=== PATIENT | female | born 1950 | race Caucasian/White ===

== ENCOUNTER 2023-02-07 07:30 | Outpatient (RCR) | payer MEDICARE, OTHER, SELFPAY | END 2023-02-07 14:14 | disposition home or self-care (01) | LOC: INF 07:30 | PROVIDERS: PCP Family Medicine; Visit Provider Internal Medicine Hematology & Oncology | DX: D51.9 Vitamin B12 deficiency anemia, unspecified (principal); D50.9 Iron deficiency anemia, unspecified; D69.6 Thrombocytopenia, unspecified; K90.9 Intestinal malabsorption, unspecified; Z90.49 Acquired absence of other specified parts of digestive tract; Z98.84 Bariatric surgery status; Z87.891 Personal history of nicotine dependence | CPT/HCPCS: G0463 ==

== ENCOUNTER 2023-03-08 10:24 | Outpatient (OUT) | payer MEDICARE, OTHER, SELFPAY ==
--- OUTSIDE RECORDS SUMMARY | 2023-03-08 10:36 | XMS_ITS | CCD ---
Author Name Unknown Address [address] [place] [address] Organization [facility] Care Team Providers Care Jewelry Engraver Name Role Phone DR TEMITOPE GUTIERREZ Attending Unavailable BRENDA, DR LINN Consulting Unavailable DR TEMITOPE GUTIERREZ Admitting Unavailable Temitope Gutierrez Unavailable Bhavesh Wright Unavailable Allergies Allergy Classification Reported Allergen(s) Allergy Type Date of Onset Reaction(s) Facility (17 sources) Penicillin V Drug Allergy Unknown [facility] Other (17 sources) zoledronic acid Drug Allergy hypocalcemia [facility] [employer] Other Medications Current Medications Medication Drug Class(es) Dates Sig (Normalized) Sig (Original) [id number] 200 actuat albuterol 0.09 mg/actuat metered dose inhaler (17 sources) beta2-Adrenergic Agonist Start: 05-16-2016 Ventolin HFA 108 (90 Base) MCG/ACT 2 inhalations Inhalation q6 hrs prn Apr, Active Start: 05-16-2016 Ventolin HFA 1 08 (90 Base) MCG/ACT 2 inhalations Inhalation q4 hrs prn Apr, Active albuterol 0.833 mg/ml / ipratropium bromide 0.167 mg/ml inhalation solution (6 sources) Anticholinergic, beta2-Adrenergic Agonist Start: 05-16-2016 take 3 mL by inhalation four times daily as needed Ipratropium-Albuterol 0.5-2.5 (3) MG/3ML 3 ml Inhalation four times a day Dx: J44.9 COPD prn Apr, Active Aspir-81 81 MG (17 sources) take 1 tablet by mouth once daily Aspir-81 81 MG 1 tablet Orally Once a day Active azithromycin 250 mg oral tablet (3 sources) Macrolide Antimicrobial Start: 02-23-2021 Zithromax Z-Scar 250 MG 2 tablet on the first day, then 1 tablet daily for 4 days Orally Once a day for 5 day(s) Feb, Active Breo Ellipta 100-25 MCG/INH (5 sources) Start: 09-28-2015 take 1 puff(s) by inhalation once daily Breo Ellipta 100-25 MCG/INH 1 puff Inhalation Once a day for 30 days Sep, Active calcium acetate 668 mg oral tablet (17 sources) take 3 capsules by mouth at mealtime Calcium Acetate 668 (169 Ca) MG 3 capsules with meals Orally Active take 3 capsules by mouth at meal time Calcium Acetate 668 (169 Ca) MG 3 capsules with meals Orally Active Centrum (17 sources) take 1 tablet by mouth once daily Centrum 1 tablet Orally daily Active cetirizine hydrochloride 10 mg oral tablet (17 sources) Histamine-1 Receptor Antagonist take 1 tablet by mouth every twenty-four hours ZyrTEC Allergy 10 MG 1 tablet Orally Once a day Active clotrimazole 10 mg oral lozenge (5 sources) Azole Antifungal Start: 023 Clotrimazole 10 MG dissolve 1 chase on tongue Mouth/Throat five times a day for 7 days Feb, Active ferrous sulfate 325 mg oral tablet (17 sources) take 2 tablets by mouth every twenty-four hours Ferrous Sulfate 325MG 2 tablets Orally qd Active 30 actuat fluticasone furoate 0.1 mg/actuat / vilanterol 0.025 mg/actuat dry powder inhaler (12 sources) Corticosteroid, beta2-Adrenergic Agonist Start: 016 take 1 puff(s) by inhalation once daily Breo Ellipta 100-25 MCG/ACT 1 puff Inhalation Once a day Sep, Active 12 hr guaiFENesin 600 mg extended release oral tablet (6 sources) take 1 tablet by mouth every twelve hours Mucinex 600 MG 1 tablet as needed Orally every 12 hrs Active loratadine 10 mg oral tablet (9 sources) take 1 tablet by mouth every twenty-four hours Loratadine 10 MG 1 tablet Orally Once a day for 30 day(s) Active metroNIDAZOLE 500 mg oral tablet (3 sources) Nitroimidazole Antimicrobial Start: 022 take 1 tablet by mouth every twelve hours metroNIDAZOLE 500 MG 1 tablet Orally Twice a day for 3 days Aug, Active potassium chloride 10 meq extended release oral capsule (17 sources) take 2 capsules by mouth twice daily Potassium Chloride ER 10 MEQ TAKE TWO CAPSULES BY MOUTH TWICE DAILY 90 DAYS Active take 2 capsules by mouth twice d aily Potassium Chloride ER 10MEQ ER TAKE TWO CAPSULES BY MOUTH TWICE DAILY for 90 days Active vitamin b12 1 mg extended release oral tablet (3 sources) Vitamin B12 take 1 tablet by mouth every other week Vitamin B12 1000 MCG 1 tablet Orally every 2 weeks Active Vitamin B12 1000 MCG (9 sources) Start: 01-26-2021 Vitamin B12 1000 MCG 1 tablet Orally 3 days a week Jan, Active Vitamin D 24575 UNIT (17 sources) take 1 tablet by mouth once daily Vitamin D 52286 UNIT 1 tablet Orally Once a day (10,000iu qd) Active Vitamin D3 88275 UNIT (17 sources) take 1 tablet by mouth every week Vitamin D3 28322 UNIT 1 tablet Orally 3x week Active zinc gluconate 50 mg oral tablet (8 sources) take 1 tablet by mouth every week Zinc 50 MG 1 tablet Orally once a week Active take 1 tablet by marvin th every twenty-four hours Zinc 50 MG 1 tablet Orally Once a day Active Problems Active Problems Problem Classification Problem Date Documented Date Episodic/Chronic Calculus of urinary tract (6 sources) Kidney stone; Translations: [Calculus of kidney] Episodic Chronic obstructive pulmonary disease and bronchiectasis (20 sources) Asthma-chronic obstructive pulmonary disease overlap syndrome; Translations: [Chronic obstructive pulmonary disease, unspecified] Onset: 03-23-2021 Resolved: 09-21-2021 Chronic Coagulation and hemorrhagic disorders (7 sources) Thrombocytopenic disorder; Translations: [Thrombocytopenia, unspecified] Chronic Deficiency and other anemia (1 source) Iron deficiency anemia, unspecified Episodic Diseases of white blood cells (6 sources) Decreased blood leukocyte number; Translations: [Decreased white blood cell count, unspecified] Chronic Disorders of lipid metabolism (7 sources) Dyslipidemia; Translations: [Hyperlipidemia, unspecified] Chronic Fever of unknown origin (3 sources) Fever, unspecified; Translations: [FEVER UNSPECIFIED] Onset: 02-23-2021 Resolved: 02-23-2021 Episodic Fluid and electrolyte disorders (2 sources) Hypokalemia Onset: 04-12-2021 Resolved: 04-12-2021 Episodic Lymphadenitis (1 source) Localized enlarged lymph nodes Episodic Nutritional deficiencies (7 sources) Vitamin D deficiency; Translations: [Vitamin D deficiency, unspecified] Chronic Nutritional deficiencies (1 source) Deficiency of other specified B group vitamins Episodic Other aftercare (1 source) Other alf (current) drug therapy Episodic Other endocrine disorders (6 sources) Secondary hyperparathyroidism; Translations: [Secondary hyperparathyroidism, not elsewhere classified] Chronic Other endocrine disorders (1 source) Secondary hyperparathyroidism, not elsewhere classified Chronic Other injuries and conditions due to external causes (1 source) Other specified injuries of thorax, subsequent encounter Episodic Other nutritional; endocrine; and metabolic disorders (6 sources) Hypocalcemia; Translations: [Hypocalcemia] Chronic Other nutritional; endocrine; and metabolic disorders (1 source) Hypocalcemia Chronic Other nutritional; endocrine; and metabolic disorders (1 source) Abnormal weight loss Episodic Other screening for suspected conditions (not mental disorders or infectious disease) (1 source) Encounter for screening mammogram for malignant neoplasm of breast Episodic Other upper respiratory disease (6 sources) Allergic rhinitis; Translations: [Allergic rhinitis, unspecified] Chronic Other upper respiratory disease (2 sources) Other specified disorders of nose and nasal sinuses; Translations: [OTH SPEC D/O NOSE NASAL SINUSES] Onset: 02-23-2021 Resolved: 02-23-2021 Episodic Other upper respiratory infections (2 sources) Acute pharyngitis, unspecified; Translations: [ACUTE PHARYNGITIS UNSPECIFIED] Onset: 02-23-2021 Resolved: 02-23-2021 Episodic Residual codes; unclassified (6 sources) H/O: GIT by-pass; Translations: [Other specified postprocedural states] Episodic Residual codes; unclassified (1 source) Other specified postprocedural states Episodic Unclassified (2 sources) CONTACT W/AND (SUSP) EXPOS COVID-19; Translations: [CONTACT W/AND (SUSP) EXPOS COVID-19] Onset: 03-01-2021 Viral infection (1 source) COVID-19; Translations: [COVID-19] Onset: 03-01-2021 Past or Other Problems Problem Classification Problem Date Documented Da te Episodic/Chronic Unclassified (1 source) CONTACT W/AND (SUSP) EXPOS COVID-19; Translations: [CONTACT W/AND (SUSP) EXPOS COVID-19] Onset: 02-24-2021 Results Test Name Value Interpretation Reference Range Facil ity Covid-19 PCR (CVDTB)on SARS-CoV-2 (COVID-19) RNA JANKI+probe Ql (Unsp spec) Detected Critically abnormal NOT DETECTED [facility] Comment on above: Result Comment: This test is not yet noah roved or cleared by the [place] FDA. When there are no FDA-approved or cleared tests available, and other criteria are met, FDA can make tests available under an emergency access mechanism called an Emergency Use Authorization (EUA). The EUA for this test is supported by the Order Checker Packer Processer of Health and Human Service's (HHS's) declaration that circumstances exist to justify the emergency use of in vitro diagnostics for the detection and/or diagnosis of the virus that causes COVID-19. This EUA will remain in effect (meaning this test can be used) for the duration of the COVID-19 declaration justifying emergency of IVDs, unless it is terminated or revoked by FDA (after which the test may no longer be used). Performed By: #### [facility] #### [facility] [address] [place] [address] Dr. Malu June Vital Signs Date Time Vital Sign Value Performing Clinician Facility 01-31-2023 09:10-0500 Body height 157.48 cm Temitope Gutierrez Other [facility] Other 01-31-2023 09:10-0500 Body mass index (BMI) [Ratio] 25.69 kg/m2 Temitope Gutierrez Other [facility] Other 01-31-2023 09:10-0500 Body temperature 98.4 [degF] Temitope Gutierrez Other [facility] Other 01-31-2023 09:10-0500 Body weight 63.73 kg Temitope Gutierrez Other [facility] Other 01-31-2023 09:10-0500 Diastolic blood pressure 62 mm[Hg] Temitope Gutierrez Other [facility] Other 01-31-2023 09:10-0500 Respiratory rate 18 /min Temitope Gutierrez Other [facility] Other 01-31-2023 09:10-0500 SaO2% (BldA) [Mass fraction] 99 % Temitope Gutierrez Other [facility] Other 01-31-2023 09:10-0500 Systolic blood pressure 118 mm[Hg] Temitope Gutierrez Other [facility] Other 10-05-2022 11:15-0400 Body height 157.48 cm Bhavesh Gascaoz Other [facility] Other 10-05-2022 11:15-0400 Body mass index (BMI) [Ratio] 26.52 kg/m2 Bhavesh Gascaoz Other [facility] Other 10-05-2022 11:15-0400 Body temperature 97 [degF] Bhavesh Gascaoz Other [facility] Other 10-05-2022 11:15-0400 Body weight 65.77 kg Bhavesh Gascaoz Other [facility] Other 10-05-2022 11:15-0400 Diastolic blood pressure 72 mm[Hg] Bhavesh Kyle Other [facility] Other 10-05-2022 11:15-0400 Respiratory rate 20 /min Bhavesh Gascaoz Other [facility] Other 10-05-2022 11:15-0400 SaO2% (BldA) [Mass fraction] 100 % Desmondnicole Wright Other [facility] Other 10-05-2022 11:15-0400 Systolic blood pressure 134 mm[Hg] Bhavesh Gascaban Other [facility] Other 04-06-2022 12:15-0500 Body height 157.48 cm Bhavesh Gascaban Other [facility] Other 04-06-2022 12:15-0500 Body mass index (BMI) [Ratio] 2.74 kg/m2 Bhavesh Gascaban Other [facility] Other 04-06-2022 12:15-0500 Body temperature 97.1 [degF] Bhavesh Gascaban Other [facility] Other 04-06-2022 12:15-0500 Body weight 6.8 kg Bhavesh Gascaban Other [facility] Other 04-06-2022 12:15-0500 Diastolic blood pressure 70 mm[Hg] Bhavesh Gascaban Other [facility] Other 04-06-2022 12:15-0500 Respiratory rate 20 /min Bhavesh Gascaban Other [facility] Other 04-06-2022 12:15-0500 SaO2% (BldA) [Mass fraction] 99 % Bhavesh Gascaban Other [facility] Other 04-06-2022 12:15-0500 Systolic blood pressure 140 mm[Hg] Bhavesh Chaban Other [facility] Other 09-21-2021 12:45-0400 Body height 157.48 cm Bhavesh Gascaban Other [facility] Other 09-21-2021 12:45-0400 Body mass index (BMI) [Ratio] 28.71 kg/m2 Bhavesh Gascaban Other [facility] Other 09-21-2021 12:45-0400 Body temperature 97.6 [degF] Bhavesh Gascaban Other [facility] Other 09-21-2021 12:45-0400 Body weight 71.22 kg Bhavesh Gascaban Other [facility] Other 09-21-2021 12:45-0400 Diastolic blood pressure 66 mm[Hg] Bhavesh Gascaban Other [facility] Other 09-21-2021 12:45-0400 Respiratory rate 20 /min Bhavesh Gascaban Other [facility] Other 09-21-2021 12:45-0400 SaO2% (BldA) [Mass fraction] 99 % Bhavesh Gascaban Other [facility] Other 09-21-2021 12:45-0400 Systolic blood pressure 120 mm[Hg] Bhavesh Gascaban Other [facility] Other 03-23-2021 12:45-0500 Body height 157.48 cm Bhavesh Gascaban Other [facility] Other 03-23-2021 12:45-0500 Body mass index (BMI) [Ratio] 29.88 kg/m2 Bhavesh Gascaban Other [facility] Other 03-23-2021 12:45-0500 Body temperature 98 [degF] Bhavesh Gascaban Other [facility] Other 03-23-2021 12:45-0500 Body weight 74.12 kg Bhavesh Wright Other [facility] Other 03-23-2021 12:45-0500 Diastolic blood pressure 68 mm[Hg] Bhavesh Gascaban Other [facility] Other 03-23-2021 12:45-0500 Respiratory rate 20 /min Bhavesh Wright Other [facility] Other 03-23-2021 12:45-0500 SaO2% (BldA) [Mass fraction] 100 % Bhavesh Wright Other [facility] Other 03-23-2021 12:45-0500 Systolic blood pressure 140 mm[Hg] Bhavesh Wright Other [facility] Other 02-23-2021 11:10-0500 Body height 157.48 cm Temitope Gutierrez Other [facility] Other Encounters Encounter Date Encounter Type Care Provider Facility Start: 02-23-2023 End: 02-23-2023 ambulatory Temitope Gutierrez Other [facility] Other Start: 02-23-2023 Telephone encounter Temitope Gutierrez [facility] Start: 02-01-2023 End: 02-01-2023 ambulatory Temitope Gutierrez Other [facility] Other Start: 02-01-2023 Telephone encounter Temitope Gutierrez [facility] Start: 01-31-2023 End: 01-31-2023 ambulatory Temitope Gutierrez Other [facility] Other Start: 01-31-2023 Office outpatient vi sit 25 minutes Temitope Gutierrez [facility] Start: 10-05-2022 End: 10-05-2022 ambulatory Kamal Chaban Other [facility] Other Start: 10-05-2022 Office outpatient vi sit 15 minutes Kamal Chaban [facility] Start: 08-08-2022 End: 08-08-2022 ambulatory Kamal Chaban Other [facility] Other Start: 08-08-2022 Telephone encounter Kamal Chaban [facility] Start: 06-20-2022 End: 06-20-2022 ambulatory Temitope Gutierrez Other [facility] Other Start: 06-20-2022 Telephone encounter Temitope Gutierrez [facility] Start: 04-06-2022 End: 04-06-2022 ambulatory Kamal Chaban Other [facility] Other Start: 04-06-2022 Office outpatient vi sit 15 minutes Kamal Chaban [facility] Start: 03-10-2022 End: 03-10-2022 ambulatory Temitope Gutierrez Other [facility] Other Start: 03-10-2022 Telephone encounter Temitope Gutierrez [facility] Start: 01-12-2022 End: 01-12-2022 ambulatory Temitope Gutierrez Other [facility] Start: 01-12-2022 Telephone encounter Temitope Gutierrez [facility] Start: 12-02-2021 End: 12-02-2021 ambulatory Kamal Chaban Other [facility] Start: 12-02-2021 Telephone encounter Kamal Chaban [facility] Start: 09-21-2021 End: 09-21-2021 ambulatory Kamal Chaban Other [facility] Start: 09-21-2021 Office outpatient vi sit 15 minutes Kamal Chaban [facility] Start: 09-14-2021 End: 09-14-2021 ambulatory Temitope Gutierrez Other [facility] Start: 09-14-2021 Telephone encounter Temitope Gutierrez [facility] Start: 04-12-2021 End: 04-12-2021 ambulatory Temitope Gutierrez Other [facility] Start: 04-12-2021 Telephone encounter Temitope Gutierrez [facility] Start: 03-23-2021 End: 03-23-2021 ambulatory Kamnicole Gascaoz Other [facility] Start: 03-23-2021 Office outpatient vi sit 15 minutes Kamal Chaban [facility] Start: 03-23-2021 Telephone encounter Kamnicole Chaban [facility] Start: 02-25-2021 End: 02-25-2021 ambulatory Temitope Gutierrez Other [facility] Start: 02-25-2021 Telephone encounter Temitope Gutierrez [facility] Start: 02-24-2021 End: 02-24-[address] TEMITOPE GUTIERREZ Facility: Start: 02-23-2021 End: 02-23-2021 ambulatory Temitope Gutierrez Other [facility] Start: 02-23-2021 Telephone encounter Temitope Gutierrez [facility] Immunizations Immunization Date Immunization Notes Care Provider Fa nilam 12-08-2022 Flu Shot - Documentation Purposes Only Temitope Gutierrez Other [facility] Other 12-08-2022 COVID-19 Moderna (SPIKEVAX) Temitope Gutierrez Other [facility] Other 10-06-2022 Prevnar 20 Temitope Gutierrez Other [facility] Other 11-25-2021 influenza, seasonal, injectable Kamal Chaban Other [facility] 09-10-2021 tetanus toxoid, redu cleo diphtheria toxoid, and acellular pertussis vaccine, adsorbed Kamal Chaban Other [facility] Other 06-09-2021 COVID-19 Vaccine Moderna - Documentation Purposes Only Kamal Chaban Other [facility] Other 12-16-2020 COVID-19 Vaccine Moderna - Documentation Purposes Only Temitope Gutierrez Other [facility] Other 11-10-2020 influenza, seasonal, injectable Temitope Gutierrez Other [facility] Other 05-18-2020 COVID-19 Vaccine Moderna - Documentation Purposes Only Temitope Gutierrez Other [facility] Other 04-17-2020 COVID-19 Vaccine Moderna - Documentation Purposes Only Temitope Gutierrez Other [facility] Other 03-14-2020 zoster vaccine recombinant Temitope Gutierrez Other [facility] Other 01-14-2020 zoster vaccine recombinant Temitope Gutierrez Other [facility] Other 10-29-2019 influenza, seasonal, injectable Temitope Gutierrez Other [facility] Other 12-13-2018 influenza, seasonal, injectable Temitope Gutierrez Other [facility] Other 09-02-2017 pneumococcal polysaccharide vaccine, 23 valent Temitope Gutierrez Other [facility] Other 11-16-2016 influenza, seasonal, injectable Temitope Gutierrez Other [facility] Other Payers Date Payer Category Payer Medicare [id number] 1958 Unknown [id number] 1950 Unknown [id number] Social History Date Type Detail Facility Sex Assigned At [facility] Other Clinical Notes 02-23-2021 to 02-23-2023 Note Date & Type Note Facility 02-23-2023 Evaluation note Encounter Date Diagnosis Assessment Notes Feb, Breast cancer screening (ICD-10 - Z12.31) [facility] Other 12-12-2023 Evaluation note* Encounter Date Diagnosis Assessment Notes Treatment Notes Treatment Clinical Notes Jan, Iron deficiency anem ia (ICD-10 - D50.9) Her HGB is 10.9. Iron is 80. Ferritin is 112. She is to continue with above medication daily. Jan, Hypocalcemia (ICD-10 - E83.51) Her calcium level is low at 8.3. She has been taking 3 tablets per day and voices that she can increase to 4 per day. I did explain to her that before she adds anymore vitamins we should evaluate her ionized calcium first. I would like to order lab work first and she is to call for results. Based on her results we will determine if she needds to increase her vitamins. Jan, Thrombocytopenia (IC D-10 - D69.6) Her platelet count is 100. At this time based on all of her lab results I did recommend that she see Dr. Jarrett for evaluation and she agrees. It could be due to absorption issues. Jan, B12 deficiency (ICD- 10 - E53.8) She voices that she had not taken any B12 for at least two weeks prior to the Monday before she got her lab drawn. Her B12 level was 1431. Folate is 18.0. Jan, Cervical lymphadenop athy (ICD-10 - R59.0) She voices that she has swollen glands right now and feels that these are caused by her bad teeth. She does not have dental insurance right now. She had one tooth that does cause her pain from time to time. She is waiting to greene in a CD before she can get her teeth fixed. I would like her to have the poultry husbandry worker evaluate her neck when seen. On exam today I did feel that both sides are almost equal and I did advise her that I do feel this is reacting to what is going on with her teeth. She is allergic to PCN so for now she will continue to monitor. If she feels that one side is getting larger she is to let me know and we will order a CT scan. She should only check this once a week. Jan, Chronic obstructive pulmonary disease (ICD-10 - J44.9) She voices that she saw Dr. Wright in September (2022). She rarely needs the Ventolin but in the winter months she does find that she needs it more. Dr. Wright has left so she would like to switch to Dr. Honeycutt in the [place] office. A referral is provided. Jan, Vitamin D deficiency (ICD-10 - E55.9) Continue with above medications daily as directed. Jan, Hyperparathyroidism , secondary, non-renal (ICD-10 - E21.1) She saw Dr. Garcia in July (2022) and will continue to follow with him once a year. Jan, Weight loss (ICD-10 - R63.4) She has lost 4.5 pounds since last seen. Jan, penitentiary use of jenaro g (ICD-10 - Z79.899) Jan, Hypokalemia (ICD-10 - E87.6) For now continue with above medication daily as directed. Jan, Dyslipidemia (ICD-10 - E78.5) Discussed cholesterol results with patient today. Total is 93. HDL is 38. LDL is 45. Triglycerides are 52. Continue to monitor intake of carbs and sugars. Stay active as tolerated. Jan, H/O gastric bypass (ICD-10 - Z98.89) She is taking the Zinc about once a week. She also takes a combination vitamin of Vitamin A and Vitamin D3 300 MG tablet once a day. Jan, Other She saw Dr. Ham three weeks ago and he will see her again in six months, she voices that everything was good. I will wait and see what Dr. Jarrett orders for her before giving her the order to be done in 1 year [facility] Other 08-16-2023 Evaluation note* Encounter Date Diagnosis Assessment Notes Treatment Notes Treatment Clinical Notes Sep, Asthma with COPD (ICD-10 - J44.9) Patient has evidence of asthma with COPD given a reversible component of moderate to severe obstructive pattern noted on previous PFTs, she seems to be well controlled with current maintenance treatment with rare need for rescue inhaler or nebulized treatments, she was encouraged to continue same, report changes or problems to me, otherwise we will continue to follow Sep, Blunt trauma to chest, subsequent encounter (ICD-10 - S29.8XXD) [facility] Other 02-15-2023 Evaluation note* Encounter Date Diagnosis Assessment Notes Treatment Notes Treatment Clinical Notes Mar, Asthma with COPD (ICD-10 - J44.9) Patient has evidence of asthma with COPD given a reversible component of moderate to severe obstructive pattern noted on previous PFTs, she seems to be well controlled with current maintenance treatment with rare need for rescue inhaler or nebulized treatments, she was encouraged to continue same, report changes or problems to me, otherwise we will continue to follow [facility] Other 01-19-2023 Evaluation note* Encounter Date Diagnosis Assessment Notes Treatment Notes Treatment Clinical Notes Feb, Fever (ICD-10 - R50.9) [facility] Other 10-13-2022 Evaluation note* Encounter Date Diagnosis Assessment Notes Treatment Notes Treatment Clinical Notes Nov, Chronic obstructive pulmonary disease (ICD-10 - J44.9) [facility] Other 08-02-2022 Evaluation note* Encounter Date Diagnosis Assessment Notes Treatment Notes Treatment Clinical Notes Sep, Chronic obstructive pulmonary disease (ICD-10 - J44.9) Patient remains adequately controlled with current treatment, states that she has 1 more refill left on her inhalers and will call when she needs more ordered. [facility] Other 02-21-2022 Evaluation note* Encounter Date Diagnosis Assessment Notes Treatment Notes Treatment Clinical Notes Mar, Hypokalemia (ICD-10 - E87.6) [facility] Other 02-01-2022 Evaluation note* Encounter Date Diagnosis Assessment Notes Treatment Notes Treatment Clinical Notes Mar, Chronic obstructive pulmonary disease (ICD-10 - J44.9) [facility] Other 01-04-2022 Evaluation note* Encounter Date Diagnosis Assessment Notes Treatment Notes Treatment Clinical Notes Feb, Fever (ICD-10 - R50.9) She voices that she does go out more often then her for groceries etc but is careful. She had been around a neighbor who was around her grandchildren who tested positive for COVID-19 in January. I did explain to her that the new variant is highly contagious. She has a low grade temp of 99 today. I did discuss her symptoms with her today and recommended that she take a Z scar and explained that if she is fighting something viral this will decrease inflammation and calm things down in the airways. AIso recommend that she be tested for COVID-19 at the [facility] on Mon02/24/21. She should have the results prior to the weekend. Feb, Rhinorrhea (ICD-10 - J34.89) Feb, Pharyngitis (ICD-10 - J02.9) Feb, Other 10:26 AM - 10:38 AM [facility] Other Evaluation noteNo InformationNort Weft Other History general Narrative - Reported* Type Description Date Medical History hypokalemia Medical History hypocalcemia Medical History vit d dif Medical History hyperparathyroidism, secondary Medical History osteoporosis Medical History Fractured [facility] Medical History Colonoscopy 12-31-08- Normal Medical History Pap 05-31-12 Medical History Mammogram 06-06-12 Medical History Hx of bariatric surg shay (10 year ago/2003) weighed 323 when surgery occured Medical History COPD Surgical History wt loss surgery 2002 Surgical History tubal ligation 1976 Surgical History ganglion cyst 1989 Surgical History cholecystectomy 2002 Surgical History hernia repair 2004 Surgical History FX RIbs [address] 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 Surgical History cortisone inj rt shoulder - [facility] [place] 01/19/16 Surgical History left knee xr [facility] 01/17/17 Surgical History rt cheek ct [facility] 01/17/[address] kidney stones [address] Ham Hospitalization History hyperkalemia 2009 Hospitalization History UC for URI 12/12/19 15 Hospitalization History [facility] COPD - ED 04/29/15 [facility] Other History general Narrative - Reported* Type Description Date Medical History hypokalemia Medical History hypocalcemia Medical History vit d dif Medical History hyperparathyroidism, secondary Medical History osteoporosis Medical History Fractured [facility] [employer] Medical History Colonoscopy 12-31-08- Normal Medical History Pap 05-31-12 Medical History Mammogram 06-06-12 Medical History Hx of bariatric surg shay (10 year ago/2003) weighed 323 when surgery occured Medical History COPD Medical History Wears b/l hearing aids 2022 Surgical History wt loss surgery 2002 Surgical History tubal ligation 1976 Surgical History ganglion cyst 1989 Surgical History cholecystectomy 2002 Surgical History hernia repair 2004 Surgical History FX RIbs [address] 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 Surgical History cortisone inj rt shoulder - Hud [place] 01/19/16 Surgical History left knee xr [facility] 01/17/17 Surgical History rt cheek ct [facility] 01/17/[address] kidney stones Dr Ham Hospitalization History hyperkalemia 2009 Hospitalization History UC for URI 12/12/19 15 Hospitalization History [facility] COPD - ED 04/29/15 [facility] Other Reason for visit Narrativeyearly visit/ review lab, discuss multiple issues, see treatment plan for further informationNort Weft Other Summary Purpose Family History No Family History Records Found Advance Directives No Advanced Directives Records Found Reason for Referral Reason appt pt needs cons ult for COPD Diagnosis 1 Chronic obstructive pulmonary disease (J44.9) Referral Organization [facility] Family Breann Lorenzo Referring Provider First Name Temitope Referring Provider Last Name Brenda Referring Provider Specialty Family Prac bi Referred Organization [facility] Referred Provider Sara Honeycutt Referred Address ,[place], [place],[address] Referred Provider Specialty Pulmonary Di seases Referral Priority Routine General Notes Lara Hampton 01/31/2023 10:27:34 AM > referral faxed thru [facility] with visit note, July visit note from Dr Wright, CT chest report from July and insurance cards. pt understands she will be contacted to schedule this appt. Reason appt pt needs cons ult w/ Dr. Jarrett to discuss thrombocytopenia, iron deficiency anemia, Diagnosis 1 Thrombocytopenia (D6 9.6) Referral Organization [facility] Referring Provider First Name Temitope Referring Provider Last Name [facility] Referring Provider Specialty [facility] bi Referred Organization [facility] Referred Provider GREGORY JARRETT Referred Address [address], [place],[address] Referred Provider Specialty Hematology/O ncology Referral Priority Routine General Notes Lara Hampton 01/31/2023 10:25:37 AM > referral faxed to [phone] with visit note, lab results and insurance cards. pt understands she will be contacted to schedule this appt. Additional Source Comments INFORMATION SOURCE (unrecogn ized section and content) DATE CREATED AUTHOR 03/01/2021 [facility] REASON FOR VISIT (unrecogniz ed section and content) clinicalrunny nose/sore thro at/low grade tempNo Information6 mo f/u COPDrefillClinical Acute Illness6 mo f/u COPDRefills- BreoFYIClinical Acute Medicine6 mo f/u COPDrefillCT results6 mo f/u Asthma w COPDClinicalmammo order FOR RECORDS PERTAINING TO PATIENTS WHO ARE OR HAVE BEEN ENROLLED IN A CHEMICAL DEPENDENCY/SUBSTANCEABUSE PROGRAM, SOME INFORMATION MAY BE OMITTED. This clinical summary was aggregated from multiple sources. Caution should be exercised in using it in the provision of clinical care. This summary normalizes information from multiple sources, and as a consequence, information in this document may materially change the coding, format and clinical context of patient data. In addition, data may be omitted in some cases. CLINICAL DECISIONS SHOULD BE BASED ON THE PRIMARY CLINICAL RECORDS. [employer] provides no warranty or guarantee of the accuracy or completeness of information in this document.
--- NOTE | 2023-03-08 10:53 | US_ITS ---
The [address] [address] Patient Name: MANOJ HU MRN: [id number] date: 1950 Sex: F Assigned Patient Location: US Current Patient Location: US Accession/Order Number: [id number] Exam Date: 03/08/2023 11:05 Report Date: 03/08/2023 12:03 At the request of: GREGORY TOVAR Procedure: US abdomen limited EXAMINATION: US abdomen limited HISTORY: thrombocytopenia COMPARISON: No relevant comparison available. FINDINGS: The spleen is normal in size, contour and echotexture measuring 7.8 x 3.8 x 7.6 cm a volume of 116 mL. No focal intrasplenic mass. Identified at the splenic hilum is a 1.9 x 1.2 x 1.6 cm area of similar-appearing echotexture, likely accessory spleen or splenule US/US abdomen limited IMPRESSION: Normal splenic size with no focal mass Electronically authenticated by: TEMITOPE GUO Date: 03/08/2023 12:03
--- NOTE | 2023-03-08 10:53 | US_ITS ---
The [address] [address] Patient Name: MANOJ HU MRN: [id number] date: 1950 Sex: F Assigned Patient Location: US Current Patient Location: US Accession/Order Number: [id number] Exam Date: 03/08/2023 11:05 Report Date: 03/08/2023 12:02 At the request of: GREGORY TOVAR Procedure: US right upper quadrant EXAM: US right upper quadrant HISTORY: thrombocytopenia COMPARISON: None. TECHNIQUE: Grayscale, color and Doppler FINDINGS: The liver is normal in size, contour and echotexture measuring 17.6 cm in length. No focal hepatic mass. Hepatopedal flow in the main portal vein with velocity of 35 cm/s. The visualized pancreatic body is normal. The gallbladder is not visualized consistent with prior cholecystectomy. Negative sonographic Hamlin sign. The common bile duct measures 2.5 mm. The right kidney is normal in size measuring 9.8 x 4.6 x 5.5 cm. No hydronephrosis or solid cortical mass. Echogenic foci measuring up to 8 mm, nonobstructing nephrolithiasis No ascites US/US right upper quadrant IMPRESSION: Nonobstructing right nephrolithiasis Electronically authenticated by: TEMITOPE GUO Date: 03/08/2023 12:02
[2023-03-08 11:19] LABS: Basophils Absolute Auto 0.1 10^3/uL (0.0-0.1); Basophils Percent Auto 1.7 % (0.2-2.0); Eosinophils Absolute Auto 0.3 10^3/uL (0.0-0.7); Eosinophils Percent Auto 7.5 % (0.9-7.0); Hematocrit 35.1 % (36.0-48.0); Hemoglobin 10.9 g/dL (12.0-16.0); Immature Granulocytes Abs Auto 0.01 10^3/uL (0.00-0.03); Immature Granulocytes Pct Auto 0.3 % (0.0-0.5); Lymphocytes Absolute Auto 1.2 10^3/uL (1.2-3.8); Lymphocytes Percent Auto 33.9 % (20.5-60.0); Mean Corpuscular HGB Conc 31.1 g/dL (29.9-35.2); Mean Corpuscular Hemoglobin 28.9 pg (26.7-34.0); Mean Corpuscular Volume 93.1 fL (81.0-99.0); Mean Platelet Volume 14.5 fL (9.5-13.5); Monocytes Absolute Auto 0.3 10^3/uL (0.3-0.8); Monocytes Percent Auto 8.4 % (1.7-12.0); Neutrophils Absolute Auto 1.7 10^3/uL (1.4-6.5); Neutrophils Percent Auto 48.2 % (43.0-75.0); Platelet Count 119 10^3/uL (150-450); Red Blood Count 3.77 10^6/uL (4.20-5.40); Red Cell Distribution Width 13.3 % (11.0-15.0); White Blood Count 3.5 10^3/uL (4.0-11.0)
[2023-03-08 11:58] LABS: Lactate Dehydrogenase 185 U/L (81-234)
[2023-03-09 06:10] LABS: Haptoglobin 132 mg/dL (42-346)
[2023-03-09 11:08] LABS: ANA Direct Negative (Negative)
[2023-03-09 15:11] LABS: Albumin 3.7 g/dL (2.9-4.4); Alpha-1-Globulin 0.2 g/dL (0.0-0.4); Alpha-2-Globulin 0.7 g/dL (0.4-1.0); Free Kappa Lt Chains,S 35.5 mg/L (3.3-19.4); Free Lambda Lt Chains,S 18.8 mg/L (5.7-26.3); Gamma Globulin 0.9 g/dL (0.4-1.8); Immunoglobulin A, Qn, Serum 131 mg/dL (64-422); Immunoglobulin G, Qn, Serum 897 mg/dL (586-1602); Immunoglobulin M, Qn, Serum 96 mg/dL (26-217); Kappa/Lambda Ratio,S 1.89 (0.26-1.65); Protein, Total 6.2 g/dL (6.0-8.5)
[2023-04-10 14:46] LABS: Reticulocyte Count 1.59 % (0.60-3.10)
== END 2023-03-08 10:25 | disposition home or self-care (01) ==
LOC: US 10:26
PROVIDERS: PCP Family Medicine; Visit Provider Internal Medicine Hematology & Oncology
DX: D51.9 Vitamin B12 deficiency anemia, unspecified (principal); D50.9 Iron deficiency anemia, unspecified; D69.6 Thrombocytopenia, unspecified; K90.9 Intestinal malabsorption, unspecified; N20.0 Calculus of kidney
CPT/HCPCS: 36415; 76705; 82784; 83010; 83521; 83615; 84155; 84165; 85025; 85045; 86038; 86334

== ENCOUNTER 2023-03-14 07:27 | Outpatient (RCR) | payer MEDICARE, OTHER, SELFPAY | END 2023-03-22 23:59 | disposition home or self-care (01) | LOC: INF 07:27 | PROVIDERS: PCP Family Medicine; Visit Provider Internal Medicine Hematology & Oncology | DX: D51.9 Vitamin B12 deficiency anemia, unspecified (principal); D50.9 Iron deficiency anemia, unspecified; D69.6 Thrombocytopenia, unspecified; K90.9 Intestinal malabsorption, unspecified; M81.0 Age-related osteoporosis without current pathological fracture; E21.3 Hyperparathyroidism, unspecified | CPT/HCPCS: G0463 ==

== ENCOUNTER 2023-04-25 08:38 | Outpatient (OUT) | payer MEDICARE, OTHER, SELFPAY ==
--- OUTSIDE RECORDS SUMMARY | 2023-04-25 08:48 | XMS_ITS | CCD ---
Author Name Unknown Address [address] [address] [place] [address] Organization [facility] Care Team Providers Care Medication Assistant Name Role Phone DR TEMITOPE GUTIERREZ Attending Unavailable BRENDA, DR LINN Consulting Unavailable BRENDA, DR LINN Admitting Unavailable Temitope Gutierrez Unavailable Bhavesh Wright Unavailable DO Temitope Gutierrez Primary Care Provider [phone] MD Gregory Jarrett Attending Provider [phone] TEMITOPE GUTIERREZ Referring Unavailable TEMITOPE GUTIERREZ Primary Care Unavailable Temitope Gutierrez Primary Care Unavailable Gregory Jarrett Attending Unavailable Gregory Jarertt Admitting Unavailable Allergies Allergy Classification Reported Allergen(s) Allergy Type Date of Onset Reaction(s) Facility (18 sources) Penicillin V Drug Allergy Unknown [facility] Other (18 sources) zoledronic acid Drug Allergy hypocalcemia [facility] Other (1 source) Penicillins; Translations: [PENICILLINS] Propensity to adverse reactions to drug (disorder) 7 [facility] Repository (1 source) HORSE DANDER; Translations: [HORSE DANDER] Propensity to adverse reactions to drug (disorder) 2 [facility] Repository (1 source) ZOLEDRONIC BXGG-RPCDHYCV-F ATER; Translations: [ZOLEDRONIC KURQ-IZENPXAC-U ATER] Propensity to adverse reactions to drug (disorder) 8 [facility] Repository (1 source) Mannitol Drug Allergy 3 [facility] Repository (1 source) Penicillin Drug Allergy 3 [facility] Repository (1 source) zoledronic acid Drug Allergy 3 [facility] Repository (1 source) water for injection,steri le Drug allergy (disorder) 3 [facility] Repository Medications Current Medications Medication Drug Class(es) Dates Sig (Normalized) Sig (Original) [id number] 200 actuat albuterol 0.09 mg/actuat metered dose inhaler (18 sources) beta2-Adrenergic Agonist Start: 05-16-2016 Ventolin HFA [...] COPD prn Apr, Active Aspir-81 81 MG (18 sources) take 1 tablet by mouth once daily Aspir-81 81 MG 1 tablet Orally Once a day Active azithromycin 250 mg oral tablet (4 sources) Macrolide Antimicrobial Start: 02-23-2021 Zithromax Z-Scar 250 MG 2 tablets on day 1 Orally then take 1 tablet daily on days 2-5 for 5 days Feb, Active Breo Ellipta 100-25 MCG/INH (5 sources) Start: 09-28-2015 take 1 puff(s) by inhalation once daily Breo Ellipta 100-25 MCG/INH 1 puff Inhalation Once a day for 30 days Sep, Active calcium acetate 668 mg oral tablet (18 sources) take 3 capsules by mouth at mealtime Calcium Acetate 668 (169 Ca) MG 3 capsules with meals Orally Active take 3 capsules by mouth at meal time Calcium Acetate 668 (169 Ca) MG 3 capsules with meals Orally Active Centrum (18 sources) take 1 tablet by mouth once daily Centrum 1 tablet Orally daily Active cetirizine hydrochloride 10 mg oral tablet (18 sources) Histamine-1 Receptor Antagonist take 1 tablet by mouth every twenty-four hours ZyrTEC Allergy 10 MG 1 tablet Orally Once a day Active clotrimazole 10 mg oral lozenge (5 sources) Azole Antifungal Start: 023 Clotrimazole 10 MG dissolve 1 chase on tongue Mouth/Throat five times a day for 7 days Feb, Active ferrous sulfate 325 mg oral tablet (18 sources) take 2 tablets by mouth every twenty-four hours Ferrous Sulfate 325MG 2 tablets Orally qd Active 30 actuat fluticasone furoate 0.1 mg/actuat / vilanterol 0.025 mg/actuat dry powder inhaler (13 sources) Corticosteroid, beta2-Adrenergic Agonist Start: 016 take [...] chloride 10 meq extended release oral capsule (18 sources) take 2 capsules by mouth twice daily Potassium Chloride ER 10 MEQ TAKE TWO CAPSULES BY MOUTH TWICE DAILY 90 DAYS Active take 2 capsules by mouth twice d aily Potassium Chloride ER 10MEQ ER TAKE TWO CAPSULES BY MOUTH TWICE DAILY for 90 days Active vitamin b12 1 mg extended release oral tablet (4 sources) Vitamin B12 take 1 tablet by mouth every other week Vitamin B12 1000 MCG 1 tablet Orally every 2 weeks Active Vitamin B12 1000 MCG (9 sources) Start: 01-26-2021 Vitamin B12 1000 MCG 1 tablet Orally 3 days a week Jan, Active Vitamin D 94977 UNIT (18 sources) take 1 tablet by mouth once daily Vitamin D 68466 UNIT 1 tablet Orally Once a day (10,000iu qd) Active Vitamin D3 53064 UNIT (18 sources) take 1 tablet by mouth every week Vitamin D3 80656 UNIT 1 tablet Orally 3x week Active zinc gluconate 50 mg oral tablet (9 sources) take 1 [...] [Hyperlipidemia, unspecified] Chronic Fever of unknown origin (4 sources) Fever, unspecified; Translations: [FEVER UNSPECIFIED] Onset: 02-23-2021 Resolved: 02-23-2021 Episodic Fluid and electrolyte disorders (2 sources) Hypokalemia Onset: 04-12-2021 Resolved: 04-12-2021 Episodic Lymphadenitis (1 source) Localized enlarged lymph nodes Episodic Nutritional deficiencies (7 sources) Vitamin D deficiency; Translations: [Vitamin D deficiency, unspecified] Chronic Nutritional deficiencies (1 source) Deficiency of other specified B group vitamins Episodic Other aftercare (1 source) Other chemist physical (current) drug therapy Episodic Other endocrine disorders [...] conditions (not mental disorders or infectious disease) (2 sources) Encounter for screening mammogram for malignant neoplasm of breast; Translations: [Encounter for screening mammogram for malignant neoplasm of breast] Onset: 03-27-2023 Episodic Other upper respiratory disease (6 sources) [...] Results Test Name Value Interpretation Reference Range Facility MAMM SCREENING BILATERAL W [facility] 03-27-2023 MAMM SCREENING BILATERAL W CAD MAMM SCREENING BILATERAL W CAD EXAM: MAMM SCREENING BILATERAL W CAD, 03/27/2023 9:13 AM CLINICAL INDICATIONS: Screening, Visit for screening mammogram. COMPARISON: 03/24/2022 and priors TECHNIQUE: Bilateral digital tomosynthesis MLO and CC views of the breasts were obtained, with creation of synthetic 2D views. Computer aided detection was utilized. FINDINGS: The breasts are heterogeneously dense, which may obscure small masses. There are no suspicious masses, calcifications, or areas of architectural distortions. IMPRESSION: No mammographic evidence of malignancy. BI-RADS: BI-RADS 1 - Negative Recommendation: Routine screening mammogram in 1 year. Finalized by Josh Broderick MD on 03/27/2023 10:20 AM 1 c MAMM 1 YR Normal [facility] 03-08-2023 L Specimen: [id number]- Received: 03/09/23 Status: OMAIRA Req Num: [id number] Spec Type: Impression Subm Dr: Gregory Jarrett MD Tissues: PATHPER Procedures: PATHREVIEW Age/ Patient Sex Location Account Attending Physician Taylor De Jesus 72/F [facility] [id number] Gregory Jarrett MD SPEC NUM: [id number] RECD: 03/09/23 STATUS: SOUDelvis REQ NUM: [id number] CLAIRE: 03/08/[address]: Gregory Jarrett MD ENTERED: 03/09/[address] [facility] [address]: Shmuel Lorenzo SPEC TYPE: Impression DEPT: ANGEL Jacob ENTERED BY: [id number] RECV BY: [id number] ORDERED: PATHREVIEW ORDERED: PATHREVIEW Pathologist Review Abnormal CBC for peripheral blood smear review: -Mild pancytopenia, including mild leukopenia, mild anemia of the normocytic type with at least occasional ovalocytes, and mild thrombocytopenia -No precursor granulocytes, blasts, or other significant change in the leukocyte populations, except occasional eosinophils, and occasional reactive lymphocytes -Few large platelets, and at least 1 giant platelet, otherwise with adequate platelet morphology, and mostly also preserved platelet granularity Comment: -The cause of mild pancytopenia in the elderly female patient in this case is not clear, but may be multifactorial in etiology in an elderly patient in general population that can often present with multiple underlying medical conditions or co-morbidities or chronic debilitation -The drug related leukopenia or thrombocytopenia should also be considered in older age patient taking medications, and in this patient with slightly noted percentage increase of eosinophils -Continuous clinical correlations and laboratory follow-ups are also suggested CPT: 82341 ---- Specimen: [id number]- Received: 03/09/23 Status: OMAIRA Req Num: [id number] Spec Type: Impression Subm Dr: Gregory Jarrett MD Tissues: PATHPER Procedures: PATHREVIEW ---- Patient: Taylor De Jesus [id number] (Continued) ---- Specimen: [id number] Received: 03/09/23 (Continued) Signed (signature on file) Esther June MD 03/10/23 0827 ---- Specimen: [id number]- Received: 03/09/23 Status: OMAIRA James Num: [id number] Spec Type: Impression Subm Dr: Gregory Jarrett MD Tissues: PATHPER Procedures: PATHREVIEW ---- Patient: Taylor De Jesus [id number] (Continued) ---- Specimen: [id number] Received: 03/09/23 (Continued) CBC No results available. ---- ---- Specimen: [id number]- Received: 03/09/23 Status: OMAIRA James Num: [id number] Spec Type: Impression Subm Dr: Gregory Jarrett MD Tissues: PATHPER Procedures: PATHREVIEW ---- Patient: Taylor De Jesus [id number] (Continued) ---- Signed (signature on file) Esther June MD 03/10/23 0827 [facility] Covid-19 PCR (CVDTBH)on SARS-CoV-2 (COVID-19) RNA JANKI+probe Ql (Unsp spec) Detected Critically abnormal NOT DETECTED [facility] Comment on above: Result Comment: This test is not yet noah roved or cleared by the [place] FDA. When there are no FDA-approved or cleared tests available, and other criteria are met, FDA can make tests available under an emergency access mechanism called an Emergency Use Authorization (EUA). The EUA for this test is supported by the Selling Underwriter of Health and Human Service's (HHS's) declaration [...] longer be used). Performed By: #### [facility] #### [facility] [address] [place] [address] Dr. Malu June Vital Signs Date Time Vital Sign Value Performing Clinician Facility 01-31-2023 09:10-0500 Body height 157.48 cm Temitope Gutierrez Other [facility] Other 01-31-2023 09:10-0500 Body mass index (BMI) [Ratio] 25.69 kg/m2 Temitope Gutierrez Other [facility] Other 01-31-2023 09:10-0500 Body temperature 98.4 [degF] Temitope Gutierrez Other [facility] Other 01-31-2023 09:10-0500 Body weight 63.73 kg Temitope Gutierrez Other [facility] Other 01-31-2023 09:10-0500 Diastolic blood pressure 62 mm[Hg] Temitope Gutierrez Other [facility] Other 01-31-2023 09:10-0500 Respiratory rate 18 /min Temitope Gutierrez Other [facility] Other 01-31-2023 09:10-0500 SaO2% (BldA) [Mass fraction] 99 % Temitope Gutierrez Other [facility] Other 01-31-2023 09:10-0500 Systolic blood pressure 118 mm[Hg] Temitope Gutierrez Other [facility] Other 10-05-2022 11:15-0400 Body height 157.48 cm Bhavesh Wright Other [facility] Other 10-05-2022 11:15-0400 Body mass index (BMI) [Ratio] 26.52 kg/m2 Bhavesh Wright Other [facility] Other 10-05-2022 11:15-0400 Body temperature 97 [degF] Bhavesh Wright Other [facility] Other 10-05-2022 11:15-0400 Body weight 65.77 kg Bhavesh Wright Other [facility] Other 10-05-2022 11:15-0400 Diastolic blood pressure 72 mm[Hg] Kamal Chaban Other [facility] Other 10-05-2022 11:15-0400 Respiratory rate 20 /min Bhavesh Chaban Other [facility] Other 10-05-2022 11:15-0400 SaO2% (BldA) [Mass fraction] 100 % Bhavesh Gascaban Other [facility] Other 10-05-2022 11:15-0400 Systolic blood pressure 134 mm[Hg] Bhavesh Chaban Other [facility] Other 04-06-2022 12:15-0500 Body height 157.48 cm Bhavesh Gascaban Other [facility] Other 04-06-2022 12:15-0500 Body mass index (BMI) [Ratio] 2.74 kg/m2 Bhavesh Gascaban Other [facility] Other 04-06-2022 12:15-0500 Body temperature 97.1 [degF] Bhavesh Gascaban Other [facility] Other 04-06-2022 12:15-0500 Body weight 6.8 kg Bhavesh Gascaban Other [facility] Other 04-06-2022 12:15-0500 Diastolic blood pressure 70 mm[Hg] Bhavesh Chaban Other [facility] Other 04-06-2022 12:15-0500 Respiratory rate 20 /min Bhavesh Gascaban Other [facility] Other 04-06-2022 12:15-0500 SaO2% (BldA) [Mass fraction] 99 % Bhavesh Gascaban Other [facility] Other 04-06-2022 12:15-0500 Systolic blood pressure 140 mm[Hg] Bhavesh Gascaban Other [facility] Other 09-21-2021 12:45-0400 Body height 157.48 cm Bhavesh Gascaban Other [facility] Other 09-21-2021 12:45-0400 Body mass index (BMI) [Ratio] 28.71 kg/m2 Bhavesh Gascaban Other [facility] Other 09-21-2021 12:45-0400 Body temperature 97.6 [degF] Bhavesh Gascaban Other [facility] Other 09-21-2021 12:45-0400 Body weight 71.22 kg Bhavesh Wright Other [facility] Other 09-21-2021 12:45-0400 Diastolic blood pressure 66 mm[Hg] Bhavesh Gascaban Other [facility] Other 09-21-2021 12:45-0400 Respiratory rate 20 /min Bhavesh Gascaban Other [facility] Other 09-21-2021 12:45-0400 SaO2% (BldA) [Mass fraction] 99 % Bhavesh Gascaban Other [facility] Other 09-21-2021 12:45-0400 Systolic blood pressure 120 mm[Hg] Bhavesh Gascaban Other [facility] Other 03-23-2021 12:45-0500 Body height 157.48 cm Bhavesh Wright Other [facility] Other 03-23-2021 12:45-0500 Body mass index (BMI) [Ratio] 29.88 kg/m2 Bhavesh Wright Other [facility] Other 03-23-2021 12:45-0500 Body temperature 98 [degF] Bhavesh Wright Other [facility] Other 03-23-2021 12:45-0500 Body weight 74.12 kg Bhavesh Wright Other [facility] Other 03-23-2021 12:45-0500 Diastolic blood pressure 68 mm[Hg] Bhavesh Gascaban Other [facility] Other 03-23-2021 12:45-0500 Respiratory rate 20 /min Bhavesh Wright Other [facility] Other 03-23-2021 12:45-0500 SaO2% (BldA) [Mass fraction] 100 % Bhavesh Wright Other [facility] Other 03-23-2021 12:45-0500 Systolic blood pressure 140 mm[Hg] Bhavesh Wright Other [facility] Other 02-23-2021 11:10-0500 Body height 157.48 cm Temitope Gutierrez Other [facility] Other Encounters Encounter Date Encounter Type Care Provider Facility Start: 03-29-2023 End: 03-29-2023 ambulatory Temitope Gutierrez Other [facility] Other Start: 03-29-2023 Telephone encounter Temitope Gutierrez [facility] Start: 03-27-2023 End: 03-28-2023 ambulatory TEMITOPE GUTIERREZ [facility] Start: 03-08-2023 End: 03-08-2023 ambulatory Temitope Gutierrez Facility:[facility] Start: 03-08-2023 End: 03-08-2023 ambulatory DO Temitope Daniij carlos Work Phone: [facility] Work Phone: Start: 03-08-2023 End: 03-08-2023 Departed Referred DO Temitope Brenda Work Phone: [facility] Start: 02-23-2023 End: 02-23-2023 ambulatory Temitope Gutierrez Other [facility] Other Start: 02-23-2023 Telephone encounter Temitope Gutierrez [facility] Start: 02-01-2023 End: 02-01-2023 ambulatory Temitope Gutierrez Other [facility] Other Start: 02-01-2023 Telephone encounter Temitope Gutierrez [facility] Start: 01-31-2023 End: 01-31-2023 ambulatory Temitope Brenda Other [facility] Other Start: 01-31-2023 Office outpatient vi sit 25 minutes Temitope Gutierrez [facility] Start: 10-05-2022 End: 10-05-2022 ambulatory Kamal Chaban Other [facility] Other Start: 10-05-2022 Office outpatient vi sit 15 minutes Kamal Chaban [facility] Start: 08-08-2022 End: 08-08-2022 ambulatory Kamal Chaban Other [facility] Other Start: 08-08-2022 Telephone encounter Kamal Chaban [facility] Start: 06-20-2022 End: 06-20-2022 ambulatory Temitope Gutierrez Other [facility] Other Start: 06-20-2022 Telephone encounter Temitope Gutierrez [facility] Start: 04-06-2022 End: 04-06-2022 ambulatory Kamal Chaban Other [facility] Other Start: 04-06-2022 Office outpatient vi sit 15 minutes Kamal Chaban [facility] Start: 03-10-2022 End: 03-10-2022 ambulatory Temitope Gutierrez Other [facility] Other Start: 03-10-2022 Telephone encounter Temitope Gutierrez [facility] [place] Start: 01-12-2022 End: 01-12-2022 ambulatory Temitope Gutierrez Other [facility] Other Start: 01-12-2022 Telephone encounter Temitope Gutierrez [facility] [place] Start: 12-02-2021 End: 12-02-2021 ambulatory Kamal Chaban Other [facility] Other Start: 12-02-2021 Telephone encounter Kamal Chaban [facility] Start: 09-21-2021 End: 09-21-2021 ambulatory Kamal Chaban Other [facility] Other Start: 09-21-2021 Office outpatient vi sit 15 minutes Kamal Chaban [facility] Start: 09-14-2021 End: 09-14-2021 ambulatory Temitope Gutierrez Other [facility] Other Start: 09-14-2021 Telephone encounter Temitope Gutierrez [facility] Start: 04-12-2021 End: 04-12-2021 ambulatory Temitope Gutierrez Other [facility] Other Start: 04-12-2021 Telephone encounter Temitope Gutierrez [facility] Start: 03-23-2021 End: 03-23-2021 ambulatory Bhavesh Wright Other [facility] Other Start: 03-23-2021 Office outpatient vi sit 15 minutes Bhavesh Wright [facility] Start: 03-23-2021 Telephone encounter Bhavesh Wright [facility] Start: 02-25-2021 End: 02-25-2021 ambulatory Temitope Gutierrez Other [facility] Other Start: 02-25-2021 Telephone [facility] Start: 02-24-2021 End: 02-24-[address] TEMITOPE GUTIERREZ Facility: Start: 02-23-2021 End: 02-23-2021 ambulatory Temitope Gutierrez Other [facility] Other Start: 02-23-2021 Telephone encounter Temitope Gutierrez [facility] Immunizations Immunization Date Immunization Notes Care Provider Fa nilam 12-08-2022 Flu Shot - Documentation Purposes Only Temitope Gutierrez Other [facility] Other 12-08-2022 COVID-19 Moderna (SPIKEVAX) Temitope Gutierrez Other [facility] Other 10-06-2022 Prevnar 20 Temitope Gutierrez Other [facility] Other 11-25-2021 influenza, seasonal, injectable Kamal Chaban Other [facility] Other 09-10-2021 tetanus toxoid, redu cleo diphtheria toxoid, and acellular pertussis vaccine, adsorbed Kamal Chaban Other [facility] Other 06-09-2021 COVID-19 Vaccine Moderna - Documentation Purposes Only Kamal Chaban Other [facility] Other 12-16-2020 COVID-19 Vaccine Moderna - Documentation Purposes Only Temitope Gutierrez Other [facility] Other 11-10-2020 influenza, seasonal, injectable Temitope Gutierrez Other [facility] Other 05-18-2020 COVID-19 Vaccine Moderna - Documentation Purposes Only Temitope Gutierrez Other [facility] Other 04-17-2020 COVID-19 Vaccine Moderna - Documentation Purposes Only Temitope Gutierrez Other [facility] Other 03-14-2020 zoster vaccine recombinant Temitope Gutierrez Other [facility] Other 01-14-2020 zoster vaccine recombinant Temitope Gutierrez Other [facility] Other 10-29-2019 influenza, seasonal, injectable Temitope Gutierrez Other [facility] Other 12-13-2018 influenza, seasonal, injectable Temitope Gutierrez Other [facility] Other 09-02-2017 pneumococcal polysaccharide vaccine, 23 valent Temitope Gutierrez Other [facility] Other 11-16-2016 influenza, seasonal, injectable Temitope Gutierrez Other [facility] Other Payers Date Payer Category Payer Self-pay 1958 Medicare [id number] 1958 Unknown [id number] 1950 Unknown [id number] 1950 Unknown [id number] Unknown [facility] [id number] Unknown [id number] [id number] [id number] Social History Date Type Detail Facility Sex Assigned At [facility] Other Start: 1950 Sex Assigned At Female F [facility] Clinical Notes 02-23-2021 to 03-29-2023 Note Date & Type Note Facility 03-29-2023 Evaluation note Encounter Date Diagnosis Assessment Notes Mar, Fever (ICD-10 - R50.9) [facility] Other 01-04-2024 Evaluation note* Encounter Date Diagnosis Assessment Notes Treatment Notes Treatment Clinical Notes Feb, Breast cancer screening (ICD-10 - Z12.31) [facility] Other 12-12-2023 Evaluation note* Encounter Date Diagnosis [...] I would like her to have the floral specialist evaluate her neck when seen. On exam [...] to switch to Dr. Honeycutt in the [place] office. A referral is provided. Jan, Vitamin D deficiency (ICD-10 - E55.9) Continue with above medications daily as directed. Jan, Hyperparathyroidism , secondary, non-renal (ICD-10 - E21.1) She saw Dr. Garcia in July (2022) and will continue to follow with him once a year. Jan, Weight loss (ICD-10 - R63.4) She has lost 4.5 pounds since last seen. Jan, prison use of jenaro g (ICD-10 - Z79.899) [...] order to be done in 1 year [facility] Other 08-16-2023 Evaluation note* Encounter Date Diagnosis [...] to chest, subsequent encounter (ICD-10 - S29.8XXD) [facility] Other 02-15-2023 Evaluation note* Encounter Date Diagnosis [...] me, otherwise we will continue to follow [facility] Other 01-19-2023 Evaluation note* Encounter Date Diagnosis Assessment Notes Treatment Notes Treatment Clinical Notes Feb, Fever (ICD-10 - R50.9) [facility] Other 10-13-2022 Evaluation note* Encounter Date Diagnosis Assessment Notes Treatment Notes Treatment Clinical Notes Nov, Chronic obstructive pulmonary disease (ICD-10 - J44.9) [facility] Other 08-02-2022 Evaluation note* Encounter Date Diagnosis Assessment Notes Treatment Notes Treatment Clinical Notes Sep, Chronic obstructive pulmonary disease (ICD-10 - J44.9) Patient remains adequately controlled with current treatment, states that she has 1 more refill left on her inhalers and will call when she needs more ordered. [facility] Other 02-21-2022 Evaluation note* Encounter Date Diagnosis Assessment Notes Treatment Notes Treatment Clinical Notes Mar, Hypokalemia (ICD-10 - E87.6) [facility] Other 02-01-2022 Evaluation note* Encounter Date Diagnosis Assessment Notes Treatment Notes Treatment Clinical Notes Mar, Chronic obstructive pulmonary disease (ICD-10 - J44.9) [facility] Other 01-04-2022 Evaluation note* Encounter Date Diagnosis [...] she be tested for COVID-19 at the [facility] on Mon02/24/21. She should have the results prior to the weekend. Feb, Rhinorrhea (ICD-10 - J34.89) Feb, Pharyngitis (ICD-10 - J02.9) Feb, Other 10:26 AM - 10:38 AM [facility] Other Evaluation [facility]No [facility] Other Evaluation noteNo assessment information available [facility] Work Phone: History general Narrative - Reported* Type Description [...] RIbs [address] Carrera - Liquefier for yearly 06/2015 Surgical History cortisone inj rt shoulder - [facility] 01/19/16 Surgical History left knee xr [facility] 01/17/17 Surgical History rt cheek [facility] 01/17/[address] History kidney stones Dr Ham 8 Hospitalization History hyperkalemia 2009 Hospitalization History [facility] for URI 12/12/19 15 Hospitalization History [facility] COPD - ED 04/29/15 [facility] Other History general Narrative - Reported* Type [...] RIbs [address] Carrera - Liquefier for yearly 06/2015 Surgical History cortisone inj rt shoulder - [facility] 01/19/16 Surgical History left knee xr [facility] 01/17/17 Surgical History rt cheek [facility] 01/17/17 Surgical History kidney stones Dr aHm 8 Hospitalization History hyperkalemia 2009 Hospitalization History [facility] for URI 12/12/19 15 Hospitalization History [facility] - COPD - ED 04/29/15 [facility] Other Reason for visit Narrativeyearly visit/ review lab, discuss multiple issues, see treatment plan for [facility] Other Summary Purpose Family History No Family History Records FoundNo Family History Records FoundNo Family History Records Found Advance Directives No Advanced Directives Records FoundNo Advanced Directives Records FoundNo Advanced Directives Records Found Reason for Referral Reason appt pt needs cons ult for COPD Diagnosis 1 Chronic obstructive pulmonary disease (J44.9) Referral Organization [facility] Referring Provider First Name Temitope Referring Provider Last Name Brenda Referring Provider Specialty Family Prac bi Referred Organization [facility] Referred Provider Sara [place] Referred Address ,[place], [place],[address] Referred Provider Specialty Pulmonary Di seases Referral [...] Diagnosis 1 Thrombocytopenia (D6 9.6) Referral Organization [facility] Referring Provider First Name Temitope Referring Provider Last Name Brenda Referring Provider Specialty [facility] bi Referred Organization [facility] Referred Provider GREGORY JARRETT Referred Address [address], [place],[address] Referred Provider Specialty Hematology/O ncology Referral Priority Routine General Notes Lara Hampton 01/31/2023 10:25:37 AM > referral faxed to [phone] with visit note, lab results and insurance cards. pt understands she will be contacted to schedule this appt. Additional Source Comments INFORMATION SOURCE (unrecogn ized section and content) DATE CREATED AUTHOR 03/01/2021 [facility] DATE CREATED AUTHOR AUTHOR'S ORGANIZ ATION 04/02/2023 [facility] DATE CREATED AUTHOR AUTHOR'S ORGANIZ ATION 04/11/2023 [facility] REASON FOR VISIT (unrecogniz ed section and content) clinicalrunny nose/sore thro at/low grade tempNo Information6 mo f/u COPDrefillClinical Acute Illness6 mo f/u COPDRefills- BreoFYIClinical Acute Medicine6 mo f/u COPDrefillCT results6 mo f/u Asthma w COPDClinicalmammo orderClinical Acute Illness Care Teams (unrecognized sec tion and content) Team Status: Active Member Role Status Dates Temitope Gutierrez DO Primary Care Provider Active Team Status: Inactive Member Role Status Dates Temitope Gutierrez DO Primary Care Provider Active S tart: March 08, 2023 End: March 08, 2023 Gregory Jarrett MD Attending Provider Active St art: March 08, 2023 End: March 08, 2023 Goals (unrecognized section and content) Goals may be documented in a n alternate section FOR RECORDS PERTAINING TO PATIENTS WHO ARE [...] BE BASED ON THE PRIMARY CLINICAL RECORDS. [facility] [employer] [facility]. provides no warranty or guarantee of the accuracy or completeness of information in this document.
[2023-04-25 09:11] LABS: Basophils Absolute Auto 0.1 10^3/uL (0.0-0.1); Basophils Percent Auto 1.8 % (0.2-2.0); Eosinophils Absolute Auto 0.3 10^3/uL (0.0-0.7); Eosinophils Percent Auto 6.8 % (0.9-7.0); Hematocrit 36.3 % (36.0-48.0); Hemoglobin 10.7 g/dL (12.0-16.0); Lymphocytes Absolute Auto 1.5 10^3/uL (1.2-3.8); Lymphocytes Percent Auto 38.7 % (20.5-60.0); Mean Corpuscular HGB Conc 29.5 g/dL (29.9-35.2); Mean Corpuscular Hemoglobin 28.2 pg (26.7-34.0); Mean Corpuscular Volume 95.5 fL (81.0-99.0); Mean Platelet Volume 14.3 fL (9.5-13.5); Monocytes Absolute Auto 0.3 10^3/uL (0.3-0.8); Monocytes Percent Auto 8.9 % (1.7-12.0); Neutrophils Absolute Auto 1.7 10^3/uL (1.4-6.5); Neutrophils Percent Auto 43.8 % (43.0-75.0); Platelet Count 111 10^3/uL (150-450); Red Cell Distribution Width 13.3 % (11.0-15.0); Reticulocyte Pct Auto 1.37 % (0.60-3.10); White Blood Count 3.8 10^3/uL (4.0-11.0)
[2023-04-26 05:07] LABS: HCV Ab Non Reactive (Non Reactive)
== END 2023-04-25 08:39 | disposition home or self-care (01) ==
LOC: LAB 08:39
PROVIDERS: PCP Family Medicine; Visit Provider Internal Medicine Hematology & Oncology
DX: D51.9 Vitamin B12 deficiency anemia, unspecified (principal); D50.9 Iron deficiency anemia, unspecified; D69.6 Thrombocytopenia, unspecified; K90.9 Intestinal malabsorption, unspecified
CPT/HCPCS: 36415; 82607; 85025; 86803

== ENCOUNTER 2023-06-13 08:19 | Outpatient (OUT) | payer MEDICARE, OTHER, SELFPAY ==
[2023-06-13 08:44] LABS: Basophils Absolute Auto 0.1 10^3/uL (0.0-0.1); Basophils Percent Auto 1.5 % (0.2-2.0); Eosinophils Absolute Auto 0.3 10^3/uL (0.0-0.7); Eosinophils Percent Auto 7.8 % (0.9-7.0); Hematocrit 35.5 % (36.0-48.0); Hemoglobin 10.7 g/dL (12.0-16.0); Immature Granulocytes Abs Auto 0.01 10^3/uL (0.00-0.03); Immature Granulocytes Pct Auto 0.3 % (0.0-0.5); Lymphocytes Absolute Auto 1.4 10^3/uL (1.2-3.8); Lymphocytes Percent Auto 35.7 % (20.5-60.0); Mean Corpuscular HGB Conc 30.1 g/dL (29.9-35.2); Mean Corpuscular Hemoglobin 28.4 pg (26.7-34.0); Mean Corpuscular Volume 94.2 fL (81.0-99.0); Mean Platelet Volume 14.2 fL (9.5-13.5); Monocytes Absolute Auto 0.3 10^3/uL (0.3-0.8); Monocytes Percent Auto 8.4 % (1.7-12.0); Neutrophils Absolute Auto 1.8 10^3/uL (1.4-6.5); Neutrophils Percent Auto 46.3 % (43.0-75.0); Platelet Count 111 10^3/uL (150-450); Red Blood Count 3.77 10^6/uL (4.20-5.40); Red Cell Distribution Width 12.9 % (11.0-15.0); Reticulocyte Pct Auto 1.26 % (0.60-3.10)
[2023-06-13 09:53] LABS: Percent Iron Saturation 30.7 %
== END 2023-06-13 08:20 | disposition home or self-care (01) ==
LOC: LAB 08:20
PROVIDERS: PCP Family Medicine; Visit Provider Internal Medicine Hematology & Oncology
DX: D51.9 Vitamin B12 deficiency anemia, unspecified (principal); D50.9 Iron deficiency anemia, unspecified; D69.6 Thrombocytopenia, unspecified; K90.9 Intestinal malabsorption, unspecified
CPT/HCPCS: 36415; 82728; 83540; 83550; 85025

== ENCOUNTER 2023-06-20 07:32 | Outpatient (RCR) | payer MEDICARE, OTHER, SELFPAY | END 2023-06-20 23:59 | disposition home or self-care (01) | LOC: INF 07:32 | PROVIDERS: PCP Family Medicine; Visit Provider Internal Medicine Hematology & Oncology | DX: D69.6 Thrombocytopenia, unspecified (principal); D51.9 Vitamin B12 deficiency anemia, unspecified; D50.9 Iron deficiency anemia, unspecified; K90.9 Intestinal malabsorption, unspecified | CPT/HCPCS: G0463 ==

== ENCOUNTER 2023-07-25 07:29 | Outpatient (RCR) | payer MEDICARE, OTHER, SELFPAY | END 2023-07-25 15:26 | disposition home or self-care (01) | LOC: INF 07:29 | PROVIDERS: PCP Family Medicine; Visit Provider Internal Medicine Hematology & Oncology | DX: D69.6 Thrombocytopenia, unspecified (principal); D51.9 Vitamin B12 deficiency anemia, unspecified; K90.9 Intestinal malabsorption, unspecified; D50.9 Iron deficiency anemia, unspecified | CPT/HCPCS: G0463 ==

== ENCOUNTER 2023-12-19 08:55 | Outpatient (OUT) | payer MEDICARE, OTHER, SELFPAY ==
--- OUTSIDE RECORDS SUMMARY | 2023-12-19 09:12 | XMS_ITS | CCD ---
Author Organization [facility] Care Team Providers Care Softball Coach Name Role Phone DR TEMITOPE GUTIERREZ Attending Unavailable BRENDA, DR LINN Consulting Unavailable BRENDA, DR LINN Admitting Unavailable Temitope Gutierrez Unavailable Bhavesh Wright Unavailable DO Temitope Gutierrez Primary Care Provider MD Gregory Jarrett Attending Provider DO Temitope Gutierrez Primary Care Provider MD Gregory Jarrett Attending Provider Gregory Jarrett Attending Unavailable Temitope Gutierrez Primary Care Unavailable Luiza, Gregory Admitting Unavailable Justine Jarrettva Attending Unavailable Temitope Gutierrez Primary Care Unavailable Luiza, Gregory Admitting Unavailable Luiza, Gregory Admitting Unavailable Temitope Gutierrez Primary Care Unavailable Luiza, Gregory Attending Unavailable Justine Jarrettva Attending Unavailable Temitope Gutierrez Primary Care Unavailable Luiza, Gregory Admitting Unavailable MAURO JUAREZ Referring Unavailable TEMITOPE GUTIERREZ Primary Care Unavailable TEMITOPE GUTIERREZ Referring Unavailable TEMITOPE GUTIERREZ Primary Care Unavailable TEMITOPE GUTIERREZ Referring Unavailable TEMITOPE GUTIERREZ Primary Care Unavailable TEMITOPE GUTIERREZ Referring Unavailable TEMITOPE GUTIERREZ Primary Care Unavailable TEMITOPE GUTIERREZ Referring Unavailable TEMITOPE GUTIERREZ Primary Care Unavailable Temitope Gutierrez MD Primary Care Provider [phone] SARA HONEYCUTT Attending Unavailable SARA HONEYCUTT Referring Unavailable SARA HONEYCUTT Attending Unavailable AFSHIN GALINDO Attending Unavailable Allergies Allergy Classification Reported Allergen(s) Allergy Type Date of Onset Reaction(s) Facility (20 sources) Penicillin V Drug Allergy 3 Unknown, Difficulty Breathing [facility] (20 sources) zoledronic acid Drug Allergy 8 Other [facility] (7 sources) Mannitol; Translations: [mannitol] Drug Allergy 3 hypocalcemia [facility] (4 sources) water for injection,steri le; Translations: [water for injection,steri le] Allergy to substance 3 hypocalcemia [facility] (1 source) Penicillin Drug Allergy 4 [facility] (1 source) zoledronic acid Drug Allergy 4 [facility] (4 sources) Penicillins; Translations: [PENICILLINS] Propensity to adverse reactions to drug (disorder) 7 Shortness of breath, Swelling [facility] (1 source) HORSE DANDER; Translations: [HORSE DANDER] Propensity to adverse reactions to drug (disorder) 2 [facility] (1 source) ZOLEDRONIC HYKM-EZMJLWIN-T ATER; Translations: [ZOLEDRONIC GLMA-JAIWHWVM-P ATER] Propensity to adverse reactions to drug (disorder) 8 [facility] (3 sources) Horse Epithelium Allergy Skin Test Allergy to substance 2 Unknown [facility] (3 sources) Water, Sterile Allergy to substance 3 [facility] Medications Current Medications Medication Drug Class(es) Dates Sig (Normalized) Sig (Original) [id number] 200 actuat albuterol 0.09 mg/actuat metered dose inhaler (20 sources) beta2-Adrenergic Agonist Start: 04-28-2023 take 2 puff(s) by inhalation every four hours for wheezing albuterol HFA 90 mcg/act inhaler Indications: Chronic obstructive pulmonary disease, unspecified COPD type ([facility]) Inhale 2 puffs every 4 (four) hours if needed for wheezing or shortness of breath 18 g 5 04/28/2023 Active Start: 05-16-2016 Ventolin HFA 1 08 (90 Base) MCG/ACT 2 inhalations Inhalation q6 hrs prn Apr, Active Start: 05-16-2016 Ventolin HFA 1 08 (90 Base) MCG/ACT 2 inhalations Inhalation q4 hrs prn Apr, Active albuterol 0.833 mg/ml / ipratropium bromide 0.167 mg/ml inhalation solution (9 sources) Anticholinergic, beta2-Adrenergic Agonist Start: 05-16-2016 take 3 mL by inhalation four times daily as needed Ipratropium-Albuterol 0.5-2.5 (3) MG/3ML 3 ml Inhalation four times a day Dx: J44.9 COPD prn Apr, Active ipratropium-albu terol (Duo-Neb) 0.5-2.5 mg/3 mL nebulizer solution Active Aspir-81 81 MG (18 sources) take 1 tablet by mouth once daily Aspir-81 81 MG 1 tablet Orally Once a day Active aspirin 81 mg oral tablet (5 sources) Platelet Aggregation Inhibitor, Nonsteroidal Anti-inflammatory Drug Start: 07-05-2023 take 81 mg by mouth once daily Aspirin Active 81 MG PO Daily July 05, 2023 12:00am aspirin 81 MG ch ewable tablet Chew 81 mg in the morning. Active Breo Ellipta 100-25 MCG/INH (5 sources) [...] MG 3 capsules with meals Orally Active Calcium-Vitamin D2-Soybean (2 sources) Start: 07-05-2023 take 1 tablet by mouth once daily Calcium-Vitamin D2-Soybean Active 1 TAB PO Daily July 05, 2023 12:00am Centrum (18 sources) take 1 tablet by mouth once daily Centrum 1 tablet Orally daily Active cetirizine hydrochloride 10 mg oral tablet (20 sources) Histamine-1 Receptor Antagonist Start: 07-05-2023 take 1 tablet by mouth once daily Cetirizine (24hour Allergy) 10 mg tablet Active 10 MG PO Daily July 05, 2023 12:00am cholecalciferol 0.125 mg oral tablet (5 sources) Vitamin D Start: 07-05-2023 take 1 tablet by mouth once daily Cholecalciferol (Vitamin D3) (Vitamin D3) 125 mcg (5,000 unit) tablet Active 76557 UNIT PO daily July 05, 2023 12:00am take 1 tablet by mouth in the mo rning cholecalciferol (Vitamin D-3) 250 MCG (07484 UT) tablet Take 1 tablet by mouth in the morning. Active clotrimazole 10 mg oral lozenge (5 sources) Azole Antifungal Start: 03-10-2022 Clotrimazole 10 MG dissolve 1 chase on tongue Mouth/Throat five times a day for 7 days Feb, Active ergocalciferol 1.25 mg oral capsule (2 sources) Provitamin D2 Compound Start: 07-05-2023 take 64437 [IU] by mouth three times weekly Ergocalciferol (Vitamin D2) Active 00808 UNIT PO 3 Times a week July 05, 2023 12:00am ferrous sulfate 325 mg oral tablet (20 sources) Start: 07-05-2023 take 1 tablet by mouth twice daily Ferrous Sulfate (Feosol) 325 mg (65 mg iron) tablet Active 325 MG PO Twice daily July 05, 2023 12:00am ferrous sulfate 325 (65 Fe) MG tablet 1 (one) time each day at the same time Active 14 actuat fluticasone furoate 0.1 mg/actuat / vilanterol 0.025 mg/actuat dry powder inhaler (18 sources) Corticosteroid, beta2-Adrenergic Agonist Start: 11-08-2023 take 1 puff(s) by inhalation once daily Fluticasone Furoate-Vilanterol (Breo Ellipta) 100-25 MCG/ACT aerosol powder Indications: Chronic obstructive pulmonary disease, unspecified COPD type ([facility]) Inhale 1 puff Daily 1 each 5 11/08/2023 Active Start: 07-05-2023 Fluticasone Fu roate-Vilanterol (Breo Ellipta) 100-25 mcg/dose blister with device Active 1 INH INHALATION Daily July 05, 2023 12:00am Start: 09-28-2015 take 1 puff(s) by in halation once daily Breo Ellipta 100-25 MCG/ACT 1 puff Inhalation Once a day Sep, Active 12 hr guaiFENesin 600 mg extended release oral tablet (6 sources) take 1 tablet by mouth every twelve hours Mucinex 600 MG 1 tablet as needed Orally every 12 hrs Active loratadine 10 mg oral tablet (12 sources) loratadine (Claritin) 10 MG tablet 1 (one) time each day at the same time Active mecobalamin (2 sources) Start: 11-28-19 take 5000 ug by mouth every other week Mecobalamin (Vitamin B12) Active 5000 MCG PO .every 2 weeks November 28, 2023 12:00am allow to dissolve in mouth OR may chew lightly before swallowing metroNIDAZOLE 500 mg oral tablet (3 sources) Nitroimidazole Antimicrobial Start: 09-16-19 take 1 tablet by mouth every twelve hours metroNIDAZOLE 500 MG 1 tablet Orally Twice a day for 3 days Aug, Active Multiple Vitamins-Minerals (Centrum Adults) tablet (3 sources) Multiple Vitamins-Minerals (Centrum Adults) tablet Orally Active Methwexhmnqa-Zraf-Zyb ic Acid (Centrum Women) 18-400 mg-mcg tablet (2 sources) Start: 07-05-19 take 1 tablet by mouth once daily Lmwshhsomujo-Mplv-Vg lic Acid (Centrum Women) 18-400 mg-mcg tablet Active 1 TAB PO Daily July 05, 2023 12:00am potassium chloride 10 meq extended release oral capsule (20 sources) Start: 05-01-19 End: 07-05-19 take 20 mEq by mouth twice daily Potassium Chloride Active 20 MEQ PO Twice daily July 05, 2023 12:00am Start: 12-13-2022 End: 05-01-2023 take 2 capsules by mouth in the morning potassium chloride ER (Micro-K) 10 MEQ ER capsule Take 20 mEq by mouth in the morning and 20 mEq before bedtime. 12/13/2022 Active take 1 tablet by marvin th in the morning potassium chloride CR (Klor-Con M10) 10 MEQ ER tablet Take 10 mEq by mouth in the morning and 10 mEq in the evening. Active take 2 capsules by m outh twice daily Potassium Chloride ER 10MEQ ER TAKE TWO CAPSULES BY MOUTH TWICE DAILY for 90 days Active vitamin a 83723 unt oral capsule (2 sources) Vitamin A Start: 07-05-2023 take 67209 [IU] by mouth once daily Vitamin A Active 13661 UNIT PO Daily July 05, 2023 12:00am vitamin b12 1 mg extended release oral tablet (4 sources) Vitamin B12 take 1 tablet by mouth every other week Vitamin B12 1000 MCG 1 tablet Orally every 2 weeks Active Vitamin B12 1000 MCG (9 sources) Start: 01-26-2021 Vitamin B12 10 00 MCG 1 tablet Orally 3 days a week Jan, Active Vitamin D 32802 UNIT (18 sources) take 1 tablet by mouth once daily Vitamin D 75838 UNIT 1 tablet Orally Once a day (10,000iu qd) Active Vitamin D3 00053 UNIT (18 sources) take 1 tablet by mouth every week Vitamin D3 31069 UNIT 1 tablet Orally 3x week Active zinc gluconate 50 mg oral tablet (9 sources) take 1 tablet by mouth every week Zinc 50 MG 1 tablet Orally once a week Active take 1 tablet by marvin th every twenty-four hours Zinc 50 MG 1 tablet Orally Once a day Active Completed/Discontinued Medications Medication Drug Class(es) Dates Sig (Normalized) Sig (Original) Azithromycin (6 sources) Macrolide Antimicrobial Start: 11-28-2023 End: 12-07-2023 Azithromycin Discontinued 0 PO .COMPLEX November 28, 2023 12:00am December 07, 2023 10:11am For 250 mg dose pack: take 500 mg today (day 1), then 250 mg for 4 days (days 2-5) PO Start: 11-28-2023 Azithromycin A ctive 0 PO .COMPLEX November 28, 2023 12:00am For 250 mg dose pack: take 500 mg today (day 1), then 250 mg for 4 days (days 2-5) PO Start: 02-23-2021 Zithromax Z-Pa k 250 MG 2 tablets on day 1 Orally then take 1 tablet daily on days 2-5 for 5 days Feb, Active Problems Active Problems Problem Classification Problem Date Documented Date Episodic/Chronic Calculus of urinary tract (6 sources) Kidney stone; Translations: [Calculus of kidney] Episodic Chronic obstructive pulmonary disease and bronchiectasis (20 sources) Asthma-chronic obstructive pulmonary disease overlap syndrome; Translations: [Chronic obstructive pulmonary disease, unspecified] Onset: 03-23-2021 Resolved: 09-21-2021 Chronic Coagulation and hemorrhagic disorders (10 sources) Thrombocytopenic disorder; Translations: [Thrombocytopenia, unspecified] Onset: 07-05-2023 Chronic Deficiency and other anemia (1 source) [...] sources) Hypokalemia Onset: 04-12-2021 Resolved: 04-12-2021 Episodic Fracture of lower limb (2 sources) Closed fracture of proximal phalanx of great toe; Translations: [Displaced fracture of proximal phalanx of right great toe, initial encounter for closed fracture] 12-15-2023 Episodic Lymphadenitis (1 source) Localized enlarged lymph nodes Episodic Nutritional deficiencies (8 sources) Vitamin D deficiency; Translations: [Vitamin D deficiency, unspecified] Onset: 07-31-2023 Chronic Nutritional deficiencies (1 source) Deficiency of other specified B group vitamins Episodic Osteoporosis (2 sources) Osteoporosis; Translations: [Age-related osteoporosis without current pathological fracture] 12-07-2023 Chronic Other aftercare (1 source) Other intermodal customer service (current) drug therapy Episodic Other connective tissue disease (2 sources) Pain in toe; Translations: [Pain in right toe(s)] 11-28-2023 Episodic Other connective tissue disease (4 sources) Pain in right toe(s); Translations: [Pain in limb] Onset: 12-02-2023 11-28-2023 Episodic Other connective tissue disease (2 sources) Pain of toe of right foot; Translations: [Pain in right toe(s)] 12-15-2023 Episodic Other endocrine disorders (6 sources) Secondary hyperparathyroidism; Translations: [Secondary hyperparathyroidism, not elsewhere classified] Chronic Other endocrine disorders (1 source) Secondary hyperparathyroidism, not elsewhere classified Chronic Other endocrine disorders (1 source) Other hyperparathyroidism; Translations: [Other hyperparathyroidism] Onset: 07-31-2023 Chronic Other injuries and conditions due to external causes (1 source) Other specified injuries of thorax, subsequent encounter Episodic Other injuries and conditions due to external causes (2 sources) Injury of great toe; Translations: [Unspecified injury of right foot, initial encounter] 12-15-2023 Episodic Other nutritional; endocrine; and metabolic disorders (6 sources) Hypocalcemia; Translations: [Hypocalcemia] Chronic Other nutritional; endocrine; and metabolic disorders (2 sources) Hypocalcemia; Translations: [Hypocalcemia] Onset: 07-31-2023 Chronic Other nutritional; endocrine; and metabolic disorders (3 sources) Abnormal weight loss; Translations: [Loss of weight] Episodic Other nutritional; endocrine; and metabolic disorders (2 sources) Weight loss; Translations: [Abnormal weight loss] 11-28-2023 Episodic Other upper respiratory disease (6 sources) [...] Classification Problem Date Documented Da te Episodic/Chronic Cardiac dysrhythmias (3 sources) Nonsustained ventricular tachycardia ; Translations: [NSVT (nonsustained ventricular tachycardia)] Onset: 02-22-2022 Resolved: 04-27-2023 04-27-2023 Chronic Cardiac dysrhythmias (3 sources) Palpitations; Translations: [Palpitations] Onset: 02-22-2022 Resolved: 04-27-2023 04-27-2023 Episodic Nonspecific chest pain (3 sources) Chest discomfort; Translations: [Other chest pain] Onset: 02-22-2022 Resolved: 04-27-2023 04-27-2023 Episodic Osteoarthritis (3 sources) Osteoarthritis of right glenohumeral joint; Translations: [Primary osteoarthritis, right shoulder] Onset: 04-27-2023 Resolved: 04-27-2023 04-27-2023 Chronic Other connective tissue disease (3 sources) Atrophy of muscle of left hand; Translations: [Muscle wasting and atrophy, not elsewhere classified, left hand] Onset: 04-27-2023 Resolved: 04-27-2023 04-27-2023 Episodic Other gastrointestinal disorders (1 source) Bariatric surgery status; Translations: [Bariatric surgery status] Onset: 07-31-2023 Episodic Other nervous system disorders (3 sources) Carpal tunnel syndrome of left wrist; Translations: [Carpal tunnel syndrome, left upper limb] Onset: 04-27-2023 Resolved: 04-27-2023 04-27-2023 Chronic Other screening for suspected conditions (not mental disorders or infectious disease) (2 sources) Encounter for screening mammogram for malignant neoplasm of breast; Translations: [Encounter for screening mammogram for malignant neoplasm of breast] Onset: 03-27-2023 Episodic Unclassified (1 source) CONTACT W/AND (SUSP) EXPOS COVID-19; Translations: [CONTACT W/AND (SUSP) EXPOS COVID-19] Onset: 02-24-2021 Results Test Name Value Interpretation Reference Range Facility C REACTIVE PROTEINon 024 CRP [Mass/Vol] mg/L Normal 0.000-0.744 [facility] Comment on above: Performed By: #### 8 2476-02, 1987-06, 3083-1, 29330-3, 83188-2, 87355-5 #### [facility] ([id number]) [address], [address] [place] [address] ESR Photometric method (Bld) [Velocity]on 12-11-2023 ESR, ERYTHROCYTE SEDIMENTATION RATE 7 mm/h Normal 0-30 [facility] Comment on above: Performed By: #### 8 2476-02, 1987-06, 3083-, 37354-6, 47457-1, 86693-3 #### [facility] ([id number]) [address], [address] [place] [address] MR FOOT RT WO CONTon 024 MR FOOT RT WO CONT MR FOOT RT WO CONT CLINICAL INFORMATION: . Pain in toe of right foot Trauma with pain COMPARISON: Right foot x-ray December 01. PROCEDURE: Routine MRI right foot was obtained Multisequence, multiplanar imaging was obtained. Findings/Impression: Essentially nondisplaced transverse fracture of the distal aspect of the proximal phalanx of the great toe extending from the medial cortex to the articular surface image 11 series 6. Mild arthritis at the first MPJ Mild contusion at the distal aspect of the fifth metatarsal, as well as the lateral navicular, cuboid and lateral cuneiform bones Lisfranc ligament intact Tibial and fibular sesamoids intact Finalized by Arya Matt MD on 12/11/2023 2:11 PM Normal [facility] Nuclear Ab IA Ql (S)on 12-10 NORM Screen w/reflex Negative Normal NEG [facility] Comment on above: Result Comment: Testing performed using multiplex flow immunoassay. Eleven different antigens associated with systemic autoimmune diseases (dsDNA,Sm,Sm/MACHINE TOOL ELECTRICIAN,MACHINE TOOL ELECTRICIAN,Chromatin, SSA,SSB,Cyndie-1,Scl70,Ribo P,Centromere B) are included in this screening test. Performed By: #### 1 9123-9, RENAL, 2731-8, 94241-4 #### [facility] ([id number]) [address], [address] [place] [address] Rheumatoid factor Nephelomet ry Qn (S)on 12-11-2023 RHEUMATOID FACTOR <10 Normal <20 [facility] Comment on above: Performed By: #### 8 2477-, 1987-06, 3083-02, 22103-8, 66245-1, 97002-0 #### [facility] ([id number]) [address], [address] [place] [address] URIC ACIDon 12-11-2023 Urate [Mass/Vol] 4.7 mg/dL Normal 2.6-7.2 [facility] Comment on above: Performed By: #### 8 2477-, 1987-06, 3083-, 09517-1, 08080-4, 24942-3 #### [facility] ([id number]) [address], [address] [place] [address] XR FOOT RT MIN 3 VWSon 12-10 XR FOOT RT MIN 3 VWS XR FOOT RT MIN 3 VWS *ADDENDUM*Images are further reviewed. Further reviewed of the images demonstrates faint lucency on the distal aspect of the proximal phalanx of the right great toe. Appearance is suggestive of nondisplaced fracture. This nondisplaced fracture is visualized on MRI examination of the right foot of 12/11/2023. Finalized by Govind Peck MD on 12/11/2023 3:53 PM Normal [facility] MAGNESIUMon 07-31-2023 Magnesium [Mass/Vol] 2.0 mg/dL Normal 1.8-2.6 [facility] Comment on above: Performed By: #### 1 9123-9, RENAL, 2731-8, 15622-9 #### [facility] ([id number]) [address], [address] [place] [address] Parathyrin.intact [Mass/Vol] on 07-31-2023 PTH INTACT 115 pg/mL High 12-88 [facility] Comment on above: Performed By: #### 1 9123-9, RENAL, 273-8, 99382-5 #### [facility] ([id number]) [address], [address] [place] [address] RENAL PANELon 07-31-2023 Albumin [Mass/Vol] 3.7 g/dL Normal 3.2-5.3 [facility] Comment on above: Performed By: #### 1 9123-9, RENAL, 2731-8, 97247-0 #### [facility] ([id number]) [address], [address] [place] [address] Anion gap [Moles/Vol] 8 mmol/L Normal 5-15 [facility] Comment on above: Performed By: #### 1 9123-9, RENAL, 2731-8, 04911-3 #### [facility] ([id number]) [address], [address] [place] [address] Calcium [Mass/Vol] 8.2 mg/dL Low 8.5-10.5 [facility] Comment on above: Performed By: #### 1 9123-9, RENAL, 2731-8, 55846-0 #### [facility] ([id number]) [address], [address] [place] [address] Chloride [Moles/Vol] 111 mmol/L High 98-109 [facility] Comment on above: Performed By: #### 1 9123-9, RENAL, 273-8, 97018-3 #### [facility] ([id number]) [address], [address] [place] [address] CO2 [Moles/Vol] 23 mmol/L Normal 22-32 [facility] Comment on above: Performed By: #### 1 9123-9, RENAL, 2730-8, 74227-3 #### [facility] ([id number]) [address], [address] [place] [address] Creatinine [Mass/Vol] 0.69 mg/dL Normal 0.40-1.00 [facility] Comment on above: Result Comment: METH OD TRACEABLE TO IDMS STANDARD Performed By: #### 1 9123-9, RENAL, 273-8, 18368-7 #### [facility] ([id number]) [address], [address] [place] [address] eGFR (CKD-EPI) NON-RACE DEPENDENT >90 Normal >59 [facility] Comment on above: Result Comment: Reported eGFR is based on the CKD-EPI 2020 equation that does not use a race coefficient. Performed By: #### 1 9123-9, RENAL, 2731-8, 27486-9 #### [facility] ([id number]) [address], [address] [place] [address] Glucose [Mass/Vol] 78 mg/dL Normal 65-99 [facility] Comment on above: Performed By: #### 1 9123-9, RENAL, 2731-8, 51794-2 #### [facility] ([id number]) [address], [address] [place] [address] Phosphate [Mass/Vol] 3.8 mg/dL Normal 2.4-4.9 [facility] Comment on above: Performed By: #### 1 9123-9, RENAL, 273-8, 78567-1 #### [facility] ([id number]) [address], [address] [place] [address] Potassium [Moles/Vol] 3.9 mmol/L Normal 3.5-5.0 [facility] Comment on above: Performed By: #### 1 9123-9, RENAL, 273-8, 64503-5 #### [facility] ([id number]) [address], [address] [place] [address] Sodium [Moles/Vol] 142 mmol/L Normal 134-146 [facility] Comment on above: Performed By: #### 1 9123-9, RENAL, 273-8, 13162-9 #### [facility] ([id number]) [address], [address] [place] [address] Urea nitrogen [Mass/Vol] 17 mg/dL Normal 5-27 [facility] Comment on above: Performed By: #### 1 9123-9, RENAL, 273-8, 14580-2 #### [facility] ([id number]) [address], [address] [place] [address] Vitamin D+Metabolites [Mass/ Vol]on 07-31-2023 VITAMIN D 25 HYD TOT 59.0 ng/mL Normal 30-100 [facility] Comment on above: Result Comment: Vitamin D status 25 [place] Vitamin D Deficiency <20 ng/mL Insufficiency 20-29 ng/mL Sufficiency 30-100 ng/mL Toxicity >100 ng/mL NOTE: A pediatric reference range has not been established by the distribution systems serviceperson of this kit. The [place] [employer] recommends a Vitamin D level of = or >20ng/mL in infants and children. Performed By: #### 1 9123-9, RENAL, 2731-8, 70574-1 #### [facility] ([id number]) [address] [place] [address], [address] [place] [address] CT guided bone marrow bx/asp iron 07-05-2023 CT guided bone marrow bx/aspir [facility] Main [place] [address] [place] [address] Scan Report Signed Patient: Taylor De Jesus MR#: [id number] : 1950 Acct:[id number] Age/Sex: 72 / F ADM Date: 07/05/23 Loc: CT Room: Type: [facility] Attending Dr: Gregory Jarrett MD Copies to: Gregory Jarrett MD Ordering Provider: Gregory Jarrett MD Date of Service: 07/05/23 CT/CT guided bone marrow bx/aspir: . CT GUIDED BONE MARROW BIOPSY OF THE RIGHT ILIAC BONE: CLINICAL HISTORY: Thrombocytopenia. FINDINGS: After questions were answered, informed consent was obtained. The patient was placed prone on the CT table and the right iliac bone was selected for biopsy. The skin over the pelvis was prepped and draped in normal sterile fashion. 1% lidocaine was utilized for local anesthesia. Utilizing CT guidance, an 11-gauge HouseTrip biopsy needle was advanced into the right iliac bone. 12mL of bone marrow was aspirated and given to pathology. After the sample was deemed adequate by pathology, a core biopsy was obtained and needle was withdrawn. Hemostasis was achieved. Bandage was applied. The patient tolerated procedure well without immediate complication. Please note that the patient was monitored throughout the procedure by nursing personnel. This CT exam was performed using one or more following dose reduction techniques: Automated exposure control, adjustment of the mA and/or kV according to patient size, or use of iterative reconstruction technique. CT/CT guided bone marrow bx/aspir IMPRESSION: Successful CT-guided bone marrow biopsy. Impression dictated by: Nikolay Ortiz Jr., D.O.07/05/2023 3:00 PM Dictation Location: [place] [address] Transcribed By: [facility] 07/05/23 1500 Dictated By: Nikolay Ortiz Jr, DO 07/05/23 1459 Signed By: 07/05/23 1500 Normal [facility] Coagulation Profileon 2023 aPTT Coag (Bld) [Time] 37.8 s High 25.1-36.5 [facility] Physician [facility] Comment on above: Result Comment: A he matocrit value greater than 55% may lead to inaccurate results in coagulation testing. Patients having hematocrit values >55% require a special collection tube for coagulation studies. Please contact the laboratory at [phone] for redraw instructions. PERFORMED BY: [place] [address] PATHOLOGIST CASE MANAGEMENT SOCIAL WORKER RONALD WAYNE M.D. Performed By: #### P P, CBC #### [facility] [address] [place], [place] [id number] [facility] INR Coag (PPP) [Relative time] 1.1 {INR} Normal The [facility] Physician [facility] Comment on above: Result Comment: INR Therapeutic Range A) Pre- and Peroperative OAT started two weeks before surgery. NOT HIP SURGERY: 1.5 - 2.5 HIP SURGERY: 2 - 3 B) Primary and secondary prevention of venous THROMBOSIS: 2 - 3 C) Active venous thrombosis, pulmonary embolism and prevention of recurrent venous thrombosis: 2 - 3 D) Prevention of arterial thromboembolism including patients with mechanical heart valves: 3 - 4.5 Performed By: #### P P, CBC #### [facility] [address] [place], [place] [id number] [facility] PT Coag (PPP) [Time] 12.8 s Normal 9.0-12.9 [facility] Physician [facility] Comment on above: Result Comment: A he matocrit value greater than 55% may lead to inaccurate results in coagulation testing. Patients having hematocrit values >55% require a special collection tube for coagulation studies. Please contact the laboratory at [phone] for redraw instructions. Performed By: #### P P, CBC #### [address] Complete Blood Count Auto Di ffon 07-05-2023 Basophils (Bld) [#/Vol] 0.1 10*3/uL Normal 0.0-0.2 [facility] Comment on above: Result Comment: PERF ORMED BY: [place] [address] PATHOLOGIST CASE MANAGEMENT SOCIAL WORKER RONALD WAYNE M.D. Performed By: #### P P, CBC #### [address] Basophils/100 WBC (Bld) 1.5 % Normal . [facility] Comment on above: Performed By: #### P P, CBC #### [address] Eosinophils (Bld) [#/Vol] 0.3 10*3/uL Normal 0.0-0.45 [facility] Comment on above: Performed By: #### P P, CBC #### [address] Eosinophils/100 WBC (Bld) 7.3 % Normal . [facility] Comment on above: Performed By: #### P P, CBC #### [address] Erythrocyte distribution width (RBC) [Ratio] 13.2 % Normal 11.9-15.3 [facility] Comment on above: Performed By: #### P P, CBC #### [address] Hematocrit (Bld) [Volume fraction] 34.2 % Normal 34.0-46.4 [facility] Comment on above: Performed By: #### P P, CBC #### [address] Hemoglobin (Bld) [Mass/Vol] 11.0 g/dL Low 11.8-15.4 [facility] Comment on above: Performed By: #### P P, CBC #### [address] Lymphocytes (Bld) [#/Vol] 1.4 10*3/uL Normal 1.00-4.8 [facility] Comment on above: Performed By: #### P P, CBC #### [address] Lymphocytes/100 WBC (Bld) 36.0 % Normal . [facility] Comment on above: Performed By: #### P P, CBC #### [address] MCH (RBC) [Entitic mass] 28.6 pg Normal 24.7-34.3 [facility] Comment on above: Performed By: #### P P, CBC #### [address] MCV (RBC) [Entitic vol] 89.2 fL Normal 80-100 [facility] Comment on above: Performed By: #### P P, CBC #### [address] Mean Corpuscular HGB Conc 32.1 g/dL Normal 32.0-35.0 [facility] Comment on above: Performed By: #### P P, CBC #### [address] Monocytes (Bld) [#/Vol] 0.4 10*3/uL Normal 0.0-0.8 [facility] Comment on above: Performed By: #### P P, CBC #### [address] Monocytes/100 WBC (Bld) 10.2 % Normal . [facility] Comment on above: Performed By: #### P P, CBC #### [address] Neutrophils (Bld) [#/Vol] 1.7 10*3/uL Low 1.8-7.7 [facility] Comment on above: Performed By: #### P P, CBC #### [address] Neutrophils/100 WBC (Bld) 45.0 % Normal . [facility] Comment on above: Performed By: #### P P, CBC #### [address] NRBC% 0.1 /100{WBC} Normal 0-0.5 The [facility] Comment on above: Performed By: #### P P, CBC #### [address] Platelet mean volume (Bld) [Entitic vol] 11.8 fL High 6.3-10.7 [facility] Comment on above: Performed By: #### P P, CBC #### [address] Platelets (Bld) [#/Vol] 100 10*3/uL Low 150-450 [facility] Comment on above: Performed By: #### P P, CBC #### [address] RBC (Bld) [#/Vol] 3.83 10*6/uL Normal 3.60-5.00 [facility] Comment on above: Performed By: #### P P, CBC #### [address] WBC (Bld) [#/Vol] 3.8 10*3/uL Normal 3.8-11.6 The [facility] Comment on above: Performed By: #### P P, CBC #### [address] Jose Manuel 07-05-2023 L Specimen: [id number] Received: 07/05/23-1302 Status: OMAIRA [facility] Num: [id number] Spec Type: Bone Marro Subm Dr: Nikolay Ortiz Jr, DO Tissues: A Bone Marrow Aspirate (Clot) (RT ILIAC CREST) B Bone Marrow Biopsy/Core (RT ILIAC CREST) Procedures: Peripheral Smr, Iron/7, HE/8, Gross/Micro L4/2, Bm Smear/2, AE1-AE3/3, CD138/3, CD20/3, CD3/3, CD34/3, Decalcification, Bone Marrow TP, GIEMSA STN/6, SMEARS/2 Age/ Patient Sex Location Account Attending Physician Taylor De Jesus 72/F CT [id number] Gregory Jarrett MD SPEC NUM: [id number] RECD: 07/05/23 STATUS: OMAIRA REQ NUM: [id number] CLAIRE: 07/05/23- SUBM DR: Nikolay Ortiz Jr, DO ENTERED: 07/05/23 [facility] DR: SPEC TYPE: Bone Marro DEPT: BM ORDERED: Peripheral Smr, Iron/7, HE/8, Gross/Micro L4/2, Bm Smear/2, AE1-AE3/3, CD138/3, CD20/3, CD3/3, CD34/3, Decalcification, Bone Marrow TP, GIEMSA STN/6, SMEARS/2 ORDERED: Peripheral Smr, Iron/7, HE/8, Gross/Micro L4/2, Bm Smear/2, AE1-AE3/3, CD138/3, CD20/3, CD3/3, CD34/3, USS/11, Decalcification, Bone Marrow TP, GIEMSA STN/6, SMEARS/2 Pathological Diagnosis Bone Marrow, Iliac Crest (core Biopsy, Clot And Aspirate Smears): Normocellular bone marrow (for age) with mostly normoblastic trilineage hematopoiesis. Comment: Bone Marrow Is Normocellular For Age, Averaging 25% Cellularity. Normoblastic Maturation Is Noted In The Erythroid, Myeloid And Megakaryocytic Lineages. Only rare dysplastic features are noted, of uncertain significance. No Abnormal Lymphocytic Proliferations Are Identified, As Confirmed With Cd3 And Cd20 Immunostains. No Increase In Myeloid Blasts, As Confirmed With Cd34 Immunostain. No Epithelial Lesions Are Identified, As Confirmed With Pankeratin Immunostain. Plasma Cells Are not increased, as confirmed with CD138 immunostain. Flow cytometry shows no significant findings. Clinical correlation and follow-up are suggested. CBC And Differential Specimen: [id number] Received: 07/05/23 Status: OMAIRA James Num: [id number] Spec Type: Bone Marro Subm Dr: Nikolay Ortiz, Jr, DO Tissues: A Bone Marrow Aspirate (Clot) (RT ILIAC CREST) B Bone Marrow Biopsy/Core (RT ILIAC CREST) Procedures: Peripheral Smr, Iron/7, HE/8, Gross/Micro L4/2, Bm Smear/2, AE1-AE3/3, CD138/3, CD20/3, CD3/3, CD34/3, Decalcification, Bone Marrow TP, GIEMSA STN/6, SMEARS/2 Patient: Taylor De Jesus [id number] (Continued) Specimen: [id number] Received: 07/05/23 (Continued) Pathological Diagnosis (Continued) Signed (signature on file) Taco Garza MD 07/12/23 1531 Specimen: [id number] Received: 07/05/23 Status: OMAIRA James Num: [id number] Spec Type: Bone Marro Subm Dr: Nikolay Ortiz Jr, DO Tissues: A Bone Marrow Aspirate (Clot) (RT ILIAC CREST) B Bone Marrow Biopsy/Core (RT ILIAC CREST) Procedures: Peripheral Smr, Iron/7, HE/8, Gross/Micro L4/2, Bm Smear/2, AE1-AE3/3, CD138/3, CD20/3, CD3/3, CD34/3, Decalcification, Bone Marrow TP, GIEMSA STN/6, SMEARS/2 Patient: Taylor De Jesus [id number] (Continued) Specimen: [id number] Received: 07/05/23 (Continued) Pathological Diagnosis (Continued) Erythrocytes: Mild normocytic anemia Leukocytes: Absolute neutropenia. Platelets: Mild thrombocytopenia. Aspirate Smear Erythropoiesis: Mostly normoblastic with rare dyserythropoiesis. Myeloid Leukogenesis: Normoplastic with mild left shift. Megakaryocytogenesis: Occasional hypolobated megakaryocytes. Core Biopsy Erythropoiesis: Adequate. Myeloid Leukogenesis: Adequate. Megakaryocytogenesis: Adequate. Special Stains Iron: Adequate bone marrow iron stores. Clinical Information Iron deficiency, Vit B12 deficiency, Thrombocytopenia Gross Description A. Received in formalin, labeled with the patient's name, date of and clot is an aggregate of dark red-brown clotted blood collectively measuring 2.9 x 1.1 x 0.7 cm. The specimen is serially sectioned and submitted entirely in A1?A2. B. Received in formalin, labeled with the patient's name, date of and bone is a 2.8 cm in length by 0.3 cm in diameter hemorrhagic bone core fragment, entirely submitted following immunocalcification in B1. (more content not included)... Normal [facility] Basophils Auto (Bld) [#/Vol] on 06-13-2023 Basophils (Bld) [#/Vol] 0.1 10 3/uL 0.0-0.1 [facility] Basophils/100 WBC Auto (Bld) on 06-13-2023 Basophils/100 WBC (Bld) 1.5 % 0.2-2.0 [facility] Eosinophils/100 WBC Auto (Bl d)on 06-13-2023 Eosinophils/100 WBC (Bld) 7.8 % 0.9-7.0 [facility] Erythrocyte distribution wid th Auto (RBC) [Ratio]on 06-13-2023 Erythrocyte distribution width (RBC) [Ratio] 12.9 % 11.0-15.0 [facility] Hematocrit Auto (Bld) [Volum e fraction]on 06-13-2023 Hematocrit (Bld) [Volume fraction] 35.5 % 36.0-48.0 [facility] Hemoglobin [Mass/volume] in Bloodon 06-13-2023 Hemoglobin (Bld) [Mass/Vol] 10.7 g/dL 12.0-16.0 [facility] Iron binding capacity [Mass/ volume] in Serum or Plasmaon 06-13-2023 Iron binding capacity [Mass/Vol] 261.0 ug/dL 250.0-450.0 [facility] Iron saturation [Mass Fracti on] in Serum or Plasmaon 06-13-2023 Iron saturation [Mass fraction] 30.7 % [facility] Jose Manuel 06-13-2023 L Specimen: Received: 06/13/23 Status: OMAIRA James Num: [id number] Spec Type: Impression Subm Dr: Gregory Jarrett MD Tissues: PATHPER Procedures: PATHREVIEW Age/ Patient Sex Location Account Attending Physician Taylor De Jesus 72/F [place] [id number] Gregory Jarrett MD SPEC NUM: RECD: 06/13/23 STATUS: OMAIRA JAMES NUM: [id number] CLAIRE: 06/13/[address]: Gregory Jarrett MD ENTERED: 06/13/[address]: Shmuel Lorenzo SPEC TYPE: Impression DEPT: ANGEL Jacob ENTERED BY: [id number] RECV BY: [id number] ORDERED: PATHREVIEW ORDERED: PATHREVIEW Pathologist Review Bicytopenia is noted. Bone marrow pathology should be ruled out. [id number] Specimen: Received: 06/13/23 Status: OMAIRA Jacob Num: [id number] Spec Type: Impression Subm Dr: Gregory Jarrett MD Tissues: PATHPER Procedures: PATHREVIEW Patient: Taylor De Jesus [id number] (Continued) Signed (signature on file) Taco Garza MD 06/14/23 1520 Normal [facility] Laboratory - Chemistry and C hemistry - challengeon 06-13-2023 Ferritin [Mass/Vol] 206.0 ng/mL 8.0-252.0 [facility] Iron [Mass/Vol] 80.0 ug/dL 50.0-170.0 [facility] Laboratory - Hematology and Cell countson 06-13-2023 Immature granulocytes/100 WBC (Bld) 0.3 % 0.0-0.5 [facility] Leukocytes [#/volume] correc nicola for nucleated erythrocytes in Blood by Automated counon 06-13-2023 WBC corrected for nucl RBC Auto (Bld) [#/Vol] 4.0 10 3/uL 4.0-11.0 [facility] Lymphocytes Auto (Bld) [#/Vo l]on 06-13-2023 Lymphocytes (Bld) [#/Vol] 1.4 10 3/uL 1.2-3.8 [facility] Lymphocytes/100 WBC Auto (Bl d)on 06-13-2023 Lymphocytes/100 WBC (Bld) 35.7 % 20.5-60.0 [facility] MCH Auto (RBC) [Entitic mass ]on 06-13-2023 MCH (RBC) [Entitic mass] 28.4 pg 26.7-34.0 [facility] MCHC Auto (RBC) [Mass/Vol]on 06-13-2023 MCHC (RBC) [Mass/Vol] 30.1 g/dL 29.9-35.2 [facility] MCV Auto (RBC) [Entitic vol] on 06-13-2023 MCV (RBC) [Entitic vol] 94.2 fL 81.0-99.0 [facility] Monocytes Auto (Bld) [#/Vol] on 06-13-2023 Monocytes (Bld) [#/Vol] 0.3 10 3/uL 0.3-0.8 [facility] Monocytes/100 WBC Auto (Bld) on 06-13-2023 Monocytes/100 WBC (Bld) 8.4 % 1.7-12.0 [facility] Neutrophils Auto (Bld) [#/Vo l]on 06-13-2023 Neutrophils (Bld) [#/Vol] 1.8 10 3/uL 1.4-6.5 [facility] Neutrophils/100 WBC Auto (Bl d)on 06-13-2023 Neutrophils/100 WBC (Bld) 46.3 % 43.0-75.0 [facility] No Panel Informationon 06-12 Eosinophils # (Auto) 0.3 10 3/uL 0.0-0.7 [facility] Immature Granulocyte # (Auto) 0.01 10 3/uL 0.00-0.03 [facility] Platelet mean volume Auto (B ld) [Entitic vol]on 06-13-2023 Platelet mean volume (Bld) [Entitic vol] 14.2 fL 9.5-13.5 [facility] Platelets Auto (Bld) [#/Vol] on 06-13-2023 Platelets (Bld) [#/Vol] 111 10 3/uL 150-450 [facility] RBC Auto (Bld) [#/Vol]on RBC (Bld) [#/Vol] 3.77 10 6/uL 4.20-5.40 [facility] Reticulocytes/100 RBC Auto ( Bld)on 06-13-2023 Reticulocytes/100 RBC (Bld) 1.26 % 0.60-3.[address] [facility] [address] CHEST WO IV CONTRASTon CT CHEST WO IV CONTRAST CT of the Chest without intervenous contrast medium. HISTORY: follow up infiltrate/nodular changes TECHNICAL FACTORS: CT imaging of the chest was obtained and formatted as 5 mm contiguous axial images from the thoracic inlet through the adrenal glands. Sagittal and coronal reconstructions obtained during postprocessing. Intravenous contrast medium: None. Comparison: CT chest, August 05, 2022. FINDINGS: Right lung: No nodules, masses, consolidation, pleural effusion, pneumothorax. Emphysema. Left lung: No nodules, masses, consolidation, pleural effusion, pneumothorax. Scarring versus subsegmental atelectatic change. Emphysema. Lymph nodes: No hilar, mediastinal, or axillary lymph node enlargement. Thoracic aorta: Normal in course and caliber. Cardiac size normal. No pericardial effusion. No coronary artery calcification. Upper abdomen:Limited imaging upper abdomen postsurgical change, greater curvature stomach. 8 mm calculus mid to upper pole right kidney. Small to moderate hiatal hernia. Musculoskeletal:No osteoblastic, and no osteolytic lesions. IMPRESSION: Emphysema. Since pulmonary emphysema on CT is an independent risk factor for lung cancer, recommend patient be evaluated for low-dose cancer screening protocol. All CT scans at this facility use dose modulation, iterative reconstruction, and/or weight based dosing when appropriate to reduce radiation dose to as low as reasonably achievable. ELECTRONICALLY SIGNED BY: Murphy Randle MD Normal Not Available Basophils Auto (Bld) [#/Vol] on 04-25-2023 Basophils (Bld) [#/Vol] 0.1 10 3/uL 0.0-0.1 [facility] Basophils/100 WBC Auto (Bld) on 04-25-2023 Basophils/100 WBC (Bld) 1.8 % 0.2-2.0 [facility] Eosinophils/100 WBC Auto (Bl d)on 04-25-2023 Eosinophils/100 WBC (Bld) 6.8 % 0.9-7.0 [facility] Erythrocyte distribution wid th Auto (RBC) [Ratio]on 04-25-2023 Erythrocyte distribution width (RBC) [Ratio] 13.3 % 11.0-15.0 [facility] Hematocrit Auto (Bld) [Volum e fraction]on 04-25-2023 Hematocrit (Bld) [Volume fraction] 36.3 % 36.0-48.0 [facility] Hemoglobin [Mass/volume] in Bloodon 04-25-2023 Hemoglobin (Bld) [Mass/Vol] 10.7 g/dL 12.0-16.0 [facility] Jose Manuel 04-25-2023 L Specimen: [id number] Received: 04/25/23 Status: OMAIRA James Num: [id number] Spec Type: Impression Subm Dr: Gregory Jarrett MD Tissues: PATHPER Procedures: PATHREVIEW Age/ Patient Sex Location Account Attending Physician OrlandokarlTaylor orellana 72/F [place] [id number] Gregory Jarrett MD SPEC NUM: [id number] RECD: 04/25/23 STATUS: OMAIRA JAMES NUM: [id number] CLAIRE: 04/25/[address]: Gregory Jarrett MD ENTERED: 04/25/23 [facility] DR: SPEC TYPE: Impression DEPT: ANGEL Jacob ENTERED BY: [id number] RECV BY: [id number] ORDERED: PATHREVIEW ORDERED: PATHREVIEW Pathologist Review Abnormal CBC for peripheral blood smear review: -Mild anemia of normocytic type, including minor anisocytosis with at least occasional ovalocytes -Mild leukopenia, otherwise no obvious morphological abnormality of the leukocyte populations -Mild thrombocytopenia with few occasional large platelets Comment: -The cause of mild pancytopenia is not clear in this case but may be multifactorial in etiology. Cirrhotic liver disease with the associated hepatosplenomegaly can have mild degree of pancytopenia. Other causes of peripheral sequestration such as CHF or CRF can also contribute to the cytopenias. Multiple medical conditions and senescence related ineffective hematopoiesis can also contribute to the cytopenias. Clinical correlations and other laboratory correlations are are therefore also suggested CPT: 77861 CBC No results available. Specimen: [id number] Received: 04/25/23-2 Status: OMAIRA James Num: [id number] Spec Type: Impression Subm Dr: Gregory Jarrett MD Tissues: PATHPER Procedures: PATHREVIEW Patient: Taylor De Jesus [id number] (Continued) Signed (signature on file) Esther June MD 04/27/232111 Normal [facility] Laboratory - Chemistry and C hemistry - challengeon 04-25-2023 Cobalamin (Vitamin B12) [Mass/Vol] 1143.0 pg/mL 193.0-986.0 [facility] Laboratory - Hematology and Cell countson 04-25-2023 Immature granulocytes/100 WBC (Bld) 0.0 % 0.0-0.5 [facility] Leukocytes [#/volume] correc nicola for nucleated erythrocytes in Blood by Automated counon 04-25-2023 WBC corrected for nucl RBC Auto (Bld) [#/Vol] 3.8 10 3/uL 4.0-11.0 [facility] Lymphocytes Auto (Bld) [#/Vo l]on 04-25-2023 Lymphocytes (Bld) [#/Vol] 1.5 10 3/uL 1.2-3.8 [facility] Lymphocytes/100 WBC Auto (Bl d)on 04-25-2023 Lymphocytes/100 WBC (Bld) 38.7 % 20.5-60.0 [facility] MCH Auto (RBC) [Entitic mass ]on 04-25-2023 MCH (RBC) [Entitic mass] 28.2 pg 26.7-34.0 [facility] MCHC Auto (RBC) [Mass/Vol]on 04-25-2023 MCHC (RBC) [Mass/Vol] 29.5 g/dL 29.9-35.2 [facility] MCV Auto (RBC) [Entitic vol] on 04-25-2023 MCV (RBC) [Entitic vol] 95.5 fL 81.0-99.0 [facility] Monocytes Auto (Bld) [#/Vol] on 04-25-2023 Monocytes (Bld) [#/Vol] 0.3 10 3/uL 0.3-0.8 [facility] Monocytes/100 WBC Auto (Bld) on 04-25-2023 Monocytes/100 WBC (Bld) 8.9 % 1.7-12.0 [facility] Neutrophils Auto (Bld) [#/Vo l]on 04-25-2023 Neutrophils (Bld) [#/Vol] 1.7 10 3/uL 1.4-6.5 [facility] Neutrophils/100 WBC Auto (Bl d)on 04-25-2023 Neutrophils/100 WBC (Bld) 43.8 % 43.0-75.0 [facility] No Panel Informationon 04-24 Add Manual Differential See comment [facility] Comment on above: SEE SCANNED REPORT Eosinophils # (Auto) 0.3 10 3/uL 0.0-0.7 [facility] Hepatitis C Interpretation Comment . [facility] Comment on above: Not infected with HC V unless early or acute infection issuspected (which may be delayed in an immunocompromisedindividual), or other evidence exists to indicate HCVinfection.Performed at: [address] [id number] Director: Tony Reilly PhD, Phone: [phone] Immature Granulocyte # (Auto) 0.00 10 3/uL 0.00-0.03 [facility] Platelet mean volume Auto (B ld) [Entitic vol]on 04-25-2023 Platelet mean volume (Bld) [Entitic vol] 14.3 fL 9.5-13.5 [facility] Platelets Auto (Bld) [#/Vol] on 04-25-2023 Platelets (Bld) [#/Vol] 111 10 3/uL 150-450 [facility] RBC Auto (Bld) [#/Vol]on RBC (Bld) [#/Vol] 3.80 10 6/uL 4.20-5.40 [facility] Reticulocytes/100 RBC Auto ( Bld)on 04-25-2023 Reticulocytes/100 RBC (Bld) 1.37 % 0.60-3.10 [facility] Serum or plasma hepatitis C virus antibody signal/cutoff ratio by immunoassay (relation 04-25-2023 HCV Ab Signal/Cutoff IA [Rel units/Vol] Non-Reactive Non Reactive [facility] MAMM SCREENING BILATERAL W C college president 03-27-2023 MAMM SCREENING BILATERAL W CAD MAMM [...] AM 1 c MAMM 1 YR Normal [facility] Jose Manuel 03-08-2023 L Specimen: [id number] Received: 03/09/23 Status: OMAIRA James Num: [id number] Spec Type: Impression Subm Dr: Gregory Jarrett MD Tissues: PATHPER Procedures: PATHREVIEW Age/ Patient Sex Location Account Attending Physician Taylor De Jesus 72/F [place] [id number] Gregory Jarrett MD SPEC NUM: [id number] RECD: 03/09/23 STATUS: OMAIRA JMAES NUM: [id number] CLAIRE: 03/08/[address]: Gregory Jarrett MD ENTERED: 03/09/23 [facility] DR: Shmuel Lorenzo SPEC TYPE: Impression DEPT: ANGEL Jacob ENTERED BY: [id number] RECV BY: [id number] ORDERED: PATHREVIEW ORDERED: PATHREVIEW Pathologist Review Abnormal [...] and laboratory follow-ups are also suggested CPT: 98044 Specimen: [id number] Received: 03/09/23 Status: OMAIRA James Num: [id number] Spec Type: Impression Subm Dr: Gregory Jarrett MD Tissues: PATHPER Procedures: PATHREVIEW Patient: Taylor De Jesus [id number] (Continued) Specimen: [id number] Received: 03/09/23 (Continued) Signed (signature on file) Esther June MD 03/10/23826 Specimen: [id number] Received: 03/09/23 Status: OMAIRA James Num: [id number] Spec Type: Impression Subm Dr: Gregory Jarrett MD Tissues: PATHPER Procedures: PATHREVIEW Patient: Taylor De Jesus [id number] (Continued) Specimen: [id number] Received: 03/09/23 (Continued) CBC No results available. Specimen: [id number] Received: 03/09/23 Status: ARIELDelvis Jacob Num: [id number] Spec Type: Impression Subm Dr: Gregory Jarrett MD Tissues: PATHPER Procedures: PATHREVIEW Patient: Taylor De Jesus [id number] (Continued) Signed (signature on file) Chin-Ra June MD 03/10/23 0827 Normal [facility] Covid-19 PCR (CVDTB)on SARS-CoV-2 (COVID-19) RNA JANKI+probe Ql (Unsp spec) Detected Critically abnormal NOT DETECTED [facility] Comment on above: Result Comment: This test is not yet approved or cleared by the [place] FDA. When there are no FDA-approved or cleared tests available, and other criteria are met, FDA can make tests available under an emergency access mechanism called an Emergency Use Authorization (EUA). The EUA for this test is supported by the [place] of Health and Human Service's (HHS's) declaration [...] longer be used). Performed By: #### [facility] #### [facility] [address] [place] [address] Dr. Malu June Vital Signs Date Time Vital Sign Value Performing Clinician Facility 12-15-2023 09:14-0400 Body height 159.4 cm Afshin Galindo DPM Work Phone: [facility] 12-15-2023 09:14-0400 Body mass index (BMI) [Ratio] 23.21 kg/m2 Afshin Galindo DPM Work Phone: [facility] 12-15-2023 09:14-0400 Body weight 58.97 kg Afshin Galindo DPM Work Phone: [facility] 12-07-2023 09:39-0400 Body mass index (BMI) [Ratio] 23.9 kg/m2 [facility] 12-07-2023 09:39-0400 Body temperature 97.6 [degF] [facility] 12-07-2023 09:39-0400 Diastolic blood pressure 68 mm[Hg] [facility] 12-07-2023 09:39-0400 Heart rate 66 /min [facility] 12-07-2023 09:39-0400 SaO2% (BldA) [Mass fraction] 98 % [facility] 12-07-2023 09:39-0400 Systolic blood pressure 118 mm[Hg] [facility] 12-07-2023 08:49-0400 Body height 157.48 cm [facility] 12-07-2023 08:49-0400 Body weight 59.42 kg [facility] 11-28-2023 10:36-0400 Body height 157.48 cm [facility] 11-28-2023 10:36-0400 Body mass index (BMI) [Ratio] 23.9 kg/m2 [facility] 11-28-2023 10:36-0400 Body temperature 97.9 [degF] [facility] 11-28-2023 10:36-0400 Body weight 59.42 kg [facility] 11-28-2023 10:36-0400 Diastolic blood pressure 80 mm[Hg] [facility] 11-28-2023 10:36-0400 Heart rate 68 /min [facility] 11-28-2023 10:36-0400 SaO2% (BldA) [Mass fraction] 98 % [facility] 11-28-2023 10:36-0400 Systolic blood pressure 132 mm[Hg] [facility] 01-31-2023 09:10-0500 Body height 157.48 cm Temitope Gutierrez Other [facility] 01-31-2023 09:10-0500 Body mass index (BMI) [Ratio] 25.69 kg/m2 Temitope Brenda Other [facility] 01-31-2023 09:10-0500 Body temperature 98.4 [degF] Temitope Brenda Other [facility] 01-31-2023 09:10-0500 Body weight 63.73 kg Temitope Brenda Other [facility] 01-31-2023 09:10-0500 Diastolic blood pressure 62 mm[Hg] Temitope Daniij carlos Other [facility] Other 01-31-2023 09:10-0500 Respiratory rate 18 /min Temitope Daniij carlos Other [facility] 01-31-2023 09:10-0500 SaO2% (BldA) [Mass fraction] 99 % Temitope Gutierrez Other [facility] 01-31-2023 09:10-0500 Systolic blood pressure 118 mm[Hg] Temitope Gutierrez Other [facility] 10-05-2022 11:15-0400 Body height 157.48 cm Bhavesh Wright Other [facility] Other 10-05-2022 11:15-0400 Body mass index (BMI) [Ratio] 26.52 kg/m2 Bhavesh Wright Other [facility] Other 10-05-2022 11:15-0400 Body temperature 97 [degF] Bhavesh Wright Other [facility] Other 10-05-2022 11:15-0400 Body weight 65.77 kg Bhavesh Gascaban Other [facility] Other 10-05-2022 11:15-0400 Diastolic blood pressure 72 mm[Hg] Desmondal Chaban Other [facility] Other 10-05-2022 11:15-0400 Respiratory rate 20 /min Bhavesh Gascaban Other [facility] Other 10-05-2022 11:15-0400 SaO2% (BldA) [Mass fraction] 100 % Bhavesh Gascaban Other [facility] 10-05-2022 11:15-0400 Systolic blood pressure 134 mm[Hg] Bhavesh Chaban Other [facility] Other 04-06-2022 12:15-0500 Body height 157.48 cm Bhavesh Gascaban Other [facility] Other 04-06-2022 12:15-0500 Body mass index (BMI) [Ratio] 2.74 kg/m2 Bhavesh Gascaban Other [facility] Other 04-06-2022 12:15-0500 Body temperature 97.1 [degF] Bhavesh Gascaban Other [facility] Other 04-06-2022 12:15-0500 Body weight 6.8 kg Bhavesh Chaban Other [facility] Other 04-06-2022 12:15-0500 Diastolic blood pressure 70 mm[Hg] Desmondal Chaban Other [facility] Other 04-06-2022 12:15-0500 Respiratory rate 20 /min Bhavesh Gascaban Other [facility] Other 04-06-2022 12:15-0500 SaO2% (BldA) [Mass fraction] 99 % Bhavesh Gascaban Other [facility] Other 04-06-2022 12:15-0500 Systolic blood pressure 140 mm[Hg] Bhavesh Chaban Other [facility] Other 09-21-2021 12:45-0400 Body height 157.48 cm Bhavesh Gascaban Other [facility] Other 09-21-2021 12:45-0400 Body mass index (BMI) [Ratio] 28.71 kg/m2 Bhavesh Gascaban Other [facility] Other 09-21-2021 12:45-0400 Body temperature 97.6 [degF] Bhavesh Gascaban Other [facility] Other 09-21-2021 12:45-0400 Body weight 71.22 kg Bhavesh Gascaban Other [facility] Other 09-21-2021 12:45-0400 Diastolic blood pressure 66 mm[Hg] Bhavesh Gascaban Other [facility] Other 09-21-2021 12:45-0400 Respiratory rate 20 /min Bhavesh Chaban Other [facility] Other 09-21-2021 12:45-0400 SaO2% (BldA) [Mass fraction] 99 % Bhavesh Gascaban Other [facility] Other 09-21-2021 12:45-0400 Systolic blood pressure 120 mm[Hg] Bhavesh Chaban Other [facility] Other 03-23-2021 12:45-0500 Body height 157.48 cm Bhavesh Gascaban Other [facility] Other 03-23-2021 12:45-0500 Body mass index (BMI) [Ratio] 29.88 kg/m2 Bhavesh Gascaban Other [facility] Other 03-23-2021 12:45-0500 Body temperature 98 [degF] Bhavesh Gascaban Other [facility] Other 03-23-2021 12:45-0500 Body weight 74.12 kg Bhavesh Gascaban Other [facility] Other 03-23-2021 12:45-0500 Diastolic blood pressure 68 mm[Hg] Bhavesh Gascaban Other [facility] Other 03-23-2021 12:45-0500 Respiratory rate 20 /min Bhavesh Gascaban Other [facility] Other 03-23-2021 12:45-0500 SaO2% (BldA) [Mass fraction] 100 % Bhavesh Gascaban Other [facility] Other 03-23-2021 12:45-0500 Systolic blood pressure 140 mm[Hg] Bhavesh Chaban Other [facility] Other 02-23-2021 11:10-0500 Body height 157.48 cm Temitope Gutierrez Other [facility] Other Encounters Encounter Date Encounter Type Care Provider Facility Start: 12-15-2023 End: 12-15-2023 Bamboo flowsheet Afshin Galindo DPM Work Phone: [facility] Start: 12-15-2023 End: 12-15-2023 Bamboo flowsheet Afshin Galindo DPM Work Phone: [facility] Start: 12-15-2023 End: 12-15-2023 Office outpatient new 30 minutes Afshin Galindo DPM Work Phone: [facility] Comment on above: Closed non-physeal f racture of proximal phalanx of right great toe, initial encounter (Primary Dx); Injury of right great toe, initial encounter; Pain of toe of right foot Start: 12-15-2023 End: 12-15-2023 ambulatory AFSHIN GALINDO Not Available Start: 12-11-2023 End: 12-11-2023 ambulatory [facility] Start: 12-07-2023 End: 12-07-2023 ambulatory [facility] Work Phone: Start: 12-07-2023 End: 12-07-2023 Patient encounter procedure [facility] Work Phone: Start: 12-02-2023 End: 12-02-2023 ambulatory [facility] Start: 11-28-2023 End: 11-28-2023 ambulatory [facility] Work Phone: Start: 11-28-2023 End: 11-28-2023 Patient encounter procedure [facility] Work Phone: Start: 11-08-2023 End: 11-08-2023 ambulatory SARA HONEYCUTT Not Available Start: 09-15-2023 Non-patient / Non-visit [facility] Work Phone: Start: 07-31-2023 End: 07-31-2023 ambulatory MAURO JUAREZ [facility] Start: 07-05-2023 End: 07-05-2023 ambulatory Gregory Luiza Facility:[facility] Start: 06-13-2023 End: 06-13-2023 ambulatory DO Temitope Gutierrez Work Phone: [facility] Work Phone: Start: 06-13-2023 End: 06-13-2023 Departed Referred DO Temitope Gutierrez Work Phone: [facility] Start: 06-13-2023 Non-patient / Non-visit DO Yohan Gutierrez Work Phone: [facility] Phys[facility] Work Phone: Start: 05-03-2023 End: 05-03-2023 ambulatory SARA HONEYCUTT Not Available Start: 04-28-2023 Non-patient / Non-visit DO Yohan Gutierrez Work Phone: [facility] Work Phone: Start: 04-28-2023 End: 04-28-2023 ambulatory SARA HONEYCUTT Not Available Start: 04-25-2023 End: 04-25-2023 ambulatory Gregory Luiza Facility:[facility] Start: 04-25-2023 Non-patient / Non-visit DO Yohan kim Girj carlos Work Phone: [facility] Physician [facility] Work Phone: Start: 03-29-2023 End: 03-29-2023 ambulatory Temitope Gutierrez Other [facility] [employer] Other Start: 03-29-2023 Telephone encounter Temitope Gutierrez [facility] Start: 03-27-2023 End: 03-27-2023 ambulatory TEMITOPE GUTIERREZ [facility] Start: 03-08-2023 End: 03-08-2023 ambulatory DO Temitope Gutierrez Work Phone: [facility] Work Phone: Start: 03-08-2023 End: 03-08-2023 Departed Referred DO Temitope Gutierrez Work Phone: [facility] Start: 02-23-2023 End: 02-23-2023 ambulatory Temitope Gutierrez Other [facility] Other Start: 02-23-2023 Telephone encounter Temitope Gutierrez [facility] Start: 02-01-2023 End: 02-01-2023 ambulatory Temitope Gutierrez Other [facility] Other Start: 02-01-2023 Telephone encounter Temitope Gutierrez [facility] Start: 01-31-2023 End: 01-31-2023 ambulatory Temitope Gutierrez Other [facility] Other Start: 01-31-2023 Office outpatient vi sit 25 minutes Temitope Gutierrez [facility] Start: 10-05-2022 End: 10-05-2022 ambulatory Kamal Chaban Other [facility] Other Start: 10-05-2022 Office outpatient vi sit 15 minutes Kamal Chaban [facility] Start: 08-08-2022 End: 08-08-2022 ambulatory Kamal Chaban Other [facility] Other Start: 08-08-2022 Telephone encounter Kamal Chaban [facility] Start: 06-20-2022 End: 06-20-2022 ambulatory Temitope Gutierrez Other [facility] Other Start: 06-20-2022 Telephone encounter Temitope Gutierrez [facility] Start: 04-06-2022 End: 04-06-2022 ambulatory Kamal Chaban Other [facility] Other Start: 04-06-2022 Office outpatient vi sit 15 minutes Kamal Chaban [facility] Start: 03-10-2022 End: 03-10-2022 ambulatory Temitope Gutierrez Other [facility] Other Start: 03-10-2022 Telephone encounter Temitope Gutierrez [facility] Start: 01-12-2022 End: 01-12-2022 ambulatory Temitope Gutierrez Other [facility] Other Start: 01-12-2022 Telephone encounter Temitope Gutierrez [facility] Start: 12-02-2021 End: 12-02-2021 ambulatory Kamal Chaban Other [facility] Other Start: 12-02-2021 Telephone encounter Kamal Chaban [facility] Start: 09-21-2021 End: 09-21-2021 ambulatory Kamal Chaban Other [facility] Other Start: 09-21-2021 Office outpatient vi sit 15 minutes Kamal Chaban [facility] Start: 09-14-2021 End: 09-14-2021 ambulatory Temitope Gutierrez Other [facility] Other Start: 09-14-2021 Telephone encounter Temitope Gutierrez [facility] Start: 04-12-2021 End: 04-12-2021 ambulatory Temitope Gutierrez Other [facility] Other Start: 04-12-2021 Telephone encounter Temitope Gutierrez [facility] Start: 03-23-2021 End: 03-23-2021 ambulatory Kamal Chaban Other [facility] Other Start: 03-23-2021 Office outpatient vi sit 15 minutes Kamal Chaban [facility] Start: 03-23-2021 Telephone encounter Kamal Chaban [facility] Start: 02-25-2021 End: 02-25-2021 ambulatory Temitope Gutierrez Other [facility] Other Start: 02-25-2021 Telephone encounter Temitope Gutierrez [facility] Start: 02-24-2021 End: 02-24-[address] TEMITOPE GUTIERREZ Facility: Start: 02-23-2021 End: 02-23-2021 ambulatory Temitope Gutierrez Other [facility] Other Start: 02-23-2021 Telephone encounter Temitope Gutierrez [facility] Procedures Date Procedure Procedure Detail Performing Clinician Start: 12-11-2023 Cyclic citrullinated peptide antibody MAURO JUAREZ Comment on above: Result Comment: Interpretation-------- <3 Negative >=3 Positive Performed By: #### 1 9123-9, RENAL, 2731-8, 86218-9 #### [facility] ([id number]) [address] [place] [address], [address] [place] [address] Start: 03-27-2023 Mammography Afshin Hiram cisneros DPM Work Phone: Start: 04-19-2021 Colonoscopy Afshin cisneros DPM Work Phone: Plan of Treatment Date Care Activity Detail Author Start: 04-19-2031 Screening for malignant neoplasm of colon [facility] Start: 08-08-2024 End: 08-08-2024 Patient encounter procedure 08/08/2024 9:00 AM EDT Office Visit [facility] [address] [place] [id number] Mauro Juarez MD [address] [place] [address] [facility] Start: 04-26-2024 End: 04-26-2024 Patient encounter procedure 04/26/2024 9:45 AM EST Office Visit [facility] [address] [place] [phone] Sara Honeycutt, DO [address] [place] [address] [facility] Start: 03-27-2024 Screening for malignant neoplasm of breast Mammogram [facility] Start: 01-16-2024 End: 01-16-2024 Patient encounter procedure 01/16/2024 12:45 PM EST Office Visit [facility] [address] [place] [phone] Afshin Galindo, DPM [address] [place] [address] [facility] Start: 12-15-2023 End: 12-15-2023 Patient encounter procedure 12/15/2023 9:30 AM EDT Office Visit [facility] [address] [facility] [id number] Afshin Galindo, DPM [address] [place] [address] Arrived [facility] Comment on above: Arrived Start: 1950 Screening for malignant neoplasm of colon [facility] Adenosine monophosphate.cyclic [Moles/volume] in Serum or Plasma [facility] Rheumatoid factor [Units/volume] in Serum or Plasma [facility] XR Foot - right GE 3 Views [facility] Immunizations Immunization Date Immunization Notes Care Provider Fa cility 11-07-2023 COVID-19 (MODERNA) 12Y and older [facility] 11-07-2023 influenza, high dose seasonal, preservative-free [facility] 12-08-2022 Flu Shot - Documenta tion Purposes Only Temitope Gutierrez Other [facility] 12-08-2022 COVID-19 Moderna (SPIKEVAX) Temitope Gutierrez Other [facility] 12-08-2022 Influenza, High-dose Seasonal, Quadrivalent, Preservative Free Afshin Galindo DPM Work Phone: [facility] 10-06-2022 Prevnar 20 Temitope Gutierrez Other [facility] 11-25-2021 Influenza, High-dose Seasonal, Quadrivalent, Preservative Free Afshin Galindo DPM Work Phone: [facility] 11-25-2021 influenza, seasonal, injectable Kamal Chaban Other [facility] 09-10-2021 tetanus toxoid, redu cleo diphtheria toxoid, and acellular pertussis vaccine, [facility] 06-09-2021 COVID-19 Vaccine Mod nuria - Documentation Purposes Only Kamal Chaban Other [facility] 12-16-2020 COVID-19 Vaccine Mod nuria - Documentation Purposes Only Temitope Gutierrez Other [facility] 11-14-2020 Influenza, High-dose Seasonal, Quadrivalent, Preservative Free Afshin Galindo DPM Work Phone: [facility] 11-10-2020 influenza, seasonal, injectable Temitope Gutierrez Other [facility] 05-18-2020 COVID-19 Vaccine Mod nuria - Documentation Purposes Only Temitope Gutierrez Other [facility] 04-17-2020 COVID-19 Vaccine Mod unria - Documentation Purposes Only Temitope Gutierrez Other [facility] 03-14-2020 zoster vaccine recombinant Temitope Gutierrez Other [facility] 01-14-2020 zoster vaccine recombinant Temitope Gutierrez Other [facility] 10-29-2019 Influenza, High-dose Seasonal, Quadrivalent, Preservative Free Afshin Galindo DPM Work Phone: [facility] 10-29-2019 influenza, seasonal, injectable Temitope Gutierrez Other [facility] 12-13-2018 influenza, high dose seasonal, preservative-free Afshin Galindo DPM Work Phone: [facility] 12-13-2018 influenza, seasonal, injectable Temitope Gutierrez Other [facility] 10-05-2017 influenza, high dose seasonal, preservative-free Asfhin Galindo DPM Work Phone: [facility] 09-02-2017 pneumococcal polysaccharide vaccine, 23 valent Temitope Gutierrez Other [facility] 11-16-2016 influenza, seasonal, injectable Temitope Gutierrez Other [facility] 11-16-2016 influenza, high dose seasonal, preservative-free Afshin Galindo DPM Work Phone: [facility] 12-15-2015 influenza, injectabl e, madin heraclio canine kidney, preservative free Afshin Galindo DPM Work Phone: [facility] 12-06-2015 influenza, seasonal, injectable, preservative free Afshin Galindo DPM Work Phone: [facility] 11-24-2015 seasonal influenza, intradermal, preservative free Afshin Galindo DPM Work Phone: [facility] 12-06-2006 influenza virus vacc ine, whole virus Afshin Galindo DPM Work Phone: [facility] Payers Date Payer Category Payer Self-pay 2023 Private Health Insurance [employer] [id number] 2016 Medicare MEDICARE [id number] 1959 Medicare [id number] 1958 Unknown [id number] 1950 Unknown [id number] 1950 Unknown [id number] .1285 1950 Unknown [id number] [id number] .128 1950 Unknown [id number] [id number] .128 1950 Unknown [id number] [id number] .128 1950 Unknown [id number] [id number] .128 1950 Unknown [id number] [id number] .1259 1950 Unknown [id number] [id number] .1259 1950 Unknown [id number] [id number] .1259 1950 Unknown [id number] [id number] .1259 Unknown [facility] [id number] Unknown [id number] .531 Unknown [id number] [id number] .531 Unknown [id number] [id number] .531 Unknown [id number] .531 Social History Date Type Detail Facility Start: 11-08-2023 End: 12-15-2023 Sex Assigned At [place] Other Start: 1950 Sex Assigned At Female F [facility] Start: 01-30-2018 End: 04-25-2023 Tobacco smoking status NHIS Ex-smoker (finding) [facility] History of tobacco use Current smoker [facility] History of tobacco use Cigarette Smoker [facility] Start: 04-25-2023 Tobacco use and exposure Smokeless tobacco non-user [facility] Start: 11-08-2023 End: 12-15-2023 Alcoholic beverage intake Defer [facility] Start: 11-08-2023 End: 12-15-2023 History of Social function [facility] Start: 1950 Sex assigned at Not on file [facility] Clinical Notes 02-23-2021 to 12-15-2023 Afshin Galindo DPM - 12/15/2023 9:30 AM EDT Note Date & Type Note Facility 12-15-2023 History of Presen t illness Narrative Images from the original note were not included. Subjective Patient ID: Taylor De Jesus is a 73 y.o. female who presents for Foot Injury (Taylor De Jesus 73yo New Patient referred Dr. Gutierrez. DOI 11/21/2023, patient relates she was wearing sandals and hit the door jam with her right great toe. Pain, redness, swelling,icing, soaking, tylenol as needed. Patient was prescribed Zpak, completed. Xrays and MRI. SS9 ). HPI Patient presents with fractured right hallux. She states on 11/21/2023 she jammed her right toe in an a door frame. The toe was red and swollen and mildly tender but she continued to walk on the foot. She saw her primary care doctor who ordered radiographs which were done per [facility] on 12/02/2023 the radiographs initially showed no fracture. Patient's symptoms continued with swelling and redness at the right hallux. An MRI was ordered 12/11/2023 which showed fracture of the head of the proximal phalanx of the hallux. Patient has been icing and soaking. She states the toe is still swollen and red and occasionally tender. 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 (Patient not taking: Reported on 12/15/2023), Disp: , Rfl: cetirizine (ZyrTEC) 10 MG tablet, Take 10 mg by mouth in the morning., Disp: , Rfl: cholecalciferol (Vitamin D-3) 250 MCG (66981 UT) tablet, Take 1 tablet by mouth in the morning., Disp: , Rfl: ferrous sulfate 325 (65 Fe) MG tablet, 1 (one) time each day at the same time, Disp: , Rfl: Fluticasone Furoate-Vilanterol (Breo Ellipta) 100-25 MCG/ACT aerosol powder , Inhale 1 puff Daily, Disp: 1 each, Rfl: 5 ipratropium-albuterol (Duo-Neb) 0.5-2.5 mg/3 mL nebulizer solution, , Disp: , Rfl: loratadine (Claritin) 10 MG tablet, 1 (one) time each day at the same time, Disp: , Rfl: Multiple Vitamins-Minerals (Centrum Adults) tablet, Orally, Disp: , Rfl: potassium chloride CR (Klor-Con M10) 10 MEQ ER tablet, Take 10 mEq by mouth in the morning and 10 mEq in the evening., Disp: , Rfl: potassium chloride ER (Micro-K) 10 MEQ ER capsule, Take 20 mEq by mouth in the morning and 20 mEq before bedtime., Disp: , Rfl: Allergies Penicillins; Zoledronic acid; Mannitol; Water, sterile; and Horse epithelium allergy skin test Past Surgical History Past Surgical History: Procedure Laterality Date GASTRIC BYPASS 2003 HERNIA REPAIR 2004 INTRAOCULAR LENS INSERTION Bilateral IR NEPHROSTOMY PLACEMENT 12/14/2017 IR NEPHROSTOMY PLACEMENT 12/14/2017 OTHER SURGICAL HISTORY Left cyst excised LLE TUBAL LIGATION WRIST FRACTURE SURGERY 07/14/2020 W/ CR - DR BRADSHAW Family History Family History Problem Relation Name Age of Onset Hypertension Mother Stroke Mother Hypertension Father Objective Physical Exam Constitutional: Appearance: Normal appearance. HENT: Head: Normocephalic and atraumatic. Cardiovascular: Comments: Pedal pulses: DP 2/4 R, PT 2/4 R. Skin temp is warm to warm. Varicosities: telangiectasias present bilaterally Hair growth: sparse Moderate edema noted bilateral lower extremity Pulmonary: Effort: Pulmonary effort is normal. Musculoskeletal: Right lower leg: No edema. Left lower leg: No edema. Comments: ROM: AJ and STJ ROM are normal and pain free. There is pain with ROM of R 1st HIPJ. There is no pain with ROM Of 1st MTPJ MUSCLE STRENGTH: Flexion/extension is intact at digits right foot. PAIN: There is pain with palpation to the proximal phalanx of the right hallux. No pain with palpation of distal phalanx or 1st metatarsal. DEFORMITY: no gross deformity Skin: General: Skin is warm and dry. Capillary Refill: Capillary refill takes 2 to 3 seconds. Findings: No bruising or erythema. Comments: SKIN FINDINGS: there is notable inflammation and erythema noted of the right hallux base. No ecchymosis. Webspaces are clean and dry. Skin turgor diminished Neurological: Mental Status: She is alert and oriented to person, place, and time. Comments: Light touch sensation intact RADIOGRAPHS PMH 12/02/2023: diffuse osteopenia. Complete intra-articular fracture of the distal medial aspect head of the proximal phalanx of the hallux. Dorsal osteophyte formation noted dorsal navicular cuneiform joint and talar neck. MRI PMH 12/11/2023: Complete intra-articular fracture of the distal medial aspect of the head of the proximal phalanx of the hallux. There is bone marrow edema noted throughout the entire proximal phalanx. Assessment/Plan ICD-10-CM 1. Closed non-physeal fracture of proximal phalanx of right great toe, initial encounter S92.411A 2. Injury of right great toe, initial encounter S99.921A 3. Pain of toe of right foot M79.674 Reviewed radiographic and clinical findings with the pt. Explained diagnosis of hallux proximal phalanx fracture. (Date of injury 11/21/2023). Reviewed that normal bone heals in 4-6 weeks. Patient had recent vitamin-D level checked on 08/08/2023, level was adequate at 59. She does take a vitamin-D supplement. Recommended immobilization in a surgical shoe. Patient was fitted today for one and this was dispensed to her. Patient was instructed in the application and removal of this device. It fit well. Encouraged to do little walking and elevate. Rest, ice, elevate. No need for NSAIDs as pt has been fairly comfortable. Will return to the office in 4 weeks for recheck and new radiographs. This note was created with the assistance of a speech recognition program. While intending to generate a timely document that accurately reflects the content of the visit, no guarantee can be provided that every grammatical or spelling mistake has been or will be identified or corrected. Thank you for your understanding. Afshin Galindo DPM documented in this encounter [facility] 03-29-2023 Evaluation note Encounter Date Diagnosis Assessment Notes Mar, Fever (ICD-10 - R50.9) [facility] Other 01-04-2024 Evaluation note* Encounter Date Diagnosis Assessment Notes Treatment Notes Treatment Clinical Notes Feb, Breast cancer screening (ICD-10 - Z12.31) [facility] Other 12-12-2023 Evaluation note* Encounter Date Diagnosis Assessment Notes Treatment Notes Treatment Clinical Notes 12 Dec, 2023 Iron deficiency anem ia (ICD-10 - D50.9) [...] I would like her to have the coordinator of placement evaluate her neck when seen. On exam [...] to switch to Dr. Honeycutt in the [place] office. A referral is provided. Jan, Vitamin D deficiency (ICD-10 - E55.9) Continue with above medications daily as directed. Jan, Hyperparathyroidism , secondary, non-renal (ICD-10 - E21.1) She saw Dr. Juarez in July (2022) and will continue to follow with him once a year. Jan, Weight loss (ICD-10 - R63.4) She has lost 4.5 pounds since last seen. Jan, manager terminal use of jenaro g (ICD-10 - Z79.899) [...] order to be done in 1 year [facility] Other 08-16-2023 Evaluation note* Encounter Date Diagnosis [...] to chest, subsequent encounter (ICD-10 - S29.8XXD) [facility] Other 02-15-2023 Evaluation note* Encounter Date Diagnosis [...] me, otherwise we will continue to follow [facility] Other 01-19-2023 Evaluation note* Encounter Date Diagnosis Assessment Notes Treatment Notes Treatment Clinical Notes Feb, Fever (ICD-10 - R50.9) [facility] Other 10-13-2022 Evaluation note* Encounter Date Diagnosis Assessment Notes Treatment Notes Treatment Clinical Notes Nov, Chronic obstructive pulmonary disease (ICD-10 - J44.9) [facility] Other 08-02-2022 Evaluation note* Encounter Date Diagnosis Assessment Notes Treatment Notes Treatment Clinical Notes Sep, Chronic obstructive pulmonary disease (ICD-10 - J44.9) Patient remains adequately controlled with current treatment, states that she has 1 more refill left on her inhalers and will call when she needs more ordered. [facility] Other 02-21-2022 Evaluation note* Encounter Date Diagnosis Assessment Notes Treatment Notes Treatment Clinical Notes Mar, Hypokalemia (ICD-10 - E87.6) [facility] Other 02-01-2022 Evaluation note* Encounter Date Diagnosis Assessment Notes Treatment Notes Treatment Clinical Notes Mar, Chronic obstructive pulmonary disease (ICD-10 - J44.9) [facility] Other 01-04-2022 Evaluation note* Encounter Date Diagnosis [...] and recommended that she take a Z hiren and explained that if she is fighting something viral this will decrease inflammation and calm things down in the airways. Valdezo recommend that she be tested for COVID-19 at the [facility] on Mon02/24/21. She should have the results prior to the weekend. Feb, Rhinorrhea (ICD-10 - J34.89) Feb, Pharyngitis (ICD-10 - J02.9) Feb, Other 10:26 AM - 10:38 AM [facility] Other Evaluation noteNo InformationNort [employer] Other Evaluation noteNo assessment information available [facility] Work Phone: Evaluation note* Diagnosis Onset Date Resolution Status Toe pain, right acute Weight loss acute [facility] Work Phone: Evaluation note* Diagnosis Onset Date Resolution Status Toe pain, right acute Weight loss acute Osteoporosis acute Toe pain, right acute 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 Surgical History cortisone inj rt shoulder - [facility] 01/19/16 Surgical History left knee xr [facility] 01/17/17 Surgical History rt cheek [facility] 01/17/[address] kidney stones [address] Ham Hospitalization History hyperkalemia 2009 Hospitalization History UC for URI 12/12/19 15 Hospitalization History [facility] COPD - ED 04/29/15 [facility] [employer] Other History general Narrative - Reported* Type [...] RIbs [address] 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 Surgical History cortisone inj rt shoulder - [facility] 01/19/16 Surgical History left knee xr [facility] 01/17/17 Surgical History rt cheek [facility] 01/17/[address] History kidney stones Dr Ham Hospitalization History hyperkalemia 2009 Hospitalization History UC for URI 12/12/19 15 Hospitalization History [facility] COPD - ED 04/29/15 [facility] [employer] Other Reason for visit Narrativeyearly visit/ review lab, discuss multiple issues, see treatment plan for further informationNo[facility] [employer] Other Summary Purpose Family History No Family History Records Found Relationship Condition Age at Onset Recorded Date/T chuck father Chronic obstructive pulmonary disease Unk nown Unknown Not Specified Heart disease Unknown Coronary artery disease Unknown Relationship Condition Age at Onset Recorded Date/T chuck father Chronic obstructive pulmonary disease Unk nown Unknown mother Heart disease Unknown Coronary artery disease Unknown Advance Directives No Advanced Directives Records Found Advance Directive Response Recorded Date/ Time Advance Directives No June 22, 2023 1:12pm Reason for Referral Reason appt pt needs cons ult for COPD Diagnosis 1 Chronic obstructive pulmonary disease (J44.9) Referral Organization [facility] Referring Provider First Name Temitope Referring Provider Last Name Brenda Referring Provider Specialty Family Prac bi Referred Organization [facility] Referred Provider Sara Honeycutt Referred Address ,[place], [place],[address] Referred Provider Specialty Pulmonary Di seases Referral [...] Diagnosis 1 Thrombocytopenia (D6 9.6) Referral Organization [facility] Referring Provider First Name Temitope Referring Provider Last Name Brenda Referring Provider [facility] bi Referred Organization [facility] Referred Provider GREGORY JARRETT Referred Address [address] [place], [place],[address] Referred Provider Specialty Hematology/O ncology Referral Priority Routine General Notes Lara Hampton 01/31/2023 10:25:37 AM > referral faxed to [phone] with visit note, lab results and insurance cards. pt understands she will be contacted to schedule this appt. Chief Complaint and Reason for Visit Chief Complaint Amb Documentation rt big toe swollen recheck toe Reason for Visit Toe pain, right Weight loss Osteoporosis Toe pain, right Chief Complaint Amb Documentation rt big toe swollen Reason for Visit Toe pain, right Weight loss Additional Source Comments INFORMATION SOURCE (unrecogn ized section and content) DATE CREATED AUTHOR 03/01/2021 [facility] DATE CREATED AUTHOR AUTHOR'S ORGANIZ ATION 08/17/2023 [facility] DATE CREATED AUTHOR AUTHOR'S ORGANIZ ATION 12/12/2023 [facility] DATE CREATED AUTHOR AUTHOR'S ORGANIZ ATION 12/16/2023 [facility] EPIC REASON FOR VISIT (unrecogniz ed section and content) Reason Comments Foot Injury Taylor De Jesus 73yo N ew Patient referred Dr. Gutierrez. DOI 11/21/2023, patient relates she was wearing sandals and hit the door jam with her right great toe. Pain, redness, swelling,icing, soaking, tylenol as needed. Patient was prescribed Zpak, completed. Xrays and MRI. [facility] Care Teams (unrecognized sec tion and content) Team Status: Active Member Role Status Dates Temitope Gutierrez DO Primary Care Provider Active Team Status: Active Member Role Status Dates Temitope Gutierrez DO Primary Care Provide r, Attending Provider Active Start: April 25, 2023 Gregory Jarrett MD Attending Provider Active St art: April 25, 2023 End: April 25, 2023 Team Status: Active Member Role Status Rosie Gutierrez DO Primary Care Provider Active S tart: April 28, 2023 PEDRO Mcintyre Attending Provider Active S tart: April 28, 2023 Team Status: Active Member Role Status Dates Temitope Gutierrez DO Primary Care Provide r, Attending Provider Active Start: June 13, 2023 Team Status: Inactive Member Role Status Rosie Gutierrez DO Primary Care Provider Active S tart: June 13, 2023 End: June 13, 2023 Gregory Jarrett MD Attending Provider Active St art: June 13, 2023 End: June 13, 2023 Team Status: Inactive Member Role Status Rosie Gutierrez DO Primary Care Provider Active S tart: March 08, 2023 End: March 08, 2023 Gregory Jarrett MD Attending Provider Active St art: March 08, 2023 End: March 08, 2023 Team Status: Active Member Role Status Rosie Gutierrez DO Primary Care Provider Active S tart: September 15, 2023 PEDRO Mcintyre Attending Provider Active S tart: September 15, 2023 Team Status: Inactive Member Role Status Rosie Gutierrez DO Primary Care Provide r, Attending Provider Active Start: November 28, 2023 End: November 28, 2023 Team Status: Inactive Member Role Status Rosie Gutierrez DO Primary Care Provide r, Attending Provider Active Start: December 07, 2023 End: December 07, 2023 Softball Coach Relationship Specialty Start Date End Date Temitope Gutierrez MD [address] [place] [address] PCP - General Family Medicine 04/28/23 Softball Coach Relationship Specialty Start Date End Date Temitope Gutierrez MD [address] [place] [address] PCP - General Family Medicine 04/28/23 Goals (unrecognized section and content) Goals may [...] BE BASED ON THE PRIMARY CLINICAL RECORDS. FUJIAN HAIYUAN [facility]. provides no warranty or guarantee of the accuracy or completeness of information in this document.
[2023-12-19 09:32] LABS: Basophils Absolute Auto 0.1 10^3/uL (0.0-0.1); Basophils Percent Auto 1.5 % (0.2-2.0); Eosinophils Absolute Auto 0.3 10^3/uL (0.0-0.7); Eosinophils Percent Auto 7.3 % (0.9-7.0); Hematocrit 35.9 % (36.0-48.0); Lymphocytes Absolute Auto 1.3 10^3/uL (1.2-3.8); Lymphocytes Percent Auto 38.7 % (20.5-60.0); Mean Corpuscular HGB Conc 30.6 g/dL (29.9-35.2); Mean Corpuscular Hemoglobin 28.6 pg (26.7-34.0); Mean Corpuscular Volume 93.5 fL (81.0-99.0); Mean Platelet Volume 13.8 fL (9.5-13.5); Monocytes Absolute Auto 0.3 10^3/uL (0.3-0.8); Monocytes Percent Auto 9.1 % (1.7-12.0); Neutrophils Absolute Auto 1.5 10^3/uL (1.4-6.5); Neutrophils Percent Auto 43.4 % (43.0-75.0); Platelet Count 117 10^3/uL (150-450); Red Blood Count 3.84 10^6/uL (4.20-5.40); Red Cell Distribution Width 13.5 % (11.0-15.0); Reticulocyte Pct Auto 1.44 % (0.60-3.10); White Blood Count 3.4 10^3/uL (4.0-11.0)
[2023-12-19 09:45] LABS: Alanine Aminotransferase 28 U/L (14-59); Albumin Globulin Ratio 1.1; Albumin Level 3.3 g/dL (3.4-5.0); Alkaline Phosphatase 123 U/L (46-116); Anion Gap 13.6; Aspartate Amino Transferase 22 U/L (15-37); BUN Creatinine Ratio 17.3; Bilirubin Total 0.6 mg/dL (0.2-1.0); Calcium 8.1 mg/dL (8.5-10.1); Carbon Dioxide 25.7 mmol/L (21.0-32.0); Chloride 109 mmol/L (98-107); Estimated GFR (African America >60 (>=60 mL/min/1.73m^2); Estimated GFR (Non-African Ame >60 (>=60 mL/min/1.73m^2); Globulin 3.1 g/dL; Glucose 83 mg/dL (74-106); Lactate Dehydrogenase 142 U/L (81-234); Potassium 4.3 mmol/L (3.5-5.1); Sodium 144 mmol/L (136-145); Total Protein 6.4 g/dL (6.4-8.2)
[2023-12-19 10:26] LABS: Percent Iron Saturation 35.1 %
[2023-12-20 16:10] LABS: Erythropoietin (EPO), Serum 8.7 mIU/mL (2.6-18.5)
== END 2023-12-19 08:56 | disposition home or self-care (01) ==
LOC: LAB 09:01
PROVIDERS: PCP Family Medicine; Visit Provider Internal Medicine Hematology & Oncology
DX: D72.819 Decreased white blood cell count, unspecified (principal); D51.9 Vitamin B12 deficiency anemia, unspecified; D69.6 Thrombocytopenia, unspecified; K90.9 Intestinal malabsorption, unspecified; D64.9 Anemia, unspecified; D61.818 Other pancytopenia
CPT/HCPCS: 36415; 80053; 82668; 82728; 83540; 83550; 83615; 85025; 85045

== ENCOUNTER 2024-01-02 07:35 | Outpatient (RCR) | payer MEDICARE, OTHER, SELFPAY | END 2024-01-11 09:03 | disposition home or self-care (01) | LOC: HEMC 07:35 | PROVIDERS: PCP Family Medicine; Visit Provider Internal Medicine Hematology & Oncology | DX: D51.9 Vitamin B12 deficiency anemia, unspecified (principal); K90.9 Intestinal malabsorption, unspecified; D50.9 Iron deficiency anemia, unspecified; D69.6 Thrombocytopenia, unspecified; D64.9 Anemia, unspecified; Z98.84 Bariatric surgery status; Z87.891 Personal history of nicotine dependence; M81.0 Age-related osteoporosis without current pathological fracture; Z91.81 History of falling | CPT/HCPCS: G0463 ==

== ENCOUNTER 2024-06-25 07:52 | Outpatient (OUT) | payer MEDICARE, OTHER, SELFPAY ==
--- NOTE | 2024-06-25 08:10 | CT_ITS ---
The [address] [address] Patient Name: MANOJ HU MRN: [id number] date: 1950 Sex: F Assigned Patient Location: LAB Current Patient Location: LAB Accession/Order Number: [id number] Exam Date: 06/25/2024 10:48 Report Date: 06/25/2024 10:51 At the request of: GREGORY TOVAR MD Procedure: CT abdomen pelvis w con CT ABDOMEN AND PELVIS WITH INTRAVENOUS CONTRAST: CLINICAL HISTORY: Thrombocytopenia, Anemia, Decreased White Blood Cell Count COMPARISON: None TECHNIQUE: Spiral images were obtained through the abdomen and pelvis following the administration of intravenous contrast. This CT exam was performed using one or more following dose reduction techniques: Automated exposure control, adjustment of the mA and/or kV according to patient size, or use of iterative reconstruction technique. FINDINGS: Lung Bases: [No acute process.] Organs:Gallbladder has been removed. Liver portal vein pancreas spleen and adrenal glands appear unremarkable. Left kidney appears unremarkable. Right nephrolithiasis largest stone measuring 7 mm. No hydronephrosis.[Aorta appears normal in caliber. GI: Stomach demonstrates postoperative changes with small hiatal hernia. Small bowel appears nondilated. No acute colonic abnormality is seen.[ Pelvis:[Urinary bladder is grossly unremarkable. Uterus is grossly unremarkable. No adnexal mass.] Peritoneum/Retroperitoneum:No free air or free fluid or lymphadenopathy.[ Abd wall/Bones:Abdominal wall demonstrate no acute findings. Osseous structures demonstrate degenerative change.[ CT/CT abdomen pelvis w con IMPRESSION: No acute findings. Right nephrolithiasis. Impression dictated by: Nikolay Ortiz Jr., D.O. 06/25/2024 10:51 AM Dictation Location: [facility] Electronically authenticated by: [id number] Y Date: 06/25/2024 10:51
[2024-06-25 08:34] LABS: Alanine Aminotransferase 34 U/L (14-59); Albumin Globulin Ratio 1.1; Albumin Level 3.6 g/dL (3.4-5.0); Alkaline Phosphatase 118 U/L (46-116); Anion Gap 13.7; Aspartate Amino Transferase 24 U/L (15-37); BUN Creatinine Ratio 31.3; Bilirubin Total 0.6 mg/dL (0.2-1.0); C Reactive Protein <0.50 mg/dL (<=0.50); Calcium 8.4 mg/dL (8.5-10.1); Carbon Dioxide 24.9 mmol/L (21.0-32.0); Chloride 107 mmol/L (98-107); Estimated GFR (African America >60 (>=60 mL/min/1.73m^2); Estimated GFR (Non-African Ame >60 (>=60 mL/min/1.73m^2); Globulin 3.3 g/dL; Glucose 81 mg/dL (74-106); Lactate Dehydrogenase 156 U/L (81-234); Potassium 3.6 mmol/L (3.5-5.1); Sodium 142 mmol/L (136-145); Total Protein 6.9 g/dL (6.4-8.2)
[2024-06-25 08:38] LABS: Basophils Absolute Auto 0.1 10^3/uL (0.0-0.1); Basophils Percent Auto 2.2 % (0.2-2.0); Eosinophils Absolute Auto 0.3 10^3/uL (0.0-0.7); Eosinophils Percent Auto 7.9 % (0.9-7.0); Hematocrit 35.8 % (36.0-48.0); Hemoglobin 11.2 g/dL (12.0-16.0); Lymphocytes Absolute Auto 1.3 10^3/uL (1.2-3.8); Lymphocytes Percent Auto 36.3 % (20.5-60.0); Mean Corpuscular HGB Conc 31.3 g/dL (29.9-35.2); Mean Corpuscular Hemoglobin 28.9 pg (26.7-34.0); Mean Corpuscular Volume 92.3 fL (81.0-99.0); Mean Platelet Volume 13.9 fL (9.5-13.5); Monocytes Absolute Auto 0.4 10^3/uL (0.3-0.8); Monocytes Percent Auto 9.8 % (1.7-12.0); Neutrophils Absolute Auto 1.6 10^3/uL (1.4-6.5); Neutrophils Percent Auto 43.8 % (43.0-75.0); Platelet Count 115 10^3/uL (150-450); Red Blood Count 3.88 10^6/uL (4.20-5.40); Red Cell Distribution Width 13.5 % (11.0-15.0); White Blood Count 3.7 10^3/uL (4.0-11.0)
[2024-06-25 08:52] LABS: Percent Iron Saturation 26.3 %
[2024-06-25 09:40] LABS: Erythrocyte Sedimentation Rate 16 mm/hr (<=30)
[2024-06-25 10:02] LABS: Reticulocyte Pct Auto 1.05 % (0.60-3.10)
[2024-06-26 03:07] LABS: Vitamin B12 1183 pg/mL (232-1245)
[2024-06-27 15:08] LABS: Albumin 3.5 g/dL (2.9-4.4); Alpha-1-Globulin 0.2 g/dL (0.0-0.4); Alpha-2-Globulin 0.6 g/dL (0.4-1.0); Immunoglobulin A, Qn, Serum 139 mg/dL (64-422); Immunoglobulin G, Qn, Serum 1086 mg/dL (586-1602); Immunoglobulin M, Qn, Serum 109 mg/dL (26-217); Protein, Total 6.2 g/dL (6.0-8.5)
== END 2024-06-25 07:53 | disposition home or self-care (01) ==
LOC: LAB 07:52
PROVIDERS: PCP Family Medicine; Visit Provider Internal Medicine Hematology & Oncology
DX: D72.819 Decreased white blood cell count, unspecified (principal); D51.9 Vitamin B12 deficiency anemia, unspecified; D50.9 Iron deficiency anemia, unspecified; D69.6 Thrombocytopenia, unspecified; K90.9 Intestinal malabsorption, unspecified; D64.9 Anemia, unspecified; N20.0 Calculus of kidney
CPT/HCPCS: 36415; 74177; 80053; 82607; 82728; 82784; 83540; 83550; 83615; 84155; 84165; 85025; 85045; 85652; 86140; 86334; Q9967

== ENCOUNTER 2024-07-09 07:32 | Outpatient (RCR) | payer MEDICARE, OTHER, SELFPAY ==
--- OUTSIDE RECORDS SUMMARY | 2024-07-09 07:35 | XMS_ITS | CCD ---
Author Organization [facility] Care Team Providers Care Product Manager Medical Device Name Role Phone DR TEMITOPE GUTIERREZ Attending Unavailable BRENDA, DR LINN Consulting Unavailable BRENDA, DR LNIN Admitting Unavailable Temitope Gutierrez Unavailable Bhavesh Wright Unavailable DO Temitope Gutierrez Primary Care Provider MD Nancy Jarrett Attending Provider DO Temitope Gutierrez Primary Care Provider MD Nancy Jarrett Attending Provider Temitope Gutierrez MD Primary Care Provider DO Temitope Gutierrez Primary Care Provider MD Nancy Jarrett Attending Provider Temitope Gutierrez Primary Care Unavailable Luiza, Nancy Admitting Unavailable Luiza, Nancy Attending Unavailable Temitope Gutierrez Primary Care Unavailable Luiza, Nancy Admitting Unavailable Luiza, Nancy Attending Unavailable Luiza, Nancy Admitting Unavailable Temitope Gutierrez Primary Care Unavailable Luiza, Nancy Attending Unavailable Luiza, Nancy Admitting Unavailable Temitope Gutierrez Primary Care Unavailable Luiza, Nancy Attending Unavailable Luiza, Nancy Admitting Unavailable Temitope Gutierrez Primary Care Unavailable Luiza, Nancy Attending Unavailable Temitope Gutierrez DO Primary Care Provider Nancy Jarrett MD Attending Provider [phone] Temitope Gutierrez MD Primary Care Provider [phone] TEMITOPE GUTIERREZ Primary Care Unavailable MT CHEW Attending Unavailable TEMITOPE GUTIERREZ Referring Unavailable TEMITOPE GUTIERREZ Primary Care Unavailable TEMITOPE GUTIERREZ Referring Unavailable TEMITOPE GUTIERREZ Primary Care Unavailable TEMITOPE GUTIERREZ Referring Unavailable TEMITOPE GUTIERREZ Primary Care Unavailable TEMITOPE GUTIERREZ Referring Unavailable TEMITOPE GUTIERREZ Primary Care Unavailable ANNMAURO Referring Unavailable DANIIJUANY TEMITOPE Snow Primary Care Unavailable DANIIJUANY TEMITOPE Snow Referring Unavailable DANIIJUANY TEMITOPE Snow Primary Care Unavailable SARA HONEYCUTT Attending Unavailable ANNIE GALINDO Attending Unavailable SARA HONEYCUTT Attending Unavailable ANNIE GALINDO Attending Unavailable ANNIE GALINDO W Attending Unavailable ANNIE GALINDO W Referring Unavailable ANNIE GALINDO W Attending Unavailable Allergies Allergy Classification Reported Allergen(s) Allergy Type Date of Onset Reaction(s) Facility (20 sources) Penicillin V Drug Allergy 3 Unknown, Difficulty Breathing [facility] (20 sources) zoledronic acid Drug Allergy 8 Other [facility] (20 sources) Mannitol; Translations: [mannitol] Drug Allergy 3 hypocalcemia [facility] (7 sources) water for injection,steri le; Translations: [water for injection,steri le] Allergy to substance 3 hypocalcemia [facility] (18 sources) Penicillins; Translations: [PENICILLINS] Drug Allergy 7 Shortness of breath, Swelling [facility] (17 sources) Horse Epithelium Allergy Skin Test Allergy to substance 2 Unknown [facility] (16 sources) Water, Sterile Allergy to substance 3 [facility] (1 source) Penicillin Drug Allergy 4 [facility] (1 source) zoledronic acid Drug Allergy 4 [facility] (1 source) HORSE DANDER; Translations: [HORSE DANDER] Propensity to adverse reactions to drug (disorder) 2 [facility] (1 source) ZOLEDRONIC CBSW-DUGPTRTB-L ATER; Translations: [ZOLEDRONIC WTXK-AEYQWFXR-M ATER] Propensity to adverse reactions to drug (disorder) 8 [facility] Medications Current Medications Medication Drug Class(es) Dates Sig (Normalized) Sig (Original) [id number] 200 actuat albuterol 0.09 mg/actuat metered dose inhaler (20 sources) beta2-Adrenergic Agonist Start: 04-28-2023 take 2 puff(s) by inhalation every four hours for wheezing albuterol HFA 90 mcg/act inhaler Indications: Chronic obstructive pulmonary disease, unspecified COPD type (CMS/HCC) Inhale 2 puffs every 4 (four) hours [...] / ipratropium bromide 0.167 mg/ml inhalation solution (20 sources) Anticholinergic, beta2-Adrenergic Agonist Start: 05-16-2016 take [...] day Active azithromycin 250 mg oral tablet (12 sources) Macrolide Antimicrobial Start: 05-14-19 Azithromycin 250 mg tablet Active 0 PO .COMPLEX May 13, 2024 12:00am For 250 mg dose pack: take 500 mg today (day 1), then 250 mg for 4 days (days 2-5) PO Start: 01-09-2024 End: 02-29-2024 Azithromycin (Zithromax Z-Pa k) 250 mg tablet Discontinued 250 MG PO Daily 6 January 09, 2024 1:00am February 29, 2024 1:23pm take 2 (250 mg) tabs on day 1. 1 tab daily on days 2-5 Start: 11-28-2023 End: 12-07-2023 Azithromycin 250 mg tablet D iscontinued 0 PO .COMPLEX November 28, 2023 12:00am December 07, 2023 10:11am For 250 mg dose pack: take 500 mg today (day 1), then 250 mg for 4 days (days 2-5) PO Start: 11-28-2023 End: 12-07-2023 Azithromycin Discontinued 0 [...] capsules with meals Orally Active Calcium-Vitamin D2-Soybean (3 sources) Start: 07-05-2023 take 1 tablet by mouth once daily Calcium-Vitamin D2-Soybean Active 1 TAB PO Daily July 05, 2023 12:00am Calcium-Vitamin D2-Soybean 500-100-28 mg-units-mg tablet (2 sources) Start: 07-05-2023 take 1 tablet by mouth once daily Calcium-Vitamin D2-Soybean 500-100-28 mg-units-mg tablet Active 1 TAB PO Daily July 05, 2023 12:00am Start: 07-05-2023 take 1 tablet by marvin th once daily Calcium-Vitamin D2-Soybean 500-100-28 mg-units-mg tablet Active 1 TAB PO Daily July 04, 2023 11:00pm Centrum (18 sources) take 1 tablet by mouth once daily Centrum 1 tablet Orally daily Active cetirizine hydrochloride 10 mg oral tablet (20 sources) Histamine-1 Receptor Antagonist Start: 07-05-19 take 1 tablet by mouth once daily as needed Cetirizine (24hour Allergy) 10 mg tablet Active 10 MG PO Daily as needed for allergic symptoms July 05, 2023 12:00am cholecalciferol 0.125 mg oral tablet (20 sources) Vitamin D Start: 07-05-19 take 1 tablet by mouth once daily Cholecalciferol (Vitamin D3) (Vitamin D3) 125 mcg (5,000 unit) tablet Active 86584 UNIT PO daily July 05, 2023 12:00am take 1 tablet by mouth in the mo rning cholecalciferol (Vitamin D-3) 250 MCG (38036 UT) tablet Take 1 tablet by mouth in the morning. Active clotrimazole 10 mg oral lozenge (5 sources) Azole Antifungal Start: 03-10-2022 Clotrimazole 10 MG dissolve 1 chase on tongue Mouth/Throat five times a day for 7 days Feb, Active ergocalciferol 1.25 mg oral capsule (5 sources) Provitamin D2 Compound Start: 07-05-2023 Ergocalciferol (Bing min D2) 1,250 mcg (50,000 unit) capsule Active 20625 UNIT PO 3 Times a week July 05, 2023 12:00am Start: 07-05-2023 take 85111 [IU] by m outh three times weekly Ergocalciferol (Vitamin D2) Active 22577 UNIT PO 3 Times a week July 05, 2023 12:00am ferrous sulfate 325 mg oral tablet (20 sources) Start: 07-05-2023 take 1 tablet by mouth twice daily Ferrous Sulfate (Feosol) 325 mg (65 mg iron) tablet Active 325 MG PO Twice daily July 05, 2023 12:00am ferrous sulfate 325 (65 Fe) MG tablet 1 (one) time each day at the same time Active 30 actuat fluticasone furoate 0.1 mg/actuat / vilanterol 0.025 mg/actuat dry powder inhaler (20 sources) Corticosteroid, beta2-Adrenergic Agonist Start: 03-14-2024 take 1 puff(s) by inhalation once daily Breo Ellipta 100-25 MCG/ACT aerosol powder Indications: Chronic obstructive pulmonary disease, unspecified COPD type (CMS/HCC) Inhale 1 puff Daily 1 each 5 03/14/2024 Active Start: 07-05-2023 Fluticasone Fu roate-Vilanterol (Breo Ellipta) 100-25 mcg/dose blister with device Active 1 INH INHALATION Daily July 05, 2023 12:00am Start: 04-28-2023 End: 03-13-2024 take 1 puff(s) by inhalation once daily Fluticasone Furoate-Vilanterol (Breo Ellipta) 100-25 MCG/ACT aerosol powder Indications: Chronic obstructive pulmonary disease, unspecified COPD type (CMS/HCC) Inhale 1 puff Daily 1 each 03/12/2024 03/13/2024 Discontinued (Reorder) Start: 09-28-2015 take 1 puff(s) by in halation once daily Breo Ellipta 100-25 MCG/ACT 1 puff Inhalation Once a day Sep, Active 12 hr guaiFENesin 600 mg extended release oral tablet (6 sources) take 1 tablet by mouth every twelve hours Mucinex 600 MG 1 tablet as needed Orally every 12 hrs Active loratadine 10 mg oral tablet (20 sources) Start: 02-29-2024 take 1 tablet by mouth once daily Loratadine (Allergy Relief (Loratadine)) 10 mg tablet Active 10 MG PO Daily February 29, 2024 1:00am mecobalamin (3 sources) Start: 11-28-2023 take 5000 ug by mouth every other week Mecobalamin (Vitamin B12) Active 5000 MCG PO .every 2 weeks November 28, 2023 12:00am allow to dissolve in mouth OR may chew lightly before swallowing Mecobalamin (Vitamin B12) 5,000 mcg lozenge (2 sources) Start: 11-28-2023 take 5000 ug by mouth every other week Mecobalamin (Vitamin B12) 5,000 mcg lozenge Active 5000 MCG PO .every 2 weeks November 28, 2023 12:00am allow to dissolve in mouth OR may chew lightly before swallowing Start: 11-28-2023 take 5000 ug by mout h every other week Mecobalamin (Vitamin B12) 5,000 mcg lozenge Active 5000 MCG PO .every 2 weeks November 27, 2023 11:00pm allow to dissolve in mouth OR may chew lightly before swallowing metroNIDAZOLE 500 mg oral tablet (3 sources) Nitroimidazole Antimicrobial Start: 09-15-2021 take 1 tablet by mouth every twelve hours metroNIDAZOLE 500 MG 1 tablet Orally Twice a day for 3 days Aug, Active Multiple Vitamins-Minerals (Centrum Adults) tablet (17 sources) Multiple Vitamins-Minerals (Centrum Adults) tablet Orally Active Cmnpzglrmxei-Gjnx-J olic Acid (Centrum Women) 18-400 mg-mcg tablet (5 sources) Start: 07-05-2023 take 1 tablet by mouth once daily Multivitamin-Iron- Folic Acid (Centrum Women) 18-400 mg-mcg tablet Active 1 TAB PO Daily July 04, 2023 11:00pm Start: 07-05-2023 take 1 tablet by marvin th once daily Hcgzzecdjsus-Htka-Wyrst Acid (Centrum Women) 18-400 mg-mcg tablet Active 1 TAB PO Daily July 05, 2023 12:00am potassium chloride 10 meq extended release oral capsule (20 sources) Start: 05-01-2023 End: 07-05-2023 take 20 mEq by mouth twice daily Potassium Chloride Active 20 MEQ PO Twice daily July 05, 2023 12:00am Start: 12-13-2022 End: 03-13-2024 take 2 capsules by mouth in the [...] DAILY for 90 days Active vitamin a 89098 unt oral capsule (5 sources) Vitamin A Start: 07-05-2023 Vitamin A 3,00 0 mcg (10,000 unit) capsule Active 70140 UNIT PO Daily July 05, 2023 12:00am Start: 07-05-2023 take 39157 [IU] by m outh once daily Vitamin A Active 01513 UNIT PO Daily July 05, 2023 12:00am vitamin b12 5 mg disintegrating oral tablet (7 sources) Vitamin B12 take 1 tablet by mouth once daily Cyanocobalamin (Vitamin B-12) 5000 MCG tablet dispersible Take 1 tablet by mouth 1 (one) time each day Active take 1 tablet by mouth every oth er week Vitamin B12 1000 MCG 1 tablet Orally every 2 weeks Active Vitamin B12 1000 MCG (9 sources) Start: 01-26-2021 Vitamin B12 10 00 MCG 1 tablet Orally 3 days a week Jan, Active Vitamin D 99470 UNIT (18 sources) take 1 tablet by mouth once daily Vitamin D 87799 UNIT 1 tablet Orally Once a day (10,000iu qd) Active Vitamin D3 93261 UNIT (18 sources) take 1 tablet by mouth every week Vitamin D3 28273 UNIT 1 tablet Orally 3x week Active zinc gluconate 50 mg oral tablet (9 sources) take 1 tablet by mouth every week Zinc 50 MG 1 tablet Orally once a week Active take 1 tablet by marvin th every twenty-four hours Zinc 50 MG 1 tablet Orally Once a day Active Completed/Discontinued Medications Medication Drug Class(es) Dates Sig (Normalized) Sig (Original) aspirin 81 mg oral tablet (19 sources) Platelet Aggregation Inhibitor, Nonsteroidal Anti-inflammatory Drug Start: 07-05-2023 End: 02-29-2024 take 1 capsule by mouth once daily Aspirin 81 mg capsule Discontinued 81 MG PO Daily July 05, 2023 12:00am February 29, 2024 1:23pm aspirin 81 MG ch ewable tablet Chew 81 mg in the morning. Active Problems Active Problems Problem Classification Problem Date Documented Date Episodic/Chronic Calculus of urinary tract (6 sources) Kidney stone; Translations: [Calculus of kidney] Episodic Chronic obstructive pulmonary disease and bronchiectasis (20 sources) Asthma-chronic obstructive pulmonary disease overlap syndrome; Translations: [Chronic obstructive pulmonary disease, unspecified] Onset: 03-23-2021 Resolved: 09-21-2021 Chronic Coagulation and hemorrhagic disorders (14 sources) Thrombocytopenic disorder; Translations: [Thrombocytopenia, unspecified] Onset: 07-05-2023 Chronic Deficiency and other anemia (1 source) Pancytopenia; Translations: [Other pancytopenia] 05-13-2024 Chronic Deficiency and other anemia (1 source) Other pancytopenia; Translations: [Other pancytopenia] 05-13-2024 Chronic Deficiency and other anemia (1 source) Iron deficiency anemia, unspecified Episodic Diseases of white blood cells (6 sources) Decreased blood leukocyte number; Translations: [Decreased white blood cell count, unspecified] Chronic Disorders of lipid metabolism (8 sources) Dyslipidemia; Translations: [Hyperlipidemia, unspecified] Onset: 02-19-2024 Chronic Fever of unknown origin (4 sources) Fever, unspecified; Translations: [FEVER UNSPECIFIED] Onset: 02-23-2021 Resolved: 02-23-2021 Episodic Fluid and electrolyte disorders (3 sources) Hypokalemia; Translations: [Hypopotassemia] Onset: 04-12-2021 Resolved: 04-12-2021 Episodic Fracture of lower limb (6 sources) Closed fracture of proximal phalanx of great toe; Translations: [Displaced fracture of proximal phalanx of right great toe, initial encounter for closed fracture] 12-15-2023 Episodic Lymphadenitis (1 source) Localized enlarged lymph nodes Episodic Nutritional deficiencies (8 sources) Vitamin D deficiency; Translations: [Vitamin D deficiency, unspecified] Onset: 07-31-2023 Chronic Nutritional deficiencies (1 source) Deficiency of other specified B group vitamins Episodic Osteoporosis (8 sources) Osteoporosis; Translations: [Age-related osteoporosis without current pathological fracture] 12-07-2023 Chronic Other aftercare (2 sources) Long-term current use of drug therapy; Translations: [Other mcc (current) drug therapy] 02-29-2024 Episodic Other connective tissue disease (5 sources) Pain in toe; Translations: [Pain in right toe(s)] 11-28-2023 Episodic Comment on above: right great toe Other connective tissue disease (8 sources) Pain of toe of right foot; Translations: [Pain in right toe(s)] 12-15-2023 Episodic Other endocrine disorders (7 sources) Secondary hyperparathyroidism; Translations: [Secondary hyperparathyroidism, not elsewhere classified] 02-29-2024 Chronic Other endocrine disorders (1 source) Secondary hyperparathyroidism, not elsewhere classified Chronic Other endocrine disorders (1 source) Other hyperparathyroidism; Translations: [Other hyperparathyroidism] Onset: 07-31-2023 Chronic Other injuries and conditions due to external causes (1 source) Other specified injuries of thorax, subsequent encounter Episodic Other injuries and conditions due to external causes (8 sources) Injury of great toe; Translations: [Unspecified injury of right foot, initial encounter] 12-15-2023 Episodic Other lower respiratory disease (2 sources) Cough; Translations: [Acute cough] 05-13-2024 Episodic Other non-traumatic joint disorders (4 sources) Sesamoiditis; Translations: [Other specified joint disorders, right ankle and foot] 01-16-2024 Episodic Other nutritional; endocrine; and metabolic disorders (8 sources) Hypocalcemia; Translations: [Hypocalcemia] 02-29-2024 Chronic Other nutritional; endocrine; and metabolic disorders (3 sources) Hypocalcemia; Translations: [Hypocalcemia] Onset: 07-31-2023 Chronic Other nutritional; endocrine; and metabolic disorders (4 sources) Abnormal weight loss; Translations: [Loss of weight] Episodic Other nutritional; endocrine; and metabolic disorders (4 sources) Weight loss; Translations: [Abnormal weight loss] 11-28-2023 Episodic Other nutritional; endocrine; and metabolic disorders (1 source) Weight decreased; Translations: [Abnormal weight loss] 11-28-2023 Episodic Other screening for suspected conditions (not mental disorders or infectious disease) (2 sources) Encounter for screening mammogram for malignant neoplasm of breast; Translations: [Encounter for screening mammogram for malignant neoplasm of breast] Onset: 04-12-2024 Episodic Other upper respiratory disease (6 sources) [...] (1 source) Other specified postprocedural states Episodic Superficial injury; contusion (1 source) Contusion of right foot, initial encounter; Translations: [Contusion of right foot, initial encounter] Onset: 06-25-2024 Episodic Unclassified (2 sources) CONTACT W/AND (SUSP) EXPOS COVID-19; Translations: [CONTACT W/AND (SUSP) EXPOS COVID-19] Onset: 03-01-2021 Unclassified (1 source) Toe Injury Onset: 06-25-2024 Unclassified (1 source) INJURY RT TOES Onset: 06-25-2024 Viral infection (1 source) COVID-19; Translations: [COVID-19] Onset: 03-01-2021 Past or Other Problems Problem Classification Problem Date Documented Da te Episodic/Chronic Cardiac dysrhythmias (17 sources) Nonsustained ventricular tachycardia ; Translations: [NSVT (nonsustained ventricular tachycardia)] Onset: 02-22-2022 Resolved: 04-27-2023 04-27-2023 Chronic Cardiac dysrhythmias (17 sources) Palpitations; Translations: [Palpitations] Onset: 02-22-2022 Resolved: 04-27-2023 04-27-2023 Episodic Nonspecific chest pain (17 sources) Chest discomfort; Translations: [Other chest pain] Onset: 02-22-2022 Resolved: 04-27-2023 04-27-2023 Episodic Osteoarthritis (17 sources) Osteoarthritis of right glenohumeral joint; Translations: [Primary osteoarthritis, right shoulder] Onset: 04-27-2023 Resolved: 04-27-2023 04-27-2023 Chronic Other aftercare (4 sources) Other long term care administrator (current) drug therapy; Translations: [Long-term (current) use of other medications] Onset: 02-19-2024 Episodic Other connective tissue disease (7 sources) Pain in right toe(s); Translations: [Pain in limb] Onset: 12-11-2023 11-28-2023 Episodic Other connective tissue disease (17 sources) Atrophy of muscle of left hand; Translations: [Muscle wasting and atrophy, not elsewhere classified, left hand] Onset: 04-27-2023 Resolved: 04-27-2023 04-27-2023 Episodic Other gastrointestinal disorders (1 source) Bariatric surgery status; Translations: [Bariatric surgery status] Onset: 07-31-2023 Episodic Other nervous system disorders (17 sources) Carpal tunnel syndrome of left wrist; Translations: [Carpal tunnel syndrome, left upper limb] Onset: 04-27-2023 Resolved: 04-27-2023 04-27-2023 Chronic Unclassified (1 source) CONTACT W/AND (SUSP) EXPOS COVID-19; Translations: [CONTACT W/AND (SUSP) EXPOS COVID-19] Onset: 02-24-2021 Results Test Name Value Interpretation Reference Range [facility] VWS XR FOOT RT MIN 3 VWS STUDY: Radiographs of the right foot TECHNIQUE: 3 views of the right foot COMPARISON: Right foot radiographs dated 12/02/2023 FINDINGS/IMPRESSION: 1. Osseous demineralization resulting in suboptimal evaluation of subtle lucencies/fractures. No gross acute fracture or dislocation. If symptoms persist, MR is more sensitive for the detection of fractures and nonemergent MR may be performed for further evaluation. 2. Scattered osteoarthritic changes. Os cuboid. Calcaneal enthesopathy. Finalized by Christiana Cox MD on 06/25/2024 8:31 PM Normal [facility] MAMM SCREENING BILATERAL W C roll coverer 04-15-2024 MAMM SCREENING BILATERAL W CAD MAMM SCREENING BILATERAL W CAD TAYLOR DE JESUS 1950 [id number] EXAM: MAMM SCREENING BILATERAL W CAD, 04/12/2024 2:11 PM CLINICAL INDICATIONS: Screening, Encounter for screening mammogram for malignant neoplasm of breast COMPARISON: 03/27/2023 and priors TECHNIQUE: Bilateral digital tomosynthesis MLO and CC views of the breasts were obtained, with creation of synthetic 2D views. Computer aided detection was utilized. FINDINGS: The breasts are heterogeneously dense, which may obscure small masses. There are no suspicious masses, calcifications, or areas of architectural distortion. IMPRESSION: No mammographic evidence of malignancy. BI-RADS: BI-RADS 1 - Negative RECOMMENDATION: Routine screening mammogram in 1 year. RISK ASSESSMENT: TC Lifetime risk: 3.5%. The patient's reported personal and family medical history was used calculate their Tyrer-Cuzick lifetime risk of malignancy. Scores less than 20% are not considered high risk per ACR guidelines and patient should continue with the above recommendation. Finalized by Juan Diego Griffith MD on 04/15/2024 11:07 AM 1 c MAMM 1 YR Normal [facility] CBC AND AUTO DIFFon 02-19-20 ABSOLUTE BASOPHIL 0.1 X10E9/L Normal 0.0-0.2 [facility] Comment on above: Performed By: #### 1 9122-9, RENAL, 2730-09, #### [facility] ([id number]) [address], [address] [place] [address] ABSOLUTE NEUTROPHIL 1.6 X10E9/L Normal 1.5-6.6 [facility] Comment on above: Performed By: #### 1 9122-9, RENAL, 2730-09, 41052-5 #### [facility] ([id number]) [address], [address] [place] [address] Basophils/100 WBC (Bld) 2.5 % Normal [facility] Comment on above: Performed By: #### 1 9122-9, RENAL, 2730-09, #### [facility] ([id number]) [address], [address] [place] [address] Eosinophils (Bld) [#/Vol] 0.3 10*3/uL Normal 0.0-0.4 [facility] Comment on above: Performed By: #### 1 9122-9, RENAL, 2730-09, 99586-8 #### [facility] ([id number]) [address], [address] [place] [address] Eosinophils/100 WBC (Bld) 8.4 % Normal [facility] Comment on above: Performed By: #### 1 9122-9, RENAL, 2730-09, 25161-4 #### [facility] ([id number]) [address], [address] [place] [address] Erythrocyte distribution width (RBC) [Ratio] 13.2 % Normal 11.5-15.0 [facility] Comment on above: Performed By: #### 1 9122-9, RENAL, 2730-09, 99041-4 #### [facility] ([id number]) [address], [address] [place] [address] Hematocrit (Bld) [Volume fraction] 35.8 % Normal 35-47 [facility] Comment on above: Performed By: #### 1 9122-9, RENAL, 8, 56117-6 #### [facility] ([id number]) [address], [address] [place] [address] Hemoglobin (Bld) [Mass/Vol] 11.4 g/dL Low 11.7-15.5 [facility] Comment on above: Performed By: #### 1 9122-9, RENAL, 2730-09, 51738-3 #### [facility] ([id number]) [address], [address] [place] [address] Lymphocytes (Bld) [#/Vol] 1.3 10*3/uL Normal 1.0-3.5 [facility] Comment on above: Performed By: #### 1 9122-9, RENAL, 2730-09, 98082-1 #### [facility] ([id number]) [address], [address] [place] [address] Lymphocytes/100 WBC (Bld) 36.6 % Normal [facility] Comment on above: Performed By: #### 1 9122-9, RENAL, 2730-09, 05050-6 #### [facility] ([id number]) [address], [address] [place] [address] MCH (RBC) [Entitic mass] 28.8 pg Normal 27-34 [facility] Comment on above: Performed By: #### 1 9122-9, RENAL, 2730-09, 97298-1 #### [facility] ([id number]) [address], [address] [place] [address] MCHC (RBC) [Mass/Vol] 32.0 g/dL Normal 32-36 [facility] Comment on above: Performed By: #### 1 9122-9, RENAL, 2730-09, 80469-3 #### [facility] ([id number]) [address], [address] [place] [address] MCV (RBC) [Entitic vol] 90 fL Normal 80-100 [facility] Comment on above: Performed By: #### 1 9122-9, RENAL, 2730-09, 26431-7 #### [facility] ([id number]) [address], [address] [place] [address] Monocytes (Bld) [#/Vol] 0.3 10*3/uL Normal 0-0.9 [facility] Comment on above: Performed By: #### 1 9122-9, RENAL, 2730-09, 88202-9 #### [facility] ([id number]) [address], [address] [place] [address] Monocytes/100 WBC (Bld) 8.0 % Normal [facility] Comment on above: Performed By: #### 1 9122-9, RENAL, 2730-09, 57611-8 #### [facility] [facility] ([id number]) [address], [address] [place] [address] Neutrophils/100 WBC (Bld) 44.5 % Normal [facility] Comment on above: Performed By: #### 1 9122-9, RENAL, 2730-09, 79192-4 #### [facility] ([id number]) [address], [address] [place] [address] Platelet mean volume (Bld) [Entitic vol] 13.7 fL High 7-12 [facility] Comment on above: Performed By: #### 1 9122-9, RENAL, 2730-09, 95327-6 #### [facility] ([id number]) [address], [address] [place] [address] Platelets (Bld) [#/Vol] 119 10*3/uL Low 150-450 [facility] Comment on above: Performed By: #### 1 9122-9, RENAL, 2730-09, 29651-4 #### [facility] ([id number]) [address], [address] [place] [address] RBC COUNT 3.98 X10E12/L Normal 3.80-5.20 [facility] Comment on above: Performed By: #### 1 9123-9, RENAL, 8, 72206-5 #### [facility] ([id number]) [address], [address] [place] [address] WBC (Bld) [#/Vol] 3.5 10*3/uL Low 4.0-11.0 [facility] Comment on above: Performed By: #### 1 9123-9, RENAL, 2730-09, 82413-3 #### [facility] ([id number]) [address], [address] [place] [address] COMPREHENSIVE METABOLIC PANE Jose Manuel 02-19-2024 Albumin [Mass/Vol] 3.8 g/dL Normal 3.2-5.3 [facility] Comment on above: Performed By: #### 1 9123-9, RENAL, 2730-09, 03934-0 #### [facility] ([id number]) [address], [address] [place] [address] ALP [Catalytic activity/Vol] 102 U/L Normal 39-130 [facility] Comment on above: Performed By: #### 1 9123-9, RENAL, 2730-09, 27806-8 #### [facility] ([id number]) [address], [address] [place] [address] ALT [Catalytic activity/Vol] 22 U/L Normal 0-31 [facility] Comment on above: Performed By: #### 1 9123-9, RENAL, 2730-09, 02952-2 #### [facility] ([id number]) [address], [address] [place] [address] Anion gap [Moles/Vol] 6 mmol/L Normal 5-15 [facility] Comment on above: Performed By: #### 1 9122-9, RENAL, 2730-8, 54520-9 #### [facility] ([id number]) [address], [address] [place] [address] AST [Catalytic activity/Vol] 23 U/L Normal 0-41 [facility] Comment on above: Performed By: #### 1 9122-9, RENAL, 2730-09, 89016-6 #### [facility] ([id number]) [address], [address] [place] [address] Bilirubin [Mass/Vol] 0.6 mg/dL Normal 0.3-1.2 [facility] Comment on above: Performed By: #### 1 9122-9, RENAL, 8, 77042-5 #### [facility] ([id number]) [address], [address] [place] [address] Calcium [Mass/Vol] 8.3 mg/dL Low 8.5-10.5 [facility] Comment on above: Performed By: #### 1 9122-9, RENAL, 2730-09, 87351-8 #### [facility] ([id number]) [address], [address] [place] [address] Chloride [Moles/Vol] 110 mmol/L High 98-109 [facility] Comment on above: Performed By: #### 1 9122-9, RENAL, 2730-09, 30239-0 #### [facility] ([id number]) [address], [address] [place] [address] CO2 [Moles/Vol] 25 mmol/L Normal 22-32 [facility] Comment on above: Performed By: #### 1 9123-9, RENAL, 2730-8, 93072-0 #### [facility] ([id number]) [address], [address] [place] [address] Creatinine [Mass/Vol] 0.68 mg/dL Normal 0.40-1.00 [facility] Comment on above: Result Comment: METH OD TRACEABLE TO IDMS STANDARD Performed By: #### 1 9122-9, RENAL, 2730-8, 72156-4 #### [facility] ([id number]) [address], [address] [place] [address] eGFR (CKD-EPI) NON-RACE DEPENDENT >90 Normal >59 [facility] Comment on above: Result Comment: Reported eGFR is based on the CKD-EPI 2020 equation that does not use a race coefficient. Performed By: #### 1 9122-9, RENAL, 2730-, 19029-1 #### [facility] ([id number]) [address], [address] [place] [address] Glucose [Mass/Vol] 83 mg/dL Normal 65-99 [facility] Comment on above: Performed By: #### 1 9122-9, RENAL, 2730-, 98639-9 #### [facility] ([id number]) [address], [address] [place] [address] Potassium [Moles/Vol] 4.2 mmol/L Normal 3.5-5.0 [facility] Comment on above: Performed By: #### 1 9123-9, RENAL, 2730-8, 48872-9 #### [facility] ([id number]) [address], [address] [place] [address] Protein [Mass/Vol] 6.1 g/dL Normal 6.0-8.0 [facility] Comment on above: Performed By: #### 1 91-9, RENAL, 2730-8, 16934-3 #### [facility] ([id number]) [address], [address] [place] [address] Sodium [Moles/Vol] 141 mmol/L Normal 134-146 [facility] Comment on above: Performed By: #### 1 9123-9, RENAL, 2730-09, 67796-1 #### [facility] ([id number]) [address], [address] [place] [address] Urea nitrogen [Mass/Vol] 23 mg/dL Normal 5-27 [facility] Comment on above: Performed By: #### 1 9123-9, RENAL, 2730-, 02247-4 #### [facility] ([id number]) [address], [address] [place] [address] Lipid 1996 panelon 4 Cholesterol [Mass/Vol] 93 mg/dL Low 150-200 [facility] Comment on above: Performed By: #### 1 9123-9, RENAL, 2730-09, 44247-1 #### [facility] ([id number]) [address], [address] [place] [address] Cholesterol in HDL [Mass/Vol] 37 mg/dL Low >39 [facility] Comment on above: Result Comment: HDL <40 mg/dL - High Risk HDL > or = 40mg/dL- Desirable HDL >60 mg/dL - Negative Risk Performed By: #### 1 9123-9, RENAL, 2730-09, 86680-6 #### [facility] ([id number]) [address], [address] [place] [address] Cholesterol in LDL [Mass/Vol] 44 mg/dL Normal <130 [facility] Comment on above: Result Comment: LDL <100 mg/dL - Desirable LDL >160 mg/dL - High Risk Performed By: #### 1 9123-9, RENAL, 2731-8, 60721-0 #### [facility] ([id number]) [address], [address] [place] [address] Cholesterol in VLDL [Mass/Vol] 12 mg/dL Normal 0-30 [facility] Comment on above: Performed By: #### 1 9123-9, RENAL, 2731-8, 47715-1 #### [facility] ([id number]) [address], [address] [place] [address] CHOLESTEROL:HDL 2.5 Normal 1.0-5.0 [facility] Comment on above: Performed By: #### 1 9123-9, RENAL, 2731-8, 90266-4 #### [facility] ([id number]) [address], [address] [place] [address] Triglyceride [Mass/Vol] 61 mg/dL Normal 27-150 [facility] Comment on above: Performed By: #### 1 9123-9, RENAL, 2731-8, 69290-2 #### [facility] ([id number]) [address], [address] [place] [address] XR Foot - right 3 [facility] Result: 3 views foot: AP, MO, and lateral of the right foot were taken and show some osseous healing across the complete intra-articular fracture of the distal medial aspect head of the proximal phalanx of the hallux. Diffuse osteopenia noted. Dorsal osteophyte formation noted dorsal navicular cuneiform joint and talar neck. Lateral view shows increase in talar declination angle, decrease in calcaneal pitch, navicular cuneiform fault present. [facility] Radiology Study observation (narrative) [facility] Basophils Auto (Bld) [#/Vol] on 12-19-2023 Basophils (Bld) [#/Vol] 0.1 10 3/uL 0.0-0.1 [facility] Basophils (Bld) [#/Vol] Automated basophil count 0.0-0.1 [facility] Basophils/100 WBC Auto (Bld) on 12-19-2023 Basophils/100 WBC (Bld) 1.5 % 0.2-2.0 [facility] Basophils/100 WBC (Bld) Automated basophil % 0.2-2.0 [facility] Eosinophils/100 WBC Auto (Bl d)on 12-19-2023 Eosinophils/100 WBC (Bld) 7.3 % High 0.9-7.0 [facility] Eosinophils/100 WBC (Bld) Automated eosinophil % High 0.9-7.0 [facility] Erythrocyte distribution wid th Auto (RBC) [Ratio]on 12-19-2023 Erythrocyte distribution width (RBC) [Ratio] 13.5 % 11.0-15.0 [facility] Erythrocyte distribution width (RBC) [Ratio] Erythrocyte distribution width [Ratio] by Automated count 11.0-15.0 [facility] Estimated glomerular filtrat ion rate (GFR) non- Americanon 12-19-2023 GFR/1.73 sq M.predicted among non-blacks MDRD (S/P/Bld) [Vol rate/Area] mL/min/{1.73_m2} >=60 mL/min/1.73m 2 [facility] GFR/1.73 sq M.predicted among non-blacks MDRD (S/P/Bld) [Vol rate/Area] Estimated glomerular filtration rate (GFR) non- >=60 mL/min/1.73m 2 [facility] Globulin Calc (S) [Mass/Vol] on 12-19-2023 Globulin (S) [Mass/Vol] 3.1 g/dL [facility] Globulin (S) [Mass/Vol] Serum globulin measurement by calculation (mass/volume) [facility] Hematocrit Auto (Bld) [Volum e fraction]on 12-19-2023 Hematocrit (Bld) [Volume fraction] 35.9 % Low 36.0-48.0 [facility] Hematocrit (Bld) [Volume fraction] Hematocrit [Volume Fraction] of Blood by Automated count Low 36.0-48.0 [facility] Hemoglobin [Mass/volume] in Bloodon 12-19-2023 Hemoglobin (Bld) [Mass/Vol] 11.0 g/dL Low 12.0-16.0 [facility] Hemoglobin (Bld) [Mass/Vol] Hemoglobin [Mass/volume] in Blood Low 12.0-16.0 [facility] Iron binding capacity [Mass/ volume] in Serum or Plasmaon 12-19-2023 Iron binding capacity [Mass/Vol] 259.0 ug/dL 250.0-450.0 [facility] Iron binding capacity [Mass/Vol] Iron binding capacity [Mass/volume] in Serum or Plasma 250.0-450.0 [facility] Iron saturation [Mass Fracti on] in Serum or Plasmaon 12-19-2023 Iron saturation [Mass fraction] 35.1 % [facility] Iron saturation [Mass fraction] Iron saturation [Mass Fraction] in Serum or Plasma [facility] Jose Manuel 12-19-2023 L Specimen: [id number] Received: 12/20/23 Status: OMAIRA James Num: [id number] Spec Type: Impression Subm Dr: Nancy Jarrett MD Tissues: PATHPER Procedures: PATHREVIEW Age/ Patient Sex Location Account Attending Physician Taylor De Jesus 73/F LABELL [id number] Nancy Jarrett MD SPEC NUM: [id number] RECD: 12/20/23 STATUS: OMAIRA ROSARIOMeghan NUM: [id number] CLAIRE: 12/19/[address]: Nancy Jarrett MD ENTERED: 12/20/23 [facility] DR: Shmuel Lorenzo SPEC TYPE: Impression DEPT: ANGEL Jacob ENTERED BY: [id number] RECV BY: [id number] ORDERED: PATHREVIEW ORDERED: PATHREVIEW Pathologist Review Peripheral blood smear evaluation: - Pancytopenia with mild leukocytopenia, mild normocytic normochromic anemia and mild thrombocytopenia. Recommend clinical correlation, further studies if clinically indicated. CPT: 38696 Nestor Paz MD 12/20/23 Specimen: [id number] Received: 12/20/23-125 Status: OMAIRA James Num: [id number] Spec Type: Impression Subm Dr: Nancy Jarrett MD Tissues: PATHPER Procedures: PATHREVIEW Patient: OrlandokarlreynaTaylor Carter [id number] (Continued) Signed (signature on file) Nestor Paz MD 12/20/23 6242 Normal [facility] Laboratory - Chemistry and C hemistry - challengeon 12-19-2023 Albumin [Mass/Vol] 3.3 g/dL Low 3.4-5.0 [facility] ALP [Catalytic activity/Vol] 123 U/L High 46-116 [facility] ALT [Catalytic activity/Vol] 28 U/L 14-59 [facility] AST [Catalytic activity/Vol] 22 U/L 15-37 [facility] Bilirubin [Mass/Vol] 0.6 mg/dL 0.2-1.0 [facility] Calcium [Mass/Vol] 8.1 mg/dL Low 8.5-10.1 [facility] Chloride [Moles/Vol] 109 mmol/L High 98-107 [facility] CO2 [Moles/Vol] 25.7 mmol/L 21.0-32.0 [facility] Creatinine [Mass/Vol] 0.81 mg/dL 0.55-1.02 [facility] Ferritin [Mass/Vol] 211.0 ng/mL 8.0-252.0 [facility] GFR/1.73 sq M.predicted MDRD (S/P/Bld) [Vol rate/Area] mL/min/{1.73_m2} >=60 mL/min/1.73m 2 [facility] Glucose [Mass/Vol] 83 mg/dL 74-106 [facility] Iron [Mass/Vol] 91.0 ug/dL 50.0-170.0 [facility] LDH [Catalytic activity/Vol] 142 U/L 81-234 [facility] Potassium [Moles/Vol] 4.3 mmol/L 3.5-5.1 [facility] Protein [Mass/Vol] 6.4 g/dL 6.4-8.2 [facility] Sodium [Moles/Vol] 144 mmol/L 136-145 [facility] Urea nitrogen [Mass/Vol] 14.0 mg/dL 7.0-18.0 [facility] Urea nitrogen/Creatinine [Mass ratio] 17.3 mg/mg [facility] Laboratory - Hematology and Cell countson 12-19-2023 Immature granulocytes/100 WBC (Bld) 0.0 % 0.0-0.5 [facility] Leukocytes [#/volume] correc nicola for nucleated erythrocytes in Blood by Automated counon 12-19-2023 WBC corrected for nucl RBC Auto (Bld) [#/Vol] 3.4 10 3/uL Low 4.0-11.0 [facility] WBC corrected for nucl RBC Auto (Bld) [#/Vol] Leukocytes [#/volume] corrected for nucleated erythrocytes in Blood by Automated coun Low 4.0-11.0 [facility] Lymphocytes Auto (Bld) [#/Vo l]on 12-19-2023 Lymphocytes (Bld) [#/Vol] 1.3 10 3/uL 1.2-3.8 [facility] Lymphocytes (Bld) [#/Vol] Lymphocytes [#/volume] in Blood by Automated count 1.2-3.8 [facility] Lymphocytes/100 WBC Auto (Bl d)on 12-19-2023 Lymphocytes/100 WBC (Bld) 38.7 % 20.5-60.0 [facility] Lymphocytes/100 WBC (Bld) Lymphocytes/100 leukocytes in Blood by Automated count 20.5-60.0 [facility] MCH Auto (RBC) [Entitic mass ]on 12-19-2023 MCH (RBC) [Entitic mass] 28.6 pg 26.7-34.0 [facility] MCH (RBC) [Entitic mass] MCH [Entitic mass] by Automated count 26.7-34.0 [facility] MCHC Auto (RBC) [Mass/Vol]on 12-19-2023 MCHC (RBC) [Mass/Vol] 30.6 g/dL 29.9-35.2 [facility] MCHC (RBC) [Mass/Vol] MCHC [Mass/volume] by Automated count 29.9-35.2 [facility] MCV Auto (RBC) [Entitic vol] on 12-19-2023 MCV (RBC) [Entitic vol] 93.5 fL 81.0-99.0 [facility] MCV (RBC) [Entitic vol] MCV [Entitic volume] by Automated count 81.0-99.0 [facility] Monocytes Auto (Bld) [#/Vol] on 12-19-2023 Monocytes (Bld) [#/Vol] 0.3 10 3/uL 0.3-0.8 [facility] Monocytes (Bld) [#/Vol] Automated blood monocyte count 0.3-0.8 [facility] Monocytes/100 WBC Auto (Bld) on 12-19-2023 Monocytes/100 WBC (Bld) 9.1 % 1.7-12.0 [facility] Monocytes/100 WBC (Bld) Automated monocyte % 1.7-12.0 [facility] Neutrophils Auto (Bld) [#/Vo l]on 12-19-2023 Neutrophils (Bld) [#/Vol] 1.5 10 3/uL 1.4-6.5 [facility] Neutrophils (Bld) [#/Vol] Neutrophils [#/volume] in Blood by Automated count 1.4-6.5 [facility] Neutrophils/100 WBC Auto (Bl d)on 12-19-2023 Neutrophils/100 WBC (Bld) 43.4 % 43.0-75.0 [facility] Neutrophils/100 WBC (Bld) Automated neutrophil % 43.0-75.0 [facility] No Panel Informationon 12-18 Add Manual Differential See comment [facility] Comment on above: SEE SCANNED REPORT Eosinophils # (Auto) 0.3 10 3/uL 0.0-0.7 [facility] Immature Granulocyte # (Auto) 0.00 10 3/uL 0.00-0.03 [facility] Platelet mean volume Auto (B ld) [Entitic vol]on 12-19-2023 Platelet mean volume (Bld) [Entitic vol] 13.8 fL High 9.5-13.5 [facility] Platelet mean volume (Bld) [Entitic vol] Platelet mean volume [Entitic volume] in Blood by Automated count High 9.5-13.5 [facility] Platelets Auto (Bld) [#/Vol] on 12-19-2023 Platelets (Bld) [#/Vol] 117 10 3/uL Low 150-450 [facility] Platelets (Bld) [#/Vol] Platelets [#/volume] in Blood by Automated count Low 150-450 [facility] RBC Auto (Bld) [#/Vol]on RBC (Bld) [#/Vol] 3.84 10 6/uL Low 4.20-5.40 [facility] RBC (Bld) [#/Vol] Erythrocytes [#/volu me] in Blood by Automated count Low 4.20-5.40 [facility] Reticulocytes/100 RBC Auto ( Bld)on 12-19-2023 Reticulocytes/100 RBC (Bld) 1.44 % 0.60-3.10 [facility] Reticulocytes/100 RBC (Bld) Reticulocyte % auto 0.60-3.10 [facility] Serum or plasma albumin/glob ulin mass ratioon 12-19-2023 Albumin/Globulin [Mass ratio] 1.1 {ratio} [facility] Albumin/Globulin [Mass ratio] Serum or plasma albumin/globulin mass ratio [facility] Serum or plasma anion gap de terminationon 12-19-2023 Anion gap [Moles/Vol] 13.6 mmol/L [facility] Anion gap [Moles/Vol] Serum or plasma anion gap determination [facility] Serum or plasma erythropoiet in (EPO) measurement (units/volume)on 12-19-2023 Erythropoietin (EPO) Qn Serum or plasma erythropoietin (EPO) measurement (units/volume) 2.6-18.5 [facility] Comment on above: KOALA.CH el DxI 800 Immunoassay SystemValues obtained with different assay methods or kits cannotbe used interchangeably. Results cannot be interpreted asabsolute evidence of the presence or absence of malignantdisease.Performed at: [facility] [id number] Director: Tony Reilly PhD, Phone: [phone] C REACTIVE PROTEINon 024 CRP [Mass/Vol] mg/L Normal 0.000-0.744 [facility] Comment on above: Performed By: #### 8 2476-02, 1987-06, 3083-02, 89663-9, 54605-1, 75809-8 #### [facility] ([id number]) [address] [place] [address], [address] [place] [address] ESR Photometric method (Bld) [Velocity]on 12-11-2023 ESR, ERYTHROCYTE SEDIMENTATION RATE 7 mm/h Normal 0-30 [facility] Comment on above: Performed By: #### 8 24708-20, 1987-06, 3083-02, 50126-1, 40501-4, 18149-6 #### [facility] ([id number]) [address], [address] [place] [address] MR FOOT RT WO CONTon 024 MR [...] Matt MD on 12/11/2023 2:11 PM Normal [facility] Nuclear Ab IA Ql (S)on 12-10 NORM Screen w/reflex Negative Normal NEG [facility] Comment on above: Result Comment: Testing performed using multiplex flow immunoassay. Eleven different antigens associated with systemic autoimmune diseases (dsDNA,Sm,Sm/CALCULUS TEACHER,CALCULUS TEACHER,Chromatin, SSA,SSB,Cyndie-1,Scl70,Ribo P,Centromere B) are included in this screening test. Performed By: #### 8 24708-20, 1987-06, 3083-02, 32433-5, 60973-8, 12987-6 #### [facility] ([id number]) [address], [address] [place] [address] Rheumatoid factor Nephelomet ry Qn (S)on 12-11-2023 RHEUMATOID FACTOR <10 Normal <20 [facility] Comment on above: Performed By: #### 8 24708-20, 1987-06, 3083-02, 35506-0, 00672-6, 37877-1 #### [facility] ([id number]) [address], [address] [place] [address] URIC ACIDon 12-11-2023 Urate [Mass/Vol] 4.7 mg/dL Normal 2.6-7.2 [facility] Comment on above: Performed By: #### 8 2477-1, 1988-5, 3084-1, 25171-7, 61620-1, 69783-7 #### [facility] ([id number]) [address], [address] [place] [address] XR FOOT RT MIN 3 VWSon 12-10 [...] Peck MD on 12/11/2023 3:53 PM Normal [facility] MAGNESIUMon 07-31-2023 Magnesium [Mass/Vol] 2.0 mg/dL Normal 1.8-2.6 [facility] Comment on above: Performed By: #### 1 9123-9, RENAL, 2730-8, 14409-7 #### [facility] ([id number]) [address], [address] [place] [address] Parathyrin.intact [Mass/Vol] on 07-31-2023 PTH INTACT 115 pg/mL High 12-88 [facility] Comment on above: Performed By: #### 1 9123-9, RENAL, 2730-8, 97525-9 #### [facility] ([id number]) [address], [address] [place] [address] RENAL PANELon 07-31-2023 Albumin [Mass/Vol] 3.7 g/dL Normal 3.2-5.3 [facility] Comment on above: Performed By: #### 1 9123-9, RENAL, 2731-8, 28979-3 #### [facility] ([id number]) [address], [address] [place] [address] Anion gap [Moles/Vol] 8 mmol/L Normal 5-15 [facility] Comment on above: Performed By: #### 1 9123-9, RENAL, 2731-8, 13481-0 #### [facility] ([id number]) [address], [address] [place] [address] Calcium [Mass/Vol] 8.2 mg/dL Low 8.5-10.5 [facility] Comment on above: Performed By: #### 1 9123-9, RENAL, 273-8, 21508-2 #### [facility] ([id number]) [address], [address] [place] [address] Chloride [Moles/Vol] 111 mmol/L High 98-109 [facility] Comment on above: Performed By: #### 1 9123-9, RENAL, 273-8, 72143-1 #### [facility] ([id number]) [address], [address] [place] [address] CO2 [Moles/Vol] 23 mmol/L Normal 22-32 [facility] Comment on above: Performed By: #### 1 9123-9, RENAL, 273-8, 44197-3 #### [facility] ([id number]) [address], [address] [place] [address] Creatinine [Mass/Vol] 0.69 mg/dL Normal 0.40-1.00 [facility] Comment on above: Result Comment: METH OD TRACEABLE TO IDMS STANDARD Performed By: #### 1 9123-9, RENAL, 273-8, 51291-0 #### [facility] ([id number]) [address], [address] [place] [address] eGFR (CKD-EPI) NON-RACE DEPENDENT >90 Normal >59 [facility] Comment on above: Result Comment: Reported eGFR is based on the CKD-EPI 2020 equation that does not use a race coefficient. Performed By: #### 1 9123-9, RENAL, 2730-8, 41582-0 #### [facility] ([id number]) [address], [address] [place] [address] Glucose [Mass/Vol] 78 mg/dL Normal 65-99 [facility] Comment on above: Performed By: #### 1 9122-9, RENAL, 2730-, 87950-9 #### [facility] ([id number]) [address], [address] [place] [address] Phosphate [Mass/Vol] 3.8 mg/dL Normal 2.4-4.9 [facility] Comment on above: Performed By: #### 1 9122-9, RENAL, 2730-09, 74397-5 #### [facility] ([id number]) [address], [address] [place] [address] Potassium [Moles/Vol] 3.9 mmol/L Normal 3.5-5.0 [facility] Comment on above: Performed By: #### 1 9123-9, RENAL, 8, 02294-5 #### [facility] ([id number]) [address], [address] [place] [address] Sodium [Moles/Vol] 142 mmol/L Normal 134-146 [facility] Comment on above: Performed By: #### 1 9123-9, RENAL, 2730-8, 81270-1 #### [facility] ([id number]) [address], [address] [place] [address] Urea nitrogen [Mass/Vol] 17 mg/dL Normal 5-27 [facility] Comment on above: Performed By: #### 1 9123-9, RENAL, 2730-8, 79948-2 #### [facility] ([id number]) [address], [address] [place] [address] Vitamin D+Metabolites [Mass/ Vol]on 07-31-2023 VITAMIN D 25 HYD TOT 59.0 ng/mL Normal 30-100 [facility] Comment on above: Result Comment: Vitamin D status 25 [place] Vitamin D Deficiency <20 ng/mL Insufficiency 20-29 ng/mL Sufficiency 30-100 ng/mL Toxicity >100 ng/mL NOTE: A pediatric reference range has not been established by the table assembler of this kit. The [place] [employer] recommends a Vitamin D level of = or >20ng/mL in infants and children. Performed By: #### 1 9123-9, RENAL, 2731-8, 01218-2 #### [facility] ([id number]) [address] [place] [address], [address] [place] [address] CT guided bone marrow bx/asp iron 07-05-2023 CT guided bone marrow bx/aspir [facility] [place] [address] CT Scan Report Signed Patient: Taylor De Jesus MR#: [id number] : 1950 Acct:[id number] Age/Sex: 72 / F ADM Date: 07/05/23 Loc: CT Room: Type: [facility] Attending Dr: Nancy Jarrett MD Copies to: Nancy Jarrett MD Ordering Provider: Nancy Jarrett MD Date of Service: 07/05/23 CT/CT [...] local anesthesia. Utilizing CT guidance, an 11-gauge [employer] biopsy needle was advanced into the right [...] biopsy. Impression dictated by: Nikolay Ortiz Jr., D.ODeion07/05/2023 3:00 PM Dictation Location: [place] [address] Transcribed By: [facility] 07/05/23 1500 Dictated By: Nikolay Ortiz Jr, DO 07/05/23 1459 Signed By: 07/05/23 1500 Normal [facility] Coagulation Profileon 2023 aPTT Coag (Bld) [Time] 37.8 s High 25.1-36.5 [facility] Comment on above: Result Comment: A he matocrit value greater than 55% may lead to inaccurate results in coagulation testing. Patients having hematocrit values >55% require a special collection tube for coagulation studies. Please contact the laboratory at [phone] for redraw instructions. PERFORMED BY: [address] [address] PATHOLOGIST INSPECTOR GOLF BALL RONALD WAYNE M.D. Performed By: #### P P, CBC #### [address] [address] [facility] INR Coag (PPP) [Relative time] 1.1 {INR} Normal [facility] Comment on above: Result Comment: INR Therapeutic [...] Performed By: #### P P, CBC #### [place] [id number] [facility] PT Coag (PPP) [Time] 12.8 s Normal 9.0-12.9 [facility] Comment on above: Result Comment: A he matocrit value greater than 55% may lead to inaccurate results in coagulation testing. Patients having hematocrit values >55% require a special collection tube for coagulation studies. Please contact the laboratory at [phone] for redraw instructions. Performed By: #### P P, CBC #### [address] Complete Blood Count Auto Di ffon 07-05-2023 Basophils (Bld) [#/Vol] 0.1 10*3/uL Normal 0.0-0.2 [facility] Comment on above: Result Comment: PERF ORMED BY: [place] [address] PATHOLOGIST INSPECTOR GOLF BALL RONALD WAYNE M.D. Performed By: #### P P, CBC #### [address] Basophils/100 WBC (Bld) 1.5 % Normal . [facility] Comment on above: Performed By: #### P P, CBC #### [address] Eosinophils (Bld) [#/Vol] 0.3 10*3/uL Normal 0.0-0.45 [facility] Comment on above: Performed By: #### P P, CBC #### [address] Eosinophils/100 WBC (Bld) 7.3 % Normal . [facility] Comment on above: Performed By: #### P P, CBC #### [address] Erythrocyte distribution width (RBC) [Ratio] 13.2 % Normal 11.9-15.3 [facility] Comment on above: Performed By: #### P P, CBC #### [address] Hematocrit (Bld) [Volume fraction] 34.2 % Normal 34.0-46.4 [facility] Comment on above: Performed By: #### P P, CBC #### [address] Hemoglobin (Bld) [Mass/Vol] 11.0 g/dL Low 11.8-15.4 [facility] Comment on above: Performed By: #### P P, CBC #### [address] Lymphocytes (Bld) [#/Vol] 1.4 10*3/uL Normal 1.00-4.8 [facility] Comment on above: Performed By: #### P P, CBC #### [address] Lymphocytes/100 WBC (Bld) 36.0 % Normal . [facility] Comment on above: Performed By: #### P P, CBC #### [address] MCH (RBC) [Entitic mass] 28.6 pg Normal 24.7-34.3 [facility] Comment on above: Performed By: #### P P, CBC #### [address] MCV (RBC) [Entitic vol] 89.2 fL Normal 80-100 [facility] Comment on above: Performed By: #### P P, CBC #### [address] Mean Corpuscular HGB Conc 32.1 g/dL Normal 32.0-35.0 [facility] Comment on above: Performed By: #### P P, CBC #### [address] Monocytes (Bld) [#/Vol] 0.4 10*3/uL Normal 0.0-0.8 [facility] Comment on above: Performed By: #### P P, CBC #### [address] Monocytes/100 WBC (Bld) 10.2 % Normal . [facility] Comment on above: Performed By: #### P P, CBC #### [facility] [address] [place] [address] [place] Neutrophils (Bld) [#/Vol] 1.7 10*3/uL Low 1.8-7.7 [facility] Comment on above: Performed By: #### P P, CBC #### [facility] [address] Neutrophils/100 WBC (Bld) 45.0 % Normal . [facility] Comment on above: Performed By: #### P P, CBC #### [facility] [address] NRBC% 0.1 /100{WBC} Normal 0-0.5 [facility] Comment on above: Performed By: #### P P, CBC #### [address] Platelet mean volume (Bld) [Entitic vol] 11.8 fL High 6.3-10.7 [facility] Comment on above: Performed By: #### P P, CBC #### [address] Platelets (Bld) [#/Vol] 100 10*3/uL Low 150-450 [facility] Comment on above: Performed By: #### P P, CBC #### [facility] [address] RBC (Bld) [#/Vol] 3.83 10*6/uL Normal 3.60-5.[address] [facility] Comment on above: Performed By: #### P P, CBC #### [facility] [address] [place] [address] [place] WBC (Bld) [#/Vol] 3.8 10*3/uL Normal 3.8-11.6 [facility] Comment on above: Performed By: #### P P, CBC #### [facility] [address] [place] [address] [place] Jose Manuel 07-05-2023 L Specimen: [id number] Received: 07/05/23-1302 Status: SOUT Req Num: [id number] Spec Type: Bone Marro Subm Dr: Nikolay Ortiz Jr, DO Tissues: A Bone Marrow Aspirate (Clot) (RT ILIAC CREST) B Bone Marrow Biopsy/Core (RT ILIAC CREST) Procedures: Peripheral Smr, Iron/7, HE/8, Gross/Micro L4/2, Bm Smear/2, AE1-AE3/3, CD138/3, CD20/3, CD3/3, CD34/3, Decalcification, Bone Marrow TP, GIEMSA STN/6, SMEARS/2 Age/ Patient Sex Location Account Attending Physician Taylor De Jesus 72/F CT [id number] Nancy Jarrett MD SPEC NUM: [id number] RECD: 07/05/23 STATUS: OMAIRA ROSARIO NUM: [id number] CLAIRE: 07/05/23- SUBM DR: Nikolay Ortiz Jr, DO ENTERED: 07/05/23-1304 [facility] DR: SPEC TYPE: Bone Marro DEPT: BM [...] [id number] Received: 07/05/23 Status: OMAIRA James Num: [id number] Spec Type: Bone Marro Subm Dr: Nikolay Ortiz Jr, DO Tissues: A Bone Marrow Aspirate (Clot) (RT ILIAC CREST) B Bone Marrow Biopsy/Core (RT ILIAC CREST) Procedures: Peripheral Smr, Iron/7, HE/8, Gross/Micro L4/2, Bm Smear/2, AE1-AE3/3, CD138/3, CD20/3, CD3/3, CD34/3, Decalcification, Bone Marrow TP, GIEMSA STN/6, SMEARS/2 Patient: Taylor De Jesus [id number] (Continued) Specimen: [id number] Received: 07/05/23 (Continued) Pathological Diagnosis (Continued) Signed (signature on file) Taco Garza MD 07/12/23 1531 Specimen: [id number] Received: 07/05/23 Status: OMAIRA James Num: [id number] Spec Type: Bone Marro Subm Dr: Nikolay Ortiz Jr, DO Tissues: A Bone Marrow Aspirate (Clot) (RT ILIAC CREST) B Bone Marrow Biopsy/Core (RT ILIAC CREST) Procedures: Peripheral Smr, Iron/7, HE/8, Gross/Micro L4/2, Bm Smear/2, AE1-AE3/3, CD138/3, CD20/3, CD3/3, CD34/3, Decalcification, Bone Marrow TP, GIEMSA STN/6, SMEARS/2 Patient: Taylor De Jesus [id number] (Continued) Specimen: [id number] Received: 07/05/23 (Continued) Pathological [...] B1. (more content not included)... Normal [facility] Basophils Auto (Bld) [#/Vol] on 06-13-2023 Basophils (Bld) [#/Vol] 0.1 10 3/uL 0.0-0.1 [facility] Basophils/100 WBC Auto (Bld) on 06-13-2023 Basophils/100 WBC (Bld) 1.5 % 0.2-2.0 [facility] Eosinophils/100 WBC Auto (Bl d)on 06-13-2023 Eosinophils/100 WBC (Bld) 7.8 % 0.9-7.0 [facility] Erythrocyte distribution wid th Auto (RBC) [Ratio]on 06-13-2023 Erythrocyte distribution width (RBC) [Ratio] 12.9 % 11.0-15.0 [facility] Hematocrit Auto (Bld) [Volum e fraction]on 06-13-2023 Hematocrit (Bld) [Volume fraction] 35.5 % 36.0-48.0 [facility] Hemoglobin [Mass/volume] in Bloodon 06-13-2023 Hemoglobin (Bld) [Mass/Vol] 10.7 g/dL 12.0-16.0 [facility] Iron binding capacity [Mass/ volume] in Serum or Plasmaon 06-13-2023 Iron binding capacity [Mass/Vol] 261.0 ug/dL 250.0-450.0 [facility] Iron saturation [Mass Fracti on] in Serum or Plasmaon 06-13-2023 Iron saturation [Mass fraction] 30.7 % [facility] Jose Manuel 06-13-2023 L Specimen: Received: 06/13/23 Status: SOUT Req Num: [id number] Spec Type: Impression Subm Dr: Nancy Jarrett MD Tissues: PATHPER Procedures: PATHREVIEW Age/ Patient Sex Location Account Attending Physician Taylor De Jesus 72/F [place] [id number] Nancy Jarrett MD SPEC NUM: RECD: 06/13/23 STATUS: SOUDelvis TRELL NUM: [id number] CLAIRE: 06/13/[address]: Nancy Jarrett MD ENTERED: 06/13/[address]: Shmuel Lorenzo SPEC TYPE: Impression DEPT: ANGEL Jacob ENTERED BY: [id number] RECV BY: [id number] ORDERED: PATHREVIEW ORDERED: PATHREVIEW Pathologist Review Bicytopenia is noted. Bone marrow pathology should be ruled out. [id number] Specimen: [id number] Received: 06/13/23-1353 Status: OMAIRA James Num: [id number] Spec Type: Impression Subm Dr: Nancy Jarrett MD Tissues: PATHPER Procedures: PATHREVIEW Patient: Taylor De Jesus [id number] (Continued) Signed (signature on file) Taco Garza MD 06/14/23 1520 Normal [facility] Laboratory - Chemistry and C hemistry - challengeon 06-13-2023 Ferritin [Mass/Vol] 206.0 ng/mL 8.0-252.0 [facility] Iron [Mass/Vol] 80.0 ug/dL 50.0-170.0 [facility] Laboratory - Hematology and Cell countson 06-13-2023 Immature granulocytes/100 WBC (Bld) 0.3 % 0.0-0.5 [facility] Leukocytes [#/volume] correc nicola for nucleated erythrocytes in Blood by Automated counon 06-13-2023 WBC corrected for nucl RBC Auto (Bld) [#/Vol] 4.0 10 3/uL 4.0-11.0 [facility] Lymphocytes Auto (Bld) [#/Vo l]on 06-13-2023 Lymphocytes (Bld) [#/Vol] 1.4 10 3/uL 1.2-3.8 [facility] Lymphocytes/100 WBC Auto (Bl d)on 06-13-2023 Lymphocytes/100 WBC (Bld) 35.7 % 20.5-60.0 [facility] MCH Auto (RBC) [Entitic mass ]on 06-13-2023 MCH (RBC) [Entitic mass] 28.4 pg 26.7-34.0 [facility] MCHC Auto (RBC) [Mass/Vol]on 06-13-2023 MCHC (RBC) [Mass/Vol] 30.1 g/dL 29.9-35.2 [facility] MCV Auto (RBC) [Entitic vol] on 06-13-2023 MCV (RBC) [Entitic vol] 94.2 fL 81.0-99.0 [facility] Monocytes Auto (Bld) [#/Vol] on 06-13-2023 Monocytes (Bld) [#/Vol] 0.3 10 3/uL 0.3-0.8 [facility] Monocytes/100 WBC Auto (Bld) on 06-13-2023 Monocytes/100 WBC (Bld) 8.4 % 1.7-12.0 [facility] Neutrophils Auto (Bld) [#/Vo l]on 06-13-2023 Neutrophils (Bld) [#/Vol] 1.8 10 3/uL 1.4-6.5 [facility] Neutrophils/100 WBC Auto (Bl d)on 06-13-2023 Neutrophils/100 WBC (Bld) 46.3 % 43.0-75.0 [facility] No Panel Informationon 06-12 Eosinophils # (Auto) 0.3 10 3/uL 0.0-0.7 [facility] Immature Granulocyte # (Auto) 0.01 10 3/uL 0.00-0.03 [facility] Platelet mean volume Auto (B ld) [Entitic vol]on 06-13-2023 Platelet mean volume (Bld) [Entitic vol] 14.2 fL 9.5-13.5 [facility] Platelets Auto (Bld) [#/Vol] on 06-13-2023 Platelets (Bld) [#/Vol] 111 10 3/uL 150-450 [facility] RBC Auto (Bld) [#/Vol]on RBC (Bld) [#/Vol] 3.77 10 6/uL 4.20-5.40 [facility] Reticulocytes/100 RBC Auto ( Bld)on 06-13-2023 Reticulocytes/100 RBC (Bld) 1.26 % 0.60-3.10 [facility] Basophils Auto (Bld) [#/Vol] on 04-25-2023 Basophils (Bld) [#/Vol] 0.1 10 3/uL 0.0-0.1 [facility] Basophils/100 WBC Auto (Bld) on 04-25-2023 Basophils/100 WBC (Bld) 1.8 % 0.2-2.0 [facility] Eosinophils/100 WBC Auto (Bl d)on 04-25-2023 Eosinophils/100 WBC (Bld) 6.8 % 0.9-7.0 [facility] Erythrocyte distribution wid th Auto (RBC) [Ratio]on 04-25-2023 Erythrocyte distribution width (RBC) [Ratio] 13.3 % 11.0-15.0 [facility] Hematocrit Auto (Bld) [Volum e fraction]on 04-25-2023 Hematocrit (Bld) [Volume fraction] 36.3 % 36.0-48.0 [facility] Hemoglobin [Mass/volume] in Bloodon 04-25-2023 Hemoglobin (Bld) [Mass/Vol] 10.7 g/dL 12.0-16.0 [facility] Jose Manuel 04-25-2023 L Specimen: [id number] Received: 04/25/23 Status: OMAIRA James Num: [id number] Spec Type: Impression Subm Dr: Nancy Jarrett MD Tissues: PATHPER Procedures: PATHREVIEW Age/ Patient Sex Location Account Attending Physician Taylor De Jesus 72/F [place]ELL [id number] Nancy Jarrett MD SPEC NUM: [id number] RECD: 04/25/23 STATUS: OMAIRA JAMES NUM: [id number] CLAIRE: 04/25/[address]: Nancy Jarrett MD ENTERED: 04/25/23 [facility] [address]: SPEC TYPE: Impression DEPT: ANGEL Jacob ENTERED BY: [id number] RECV BY: [id number] ORDERED: PATHREVIEW ORDERED: PATHREVIEW Pathologist Review Abnormal [...] correlations are are therefore also suggested CPT: 49479 CBC No results available. Specimen: [id number] Received: 04/25/23 Status: OMAIRA James Num: [id number] Spec Type: Impression Subm Dr: Nancy Jarrett MD Tissues: PATHPER Procedures: PATHREVIEW Patient: Taylor De Jesus [id number] (Continued) Signed (signature on file) Enrrique-Ra June MD 04/27/232111 Normal [facility] Laboratory - Chemistry and C hemistry - challengeon 04-25-2023 Cobalamin (Vitamin B12) [Mass/Vol] 1143.0 pg/mL 193.0-986.0 [facility] Laboratory - Hematology and Cell countson 04-25-2023 Immature granulocytes/100 WBC (Bld) 0.0 % 0.0-0.5 [facility] Leukocytes [#/volume] correc nicola for nucleated erythrocytes in Blood by Automated counon 04-25-2023 WBC corrected for nucl RBC Auto (Bld) [#/Vol] 3.8 10 3/uL 4.0-11.0 [facility] Lymphocytes Auto (Bld) [#/Vo l]on 04-25-2023 Lymphocytes (Bld) [#/Vol] 1.5 10 3/uL 1.2-3.8 [facility] Lymphocytes/100 WBC Auto (Bl d)on 04-25-2023 Lymphocytes/100 WBC (Bld) 38.7 % 20.5-60.0 [facility] MCH Auto (RBC) [Entitic mass ]on 04-25-2023 MCH (RBC) [Entitic mass] 28.2 pg 26.7-34.0 [facility] MCHC Auto (RBC) [Mass/Vol]on 04-25-2023 MCHC (RBC) [Mass/Vol] 29.5 g/dL 29.9-35.2 [facility] MCV Auto (RBC) [Entitic vol] on 04-25-2023 MCV (RBC) [Entitic vol] 95.5 fL 81.0-99.0 [facility] Monocytes Auto (Bld) [#/Vol] on 04-25-2023 Monocytes (Bld) [#/Vol] 0.3 10 3/uL 0.3-0.8 [facility] Monocytes/100 WBC Auto (Bld) on 04-25-2023 Monocytes/100 WBC (Bld) 8.9 % 1.7-12.0 [facility] Neutrophils Auto (Bld) [#/Vo l]on 04-25-2023 Neutrophils (Bld) [#/Vol] 1.7 10 3/uL 1.4-6.5 [facility] Neutrophils/100 WBC Auto (Bl d)on 04-25-2023 Neutrophils/100 WBC (Bld) 43.8 % 43.0-75.0 [facility] No Panel Informationon 04-24 Add Manual Differential See comment [facility] Comment on above: SEE SCANNED REPORT Eosinophils # (Auto) 0.3 10 3/uL 0.0-0.7 [facility] Hepatitis C Interpretation Comment . [facility] Comment on above: Not infected with HC V unless early or acute infection issuspected (which may be delayed in an immunocompromisedindividual), or other evidence exists to indicate HCVinfection.Performed at: [facility] [id number] Director: Tony Reilly PhD, Phone: [phone] Immature Granulocyte # (Auto) 0.00 10 3/uL 0.00-0.03 [facility] Platelet mean volume Auto (B ld) [Entitic vol]on 04-25-2023 Platelet mean volume (Bld) [Entitic vol] 14.3 fL 9.5-13.5 [facility] Platelets Auto (Bld) [#/Vol] on 04-25-2023 Platelets (Bld) [#/Vol] 111 10 3/uL 150-450 [facility] RBC Auto (Bld) [#/Vol]on RBC (Bld) [#/Vol] 3.80 10 6/uL 4.20-5.40 [facility] Reticulocytes/100 RBC Auto ( Bld)on 04-25-2023 Reticulocytes/100 RBC (Bld) 1.37 % 0.60-3.10 [facility] Serum or plasma hepatitis C virus antibody signal/cutoff ratio by immunoassay (relation 04-25-2023 HCV Ab Signal/Cutoff IA [Rel units/Vol] Non-Reactive Non Reactive [facility] Jose Manuel 03-08-2023 L Specimen: [id number] Received: 03/09/23 Status: SOUT Req Num: [id number] Spec Type: Impression Subm Dr: Nancy Jarrett MD Tissues: PATHPER Procedures: PATHREVIEW Age/ Patient Sex Location Account Attending Physician Taylor De Jesus 72/F [place] [id number] Nancy Jarrett MD SPEC NUM: [id number] RECD: 03/09/23 STATUS: SOUT REQ NUM: [id number] CLAIRE: 03/08/[address]: Nancy Jarrett MD ENTERED: 03/09/[address]: Shmuel Lorenzo SPEC TYPE: Impression DEPT: ANGEL Jacob ENTERED BY: [id number] RECV BY: [id number] ORDERED: PATHREVIEW ORDERED: PATHREVIEW Pathologist Review Abnormal [...] and laboratory follow-ups are also suggested CPT: 64840 Specimen: [id number] Received: 03/09/23 Status: OMAIRA James Num: [id number] Spec Type: Impression Subm Dr: Nancy Jarrett MD Tissues: PATHPER Procedures: PATHREVIEW Patient: OrlandokarlreynaTaylor Carter [id number] (Continued) Specimen: [id number] Received: 03/09/23 (Continued) Signed (signature on file) Esther June MD 03/10/23 0827 Specimen: [id number] Received: 03/09/23 Status: OMAIRA James Num: [id number] Spec Type: Impression Subm Dr: Nancy Jarrett MD Tissues: PATHPER Procedures: PATHREVIEW Patient: Taylor De Jesus [id number] (Continued) Specimen: [id number] Received: 03/09/23 (Continued) CBC No results available. Specimen: [id number] Received: 03/09/23 Status: OMAIRA James Num: [id number] Spec Type: Impression Subm Dr: Nancy Jarrett MD Tissues: PATHPER Procedures: PATHREVIEW Patient: Taylor De Jesus [id number] (Continued) Signed (signature on file) Chin-Ra June MD 03/10/23826 Normal [facility] Covid-19 PCR (CVDTB)on SARS-CoV-2 (COVID-19) RNA JANKI+probe Ql (Unsp spec) Detected Critically abnormal NOT DETECTED [facility] Comment on above: Result Comment: This test is not yet approved or cleared by the [place] FDA. When there are no FDA-approved or cleared tests available, and other criteria are met, FDA can make tests available under an emergency access mechanism called an Emergency Use Authorization (EUA). The EUA for this test is supported by the [place] of Health and Human Service's (HHS's) declaration [...] longer be used). Performed By: #### [facility] #### [facility] [address] [place] [address] Dr. Malu June Vital Signs Date Time Vital Sign Value Performing Clinician Facility 06-27-2024 16:09-0400 Body height 153.7 cm Annie Galindo DPM Work Phone: [facility] 06-27-2024 16:09-0400 Body mass index (BMI) [Ratio] 22.67 kg/m2 Annie Galindo DPM Work Phone: [facility] 06-27-2024 16:09-0400 Body weight 53.52 kg Annie Galindo DPM Work Phone: [facility] 02-29-2024 12:17-0500 Body height 157.48 cm Temitope Gutierrez DO Work Phone: [facility] 02-29-2024 12:17-0500 Body mass index (BMI) [Ratio] 21.5 kg/m2 Temitope Gutierrez DO Work Phone: [facility] 02-29-2024 12:17-0500 Body temperature 97.2 [degF] Temitope Gutierrez DO Work Phone: [facility] 02-29-2024 12:17-0500 Body weight 53.52 kg Temitope Gutierrez DO Work Phone: [facility] 02-29-2024 12:17-0500 Diastolic blood pressure 84 mm[Hg] Temitope Gutierrez DO Work Phone: [facility] 02-29-2024 12:17-0500 Heart rate 55 /min Temitope Gutierrez DO Work Phone: [facility] 02-29-2024 12:17-0500 SaO2% (BldA) [Mass fraction] 95 % Temitope Gutierrez DO Work Phone: [facility] 02-29-2024 12:17-0500 Systolic blood pressure 120 mm[Hg] Temitope Gutierrez DO Work Phone: [facility] 02-06-2024 13:-0500 Body height 159.4 cm Annie Galindo DPM Work Phone: [facility] 02-06-2024 13:01-0500 Body mass index (BMI) [Ratio] 23.21 kg/m2 Annie Princee DPM Work Phone: [facility] 02-06-2024 13:01-0500 Body weight 58.97 kg Annie Princee DPM Work Phone: [facility] 01-16-2024 12:49-0500 Body height 159.4 cm Annie Princee DPM Work Phone: [facility] 01-16-2024 12:49-0500 Body mass index (BMI) [Ratio] 23.21 kg/m2 Annie Galindo DPM Work Phone: [facility] 01-16-2024 12:49-0500 Body weight 58.97 kg Annie Princee DPM Work Phone: [facility] 12-15-2023 09:14-0400 Body height 159.4 cm Annie Princee DPM Work Phone: [facility] 12-15-2023 09:14-0400 Body mass index (BMI) [Ratio] 23.21 kg/m2 Annie Princee DPM Work Phone: [facility] 12-15-2023 09:14-0400 Body weight 58.97 kg Annie Princee DPM Work Phone: [facility] 12-07-2023 09:39-0400 Body mass index (BMI) [Ratio] 23.9 kg/m2 [facility] 12-07-2023 09:39-0400 Body temperature 97.6 [degF] [facility] 12-07-2023 09:39-0400 Diastolic blood pressure 68 mm[Hg] [facility] 12-07-2023 09:39-0400 Heart rate 66 /min [facility] 12-07-2023 09:39-0400 SaO2% (BldA) [Mass fraction] 98 % [facility] 12-07-2023 09:39-0400 Systolic blood pressure 118 mm[Hg] [facility] 12-07-2023 08:49-0400 Body height 157.48 cm [facility] 12-07-2023 08:49-0400 Body weight 59.42 kg [facility] 11-28-2023 10:36-0400 Body height 157.48 cm [facility] 11-28-2023 10:36-0400 Body mass index (BMI) [Ratio] 23.9 kg/m2 [facility] 11-28-2023 10:36-0400 Body temperature 97.9 [degF] [facility] 11-28-2023 10:36-0400 Body weight 59.42 kg [facility] 11-28-2023 10:36-0400 Diastolic blood pressure 80 mm[Hg] [facility] 11-28-2023 10:36-0400 Heart rate 68 /min [facility] 11-28-2023 10:36-0400 SaO2% (BldA) [Mass fraction] 98 % [facility] 11-28-2023 10:36-0400 Systolic blood pressure 132 mm[Hg] [facility] 11-08-2023 10:42-0400 Body mass index (BMI) [Ratio] 23.21 kg/m2 Sara Yinka DO Work Phone: [facility] 11-08-2023 10:42-0400 Body weight 58.97 kg Sara Yinka DO Work Phone: [facility] 11-08-2023 10:42-0400 Diastolic blood pressure 72 mm[Hg] Sara Yinka DO Work Phone: [facility] 11-08-2023 10:42-0400 Heart rate 64 /min Sara Yinka DO Work Phone: [facility] 11-08-2023 10:42-0400 SaO2% (BldA) [Mass fraction] 98 % Sara Yinka DO Work Phone: [facility] 11-08-2023 10:42-0400 Systolic blood pressure 115 mm[Hg] Sara Yinka DO Work Phone: [facility] 01-31-2023 09:10-0500 Body height 157.48 cm Temitope Gutierrez Other [facility] Other 01-31-2023 09:10-0500 Body mass index (BMI) [Ratio] 25.69 kg/m2 Temitope Gutierrez Other [facility] Other 01-31-2023 09:10-0500 Body temperature 98.4 [degF] Temitope Brenda Other [facility] Other 01-31-2023 09:10-0500 Body weight 63.73 kg Temitope Brenda Other [facility] Other 01-31-2023 09:10-0500 Diastolic blood pressure 62 mm[Hg] Temitope Daniijuany Other [facility] Other 01-31-2023 09:10-0500 Respiratory rate 18 /min Temitope Gutierrez Other [facility] Other 01-31-2023 09:10-0500 SaO2% (BldA) [Mass fraction] 99 % Temitope Gutierrez Other [facility] Other 01-31-2023 09:10-0500 Systolic blood pressure 118 mm[Hg] Temitope Daniijuany Other [facility] Other 10-05-2022 11:15-0400 Body height 157.48 cm Bhavesh Wright Other [facility] Other 10-05-2022 11:15-0400 Body mass index (BMI) [Ratio] 26.52 kg/m2 Bhavesh Wright Other [facility] Other 10-05-2022 11:15-0400 Body temperature 97 [degF] Bhavesh Gascaban Other [facility] Other 10-05-2022 11:15-0400 Body weight 65.77 kg Bhavesh Gascaban Other [facility] Other 10-05-2022 11:15-0400 Diastolic blood pressure 72 mm[Hg] Bhavesh Chaban Other [facility] Other 10-05-2022 11:15-0400 Respiratory rate 20 /min Bhavesh Gascaban Other [facility] Other 10-05-2022 11:15-0400 SaO2% (BldA) [Mass fraction] 100 % Bhavesh Gascaban Other [facility] Other 10-05-2022 11:15-0400 Systolic blood pressure 134 mm[Hg] Bhavesh Gascaban Other [facility] Other 04-06-2022 12:15-0500 Body height 157.48 cm Bhavesh Gascaban Other [facility] Other 04-06-2022 12:15-0500 Body mass index (BMI) [Ratio] 2.74 kg/m2 Bhavesh Gascaban Other [facility] Other 04-06-2022 12:15-0500 Body temperature 97.1 [degF] Bhavesh Chaban Other [facility] Other 04-06-2022 12:15-0500 Body weight 6.8 kg Bhavesh Gascaban Other [facility] Other 04-06-2022 12:15-0500 Diastolic blood pressure 70 mm[Hg] Desmondal Chaban Other [facility] Other 04-06-2022 12:15-0500 Respiratory rate 20 /min Bhavesh Chaban Other [facility] Other 04-06-2022 12:15-0500 SaO2% (BldA) [Mass fraction] 99 % Bhavesh Chaban Other [facility] Other 04-06-2022 12:15-0500 Systolic blood pressure 140 mm[Hg] Desmondal Chaban Other [facility] Other 09-21-2021 12:45-0400 Body height 157.48 cm Bhavesh Gascaban Other [facility] Other 09-21-2021 12:45-0400 Body mass index (BMI) [Ratio] 28.71 kg/m2 Bhavesh Gascaban Other [facility] Other 09-21-2021 12:45-0400 Body temperature 97.6 [degF] Bhavesh Gascaban Other [facility] Other 09-21-2021 12:45-0400 Body weight 71.22 kg Bhavesh Gascaban Other [facility] Other 09-21-2021 12:45-0400 Diastolic blood pressure 66 mm[Hg] Desmondal Chaban Other [facility] Other 09-21-2021 12:45-0400 Respiratory rate 20 /min Bhavesh Chaban Other [facility] Other 09-21-2021 12:45-0400 SaO2% (BldA) [Mass fraction] 99 % Bhavesh Gascaban Other [facility] Other 09-21-2021 12:45-0400 Systolic blood pressure 120 mm[Hg] Bhavesh Gascaban Other [facility] Other 03-23-2021 12:45-0500 Body height 157.48 cm Bhavesh Gascaban Other [facility] Other 03-23-2021 12:45-0500 Body mass index (BMI) [Ratio] 29.88 kg/m2 Bhavesh Gascaban Other [facility] Other 03-23-2021 12:45-0500 Body temperature 98 [degF] Bhavesh Gascaban Other [facility] Other 03-23-2021 12:45-0500 Body weight 74.12 kg Bhavesh Gascaban Other [facility] Other 03-23-2021 12:45-0500 Diastolic blood pressure 68 mm[Hg] Bhavesh Gascaban Other [facility] Other 03-23-2021 12:45-0500 Respiratory rate 20 /min Bhavesh Gascaban Other [facility] Other 03-23-2021 12:45-0500 SaO2% (BldA) [Mass fraction] 100 % Bhavesh Gascaban Other [facility] Other 03-23-2021 12:45-0500 Systolic blood pressure 140 mm[Hg] Bhavesh Gascaban Other [facility] Other 02-23-2021 11:10-0500 Body height 157.48 cm Temitope Gutierrez Other [facility] Other Encounters Encounter Date Encounter Type Care Provider Facility Start: 06-27-2024 End: 06-27-2024 Office outpatient visit 15 minutes Annie Galindo DPM Work Phone: [facility] Comment on above: Injury of right grea t toe, initial encounter (Primary Dx); Pain in right toe(s) Start: 06-27-2024 End: 06-27-2024 ambulatory ANNIE GALINDO Not Available Start: 06-27-2024 End: 06-27-2024 Bamboo flowsheet Annie Galindo DPM Work Phone: [facility] Start: 06-27-2024 End: 06-27-2024 Bamboo flowsheet Annie Galindo DPM Work Phone: [facility] Start: 06-25-2024 End: 06-25-2024 Emergency department patient visit TEMITOPE GUTIERREZ [facility] Start: 05-13-2024 End: 05-13-2024 ambulatory [facility] Work Phone: Start: 05-13-2024 End: 05-13-2024 Patient encounter procedure [facility] [place] Work Phone: Start: 04-26-2024 End: 04-26-2024 ambulatory SARA HONEYCUTT Not Available Start: 04-12-2024 End: 04-12-2024 ambulatory TEMITOPE GUTIERREZ [facility] Start: 03-14-2024 End: 03-14-2024 Refill Sara Honeycutt DO Work Phone: [facility] Comment on above: Chronic obstructive pulmonary disease, unspecified COPD type (CMS/HCC) Start: 03-11-2024 End: 03-14-2024 Refill Sara Honeycutt DO Work Phone: [facility] Comment on above: Chronic obstructive pulmonary disease, unspecified COPD type ([facility] Start: 02-29-2024 End: 02-29-2024 ambulatory Temitope Gutierrez DO Work Phone: [facility] Work Phone: Start: 02-29-2024 End: 02-29-2024 Patient encounter procedure Temitope Gutierrez DO Work Phone: [facility] [place] Work Phone: Start: 02-19-2024 End: 02-19-2024 ambulatory TEMITOPE GUTIERREZ [facility] Start: 02-06-2024 End: 02-06-2024 Bamboo flowsheet Annie Galindo DPM Work Phone: [facility] Start: 02-06-2024 End: 02-06-2024 Bamboo flowsheet Annie Galindo DPM Work Phone: [facility] Start: 02-06-2024 End: 02-06-2024 Postop follow up visit related to original px Annie Galindo DPM Work Phone: [facility] Comment on above: Closed non-physeal f racture of proximal phalanx of right great toe with routine healing, subsequent encounter (Primary Dx); Injury of right great toe, subsequent encounter; Pain of toe of right foot; Sesamoiditis of right foot Start: 02-06-2024 End: 02-06-2024 ambulatory ANNIE GALINDO Not Available Start: 01-16-2024 End: 01-16-2024 Office outpatient visit 15 minutes Annie Galindo DPM Work Phone: [facility] Comment on above: Closed non-physeal f racture of proximal phalanx of right great toe with routine healing, subsequent encounter (Primary Dx); Injury of right great toe, subsequent encounter; Pain of toe of right foot; Sesamoiditis of right foot Start: 01-16-2024 End: 01-16-2024 ambulatory ANNIE GALINDO Not Available Start: 12-19-2023 Non-patient / Non-visit DO Yohan Gutierrez Work Phone: [facility] Work Phone: Start: 12-19-2023 End: 12-19-2023 ambulatory DO Temitope Gutierrez Work Phone: [facility] Work Phone: Start: 12-19-2023 End: 12-19-2023 Departed Referred DO Temitope Gutierrez Work Phone: [facility] Start: 12-15-2023 End: 12-15-2023 Bamboo flowsheet Annie Galindo DPM Work Phone: [facility] Start: 12-15-2023 End: 12-15-2023 Bamboo flowsheet Annie Galindo DPM Work Phone: [facility] Start: 12-15-2023 End: 12-15-2023 Office outpatient new 30 minutes Annie Galindo DPM Work Phone: [facility] Comment on above: Closed non-physeal f racture of proximal phalanx of right great toe, initial encounter (Primary Dx); Injury of right great toe, initial encounter; Pain of toe of right foot Start: 12-15-2023 End: 12-15-2023 ambulatory ANNIE GALINDO Not Available Start: 12-11-2023 End: 12-11-2023 ambulatory TEMITOPE [facility] Start: 12-07-2023 End: 12-07-2023 ambulatory [facility] Work Phone: Start: 12-07-2023 End: 12-07-2023 Patient encounter procedure [facility] Work Phone: Start: 12-02-2023 End: 12-02-2023 ambulatory TEMITOPE [facility] Start: 11-28-2023 End: 11-28-2023 ambulatory [facility] Work Phone: Start: 11-28-2023 End: 11-28-2023 Patient encounter procedure [facility] Work Phone: Start: 11-08-2023 End: 11-08-2023 Bamboo flowsheet Sara K Yinka DO Work Phone: [facility] Start: 11-08-2023 End: 11-08-2023 Bamboo flowsheet Sara Ashwin Yinka DO Work Phone: [facility] Start: 11-08-2023 End: 11-08-2023 Office outpatient visit 15 minutes Sara Honeycutt DO Work Phone: [facility] Comment on above: Chronic obstructive pulmonary disease, unspecified COPD type (CMS/HCC) Start: 11-08-2023 End: 11-08-2023 Refill Sara Honeycutt DO Work Phone: [facility] Comment on above: Chronic obstructive pulmonary disease, unspecified COPD type (CMS/HCC) Start: 09-15-2023 Non-patient / Non-visit [facility] Work Phone: Start: 07-31-2023 End: 07-31-2023 ambulatory [facility] Start: 07-05-2023 End: 07-05-2023 ambulatory Nancy Luiza Facility:[facility] Start: 06-13-2023 End: 06-13-2023 ambulatory DO Temitope Gutierrez Work Phone: [facility] Work Phone: Start: 06-13-2023 End: 06-13-2023 Departed Referred DO Temitope Gutierrez Work Phone: [facility] Start: 06-13-2023 Non-patient / Non-visit DO Yohan Gutierrez Work Phone: [facility] Work Phone: Start: 04-28-2023 Non-patient / Non-visit DO Yohan id Brenda Work Phone: [facility] Work Phone: Start: 04-25-2023 End: 04-25-2023 ambulatory Temitope Gutierrez Facility:[facility] Start: 04-25-2023 Non-patient / Non-visit DO Yohan id Brenda Work Phone: [facility] Work Phone: Start: 03-29-2023 End: 03-29-2023 ambulatory Temitope Gutierrez [facility] Other Start: 03-29-2023 Telephone encounter Temitope Gutierrez [facility] Start: 03-08-2023 End: 03-08-2023 ambulatory DO Temitope Gutierrez Work Phone: [facility] Work Phone: Start: 03-08-2023 End: 03-08-2023 Departed Referred DO Temitope Gutierrez Work Phone: [facility] Start: 02-23-2023 End: 02-23-2023 ambulatory Temitope Gutierrez Other [facility] Other Start: 02-23-2023 Telephone encounter Temitope Gutierrez [facility] Start: 02-01-2023 End: 02-01-2023 ambulatory Temitope Gutierrez Other [facility] Other Start: 02-01-2023 Telephone encounter Temitope Gutierrez [facility] [place] Start: 01-31-2023 End: 01-31-2023 ambulatory Temitope Gutierrez Other [facility] Other Start: 01-31-2023 Office outpatient vi sit 25 minutes Temitope Gutierrez [facility] Start: 10-05-2022 End: 10-05-2022 ambulatory Kamal Chaban Other [facility] Other Start: 10-05-2022 Office outpatient vi sit 15 minutes Kamal Chaban [facility] Start: 08-08-2022 End: 08-08-2022 ambulatory Kamal Chaban Other [facility] Other Start: 08-08-2022 Telephone encounter Kamal Chaban [facility] Start: 06-20-2022 End: 06-20-2022 ambulatory Temitope Gutierrez Other [facility] Other Start: 06-20-2022 Telephone encounter Temitope Gutierrez [facility] [place] Start: 04-06-2022 End: 04-06-2022 ambulatory Kamal Chaban Other [facility] Other Start: 04-06-2022 Office outpatient vi sit 15 minutes Kamal Chaban [facility] Start: 03-10-2022 End: 03-10-2022 ambulatory Temitope Gutierrez Other [facility] Other Start: 03-10-2022 Telephone encounter Temitope Gutierrez [facility] Start: 01-12-2022 End: 01-12-2022 ambulatory Temitope Gutierrez Other [facility] Other Start: 01-12-2022 Telephone encounter Temitope Gutierrez [facility] Start: 12-02-2021 End: 12-02-2021 ambulatory Kamal Chaban Other [facility] Other Start: 12-02-2021 Telephone encounter Kamal Chaban [facility] Start: 09-21-2021 End: 09-21-2021 ambulatory Kamal Chaban Other [facility] Other Start: 09-21-2021 Office outpatient vi sit 15 minutes Kamal Chaban [facility] Start: 09-14-2021 End: 09-14-2021 ambulatory Temitope Gutierrez Other [facility] Other Start: 09-14-2021 Telephone encounter Temitope Gutierrez [facility] [place] Start: 04-12-2021 End: 04-12-2021 ambulatory Temitope Gutierrez Other [facility] Other Start: 04-12-2021 Telephone encounter Temitope Gutierrez [facility] [place] Start: 03-23-2021 End: 03-23-2021 ambulatory Kamal Elooz Other [facility] Other Start: 03-23-2021 Office outpatient vi sit 15 minutes Kamal Chaban [facility] Start: 03-23-2021 Telephone encounter Kamnicole Chaban [facility] Start: 02-25-2021 End: 02-25-2021 ambulatory Temitope Gutierrez Other [facility] Other Start: 02-25-2021 Telephone encounter Temitope Gutierrez [facility] [place] Start: 02-24-2021 End: 02-24-[address] TEMITOPE GUTIERREZ Facility: Start: 02-23-2021 End: 02-23-2021 ambulatory Temitope Gutierrez Other [facility] Other Start: 02-23-2021 Telephone encounter Temitope Gutierrez [facility] [place] Procedures Date Procedure Procedure Detail Performing Clinician Start: 04-12-2024 Mammography Annie cisneros DPM Work Phone: Start: 01-16-2024 Radex foot complete minimum 3 views Annie Galindo DPM Work Phone: Start: 12-11-2023 Cyclic citrullinated peptide antibody TEMITOPE GUTIERREZ Comment on above: Result Comment: Interpretation-------- <3 Negative >=3 Positive Performed By: #### 1 9123-9, RENAL, 2731-8, 56355-4 #### [facility] ([id number]) [address] [place] [address], [address] [place] [address] Start: 03-27-2023 Mammography Sara Str ack DO Work Phone: Start: 04-19-2021 Colonoscopy Sara Str ack DO Work Phone: Plan of Treatment Date Care Activity Detail Author Start: 04-19-2031 Screening for malign ant neoplasm of colon [facility] Start: 04-12-2025 Screening for malign ant neoplasm of breast Mammogram [facility] Start: 11-06-2024 End: 11-06-2024 Patient encounter procedure 11/06/2024 9:45 AM EDT Office Visit [facility] [address] [place] [phone] Sara Honeycutt, DO [address] [place] [address] [facility] Start: 08-08-2024 End: 08-08-2024 Patient encounter procedure 08/08/2024 9:00 AM EDT Office Visit [facility] [address] [place] [phone] Mauro Garcia MD [address] [place] [address] [facility] Start: 06-27-2024 End: 06-27-2024 Patient encounter procedure 06/27/2024 4:15 PM EDT Office Visit [facility] [address] [place] [phone] Annie Galindo, DPM [address] [place] [address] Arrived [facility] Comment on above: Arrived Start: 04-26-2024 End: 04-26-2024 Patient encounter procedure 04/26/2024 9:45 AM EST Office Visit [facility] [address] [place] [phone] Sara Honeycutt, DO [address] [place] [address] [facility] Start: 03-27-2024 Screening for malign ant [facility]oplasm [facility] Start: 02-06-2024 End: 02-06-2024 Patient encounter procedure [facility] Comment on above: Arrived Start: 01-16-2024 End: 01-16-2024 Patient encounter procedure 01/16/2024 12:45 PM EST Office Visit [facility] [address] [place] [phone] Annie Galindo, DPM [address] [place] [address] [facility] Start: 12-15-2023 End: 12-15-2023 Patient encounter procedure 12/15/2023 9:30 AM EDT [facility] [address] [place] [phone] Annie Galindo, DPM [address] [place] [address] Arrived [facility] Comment on above: Arrived Start: 11-08-2023 End: 11-08-2023 Patient encounter procedure 11/08/2023 9:00 AM EDT Office Visit [facility] [address] [place] [id number] Sara Honeycutt, DO [address] [place] [address] Arrived [facility] Comment on above: Arrived Start: 1950 Screening for malign ant neoplasm of colon [facility] Adenosine monophosphate.cyclic [Moles/volume] in Serum or Plasma [facility] Calcium.ionized [Mass/volume] in Serum or Plasma by Ion-selective membrane electrode (ISE) [facility] Comprehensive metabo lic 2000 panel - Serum or Plasma [facility] MG Breast - bilatera l Screening [facility] Rheumatoid factor [Units/volume] in Serum or Plasma [facility] XR Foot - right GE 3 Views [facility] Immunizations Immunization Date Immunization Notes Care Provider Fa cility 11-07-2023 COVID-19 (MODERNA) 12Y and older [facility] 11-07-2023 influenza, high dose seasonal, preservative-free Sara Yinka DO Work Phone: [facility] 12-08-2022 Flu Shot - Documenta tion Purposes Only Temitope Gutierrez Other [facility] 12-08-2022 COVID-19 Moderna (SPIKEVAX) Temitope Gutierrez Other [facility] 12-08-2022 Influenza, High-dose Seasonal, Quadrivalent, Preservative Free Sara Yinka DO Work Phone: [facility] 10-06-2022 Prevnar 20 Temitope Gutierrez Other [facility] 11-25-2021 Influenza, High-dose Seasonal, Quadrivalent, Preservative Free Sara Yinka DO Work Phone: [facility] 11-25-2021 influenza, seasonal, injectable Kamal Chaban Other [facility] 11-17-2021 COVID-19 mRNA Bivale nt Booster (Moderna) Temitope Gutierrez DO Work Phone: [facility] 09-10-2021 tetanus toxoid, redu cleo diphtheria toxoid, and acellular pertussis vaccine, adsorbed Bhavesh Wright Other [facility] 06-09-2021 COVID-19 Vaccine Mod nuria - Documentation Purposes Only Kamnicole Wright Other [facility] 12-16-2020 COVID-19 Vaccine Mod nuria - Documentation Purposes Only Temitope Gutierrez Other [facility] 11-14-2020 Influenza, High-dose Seasonal, Quadrivalent, Preservative Free Sara Yinka DO Work Phone: [facility] 11-10-2020 influenza, seasonal, injectable Temitope Gutierrez Other [facility] 05-18-2020 COVID-19 Vaccine Mod nuria - Documentation Purposes Only Temitope Gutierrez Other [facility] 04-17-2020 COVID-19 Vaccine Mod nuria - Documentation Purposes Only Temitope Gutierrez Other [facility] 03-14-2020 zoster vaccine recombinant Temitope Gutierrez Other [facility] 01-14-2020 zoster vaccine recombinant Temitope Gutiererz Other [facility] 10-29-2019 Influenza, High-dose Seasonal, Quadrivalent, Preservative Free Sara Yinka DO Work Phone: [facility] 10-29-2019 influenza, seasonal, injectable Temitope Gutierrez Other [facility] 12-13-2018 influenza, high dose seasonal, preservative-free Sara Yinka DO Work Phone: [facility] 12-13-2018 influenza, seasonal, injectable Temitope Gutierrez Other [facility] 10-05-2017 influenza, high dose seasonal, preservative-free Sara Yinka DO Work Phone: [facility] 09-02-2017 pneumococcal polysaccharide vaccine, 23 valent Temitope Gutierrez Other [facility] 11-16-2016 influenza, seasonal, injectable Temitope Gutierrez Other [facility] 11-16-2016 influenza, high dose seasonal, preservative-free Sara Yinka DO Work Phone: [facility] 12-15-2015 influenza, injectabl e, madin heraclio canine kidney, preservative free Sara Yinka DO Work Phone: [facility] 12-06-2015 influenza, seasonal, injectable, preservative free Sara Yinka DO Work Phone: [facility] 11-24-2015 seasonal influenza, intradermal, preservative free Sara Yinka DO Work Phone: [facility] 12-06-2006 influenza virus vacc ine, whole virus Sara Yinka DO Work Phone: [facility] Payers Date Payer Category Payer Self-pay 2023 Unknown [employer] [id number] 2023-Present [address] [address] [place] [address] [id number] 2016 Private Health Insurance [id number] 2016 Unknown [id number] 2016 Medicare [id number]. [id number] 1959 Medicare [id number] 1959 Unknown [id number] 1951 Unknown [id number] 2.16.840.1.953912.3.579.2.59 3 1951 Unknown [id number] 2.16.840.1.186198.3.579.2.12 86 1951 Unknown [id number] 2.16.840.1.688337.3.579.2.12 86 1951 Unknown [id number] 2.16.840.1.561908.3.579.2.12 86 1951 Unknown [id number] 2.16.840.1.757366.3.579.2.12 86 1951 Unknown [id number] 2.16.840.1.305606.3.579.2.12 86 1951 Unknown [id number] 2.16.840.1.925633.3.579.2.12 86 1951 Unknown [id number] 2.16.840.1.555450.3.579.2.12 86 1951 Unknown [id number] 2.16.840.1.005694.3.579.2.12 59 1951 Unknown [id number] 2.16.840.1.048054.3.579.2.12 59 1951 Unknown [id number] 2.16.840.1.547868.3.579.2.12 59 1951 Unknown [id number] 2.16.840.1.163939.3.579.2.12 59 1951 Unknown [id number] 2.16.840.1.014319.3.579.2.12 59 1951 Unknown [id number] 2.16.840.1.684395.3.579.2.12 59 1951 Unknown [id number] 2.16.840.1.657247.3.579.2.12 59 Unknown [facility] [id number] Unknown [id number] 2.16.840.1.538875.3.579.2.53 1 Unknown [id number] 2.16.840.1.851527.3.579.2.53 1 Unknown [id number] 2.16.840.1.296917.3.579.2.53 1 Unknown [id number] 2.16.840.1.870380.3.579.2.53 1 Unknown [id number] 2.16.840.1.479274.3.579.2.53 1 Social History Date Type Detail Facility Start: 11-08-2023 End: 04-26-2024 Sex Assigned At [facility] [place] Other Start: 1950 Sex Assigned At Female [facility] Start: 01-30-2018 End: 04-25-2023 Tobacco smoking status NHIS Ex-smoker (finding) [facility] History of tobacco use Current smoker [facility] History of tobacco use Cigarette Smoker [facility] Start: 04-25-2023 Tobacco use and exposure Smokeless tobacco non-user [facility] Start: 11-08-2023 End: 06-27-2024 Alcoholic beverage intake [facility] Start: 11-08-2023 End: 04-26-2024 History of Social function [facility] Start: 1950 Sex assigned at Not on file [facility] Start: 02-29-2024 End: 05-13-2024 Sex Female (finding) [facility] Clinical Notes 02-23-2021 to 06-27-2024 Annie Galindo, JACOBO - 06/27/2024 4:15 PM EDTTelephone Encounter - Genie Casarez - 03/13/2024 1:01 PM ESTTelephone Encounter - Genie Casarez - 03/13/2024 1:01 PM EST Note Date & Type Note Facility 06-27-2024 History of Presen t illness Narrative Subjective Patient ID: Taylor De Jesus is a 73 y.o. female who presents for Foot Injury (Pt is here today for an injury to the Rt 1-3 toes Monday evening, the top part of the paper shredder fell on top of the foot, bleeding and bruising. She went to the ER, xrays were done and did not show any fractures. Discomfort now. /SS: 9W). HPI Patient presents has a follow-up from an emergency department visit on 06/25/2024. She states she dropped a paper shredder on her right foot. She had pain and bruising. She went to the emergency department. They did radiographs, no fractures were noted. They encouraged her to follow up here. She states since the injury she is taken 2 Tylenol, otherwise she is felt okay. She has been wearing her regular shoe gear and has not felt it necessary to move herself into her surgical shoe. 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 Review of Systems Medications Current Outpatient Medications: albuterol HFA 90 mcg/act inhaler, Inhale 2 puffs every 4 (four) hours if needed for wheezing or shortness of breath, Disp: 18 g, Rfl: 5 Breo Ellipta 100-25 MCG/ACT aerosol powder , Inhale 1 puff Daily, Disp: 1 each, Rfl: 5 cholecalciferol (Vitamin D-3) 250 MCG (62689 UT) tablet, Take 1 tablet by mouth in the morning., Disp: , Rfl: Cyanocobalamin (Vitamin B-12) 5000 MCG tablet dispersible, Take 1 tablet by mouth 1 (one) time each day, Disp: , Rfl: ferrous sulfate 325 (65 Fe) MG tablet, 1 (one) time each day at the same time (Patient taking differently: Take 325 mg by mouth in the morning and 325 mg before bedtime.), Disp: , Rfl: ipratropium-albuterol (Duo-Neb) 0.5-2.5 mg/3 mL nebulizer solution, , Disp: , Rfl: loratadine (Claritin) 10 MG tablet, 1 (one) time each day at the same time, Disp: , Rfl: Multiple Vitamins-Minerals (Centrum Adults) tablet, Orally, Disp: , Rfl: potassium chloride ER (Micro-K) [...] TUBAL LIGATION WRIST FRACTURE SURGERY 07/14/2020 W/ ALEK BRADSHAW Family History Family History Problem Relation [...] is intact at digits right foot. PAIN: no significant pain or tenderness with palpation to the right 1st or 2nd digit, no pain at metatarsals 1 and 2, no pain with palpation of 1st or 2nd MTPJ, no pain with range motion of these joints DEFORMITY: no gross deformity Skin: General: Skin is warm and dry. Capillary Refill: Capillary refill takes 2 to 3 seconds. Findings: No bruising or erythema. Comments: SKIN FINDINGS: Superficial healing abrasions noted of the dorsal aspect of the right hallux. There is ecchymosis noted of the dorsal aspect of the right 1st and 2nd digits. Loss of plantar fat pad. Webspaces are clean and dry. Skin turgor diminished Neurological: Mental Status: She is alert and oriented to person, place, and time. Comments: Light touch sensation intact RADIOGRAPHS [facility] 06/25/24: diffuse osteopenia noted. No fractures noted, specifically to 1st and 2nd digits. Small accessory ossicle at cuboid groove. Mild degenerative changes at navicular cuneiform joint. Small calcaneal osteophyte plantarly. Assessment/Plan ICD-10-CM 1. Injury of right great toe, initial encounter S99.921A 2. Pain in right toe(s) M79.674 Patient examined and evaluated. I reviewed radiographs from [facility]. No fractures noted. Patient is doing fairly well clinically. She is comfortable in her regular tennis shoes and able to ambulate without significant discomfort. She has sustained her regular activity level. I recommended she continue with supportive shoe gear avoiding bare feet. Surgical shoe use is not necessary at this time. If she feels the pain persists or does not fully improve, she can return for follow up. RTO PRN This note was created with the assistance of a speech recognition program. While intending to generate a timely document that accurately reflects the content of the visit, no guarantee can be provided that every grammatical or spelling mistake has been or will be identified or corrected. Thank you for your understanding. Annie Galindo DPM documented in this encounter [facility] 03-13-2024 Telephone encount er Note Patient needs to have the name brand Breo Ellipta her insurance will not cover the generic. She has 5 days left and needs at least 2 refills, [facility] 03-13-2024 Miscellaneous Notes Formattin g of this note might be different from the original. Patient needs to have the name brand Breo Ellipta her insurance will not cover the generic. She has 5 days left and needs at least 2 refills, [facility] Erx sent Pt moved to [facility] in [place] needs new rx documented in this encounter [facility] 03-12-2024 Telephone encount er Note Erx sent [facility] 03-11-2024 Telephone encount er Note Pt moved to [facility] in [place] needs new rx [facility] 02-29-2024 Evaluation note Authored February 29, 2024 3: 06pm I performed the above HPI, R OS, and Examination. I formulated and dictated the treatment plan and was present for entire encounter. Temitope Gutierrez D.O. [facility] Work Phone: 1(338) 673-529212-17-2024 History of Present illness Narrative* Annie Galindo, DPM - 02/06/2024 1:00 PM EST Subjective Patient ID: Taylor De Jesus is a 73 y.o. female who presents for FUV (Taylor De Jesus 73yo. Patient relates pain is much better, patient has transitioned into regular shoes. DOI 11/21/2023. SS9 ). HPI Patient presents for follow up of fracture of right head of proximal phalanx of the hallux. DOI 11/21/2023. Immobilization started 12/15/2023. She is also here for follow up of sesamoiditis. She states since her last appointment she has transitioned to regular shoe gear. She has done so without anypain or difficulty. She is returned to her regular activity level. Hx: initial radiographs taken [facility] 12/02/2023, MRI 12/11/2023. Hx of osteopenia and osteoporosis, malabsorption after [...] , Rfl: cholecalciferol (Vitamin D-3) 250 MCG (54460 UT) tablet, Take 1 tablet by mouth [...] TUBAL LIGATION WRIST FRACTURE SURGERY 07/14/2020 W/ ALEK - DR BRADSHAW Family History Family History [...] pain with ROM of R 1st HIPJ. Thereis no pain with ROM Of 1st MTPJ MUSCLE STRENGTH: Flexion/extension is intact at digits right foot. PAIN: No further pain at tibial sesamoid. No tenderness with palpation to the proximal phalanx of the right hallux. No pain with palpation of distal phalanx or 1st metatarsal. DEFORMITY: no gross deformity Skin: General: Skin is warm and dry. Capillary Refill: Capillary refill takes 2 to 3 seconds. Findings: No bruising or erythema. Comments: SKIN FINDINGS: Loss of plantar fat pad. No further inflammation at the right hallux base.No ecchymosis no erythema. Webspaces are clean and dry. Skin turgor diminished Neurological: Mental Status: She is alert and oriented to person, place, and time. Comments: Light touch sensation intact RADIOGRAPHS [facility] 12/02/2023: diffuse osteopenia. Complete intra-articular fracture of the distal medial aspect head of the proximal phalanx of the hallux. Dorsal osteophyte formation noted dorsal navicular cuneiform joint and talar neck. MRI [facility] 12/11/2023: Complete intra-articular fracture of the distal medial aspect of the head of the proximal phalanx of the hallux. There is bone marrow edema noted throughout the entire proximal phalanx. Assessment/Plan ICD-10-CM 1. Closed non-physeal fracture of proximal phalanx of right great toe with routine healing, subsequent encounter S92.411D 2. Injury of right great toe, subsequent encounter S99.921D 3. Pain of toe of right foot M79.674 4. Sesamoiditis of right foot M25.871 Patient is doing well and is pleased with her progress. She has completely discontinued the use of the surgical shoe. She has returned to her regular shoe gear full-time. She has returned to her regular activity level. She has no significant pain with palpation on exam. Patient will return on an as-needed basis This note was created with the assistance of a speech recognition program. While intending to generate a timely document that accurately reflects the content of the visit, no guarantee can be provided that every grammatical or spelling mistake has been or will be identified or corrected. Thank you for your understanding. Annie Galindo DPM documented in this encounter[facility] [id number] History of Present illness Narrative* Annie Galindo DPM - 01/16/2024 12:45 PM EST Subjective Patient ID: Taylor De Jesus is a 73 y.o. female who presents for FUV (Taylor De Jesus 73yo. Patient relates pain has moved and still very painful. DOI 11/21/2023. SS9 ). HPI Patient presents for follow up of fracture of right head of proximal phalanx of the hallux. DOI 11/21/2023. Immobilization started 12/15/2023. Patient states she has been wearing surgical shoe consistently since her last appointment here. The toe is nonpainful with ambulation in surgical shoe, but does still have some discoloration. She is also experiencing some new pain at the medial ball of herfoot when ambulating in the surgical shoe. Hx: initial radiographs taken [facility] 12/02/2023, MRI 12/11/2023. Hx of osteopenia and osteoporosis, malabsorption after [...] , Rfl: cholecalciferol (Vitamin D-3) 250 MCG (82046 UT) tablet, Take 1 tablet by mouth [...] pain with ROM of R 1st HIPJ. Thereis no pain with ROM Of 1st MTPJ MUSCLE STRENGTH: Flexion/extension is intact at digits right foot. PAIN: New pain at tibial sesamoid from extended surgical shoe wear. There is residual tenderness with palpation to the proximal phalanx of the right hallux. There is also tenderness with application of tuning fork to the proximal phalanx of R hallux. No pain with palpation of distal phalanx or 1st metatarsal. DEFORMITY: no gross deformity Skin: General: Skin is warm and dry. Capillary Refill: Capillary refill takes 2 to 3 seconds. Findings: No bruising or erythema. Comments: SKIN FINDINGS: Loss of plantar fat pad. There is residual inflammation at the right hallux base. No ecchymosis no erythema. Webspaces are clean and dry. Skin turgor diminished Neurological: Mental Status: She is alert and oriented to person, place, and time. Comments: Light touch sensation intact XR foot 3+ views right Imaging Result: 3 views foot: AP, MO, and lateral of the right foot were taken and show some osseous healing acrossthe complete intra-articular fracture of the distal medial aspect head of the proximal phalanx of the hallux. Diffuse osteopenia noted. Dorsal osteophyte formation noted dorsal navicular cuneiform joint and talar neck. Lateral view shows increase in talar declination angle, decrease in calcaneal pitch, navicular cuneiform fault present. RADIOGRAPHS [facility] 12/02/2023: diffuse osteopenia. Complete intra-articular [...] fracture of proximal phalanx of right great toe with routine healing, subsequent encounter S92.411D XR foot 3+ views right 2. Injury of right great toe, subsequent encounter S99.921D 3. Pain of toe of right foot M79.674 4. Sesamoiditis of right foot M25.871 Reviewed radiographic and clinical findings with the pt. Explained that the hallux proximal phalanxfracture is healing with immobilization (Date of injury 11/21/2023). Reviewed that normal bone heals in 4-6 weeks and she has been immobilized for 4. She is having minimal pain at the hallux. I recommended she return home to try on her regular shoe gear. If this is painful for her she returned to the surgical shoe for an additional week before trying the tennis shoe again. Patient has right foot tibial sesamoiditis from prolonged surgical shoe use. I offloaded the surgical shoe with the dancer's pad. Patient was able to ambulate in the surgical shoe in the office with much less discomfort. She will return to the office in 2-3 weeks for recheck This note was created with the assistance of a speech recognition program. While intending to generate a timely document that accurately reflects the content of the visit, no guarantee can be provided that every grammatical or spelling mistake has been or will be identified or corrected. Thank you for your understanding. Annie Galindo DPM documented in this encounterLee[facility] [id number] History of Present illness Narrative* Annie Galindo, DPM - 12/15/2023 9:30 AM EDT Images from the original note were not [...] who ordered radiographs which were done per [facility] on 12/02/2023 the radiographs initially showed no fracture. Patient's symptoms continued with swelling and redness at the right hallux. An MRI was ordered 12/11/2023 which showed fracture of the head of the proximal phalanx of the hallux. Patient has been icing and soaking. She states the toe isstill swollen and red and occasionally tender. Hx [...] , Rfl: cholecalciferol (Vitamin D-3) 250 MCG (61745 UT) tablet, Take 1 tablet by mouth [...] TUBAL LIGATION WRIST FRACTURE SURGERY 07/14/2020 W/ ALEK BRADSHAW Family History Family History Problem Relation [...] pain with ROM of R 1st HIPJ. Thereis no pain with ROM Of 1st MTPJ [...] and erythema noted of the right hallux base.No ecchymosis. Webspaces are clean and dry. Skin turgor diminished Neurological: Mental Status: She is alert and oriented to person, place, and time. Comments: Light touch sensation intact RADIOGRAPHS H 12/02/2023: diffuse osteopenia. Complete intra-articular fracture of the distal medial aspect head of the proximal phalanx of the hallux. Dorsal osteophyte formation noted dorsal navicular cuneiform joint and talar neck. MRI [facility] 12/11/2023: Complete intra-articular fracture of the distal [...] Patient was fitted today for one and thiswas dispensed to her. Patient was instructed in [...] or corrected. Thank you for your understanding. Annie Galindo DPM documented in this [facility]10-17-2024 Evaluation note* Author Temitope Gutierrez [facility] Authored December 07, 2023 1 0:29am The above note written by __ _Rosita Ross____ acting as human recorder, note dictated by Dr. Lopez .I performed the above HPI, ROS, and Examination. I formulated and dictated the treatment plan and was present for entire encounter. Temitope Gutierrez D.O. [facility] Work Phone: 1(665) 609-527510-17-2024 Evaluation note* Author Temitope Gutierrez [facility] Authored December 07, 2023 9 :29am The above note written by __ _Rosita Ross____ acting as human recorder, note dictated by Dr. Lopez .I performed the above HPI, ROS, and Examination. I formulated and dictated the treatment plan and was present for entire encounter. Temitope Gutierrez D.O. [facility] Work Phone: [phone]) 492-501209-18-2024 Telephone encounter Note* Telephone Encounter - Praneeth Lee - 11/08/2023 3:41 PM EDT Taylor called - Medication has to be name brand - Insurance will not cover generic . Mundo Cruz [facility] [id number] Miscellaneous Notes* Telephone Encounter - Praneeth Lee - 11/08/2023 3:41 PM EDT Taylor called - Medication has to be name brand - Insurance will not cover generic . Mundo Cruz documented in this encounterLee's Summit [id number] History of Present illness Narrative* Sara Honeycutt, - 11/08/2023 9:00 AM EDT Images from the original note were not included. Taylor De Jesus presents today for follow up on COPD. She was last seen 6 months ago. Since her last office visit she did undergo repeat CT given that she had pneumonia prior to her last appointment here. She states her breathing is back to normal. She does continue with regular use of Breo. She does continue with albuterol on an as-needed basis. She did request a refill of her Breo at today's office visit. She denies any current complaints of increasing shortness breath at rest with exertion. She denies any chest pain, palpitations, fevers, chills, sweats, or recent unintentional weight changes. She denies any other complaints at this time. She states she did get her flu shot and COVID vaccine yesterday. Allergies: Allergies Allergen Reactions Penicillins Shortness of breath and Swelling As child, then as adult difficult to breath Zoledronic Acid Other Took calcium out of blood, needed hospitalized Horse Epithelium Allergy Skin Test Unknown Medications: Current Outpatient Medications: albuterol HFA 90 mcg/act inhaler, Inhale 2 puffs every 4 (four) hours if needed for wheezing or shortness of breath, Disp: 18 g, Rfl: 5 aspirin 81 MG chewable tablet, Chew 81 mg in the morning., Disp: , Rfl: cetirizine (ZyrTEC) 10 MG tablet, Take 10 mg by mouth in the morning., Disp: , Rfl: cholecalciferol (Vitamin D-3) 250 MCG (52074 UT) tablet, Take 1 tablet by mouth [...] 20 mEq before bedtime., Disp: , Rfl: Past Medical History: Past Medical History: Diagnosis Date Atrophy of left hand muscles 04/27/2023 Carpal tunnel syndrome of left wrist 04/27/2023 Chest discomfort 02/22/2022 COPD (chronic obstructive pulmonary disease) ([facility]) Glenohumeral arthritis, right 04/27/2023 Kidney stones NSVT (nonsustained ventricular tachycardia) ([facility]) 02/22/2022 Osteoporosis ([facility]) Palpitations 02/22/2022 Social History: Social History Tobacco Use Smoking status: Former Types: Cigarettes Smokeless tobacco: Never Substance Use Topics Alcohol use: Defer Vitals: BP 115/72 Pulse 64 Wt 130 lb SpO2 98% BMI 23.21 kg/m Exam: Heart: regular rate Lungs: clear to auscultation bilaterally, no wheezes/rales/rhonchi, no resp distress Extremities: no edema noted, no visible rashes Neuro: alert, oriented x3 Imaging Reviewed: Images and report of CT chest from April 2023 reviewed - - emphysematous changes, no evidence of nodule, mass, consolidation, effusion, or pneumothorax Assessment/Plan: Diagnoses and all orders for this visit: Chronic obstructive pulmonary disease, unspecified COPD type ([facility]) - Fluticasone Furoate-Vilanterol (Breo Ellipta) 100-25 MCG/ACT aerosol powder ; Inhale 1 puff Daily COPD -- she did request a refill on her Breo at today's office visit. She states that her breathinghas been stable since her last office visit. Given her stability of symptoms she will continue her current regimen. She will continue with Breo once daily and albuterol as needed. She will follow here in 6 months time unless needed before then. She states she does plan to go on a cruise with a girlfriend in March. Follow up in about 6 months (around 05/07/2024) for COPD. Sara Honeycutt DO documented in this encounterLee's Summit [id number] Evaluation note* Encounter Date Diagnosis Assessment Notes Treatment Notes Treatment Clinical Notes Mar, Fever (ICD-10 - R50.9) [facility] Other 01-04-2024 Evaluation note* Encounter Date Diagnosis Assessment Notes Treatment Notes Treatment Clinical Notes Feb, Breast cancer screening (ICD-10 - Z12.31) [facility] Other 12-12-2023 Evaluation note* Encounter Date Diagnosis [...] I would like her to have the director housekeeping evaluate her neck when seen. On exam [...] to switch to Dr. Honeycutt in the [place] office. A referral is provided. Jan, Vitamin D deficiency (ICD-10 - E55.9) Continue with above medications daily as directed. Jan, Hyperparathyroidism , secondary, non-renal (ICD-10 - E21.1) She saw Dr. Garcia in July (2022) and will continue to follow with him once a year. Jan, Weight loss (ICD-10 - R63.4) She has lost 4.5 pounds since last seen. Jan, custodial use of jenaro g (ICD-10 - Z79.899) [...] order to be done in 1 year [facility] Other 08-16-2023 Evaluation note* Encounter Date Diagnosis [...] to chest, subsequent encounter (ICD-10 - S29.8XXD) [facility] Other 02-15-2023 Evaluation note* Encounter Date Diagnosis [...] me, otherwise we will continue to follow [facility] Other 01-19-2023 Evaluation note* Encounter Date Diagnosis Assessment Notes Treatment Notes Treatment Clinical Notes Feb, Fever (ICD-10 - R50.9) [facility] Other 10-13-2022 Evaluation note* Encounter Date Diagnosis Assessment Notes Treatment Notes Treatment Clinical Notes Nov, Chronic obstructive pulmonary disease (ICD-10 - J44.9) [facility] Other 08-02-2022 Evaluation note* Encounter Date Diagnosis Assessment Notes Treatment Notes Treatment Clinical Notes Sep, Chronic obstructive pulmonary disease (ICD-10 - J44.9) Patient remains adequately controlled with current treatment, states that she has 1 more refill left on her inhalers and will call when she needs more ordered. [facility] Other 02-21-2022 Evaluation note* Encounter Date Diagnosis Assessment Notes Treatment Notes Treatment Clinical Notes Mar, Hypokalemia (ICD-10 - E87.6) [facility] Other 02-01-2022 Evaluation note* Encounter Date Diagnosis Assessment Notes Treatment Notes Treatment Clinical Notes Mar, Chronic obstructive pulmonary disease (ICD-10 - J44.9) [facility] Other 01-04-2022 Evaluation note* Encounter Date Diagnosis [...] she be tested for COVID-[facility] at the [facility] on Mon02/24/21. She should have the results prior to the weekend. Feb, Rhinorrhea (ICD-10 - J34.89) Feb, Pharyngitis (ICD-10 - J02.9) Feb, Other 10:26 AM - 10:38 AM [facility] Other Evaluation noteNo InformationNort [email or web address] Other Evaluation noteNo assessment information available [facility] Work Phone: Evaluation note* Diagnosis Onset Date Resolution Status Toe pain, right acute Weight loss acute [facility] Work Phone: evaluation note* Diagnosis Onset Date Resolution Status Toe pain, right acute Weight loss acute Osteoporosis acute Toe pain, right acute [facility] Work Phone: Evaluation note* Diagnosis Closed non-physeal fracture of proximal phalanx of right great toe, initial encounter- Primary Injury of right great toe, initial encounter Pain of toe of right foot [facility] Diagnosis Closed non-physeal fracture of proximal phalanx of right great toe with routine healing, subsequent encounter- Primary Injury of right great toe, subsequent encounter Pain of toe of right foot Sesamoiditis of right foot [facility]* Diagnosis Chronic obstructive pulmonary disease, unspecified COPD type (CMS/HCC) [facility] Diagnosis Chronic obstructive pulmonary disease, unspecified COPD type (CMS/HCC) [facility] Diagnosis Closed non-physeal fracture of proximal phalanx of right great toe with routine healing, subsequent encounter- Primary Injury of right great toe, subsequent encounter Pain of toe of right foot Sesamoiditis of right foot [facility]* Diagnosis Chronic obstructive pulmonary disease, unspecified COPD type (CMS/HCC) [facility] Diagnosis Injury of right great toe, initial encounter- Primary Pain in right toe(s) [facility] Narrative - Reported* Type Description Date Medical History hypokalemia Medical History hypocalcemia Medical History vit d dif Medical History hyperparathyroidism, secondary Medical History osteoporosis Medical History Fractured [facility] Medical History Colonoscopy 12-31-08- Normal Medical History Pap 05-31-12 Medical History Mammogram 06-06-12 Medical History Hx of bariatric surg shay (10 year ago) weighed 323 when surgery occured Medical History COPD Surgical History wt loss surgery 2002 Surgical History tubal ligation 1976 Surgical History ganglion cyst 1989 Surgical History cholecystectomy 2002 Surgical History hernia repair 2004 Surgical History FX RIbs [address] Carrera - Acute Care Nursing Assistant for yearly 06/2015 Surgical History cortisone inj rt shoulder - [facility] [place] 01/19/16 Surgical History left knee xr [facility] 01/17/17 Surgical History rt cheek ct [facility] 01/17/[address] stones [address] Ham Hospitalization History hyperkalemia 2009 Hospitalization History UC for URI 12/12/19 15 Hospitalization History [facility] - COPD - ED 04/29/15 [facility] Other [facility] general Narrative - Reported* Type Description Date Medical History hypokalemia Medical History hypocalcemia Medical History vit d dif Medical History hyperparathyroidism, secondary Medical History osteoporosis Medical History Fractured [employer] Medical History Colonoscopy 12-31-08- Normal Medical History Pap 05-31-12 Medical History Mammogram 06-06-12 Medical History Hx of bariatric surg shay ( year ago) weighed 323 when surgery occured Medical History COPD Medical History Wears b/l hearing aids 2022 Surgical History wt loss surgery 2002 Surgical History tubal ligation 1976 Surgical History ganglion cyst 1989 Surgical History cholecystectomy 2002 Surgical History hernia repair 2004 Surgical History FX RIbs [address] Carrera - Acute Care Nursing Assistant for yearly 06/2015 Surgical History cortisone inj rt shoulder - [facility] [place] 01/19/16 Surgical History left knee xr [facility] 01/17/17 Surgical History rt cheek ct [facility] 01/17/[address] kidney stones [address] Ham 8 Hospitalization History hyperkalemia 2009 Hospitalization History [facility] for URI 12/12/19 15 Hospitalization History [facility] - COPD - ED 04/29/15 [facility] [place] [place] [facility] Other Reason for visit Narrativeyearly visit/ review lab, discuss multiple issues, see [facility] [place] Other Summary Purpose Family History No Family [...] Advance Directives No June 22, 2023 1:12pm Advance Directive Response Recorded Date/ Time Advance Directives No June 22, 2023 12:12pm Reason for Referral Reason appt pt needs cons ult for COPD Diagnosis 1 Chronic obstructive pulmonary disease (J44.9) Referral Organization [facility] Referring Provider First Name Temitope Referring Provider Last Name Brenda Referring Provider Specialty Family Lalit pat Referred Organization [facility] Referred Provider Sara Honeycutt Referred Address ,[place], [place],[address] Referred Provider Specialty Pulmonary Lupe min Referral Priority Routine General Notes Lara Hampton [...] Diagnosis 1 Thrombocytopenia (D6 9.6) Referral Organization [facility] Referring Provider First Name Temitope Referring Provider Last Name Brenda Referring Provider Specialty [facility] Lalit pat Referred Organization [facility] Referred Provider NANCY JARRETT Referred Address [address], [place],[address] Referred Provider Specialty Hematology/O ncology Referral Priority Routine General Notes Lara Hampton 01/31/2023 10:25:37 AM > referral faxed to [phone] with visit note, lab results and insurance cards. pt understands she will be contacted to schedule this appt. Chief Complaint and Reason for Visit Chief Complaint Admit Date review labs February 29, 2024 12 :11pm telephone/productive cough May 13, 025 2:22pm Reason for Visit Admit Date Hypocalcemia February 29, 2024 12 :11pm Osteoporosis February 29, 2024 12 :11pm Thrombocytopenia February 29, 2024 12 :11pm Other long term care administrator (current) drug therapy J anuary 2024 12:11pm Hypokalemia February 29, 2024 12 :11pm Acute cough May 13, 2024 2:2 2pm COPD (chronic obstructive pulmonary dise ase) May 13, 2024 2:22pm Other pancytopenia May 13, 2024 2:2 2pm Chief Complaint Admit Date recheck toe December 07, 2023 9 :34am Unknown December 19, 2023 8 :55am review labs February 29, 2024 12 :11pm Reason for Visit Admit Date Osteoporosis December 07, 2023 9 :34am Toe pain, right December 07, 2023 9 :34am Other long term care administrator (current) drug therapy J anuary 2024 12:11pm Chief Complaint rt big toe swollen recheck toe Unknown Reason for Visit Toe pain, right Weight [...] and content) DATE CREATED AUTHOR 03/01/2021 [facility] DATE CREATED AUTHOR AUTHOR'S ORGANIZ ATION 02/03/2024 [facility] DATE CREATED AUTHOR AUTHOR'S ORGANIZ ATION 06/28/2024 [facility] DATE CREATED AUTHOR AUTHOR'S ORGANIZ ATION 06/30/2024 [facility] EPIC REASON FOR VISIT (unrecogniz ed section and content) Reason Comments Foot Injury Taylor De Jesus 73yo N ew Patient referred Dr. Gutierrez. DOI 11/21/2023, patient relates she was wearing sandals and hit the door jam with her right great toe. Pain, redness, swelling,icing, soaking, tylenol as needed. Patient was prescribed Zpak, completed. Xrays and MRI. SS9 Reason Comments FUV Taylor De Jesus 73yo. Patient relates pain has moved and still very painful. DOI 11/21/2023. SS9 Reason Comments COPD Reason Comments FUV Taylor De Jesus 73yo. Patient relates pain is much better, patient has transitioned into regular shoes. DOI 11/21/2023. SS9 Reason Onset Date Comments Med Refill 03/13/2024 Reason Comments Med Change Request Reason Comments Foot Injury Pt is here today for an injury to the Rt 1-3 toes Monday evening, the top part of the paper shredder fell on top of the foot, bleeding and bruising. She went to the ER, xrays were done and did not show any fractures. Discomfort now. SS: 9W Care Teams (unrecognized sec tion and content) Team Status: Active Member Role Status Rosie Gutierrez DO Primary Care Provider Active Team Status: Inactive Member Role Status Rosie Gutierrez DO Primary Care Provide r, Attending Provider Active Start: November 28, 2023 End: November 28, 2023 Team Status: Inactive Member Role Status Rosie Gutierrez DO Primary Care Provide r, Attending Provider Active Start: December 07, 2023 End: December 07, 2023 Team Status: Inactive Member Role Status Rosie Gutierrez DO Primary Care Provider Active S tart: December 19, 2023 End: December 19, 2023 Nancy Jarrett MD Attending Provider Active St art: December 19, 2023 End: December 19, 2023 Team Status: Active Member Role Status Rosie Gutierrez DO Primary Care Provider Active S tart: December 19, 2023 Nancy Jarrett MD Attending Provider Active St art: December 19, 2023 Team Status: Active Member Role Status Rosie Gutierrez DO Primary Care Provide r, Attending Provider Active Start: April 25, 2023 Nancy Jarrett MD Attending Provider Active St art: [...] 2023 Team Status: Inactive Member Role Status Dates Temitope Gutierrez DO Primary Care Provider Active S tart: June 13, 2023 End: June 13, 2023 Nancy Jarrett MD Attending Provider Active St art: June 13, 2023 End: June 13, 2023 Team Status: Inactive Member Role Status Dates Temitope Gutierrez DO Primary Care Provider Active S tart: March 08, 2023 End: March 08, 2023 aNncy Jarrett MD Attending Provider Active St art: March 08, 2023 End: March 08, 2023 Team Status: Active Member Role Status Dates Temitope Gutierrez DO Primary Care Provider Active S tart: September 15, 2023 PEDRO Mcintyre Attending Provider Active S tart: September 15, 2023 Product Manager Medical Device Relationship Specialty Start Date End Date Temitope Gutierrez MD [address] [place] [address] PCP - General Family Medicine 04/28/23 Product Manager Medical Device Relationship Specialty Start Date End Date Temitope Gutierrez MD [address] [place] [address] PCP - General Family Medicine 04/28/23 Product Manager Medical Device Relationship Specialty Start Date End Date Temitope Gutierrez MD [address] [place] [address] PCP - General Family Medicine 04/28/23 Product Manager Medical Device Relationship Specialty Start Date End Date Temitope Gutierrez MD [address] [place] [address] PCP - General Family Medicine 04/28/23 Product Manager Medical Device Relationship Specialty Start Date End Date Temitope Gutierrez MD [address] [place] [address] PCP - General Family Medicine 04/28/23 Product Manager Medical Device Relationship Specialty Start Date End Date Temitope Gutierrez MD [address] [place] [address] PCP - General Family Medicine 04/28/23 Team Status: Inactive Member Role Status Dates Temitope Gutierrez DO Primary Care Provide r, Attending Provider Active Start: February 29, 2024 End: February 29, 2024 Product Manager Medical Device Relationship Specialty Start Date End Date Temitope Gutierrez MD [address] [place] [address] PCP - [facility] Family [facility] 04/28/23 Product Manager Medical Device Relationship Specialty Start Date End Date Temitope Gutierrez MD [address] [place] [address] PCP - [facility] Family Medicine 04/28/23 Team Status: Inactive Member Role Status Dates Temitope Gutierrez DO Primary Care Provide r, Attending Provider Active Start: May 13, 2024 End: May 13, 2024 Product Manager Medical Device Relationship Specialty Start Date End Date Temitope Gutierrez MD [address] [place], [place] [id number] PCP - General Family Medicine 04/28/23 Product Manager Medical Device Relationship Specialty Start Date End Date Temitope Gutierrez MD [address] [place], [place] [id number] PCP - General Family Medicine 04/28/23 Goals [...] BE BASED ON THE PRIMARY CLINICAL RECORDS. [email or web address] [facility]. provides no warranty or guarantee of the accuracy or completeness of information in this document.
== END 2024-07-10 08:04 | disposition home or self-care (01) ==
LOC: HEMC 07:32
PROVIDERS: PCP Family Medicine; Visit Provider Internal Medicine Hematology & Oncology
DX: D51.9 Vitamin B12 deficiency anemia, unspecified (principal); K90.9 Intestinal malabsorption, unspecified; D50.9 Iron deficiency anemia, unspecified; D69.6 Thrombocytopenia, unspecified; D64.9 Anemia, unspecified; M81.0 Age-related osteoporosis without current pathological fracture; Z98.84 Bariatric surgery status; Z90.49 Acquired absence of other specified parts of digestive tract
CPT/HCPCS: G0463

== ENCOUNTER 2024-11-28 08:47 | Outpatient (OUT) | payer MEDICARE, OTHER, SELFPAY ==
--- OUTSIDE RECORDS SUMMARY | 2024-11-28 09:05 | XMS_ITS | CCD ---
Author Organization [facility] Care Team Providers Care Station Mechanic Apprentice Name Role Phone DR TEMITOPE GUTIERREZ Attending Unavailable BRENDA, DR LINN Consulting Unavailable BRENDA, DR LINN Admitting Unavailable Temitope Gutierrez Unavailable Bhavesh Wright Unavailable DO Temitope Gutierrez Primary Care Provider [phone] MD Nancy Jarrett Attending Provider DO Temitope Gutierrez Primary Care Provider MD Nancy Jarrett Attending Provider Temitope Gutierrez MD Primary Care Provider [phone] DO Temitope Gutierrez Primary Care Provider [phone] MD Nancy Jarrett Attending Provider [phone] Temitope Gutierrez Primary Care Unavailable Luiza, Nancy [...] Care Provider Nancy Jarrett MD Attending Provider Temitope Gutierrez MD Primary Care Provider TEMITOPE GUTIERREZ Referring Unavailable TEMITOPE GUTIERREZ Primary Care Unavailable TEMITOPE GUTIERREZ Referring Unavailable TEMITOPE GUTIERREZ Primary Care Unavailable TEMITOPE GUTIERREZ Referring Unavailable DANIITEMITOPE HARRINGTON Primary Care Unavailable DANIITEMITOPE HARRINGTON Referring Unavailable TEMITOPE GUTIERREZ Primary Care Unavailable TEIMTOPE GUTIERREZ Referring Unavailable DANIITEMITOPE HARRINGTON Primary Care Unavailable DANIIJUANY TEMITOPE Snow Primary Care Unavailable MT CHEW Attending Unavailable DANIIJUANY TEMITOPE Snow Referring Unavailable BRENDA TEMITOPE Snow Primary Care Unavailable Brenda ROSS Temitope Primary Care Provider Nancy Jarrett MD Attending Provider Simin Holland Attending Provider Unavailab Higgins Temitope Attending Provider Daniijuany Temitope Primary Care Provider [phone] SARA HONEYCUTT Attending Unavailable ANNIE GALINDO Attending Unavailable ANNIE GALINDO Attending Unavailable MAURO JUAREZ F Attending Unavailable ANN AHMAD F Referring Unavailable SARA HONEYCUTT Attending Unavailable ANNIE GALINDO Attending Unavailable ANNIE GALINDO Referring Unavailable ANNEI GALINDO Attending Unavailable Allergies Allergy Classification Reported Allergen(s) Allergy Type Date of Onset Reaction(s) Facility (20 sources) Penicillin V Drug Allergy 3 Unknown, Difficulty Breathing [facility] (20 sources) zoledronic acid Drug Allergy 8 Other [facility] (20 sources) Mannitol; Translations: [mannitol] Drug Allergy 3 hypocalcemia [facility] (9 sources) water for injection,steri le; Translations: [water for injection,steri le] Allergy to substance 3 hypocalcemia [facility] (20 sources) Penicillins; Translations: [PENICILLINS] Drug Allergy 7 Shortness of breath, Swelling [facility] (20 sources) Horse Epithelium Allergy Skin Test Allergy to substance 2 Unknown [facility] (20 sources) Water, Sterile Allergy to substance 3 [facility] (1 source) Penicillin Drug Allergy 4 [facility] (1 source) zoledronic acid Drug Allergy 4 [facility] (1 source) HORSE DANDER; Translations: [HORSE DANDER] Propensity to adverse reactions to drug (disorder) 2 [facility] (1 source) ZOLEDRONIC QEXR-TQAMISYJ-A ATER; Translations: [ZOLEDRONIC HRCG-BOCFRKIL-G ATER] Propensity to adverse reactions to drug (disorder) 8 [facility] Medications Current Medications Medication Drug Class(es) Dates Sig (Normalized) Sig (Original) [id number] 200 actuat albuterol 0.09 mg/actuat metered dose inhaler (20 sources) beta2-Adrenergic Agonist Start: 08-29-2024 take 1 puff(s) by inhalation every four to six hours as needed Albuterol Sulfate 90 mcg/actuation HFA aerosol inhaler Active 2 PUFF INHALATION EVERY 4-6 HOURS as needed August 29, 2024 12:00am Complies with drug therapy Start: 04-28-2023 take 2 puff(s) by in halation every four hours for wheezing albuterol HFA 90 mcg/act inhaler Indications: Chronic obstructive pulmonary disease, unspecified COPD type (HCC) Inhale 2 puffs every 4 (four) hours [...] day Active azithromycin 250 mg oral tablet (20 sources) Macrolide Antimicrobial Start: 09-02-20 25 Azithromycin 250 mg tablet Active 0 PO .COMPLEX 6 October 22, 2024 12:00am For 250 mg dose pack: take 500 mg today (day 1), then 250 mg for 4 days (days 2-5) PO Complies with drug therapy Start: 05-13-2024 End: 08-29-2024 Azithromycin 250 mg tablet D iscontinued 0 PO .COMPLEX July 10, 2024 9:26am August 29, 2024 9:04am For 250 mg dose pack: take 500 [...] 2023 12:00am Calcium-Vitamin D2-Soybean 500-100-28 mg-units-mg tablet (4 sources) Start: 07-05-2023 take 1 tablet by mouth once daily Calcium-Vitamin D2-Soybean 500-100-28 mg-units-mg tablet Active 1 TAB PO Daily July 05, 2023 12:00am Complies with drug therapy Start: 07-05-2023 take 1 tablet by marvin [...] for allergic symptoms July 05, 2023 12:00am Complies with drug therapy cholecalciferol 0.125 mg oral tablet (20 sources) Vitamin D Start: 07-05-19 take 1 tablet by mouth once daily Cholecalciferol (Vitamin D3) (Vitamin D3) 125 mcg (5,000 unit) tablet Active 00821 UNIT PO daily July 05, 2023 12:00am Complies with drug therapy take 1 tablet by mouth in the mo rning cholecalciferol (Vitamin D-3) 250 MCG (65892 UT) tablet Take 1 tablet by mouth in the morning. Active take 1 capsule by mouth every we ek cholecalciferol (Vitamin D-3) 1.25 MG (42095 UT) capsule Take 50,000 Units by mouth 1 (one) time per week Active clotrimazole 10 mg oral lozenge (5 sources) Azole Antifungal Start: 03-10-2022 Clotrimazole 10 MG dissolve 1 chase on tongue Mouth/Throat five times a day for 7 days Feb, Active ergocalciferol 1.25 mg oral capsule (7 sources) Provitamin D2 Compound Start: 07-05-2023 Ergocalciferol (Bing min D2) 1,250 mcg (50,000 unit) capsule Active 19654 UNIT PO 3 Times a week July 05, 2023 12:00am Complies with drug therapy Start: 07-05-2023 take 14282 [IU] by m outh three times weekly Ergocalciferol (Vitamin D2) Active 35274 UNIT PO 3 Times a week July 05, 2023 12:00am ferrous sulfate 325 mg oral tablet (20 sources) Start: 07-05-2023 take 1 tablet by mouth twice daily Ferrous Sulfate (Feosol) 325 mg (65 mg iron) tablet Active 325 MG PO Twice daily July 05, 2023 12:00am Complies with drug therapy ferrous sulfate 325 (65 Fe) MG tablet 1 (one) time each day at the same time Active 30 actuat fluticasone furoate 0.1 mg/actuat / vilanterol 0.025 mg/actuat dry powder inhaler (20 sources) Corticosteroid, beta2-Adrenergic Agonist Start: 09-03-2024 take 1 puff(s) by inhalation once daily Fluticasone Furoate-Vilanterol (Breo Ellipta) 100-25 MCG/ACT aerosol powder Indications: Chronic obstructive pulmonary disease, unspecified COPD type (HCC) Inhale 1 puff Daily 1 each 5 09/03/2024 Active Start: 03-14-2024 End: 09-02-2024 take 1 puff(s) by inhalation once daily Breo Ellipta 100-25 MCG/ACT aerosol powder Indications: Chronic obstructive pulmonary disease, unspecified COPD type (HCC) Inhale 1 puff Daily 60 each 5 09/03/2024 Active Start: 07-05-2023 Fluticasone Fu roate-Vilanterol (Breo Ellipta) 100-25 mcg/dose blister with device Active 1 INH INHALATION Daily July 05, 2023 12:00am Complies with drug therapy Start: 04-28-2023 End: 03-13-2024 take 1 puff(s) by inhalation once daily Fluticasone Furoate-Vilanterol (Breo Ellipta) 100-25 MCG/ACT aerosol powder Indications: Chronic obstructive pulmonary disease, unspecified COPD type (CMS/HCC) Inhale 1 puff Daily 1 each 5 03/12/2024 03/13/2024 Discontinued (Reorder) Start: 09-28-2015 take 1 puff(s) by in halation once daily Breo Ellipta 100-25 MCG/ACT 1 puff Inhalation Once a day Sep, Active 12 hr guaiFENesin 600 mg extended release oral tablet (6 sources) take 1 tablet by mouth every twelve hours Mucinex 600 MG 1 tablet as needed Orally every 12 hrs Active mecobalamin 5 mg oral lozenge (4 sources) Start: 11-28-2023 take 5000 ug by mouth every other week Mecobalamin (Vitamin B12) 5,000 mcg lozenge Active 5000 MCG PO .every 2 weeks November 28, 2023 12:00am allow to dissolve in mouth OR may chew lightly before swallowing Complies with drug therapy Start: 11-28-2023 take 5000 ug by mout h every other week Mecobalamin (Vitamin B12) Active 5000 MCG PO .every 2 weeks November 28, 2023 12:00am allow to dissolve in mouth OR may chew lightly before swallowing Mecobalamin (Vitamin B12) 5,000 mcg lozenge (3 sources) Start: 11-28-2023 take 5000 ug by mouth every other week Mecobalamin (Vitamin B12) 5,000 mcg lozenge Active 5000 MCG PO .every 2 weeks November 28, 2023 12:00am allow to dissolve in mouth OR may chew lightly before swallowing Complies with drug therapy Start: 11-28-2023 take 5000 ug by mout [...] Aug, Active Multiple Vitamins-Minerals (Centrum Adults) tablet (20 sources) Multiple Vitamins-Minerals (Centrum Adults) tablet Active Multiple Vitamin s-Minerals (Centrum Adults) tablet Orally Active Eratubmiyrgq-Awkk-Woyyq Acid (Centrum Women) 18-400 mg-mcg tablet (7 sources) Start: 07-05-2023 take 1 tablet by mouth once daily Wwmqorrlgdhm-Kadm-Vyork Acid (Centrum Women) 18-400 mg-mcg tablet Active 1 TAB PO Daily July 05, 2023 12:00am Complies with drug therapy Start: 07-05-2023 take 1 tablet by marvin th once daily Vpxhboksvexr-Mbgz-Rdmud Acid (Centrum Women) 18-400 mg-mcg tablet Active 1 TAB PO Daily July 04, 2023 11:00pm Start: 07-05-2023 take 1 tablet by marvin th once daily Ddinibdbwklr-Uoeq-Xlusl Acid (Centrum Women) 18-400 mg-mcg tablet Active 1 TAB PO Daily July 05, 2023 12:00am potassium chloride 10 meq extended release oral capsule (20 sources) Start: 09-30-2024 take 2 capsules by mouth twice daily Potassium Chloride 10 mEq capsule, extended release Active 0 .ROUTE .COMPLEX 360 September 30, 2024 9:08am TAKE 2 CAPSULES BY MOUTH TWICE A DAY Complies with drug therapy Start: 05-01-2023 End: 07-05-2023 take 20 mEq by mouth twice daily Potassium Chloride Ac tive 20 MEQ PO Twice daily July 05, 2023 12:00am Start: 12-13-2022 End: 09-30-2024 take 2 capsules by mouth in the [...] DAILY for 90 days Active vitamin a 11106 unt oral capsule (7 sources) Vitamin A Start: 07-05-2023 Vitamin A 3,00 0 mcg (10,000 unit) capsule Active 33321 UNIT PO Daily July 05, 2023 12:00am Complies with drug therapy Start: 07-05-2023 take 36500 [IU] by m outh once daily Vitamin A Active 25790 UNIT PO Daily July 05, 2023 12:00am vitamin b12 5 mg disintegrating oral tablet (14 sources) Vitamin B12 take 1 tablet by [...] days a week Jan, Active Vitamin D 88619 UNIT (18 sources) take 1 tablet by mouth once daily Vitamin D 46971 UNIT 1 tablet Orally Once a day (10,000iu qd) Active Vitamin D3 71441 UNIT (18 sources) take 1 tablet by mouth every week Vitamin D3 92714 UNIT 1 tablet Orally 3x week Active [...] Sig (Original) aspirin 81 mg oral tablet (20 sources) Platelet Aggregation Inhibitor, Nonsteroidal Anti-inflammatory Drug Start: 07-05-2023 End: 02-29-2024 take 1 capsule by mouth once daily Aspirin 81 mg capsule Discontinued 81 MG PO Daily July 05, 2023 12:00am February 29, 2024 1:23pm aspirin 81 MG ch ewable tablet Chew 81 mg in the morning. Active loratadine 10 mg oral tablet (20 sources) Start: 02-29-2024 End: 08-29-2024 take 1 tablet by mouth once daily Loratadine (Allergy Relief (Loratadine)) 10 mg tablet Discontinued 10 MG PO Daily February 29, 2024 1:00am August 29, 2024 9:05am Problems Active Problems Problem Classification Problem Date Documented Da te Episodic/Chronic Calculus of urinary tract (6 sources) Kidney stone; Translations: [Calculus of kidney] Episodic Chronic obstructive pulmonary disease and bronchiectasis (20 sources) Asthma-chronic obstructive pulmonary disease overlap syndrome; Translations: [Chronic obstructive pulmonary disease, unspecified] Onset: 2 Resolved: 2 Chronic Coagulation and hemorrhagic disorders (18 sources) Thrombocytopenic disorder; Translations: [Thrombocytopenia, unspecified] Onset: 4 Chronic Deficiency and other anemia (3 sources) Pancytopenia; Translations: [Other pancytopenia] 05-13-2024 Chronic Deficiency and other anemia (1 source) Other pancytopenia; Translations: [Other pancytopenia] 05-13-2024 Chronic Deficiency and other anemia (1 source) Iron deficiency anemia, unspecified Episodic Deficiency and other anemia (4 sources) Iron deficiency anemia; Translations: [Iron deficiency anemia, unspecified] 08-29-2024 Episodic Diseases of white blood cells (10 sources) Decreased blood leukocyte number; Translations: [Decreased white blood cell count, unspecified] 08-29-2024 Chronic Disorders of lipid metabolism (8 sources) Dyslipidemia; Translations: [Hyperlipidemia, unspecified] Onset: 4 Chronic Fever of unknown origin (6 sources) Fever, unspecified; Translations: [Fever] Onset: 2 Resolved: 2 Episodic Fluid and electrolyte disorders (3 sources) Hypokalemia; Translations: [Hypopotassemia] Onset: 2 Resolved: 2 Episodic Fracture of lower limb (6 sources) Closed fracture of proximal phalanx of great toe; Translations: [Displaced fracture of proximal phalanx of right great toe, initial encounter for closed fracture] 12-15-2023 Episodic Lymphadenitis (1 source) Localized enlarged lymph nodes Episodic Nutritional deficiencies (14 sources) Vitamin D deficiency; Translations: [Vitamin D deficiency, unspecified] Onset: 5 Chronic Nutritional deficiencies (3 sources) Deficiency of other specified B group vitamins; Translations: [Cobalamin deficiency] Episodic Osteoporosis (14 sources) Osteoporosis; Translations: [Age-related osteoporosis without current pathological fracture] 12-07-2023 Chronic Other aftercare (4 sources) Long-term current use of drug therapy; Translations: [Other intermediate frame tender (current) drug therapy] 02-29-2024 Episodic Other connective tissue disease (5 sources) Pain in toe; Translations: [Pain in right toe(s)] 11-28-2023 Episodic Comment on above: right great toe Other connective tissue disease (10 sources) Pain of toe of right foot; Translations: [Pain in right toe(s)] 12-15-2023 Episodic Comment on above: right great toe Other endocrine disorders (11 sources) Secondary hyperparathyroidism; Translations: [Secondary hyperparathyroidism, not elsewhere classified] 02-29-2024 Chronic Other endocrine disorders (1 source) Secondary hyperparathyroidism, not elsewhere classified Chronic Other endocrine disorders (2 sources) Tertiary hyperparathyroidism; Translations: [Other hyperparathyroidism] 08-08-2024 Chronic Other gastrointestinal disorders (1 source) Bariatric surgery status; Translations: [Bariatric surgery status] Onset: Episodic Other gastrointestinal disorders (2 sources) History of bypass of stomach; Translations: [Bariatric surgery status] 08-08-2024 Episodic Other injuries and conditions due to external causes (1 source) Other specified injuries of thorax, subsequent encounter Episodic Other injuries and conditions due to external causes (8 sources) Injury of great toe; Translations: [Unspecified injury of right foot, initial encounter] 12-15-2023 Episodic Other lower respiratory disease (5 sources) Cough; Translations: [Acute cough] 05-13-2024 Episodic Other non-traumatic joint disorders (4 sources) Sesamoiditis; Translations: [Other specified joint disorders, right ankle and foot] 01-16-2024 Episodic Other nutritional; endocrine; and metabolic disorders (14 sources) Hypocalcemia; Translations: [Hypocalcemia] 02-29-2024 Chronic Other nutritional; endocrine; and metabolic disorders (3 sources) Hypocalcemia; Translations: [Hypocalcemia] Onset: Chronic Other nutritional; endocrine; and metabolic disorders (4 sources) Abnormal weight loss; Translations: [Loss of weight] Episodic Other nutritional; endocrine; and metabolic disorders (4 sources) Weight loss; Translations: [Abnormal weight loss] 11-28-2023 Episodic Other nutritional; endocrine; and metabolic disorders (5 sources) Weight decreased; Translations: [Abnormal weight loss] 11-28-2023 Episodic Other upper respiratory disease (6 sources) Allergic rhinitis; Translations: [Allergic rhinitis, unspecified] Chronic Other upper respiratory disease (2 sources) Other specified disorders of nose and nasal sinuses; Translations: [OTH SPEC D/O NOSE NASAL SINUSES] Onset: 2 Resolved: 2 Episodic Other upper respiratory infections (2 sources) Acute pharyngitis, unspecified; Translations: [ACUTE PHARYNGITIS UNSPECIFIED] Onset: 2 Resolved: 2 Episodic Residual codes; unclassified (6 sources) H/O: GIT by-pass; Translations: [Other specified postprocedural states] Episodic Residual codes; unclassified (1 source) Other specified postprocedural states Episodic Superficial injury; contusion (1 source) Contusion of right foot, initial encounter; Translations: [Contusion of right foot, initial encounter] Onset: 5 Episodic Unclassified (2 sources) CONTACT W/AND (SUSP) EXPOS COVID-19; Translations: [CONTACT W/AND (SUSP) EXPOS COVID-19] Onset: 2 Unclassified (1 source) Toe Injury Onset: 5 Unclassified (1 source) INJURY RT TOES Onset: 5 Viral infection (1 source) COVID-19; Translations: [COVID-19] Onset: 2 Past or Other Problems Problem Classification Problem Date Documented Date Episodic/Chronic Cardiac dysrhythmias (20 sources) Nonsustained ventricular tachycardia ; Translations: [NSVT (nonsustained ventricular tachycardia)] Onset: 02-22-2022 Resolved: 04-27-2023 04-27-2023 Chronic Cardiac dysrhythmias (20 sources) Palpitations; Translations: [Palpitations] Onset: 02-22-2022 Resolved: 04-27-2023 04-27-2023 Episodic Nonspecific chest pain (20 sources) Chest discomfort; Translations: [Other chest pain] Onset: 02-22-2022 Resolved: 04-27-2023 04-27-2023 Episodic Osteoarthritis (20 sources) Osteoarthritis of right glenohumeral joint; Translations: [Primary osteoarthritis, right shoulder] Onset: 04-27-2023 Resolved: 04-27-2023 04-27-2023 Chronic Other aftercare (4 sources) Other intermediate frame tender (current) drug therapy; Translations: [Long-term (current) use of other medications] Onset: 02-19-2024 Episodic Other connective tissue disease (7 sources) Pain in right toe(s); Translations: [Pain in limb] Onset: 12-02-2023 11-28-2023 Episodic Other connective tissue disease (20 sources) Atrophy of muscle of left hand; Translations: [Muscle wasting and atrophy, not elsewhere classified, left hand] Onset: 04-27-2023 Resolved: 04-27-2023 04-27-2023 Episodic Other nervous system disorders (20 sources) Carpal tunnel syndrome of left wrist; Translations: [Carpal tunnel syndrome, left upper limb] Onset: 04-27-2023 Resolved: 04-27-2023 04-27-2023 Chronic Other screening for suspected conditions (not mental disorders or infectious disease) (2 sources) Encounter for screening mammogram for malignant neoplasm of breast; Translations: [Encounter for screening mammogram for malignant neoplasm of breast] Onset: 04-12-2024 Episodic Unclassified (1 source) CONTACT W/AND (SUSP) EXPOS COVID-19; Translations: [CONTACT W/AND (SUSP) EXPOS COVID-19] Onset: 02-24-2021 Results Test Name Value Interpretation Reference Range Facility DEXA BONE DENSITYon 09-03-19 DEXA BONE DENSITY Examination: DEXA ALAN NE DENSITY Clinical History: osteoporosis Technique: Bone density study was performed. T score values for the lumbar spine, right femoral neck and left femoral neck were obtained. Comparison: None Findings: Value for the lumbar spine from L1-L4 is -3.5. Value for the right femoral neck is -4.1. Value for the left femoral neck is -3.6. Findings are compatible with osteoporosis with high increased fracture risk. IMPRESSION: Impression: Findings compatible with osteoporosis with high increased fracture risk. ELECTRONICALLY SIGNED BY: Gavino Polanco M.D. Normal Not Available CBC WITH AUTO DIFFERENTIALon 07-31-2024 CELLAVISION DIFFERENTIAL TYPE MANUAL DIFFERENTIAL Normal [facility] Comment on above: Performed By: #### 8 2476-1, 1987-5, 3084-1, 05739-0, 35547-6, 72942-9 #### [facility] ([id number]) [address], [address] [place] [address] CELLAVISION EOSINOPHILS ABSOLUTE COUNT (10*3/UL) BY MANUAL COUNT 0.1 10*3/uL Normal 0.0-0.4 [facility] Comment on above: Performed By: #### 8 2476-, 1987-06, 3083-, 14023-2, 08992-4, 47751-6 #### [facility] ([id number]) [address], [address] [place] [address] CELLAVISION EOSINOPHILS PERCENT BY MANUAL COUNT 3 % Normal [facility] Comment on above: Performed By: #### 8 2476-02, 1987-06, 3083-02, 40812-3, 70181-7, 27614-1 #### [facility] ([id number]) [address], [address] [place] [address] CELLAVISION LYMPHOCYTES ABSOLUTE COUNT (10*3/UL) BY MANUAL COUNT 1.2 10*3/uL Normal 1.0-3.5 [facility] Comment on above: Performed By: #### 8 2476-02, 1987-06, 3083-02, 16058-8, 40628-5, 31887-9 #### [facility] ([id number]) [address], [address] [place] [address] CELLAVISION LYMPHOCYTES RELATIVE PERCENT BY MANUAL COUNT 42 % Normal [facility] Comment on above: Performed By: #### 8 2476-02, 1987-06, 3083-02, 00218-6, 96663-9, 56573-9 #### [facility] ([id number]) [address] [place] [address] CELLAVISION MONOCYTES ABSOLUTE COUNT (10*3/UL) IN BLOOD BY MANUAL COUNT 0.2 10*3/uL Normal 0.0-0.9 [facility] Comment on above: Performed By: #### 8 2476-, 1987-06, 3083-1, 37251-0, 41302-6, 68505-8 #### [facility] ([id number]) [address], [address] [place] [address] CELLAVISION MONOCYTES RELATIVE PERCENT BY MANUAL COUNT 8 % Normal [facility] Comment on above: Performed By: #### 8 2476-, 1987-06, 3083-, 54670-5, 69854-3, 51676-4 #### [facility] ([id number]) [address], [address] [place] [address] CELLAVISION NEUTROPHILS ABSOLUTE COUNT BY MANUAL COUNT 1.4 10*3/uL Low 1.5-6.6 [facility] Comment on above: Performed By: #### 8 2476-02, 1987-06, 3083-02, 51152-4, 49244-4, 65630-2 #### [facility] ([id number]) [address], [address] [place] [address] CELLAVISION NEUTROPHILS RELATIVE PERCENT BY MANUAL COUNT 47 % Normal [facility] Comment on above: Performed By: #### 8 2476-02, 1987-06, 3083-, 02327-5, 01520-5, 13337-2 #### [facility] ([id number]) [address], [address] [place] [address] CELLAVISION RBC MORPHOLOGY Normal Normal [facility] Comment on above: Performed By: #### 8 2476-02, 1987-06, 3083-02, 82751-7, 69544-9, 26762-0 #### [facility] ([id number]) [address], [address] [place] [address] Erythrocyte distribution width (RBC) [Ratio] 13.8 % Normal 11.5-15 [facility] Comment on above: Performed By: #### 8 2476-02, 1987-06, 3083-02, 40421-0, 98271-8, 34191-0 #### [facility] ([id number]) [address], [address] [place] [address] Hematocrit (Bld) [Volume fraction] 34.3 % Low 35-47 [facility] Comment on above: Performed By: #### 8 2476-02, 1987-06, 3083-02, 86409-8, 41721-9, 69039-4 #### [facility] ([id number]) [address], [address] [place] [address] Hemoglobin (Bld) [Mass/Vol] 10.8 g/dL Low 11.7-15.5 [facility] Comment on above: Performed By: #### 8 2476-02, 1987-06, 3083-02, , 68608-1, 83201-7 #### [facility] ([id number]) [address], [address] [place] [address] MCH (RBC) [Entitic mass] 27.8 pg Normal 27-34 [facility] Comment on above: Performed By: #### 8 2476-02, 1987-06, 3083-02, , 29680-3, 06162-8 #### [facility] ([id number]) [address], [address] [place] [address] MCHC (RBC) [Mass/Vol] 31.5 g/dL Low 32-36 [facility] Comment on above: Performed By: #### 8 2476-02, 1987-06, 3083-02, 62155-8, 81021-0, 89812-1 #### [facility] ([id number]) [address], [address] [place] [address] MCV (RBC) [Entitic vol] 88 fL Normal 80-100 [facility] Comment on above: Performed By: #### 8 2476-02, 1987-06, 3083-1, 18525-8, 23325-3, 61366-9 #### [facility] ([id number]) [address], [address] [place] [address] Platelet mean volume (Bld) [Entitic vol] 13.3 fL High 7-12 [facility] Comment on above: Performed By: #### 8 2476-, 1987-06, 3083-, 06474-0, 09210-5, 28744-6 #### [facility] ([id number]) [address], [address] [place] [address] Platelets (Bld) [#/Vol] 95 10*3/uL Low 150-450 P [facility] Comment on above: Performed By: #### 8 2476-, 1987-06, 3083-, 93898-4, 49573-7, 01272-7 #### [facility] ([id number]) [address], [address] [place] [address] RBC COUNT 3.89 X10E12/L Normal 3.8-5.2 [facility] Comment on above: Performed By: #### 8 2476-02, 1987-06, 3083-, 99384-3, 49823-7, 30791-9 #### [facility] ([id number]) [address], [address] [place] [address] WBC (Bld) [#/Vol] 2.9 10*3/uL Low 4-11 [facility] Comment on above: Performed By: #### 8 2476-, 1987-06, 3083-, 87595-2, 92228-4, 52710-1 #### [facility] ([id number]) [address], [address] [place] [address] COMPREHENSIVE METABOLIC PANE Jose Manuel 07-31-2024 Albumin [Mass/Vol] 3.7 g/dL Normal 3.2-5.3 [facility] Comment on above: Performed By: #### 8 2476-, 1987-06, 3083-, 76256-9, 71980-1, 22518-0 #### [facility] ([id number]) [address], [address] [place] [address] ALP [Catalytic activity/Vol] 102 U/L Normal 39-130 [facility] Comment on above: Performed By: #### 8 2476-, 1987-06, 3083-02, 22372-9, 09332-1, 55032-8 #### [facility] ([id number]) [address], [address] [place] [address] ALT [Catalytic activity/Vol] 20 U/L Normal <=31 [facility] Comment on above: Performed By: #### 8 2476-02, 1987-06, 3083-02, 46216-3, 54556-5, 96342-5 #### [facility] ([id number]) [address], [address] [place] [address] Anion gap [Moles/Vol] 7 mmol/L Normal 5-15 [facility] Comment on above: Performed By: #### 8 2476-02, 1987-06, 3083-02, 30347-2, 40181-6, 03828-8 #### [facility] ([id number]) [address], [address] [place] [address] AST [Catalytic activity/Vol] 21 U/L Normal <=41 [facility] Comment on above: Performed By: #### 8 2476-, 1987-06, 3083-02, 61948-2, 90904-6, 25146-2 #### [facility] ([id number]) [address], [address] [place] [address] Bilirubin [Mass/Vol] 0.7 mg/dL Normal 0.3-1.2 [facility] Comment on above: Performed By: #### 8 2476-02, 1987-06, 3083-, 07316-6, 53534-2, 17082-9 #### [facility] ([id number]) [address], [address] [place] [address] Calcium [Mass/Vol] 8.7 mg/dL Normal 8.5-10.5 [facility] Comment on above: Performed By: #### 8 2476-02, 1987-06, 3083-02, 93069-4, 63792-5, 42474-9 #### [facility] ([id number]) [address], [address] [place] [address] Chloride [Moles/Vol] 111 mmol/L High 98-109 [facility] Comment on above: Performed By: #### 8 2476-02, 1987-06, 3083-02, 35594-2, 94330-9, 32716-7 #### [facility] ([id number]) [address], [address] [place] [address] CO2 [Moles/Vol] 25 mmol/L Normal 22-32 [facility] Comment on above: Performed By: #### 8 2476-02, 1987-06, 3083-02, 62132-4, 73632-3, 35940-1 #### [facility] ([id number]) [address], [address] [place] [address] Creatinine [Mass/Vol] 0.81 mg/dL Normal 0.40-1.00 [facility] Comment on above: Result Comment: METH OD TRACEABLE TO IDMS STANDARD Performed By: #### 8 2476-02, 1987-06, 3083-02, 32285-9, 07462-3, 40856-2 #### [facility] ([id number]) [address] [place] [address] GFR/1.73 sq M.predicted among non-blacks MDRD (S/P/Bld) [Vol rate/Area] 77 mL/min/{1.73_m2} Normal >=60 [facility] Comment on above: Result Comment: Repo rted eGFR is based on the CKD-EPI 2020 equation that does not use a race coefficient. Performed By: #### 8 2476-02, 1987-06, 3083-, 79116-4, 69693-1, 74073-0 #### [facility] ([id number]) [address], [address] [place] [address] Glucose [Mass/Vol] 84 mg/dL Normal 65-99 [facility] Comment on above: Performed By: #### 8 2476-02, 1987-06, 3083-02, 64180-8, 34974-1, 98709-9 #### [facility] ([id number]) [address], [address] [place] [address] Potassium [Moles/Vol] 3.8 mmol/L Normal 3.5-5.0 [facility] Comment on above: Performed By: #### 8 2476-02, 1987-06, 3083-02, 59889-3, 28828-8, 48158-5 #### [facility] ([id number]) [address], [address] [place] [address] Protein [Mass/Vol] 6.0 g/dL Normal 6.0-8.0 [facility] Comment on above: Performed By: #### 8 2476-02, 1987-06, 3083-02, 37027-2, 65593-4, 52514-1 #### [facility] ([id number]) [address], [address] [place] [address] Sodium [Moles/Vol] 143 mmol/L Normal 134-146 [facility] Comment on above: Performed By: #### 8 2476-02, 1987-06, 3083-02, 14654-3, 50748-5, 21297-8 #### [facility] ([id number]) [address], [address] [place] [address] Urea nitrogen [Mass/Vol] 21 mg/dL Normal 5-27 [facility] Comment on above: Performed By: #### 8 2476-, 1987-06, 3083-, 82935-2, 84061-2, 06204-3 #### [facility] ([id number]) [address], [address] [place] [address] IONIZED CALCIUMon 07-31-2024 IONIZED CALCIUM - ICAN 4.7 mg/dL Normal 4.5-5.3 [facility] Comment on above: Performed By: #### 8 2476-, 1987-06, 3083-02, 72242-9, 86736-8, 18650-5 #### [facility] ([id number]) [address], [address] [place] [address] MAGNESIUMon 07-31-2024 Magnesium [Mass/Vol] 2.2 mg/dL Normal 1.8-2.6 [facility] Comment on above: Performed By: #### 8 2476-02, 1987-06, 3083-02, 86095-8, 79828-0, 65682-9 #### [facility] ([id number]) [address] [place] [address] PARATHYROID HORMOME, INTACTo n 07-31-2024 PTH INTACT 126 pg/mL High 12-88 [facility] Comment on above: Performed By: #### 8 2476-02, 1987-06, 3083-02, 24446-7, 42678-9, 14159-9 #### [facility] ([id number]) [address], [address] [place] [address] PHOSPHORUSon 07-31-2024 Phosphate [Mass/Vol] 4.2 mg/dL Normal 2.4-4.9 [facility] Comment on above: Performed By: #### 8 2476-02, 1987-06, 3083-02, 74775-2, 14366-8, 37043-3 #### [facility] ([id number]) [address] [place] [address], [address] [place] [address] VITAMIN D 25 HYDROXYon 07-31 VITAMIN D 25 HYD TOT 67.4 ng/mL Normal 30.0-100.0 [facility] Comment on above: Order Comment: Vitam in D status 25 [place] Vitamin D Deficien cy <20 ng/mLInsufficiency 20-29 ng/mLSufficiency 30-100 ng/mLToxicity >100 ng/mLNOTE: A pediatric reference range has not been established by the information systems architect of this kit. The [place] [employer] recommends a Vitamin D level of = or >20ng/mL in infants and children. Performed By: #### 8 2477-1, 1987-, 3083-1, 17232-6, 73794-2, 74415-1 #### [facility] ([id number]) [facility] [facility], [address] [place] [address] Albumin [Mass/volume] in Ser um or Plasmaon 06-25-2024 Albumin [Mass/Vol] 3.5 g/dL 2.9-4.4 [facility] Basophils Auto (Bld) [#/Vol] on 06-25-2024 Basophils (Bld) [#/Vol] 0.1 10 3/uL 0.0-0.1 [facility] Basophils/100 WBC Auto (Bld) on 06-25-2024 Basophils/100 WBC (Bld) 2.2 % High 0.2-2.0 [facility] Eosinophils/100 WBC Auto (Bl d)on 06-25-2024 Eosinophils/100 WBC (Bld) 7.9 % High 0.9-7.0 [facility] Erythrocyte distribution wid th Auto (RBC) [Ratio]on 06-25-2024 Erythrocyte distribution width (RBC) [Ratio] 13.5 % 11.0-15.0 [facility] Estimated glomerular filtrat ion rate (GFR) non- Americanon 06-25-2024 GFR/1.73 sq M.predicted among non-blacks MDRD (S/P/Bld) [Vol rate/Area] mL/min/{1.73_m2} >=60 mL/min/1.73 m 2 [facility] Globulin Calc (S) [Mass/Vol] on 06-25-2024 Globulin (S) [Mass/Vol] 3.3 g/dL F [facility] Hematocrit Auto (Bld) [Volum e fraction]on 06-25-2024 Hematocrit (Bld) [Volume fraction] 35.8 % Low 36.0-48.0 [facility] Hemoglobin [Mass/volume] in Bloodon 06-25-2024 Hemoglobin (Bld) [Mass/Vol] 11.2 g/dL Low 12.0-16.0 [facility] IgA [Mass/volume] in Serum o r Plasmaon 06-25-2024 IgA [Mass/Vol] 139 mg/dL 64-422 [facility] IgG [Mass/volume] in Serum o r Plasmaon 06-25-2024 IgG [Mass/Vol] 1086 mg/dL 586-1602 [facility] IgM [Mass/volume] in Serum o r Plasmaon 06-25-2024 IgM [Mass/Vol] 109 mg/dL 26-217 [facility] Iron binding capacity [Mass/ volume] in Serum or Plasmaon 06-25-2024 Iron binding capacity [Mass/Vol] 285.0 ug/dL 250.0-450.0 [facility] Iron saturation [Mass Fracti on] in Serum or Plasmaon 06-25-2024 Iron saturation [Mass fraction] 26.3 % [facility] Laboratory - Chemistry and C hemistry - challengeon 06-25-2024 Albumin [Mass/Vol] 3.6 g/dL 3.4-5.0 [facility] ALP [Catalytic activity/Vol] 118 U/L High 46-116 [facility] ALT [Catalytic activity/Vol] 34 U/L 14-59 [facility] AST [Catalytic activity/Vol] 24 U/L 15-37 [facility] Bilirubin [Mass/Vol] 0.6 mg/dL 0.2-1.0 [facility] Calcium [Mass/Vol] 8.4 mg/dL Low 8.5-10.1 [facility] Chloride [Moles/Vol] 107 mmol/L 98-107 [facility] CO2 [Moles/Vol] 24.9 mmol/L 21.0-32.0 [facility] Cobalamin (Vitamin B12) [Mass/Vol] 1183 pg/mL 232-1245 [facility] Comment on above: Performed at: - L [employer] [address] [id number] Director: Tony Reilly PhD, Phone: [phone] Creatinine [Mass/Vol] 0.64 mg/dL 0.55-1.02 [facility] Ferritin [Mass/Vol] 234.0 ng/mL 8.0-252.0 [facility] GFR/1.73 sq M.predicted MDRD (S/P/Bld) [Vol rate/Area] mL/min/{1.73_m2} >=60 mL/min/1.73 m 2 [facility] Glucose [Mass/Vol] 81 mg/dL 74-106 [facility] Iron [Mass/Vol] 75.0 ug/dL 50.0-170.0 [facility] LDH [Catalytic activity/Vol] 156 U/L 81-234 [facility] Potassium [Moles/Vol] 3.6 mmol/L 3.5-5.1 [facility] Protein [Mass/Vol] 6.9 g/dL 6.4-8.2 [facility] Sodium [Moles/Vol] 142 mmol/L 136-145 [facility] Urea nitrogen [Mass/Vol] 20.0 mg/dL High 7.0-18.0 [facility] Urea nitrogen/Creatinine [Mass ratio] 31.3 mg/mg [facility] Laboratory - Hematology and Cell countson 06-25-2024 ESR (Bld) [Velocity] 16 mm/h <=30 [facility] Immature granulocytes/100 WBC (Bld) 0.0 % 0.0-0.5 [facility] Leukocytes [#/volume] correc nicola for nucleated erythrocytes in Blood by Automated counon 06-25-2024 WBC corrected for nucl RBC Auto (Bld) [#/Vol] 3.7 10 3/uL Low 4.0-11.0 [facility] Lymphocytes Auto (Bld) [#/Vo l]on 06-25-2024 Lymphocytes (Bld) [#/Vol] 1.3 10 3/uL 1.2-3.8 [facility] Lymphocytes/100 WBC Auto (Bl d)on 06-25-2024 Lymphocytes/100 WBC (Bld) 36.3 % 20.5-60.0 [facility] MCH Auto (RBC) [Entitic mass ]on 06-25-2024 MCH (RBC) [Entitic mass] 28.9 pg 26.7-34.0 [facility] MCHC Auto (RBC) [Mass/Vol]on 06-25-2024 MCHC (RBC) [Mass/Vol] 31.3 g/dL 29.9-35.2 [facility] MCV Auto (RBC) [Entitic vol] on 06-25-2024 MCV (RBC) [Entitic vol] 92.3 fL 81.0-99.0 F [facility] Monocytes Auto (Bld) [#/Vol] on 06-25-2024 Monocytes (Bld) [#/Vol] 0.4 10 3/uL 0.3-0.8 [facility] Monocytes/100 WBC Auto (Bld) on 06-25-2024 Monocytes/100 WBC (Bld) 9.8 % 1.7-12.0 F [facility] Neutrophils Auto (Bld) [#/Vo l]on 06-25-2024 Neutrophils (Bld) [#/Vol] 1.6 10 3/uL 1.4-6.5 [facility] Neutrophils/100 WBC Auto (Bl d)on 06-25-2024 Neutrophils/100 WBC (Bld) 43.8 % 43.0-75.0 [facility] No Panel Informationon 06-25 C-Reactive Protein, Quantitative <0.50 mg/dL <=0.50 [facility] Eosinophils # (Auto) 0.3 10 3/uL 0.0-0.7 [facility] Immature Granulocyte # (Auto) 0.00 10 3/uL 0.00-0.03 [facility] Protein Electrophoresis M-Darron Not Observed g/dL Not Observed [facility] Protein Electrophoresis Note Comment . [facility] Comment on above: Protein electrophore sis scan will follow via computer,mail, or service consultant delivery.Performed at: [employer] [id number] Director: Tony Reilly PhD, Phone: [phone] Platelet mean volume Auto (B ld) [Entitic vol]on 06-25-2024 Platelet mean volume (Bld) [Entitic vol] 13.9 fL High 9.5-13.5 [facility] Platelets Auto (Bld) [#/Vol] on 06-25-2024 Platelets (Bld) [#/Vol] 115 10 3/uL Low 150-450 [facility] Protein [Mass/volume] in Ser um or Plasmaon 06-25-2024 Protein [Mass/Vol] 6.2 g/dL 6.0-8.5 [facility] RBC Auto (Bld) [#/Vol]on RBC (Bld) [#/Vol] 3.88 10 6/uL Low 4.20-5.40 [facility] Reticulocytes/100 RBC Auto ( Bld)on 06-25-2024 Reticulocytes/100 RBC (Bld) 1.05 % 0.60-3.10 [facility] Serum globulin measurement ( mass/volume)on 06-25-2024 Globulin (S) [Mass/Vol] 2.7 g/dL 2.2-3.9 F [facility] Serum or plasma albumin/glob ulin mass ratioon 06-25-2024 Albumin/Globulin [Mass ratio] 1.1 {ratio} [facility] Albumin/Globulin [Mass ratio] 1.3 {ratio} 0.7-1.7 [facility] Serum or plasma alpha 1 glob ulin measurement by electrophoresis (mass/volume)on 06-25-2024 Alpha 1 globulin Elph [Mass/Vol] 0.2 g/dL 0.0-0.4 [facility] Serum or plasma alpha 2 glob ulin measurement by electrophoresis (mass/volume)on 06-25-2024 Alpha 2 globulin Elph [Mass/Vol] 0.6 g/dL 0.4-1.0 [facility] Serum or plasma anion gap de terminationon 06-25-2024 Anion gap [Moles/Vol] 13.7 mmol/L [facility] Serum or plasma beta globuli n measurement by electrophoresis (mass/volume)on 06-25-2024 Beta globulin Elph [Mass/Vol] 0.8 g/dL 0.7-1.3 [facility] Serum or plasma gamma globul in measurement by electrophoresis (mass/volume)on 06-25-2024 Gamma globulin Elph [Mass/Vol] 1.0 g/dL 0.4-1.8 [facility] Serum or plasma immunoelectr ophoresis interpretationon 06-25-2024 Interpretation IEP [Interp] Comment . [facility] Comment on above: No monoclonality det ected. XR FOOT RT MIN 3 VWSon 06-25 XR FOOT RT MIN 3 VWS XR FOOT RT MIN 3 VW S STUDY: Radiographs of the right foot TECHNIQUE: [...] Scattered osteoarthritic changes. Os cuboid. Calcaneal enthesopathy. 5 Finalized by Christiana Cox MD on 06/25/2024 8:31 PM Normal [facility] MAMM SCREENING BILATERAL W C sprinkler installer 04-15-2024 MAMM SCREENING BILATERAL W CAD MAMM SCREENING BILATERAL W CAD TAYLOR DE JESUS 1950 [id number] EXAM: MAMM SCREENING BILATERAL W CAD, 04/12/2024 [...] AM 1 c MAMM 1 YR Normal [facility] CBC AND AUTO DIFFon 02-19-20 ABSOLUTE BASOPHIL 0.1 X10E9/L Normal 0.0-0.2 [facility] Comment on above: Performed By: #### 8 2476-02, 1987-06, 3083-02, 40754-8, 83561-6, 62324-1 #### [facility] ([id number]) [address] [facility] [facility] [facility] [address] [place] [address] ABSOLUTE NEUTROPHIL 1.6 X10E9/L Normal 1.5-6.6 [facility] Comment on above: Performed By: #### 8 2476-02, 1987-06, 3083-02, 63781-4, 51269-0, 62594-8 #### [facility] ([id number]) [address], [address] [place] [address] Basophils/100 WBC (Bld) 2.5 % Normal [facility] Comment on above: Performed By: #### 8 2476-02, 1987-06, 3083-, 41778-1, 69074-0, 59477-5 #### [facility] ([id number]) [address] [facility] [place] [address] Eosinophils (Bld) [#/Vol] 0.3 10*3/uL Normal 0.0-0.4 [facility] Comment on above: Performed By: #### 8 2476-02, 1987-06, 3083-02, 37411-7, 90672-4, 00367-2 #### [facility] ([id number]) [address], [facility] [address] [place] [address] Eosinophils/100 WBC (Bld) 8.4 % Normal [facility] Comment on above: Performed By: #### 8 2476-02, 1987-06, 3083-02, 31958-4, 83065-6, 83509-4 #### [facility] ([id number]) [address] [address] [place] [address] Erythrocyte distribution width (RBC) [Ratio] 13.2 % Normal 11.5-15.0 [facility] Comment on above: Performed By: #### 8 2476-02, 1987-06, 3083-02, 76023-7, 05859-9, 11857-1 #### [facility] ([id number]) [address] [address] [place] [address] Hematocrit (Bld) [Volume fraction] 35.8 % Normal 35-47 [facility] Comment on above: Performed By: #### 8 2476-02, 1987-06, 3083-02, 17209-0, 04536-1, 21261-3 #### [facility] ([id number]) [address], [facility] [address] [place] [address] Hemoglobin (Bld) [Mass/Vol] 11.4 g/dL Low 11.7-15.5 [facility] Comment on above: Performed By: #### 8 2476-02, 1987-06, 3083-02, 10599-3, 89191-4, 84559-8 #### [facility] ([id number]) [address] [address] [place] [address] Lymphocytes (Bld) [#/Vol] 1.3 10*3/uL Normal 1.0-3.5 [facility] Comment on above: Performed By: #### 8 2476-02, 1987-06, 3083-02, 20612-6, 42596-3, 56134-2 #### [facility] ([id number]) [address], [address] [place] [address] Lymphocytes/100 WBC (Bld) 36.6 % Normal [facility] Comment on above: Performed By: #### 8 2476-02, 1987-06, 3083-02, 07106-5, 76369-6, 76434-7 #### [facility] ([id number]) [address], [address] [place] [address] MCH (RBC) [Entitic mass] 28.8 pg Normal 27-34 [facility] Comment on above: Performed By: #### 8 2476-02, 1987-06, 3083-02, 73608-3, 36688-6, 13260-6 #### [facility] ([id number]) [address], [address] [place] [address] MCHC (RBC) [Mass/Vol] 32.0 g/dL Normal 32-36 [facility] Comment on above: Performed By: #### 8 2476-02, 1987-06, 3083-02, , 20569-3, 57070-6 #### [facility] ([id number]) [address], [address] [place] [address] MCV (RBC) [Entitic vol] 90 fL Normal 80-100 [facility] Comment on above: Performed By: #### 8 2476-02, 1987-06, 3083-02, 52279-8, 31626-6, 10450-9 #### [facility] ([id number]) [address], [address] [place] [address] Monocytes (Bld) [#/Vol] 0.3 10*3/uL Normal 0-0.9 [facility] Comment on above: Performed By: #### 8 2476-02, 1987-06, 3083-02, 85370-5, 66058-8, 68988-6 #### [facility] ([id number]) [address], [address] [place] [address] Monocytes/100 WBC (Bld) 8.0 % Normal [facility] Comment on above: Performed By: #### 8 2476-02, 1987-06, 3083-02, 81462-8, 21082-8, 82593-4 #### [facility] ([id number]) [address], [facility] [address] [place] [address] Neutrophils/100 WBC (Bld) 44.5 % Normal [facility] Comment on above: Performed By: #### 8 2476-02, 1987-06, 3083-02, , 75293-3, 73409-4 #### [facility] ([id number]) [address], [address] [place] [address] Platelet mean volume (Bld) [Entitic vol] 13.7 fL High 7-12 [facility] Comment on above: Performed By: #### 8 2476-02, 1987-06, 3083-02, , 39048-1, 89077-4 #### [facility] ([id number]) [address], [address] [place] [address] Platelets (Bld) [#/Vol] 119 10*3/uL Low 150-450 [facility] Comment on above: Performed By: #### 8 2476-02, 1987-06, 3083-02, 38770-3, 24422-6, 59545-4 #### [facility] ([id number]) [address], [address] [place] [address] RBC COUNT 3.98 X10E12/L Normal 3.80-5.20 [facility] Comment on above: Performed By: #### 8 2476-1, 1987-06, 3083-, 68349-9, 22803-4, 34288-8 #### [facility] ([id number]) [address], [address] [place] [address] WBC (Bld) [#/Vol] 3.5 10*3/uL Low 4.0-11.0 [facility] Comment on above: Performed By: #### 8 2476-, 1987-06, 3083-, 21533-4, 68338-2, 65966-4 #### [facility] ([id number]) [address] [place] [address] COMPREHENSIVE METABOLIC PANE Jose Manuel 02-19-2024 Albumin [Mass/Vol] 3.8 g/dL Normal 3.2-5.3 [facility] Comment on above: Performed By: #### Edy JEFFRIES, 95461-3, CBCA #### [facility] ([id number]) [address], [address] [place] [address] ALP [Catalytic activity/Vol] 102 U/L Normal 39-130 [facility] Comment on above: Performed By: #### Edy JEFFRIES, 68534-1, CBCA #### [facility] ([id number]) [address], [address] [place] [address] ALT [Catalytic activity/Vol] 22 U/L Normal 0-31 [facility] Comment on above: Performed By: #### Edy JEFFRIES, 33684-8, CBCA #### [facility] ([id number]) [address], [address] [place] [address] Anion gap [Moles/Vol] 6 mmol/L Normal 5-15 [facility] Comment on above: Performed By: #### Edy JEFFRIES, 87908-0, CBCA #### [facility] ([id number]) [address], [address] [place] [address] AST [Catalytic activity/Vol] 23 U/L Normal 0-41 [facility] Comment on above: Performed By: #### C MERVIN, 69899-8, CBCA #### [facility] ([id number]) [address], [address] [place] [address] Bilirubin [Mass/Vol] 0.6 mg/dL Normal 0.3-1.2 [facility] Comment on above: Performed By: #### Edy JEFFRIES, 04273-8, CBCA #### [facility] ([id number]) [address], [address] [place] [address] Calcium [Mass/Vol] 8.3 mg/dL Low 8.5-10.5 [facility] Comment on above: Performed By: #### Edy JEFFRIES, 57119-8, CBCA #### [facility] ([id number]) [address], [address] [place] [address] Chloride [Moles/Vol] 110 mmol/L High 98-109 [facility] Comment on above: Performed By: #### Edy JEFFRIES, 44656-8, CBCA #### [facility] ([id number]) [address], [address] [place] [address] CO2 [Moles/Vol] 25 mmol/L Normal 22-32 [facility] Comment on above: Performed By: #### Edy JEFFRIES, 74618-3, CBCA #### [facility] ([id number]) [address], [address] [place] [address] Creatinine [Mass/Vol] 0.68 mg/dL Normal 0.40-1.00 [facility] Comment on above: Result Comment: METH OD TRACEABLE TO IDMS STANDARD Performed By: #### Edy JEFFRIES, 52968-1, CBCA #### [facility] ([id number]) [address], [address] [place] [address] eGFR (CKD-EPI) NON-RACE DEPENDENT >90 Normal >59 [facility] Comment on above: Result Comment: Reported eGFR is based on the CKD-EPI 2020 equation that does not use a race coefficient. Performed By: #### C MERVIN, 68361-8, CBCA #### [facility] ([id number]) [address], [facility] [address] [place] [address] Glucose [Mass/Vol] 83 mg/dL Normal 65-99 [facility] Comment on above: Performed By: #### Edy JEFFRIES, 51303-1, CBCA #### [facility] ([id number]) [address] [address] [place] [address] Potassium [Moles/Vol] 4.2 mmol/L Normal 3.5-5.0 [facility] Comment on above: Performed By: #### Edy JEFFRIES, 31193-6, CBCA #### [facility] ([id number]) [address] [address] [place] [address] Protein [Mass/Vol] 6.1 g/dL Normal 6.0-8.0 [facility] Comment on above: Performed By: #### Edy JEFFRIES, 10100-7, CBCA #### [facility] ([id number]) [address] [address] [place] [address] Sodium [Moles/Vol] 141 mmol/L Normal 134-146 [facility] Comment on above: Performed By: #### Edy JEFFRIES, 05289-3, CBCA #### [facility] ([id number]) [address] [address] [place] [address] Urea nitrogen [Mass/Vol] 23 mg/dL Normal 5-27 [facility] Comment on above: Performed By: #### Edy JEFFRIES, 97965-8, CBCA #### [facility] ([id number]) [address] [address] [place] [address] Lipid 1996 panelon 02-18- 4 Cholesterol [Mass/Vol] 93 mg/dL Low 150-200 [facility] Comment on above: Performed By: #### Edy JEFFRIES, 76126-3, CBCA #### [facility] ([id number]) [address] [place] [address] Cholesterol in HDL [Mass/Vol] 37 mg/dL Low >39 [facility] Comment on above: Result Comment: HDL <40 mg/dL - High Risk HDL > or = 40mg/dL- Desirable HDL >60 mg/dL - Negative Risk Performed By: #### Edy JEFFRIES, 88497-0, CBCA #### [facility] ([id number]) [address] [place] [address] Cholesterol in LDL [Mass/Vol] 44 mg/dL Normal <130 [facility] Comment on above: Result Comment: LDL <100 mg/dL - Desirable LDL >160 mg/dL - High Risk Performed By: #### Edy JEFFRIES, 34267-2, CBCA #### [facility] ([id number]) [address] [place] [address] Cholesterol in VLDL [Mass/Vol] 12 mg/dL Normal 0-30 [facility] Comment on above: Performed By: #### Edy JEFFRIES, 74219-6, CBCA #### [facility] ([id number]) [address] [place] [address] CHOLESTEROL:HDL 2.5 Normal 1.0-5.0 [facility] Comment on above: Performed By: #### Edy JEFFRIES, 11298-7, CBCA #### [facility] ([id number]) [address] [place] [address] Triglyceride [Mass/Vol] 61 mg/dL Normal 27-150 P [facility] Comment on above: Performed By: #### C MERVIN, 90575-1, CBCA #### [facility] ([id number]) [address] [place] [address] XR Foot - right 3 [facility] [...] in calcaneal pitch, navicular cuneiform fault present. [facility] Radiology Study observation (narrative) [facility] Basophils Auto (Bld) [#/Vol] on 12-19-2023 Basophils (Bld) [#/Vol] 0.1 10 3/uL 0.0-0.1 [facility] Basophils (Bld) [#/Vol] Automated basoph il count 0.0-0.1 [facility] Basophils/100 WBC Auto (Bld) on 12-19-2023 Basophils/100 WBC (Bld) 1.5 % 0.2-2.0 [facility] Basophils/100 WBC (Bld) Automated basophil % 0. 2-2.0 [facility] Eosinophils/100 WBC Auto (Bl d)on 12-19-2023 Eosinophils/100 WBC (Bld) 7.3 % High 0.9-7.0 [facility] Eosinophils/100 WBC (Bld) Automated eosinophil % High 0.9-7.0 [facility] Erythrocyte distribution wid th Auto (RBC) [Ratio]on 12-19-2023 Erythrocyte distribution width (RBC) [Ratio] 13.5 % 11.0-15.0 [facility] Erythrocyte distribution width (RBC) [Ratio] Erythrocyte distribution width [Ratio] by Automated count 11.0-15.0 [facility] Estimated glomerular filtrat ion rate (GFR) non- Americanon 12-19-2023 GFR/1.73 sq M.predicted among non-blacks MDRD (S/P/Bld) [Vol rate/Area] mL/min/{1.73_m2} >=60 mL/min/1.73 m 2 [facility] GFR/1.73 sq M.predicted among non-blacks MDRD (S/P/Bld) [Vol rate/Area] Estimated glomerular filtration rate (GFR) non- >=60 mL/min/1.73 m 2 [facility] Globulin Calc (S) [Mass/Vol] on 12-19-2023 Globulin (S) [Mass/Vol] 3.1 g/dL [facility] Globulin (S) [Mass/Vol] Serum globulin measurement by calculation (mass/volume) [facility] Hematocrit Auto (Bld) [Volum e fraction]on 12-19-2023 Hematocrit (Bld) [Volume fraction] 35.9 % Low 36.0-48.0 [facility] Hematocrit (Bld) [Volume fraction] Hematocrit [Volume Fraction] of Blood by Automated count Low 36.0-48.0 [facility] Hemoglobin [Mass/volume] in Bloodon 12-19-2023 Hemoglobin (Bld) [Mass/Vol] 11.0 g/dL Low 12.0-16.0 [facility] Hemoglobin (Bld) [Mass/Vol] Hemoglobin [Mass/volume] in Blood Low 12.0-16.0 [facility] Iron binding capacity [Mass/ volume] in Serum or Plasmaon 12-19-2023 Iron binding capacity [Mass/Vol] 259.0 ug/dL 250.0-450.0 [facility] Iron binding capacity [Mass/Vol] Iron binding capacity [Mass/volume] in Serum or Plasma 250.0-450.0 [facility] Iron saturation [Mass Fracti on] in Serum or Plasmaon 12-19-2023 Iron saturation [Mass fraction] 35.1 % [facility] Iron saturation [Mass fraction] Iron saturation [Mass Fraction] in Serum or Plasma [facility] Jose Manuel 12-19-2023 L Specimen: [id number] Received: 12/20/23 Status: OMAIRA James Num: [id number] Spec Type: Impression Subm Dr: Nancy Jarrett MD Tissues: PATHPER Procedures: PATHREVIEW Age/ Patient Sex Location Account Attending Physician Taylor De Jesus 73/F LABE[place] [id number] Nancy Jarrett MD SPEC NUM: [id number] RECD: 12/20/23 STATUS: OMAIRA JAMES NUM: [id number] CLAIRE: 12/19/[address]: Nancy Jarrett MD ENTERED: 12/20/[address]: Shmuel Lorenzo SPEC TYPE: Impression DEPT: ANGEL Jacob ENTERED BY: [id number] RECV BY: [id number] ORDERED: PATHREVIEW ORDERED: PATHREVIEW Pathologist Review Peripheral blood smear evaluation: - Pancytopenia with mild leukocytopenia, mild normocytic normochromic anemia and mild thrombocytopenia. Recommend clinical correlation, further studies if clinically indicated. CPT: 84113 Nestor Paz MD 12/20/23 ---- ---- Specimen: [id number] Received: 12/20/23 Status: OMAIRA James Num: [id number] Spec Type: Impression Subm Dr: Nancy Jarrett MD Tissues: PATHPER Procedures: PATHREVIEW ---- Patient: Taylor De Jesus [id number] (Continued) ---- Signed (signature on file) Nestor Paz MD 12/20/[address] [facility] Laboratory - Chemistry and C hemistry - challengeon 12-19-2023 Albumin [Mass/Vol] 3.3 g/dL Low 3.4-5.0 [facility] ALP [Catalytic activity/Vol] 123 U/L High 46-116 [facility] ALT [Catalytic activity/Vol] 28 U/L 14-59 [facility] AST [Catalytic activity/Vol] 22 U/L 15-37 [facility] Bilirubin [Mass/Vol] 0.6 mg/dL 0.2-1.0 [facility] Calcium [Mass/Vol] 8.1 mg/dL Low 8.5-10.1 [facility] Chloride [Moles/Vol] 109 mmol/L High 98-107 [facility] CO2 [Moles/Vol] 25.7 mmol/L 21.0-32.0 [facility] Creatinine [Mass/Vol] 0.81 mg/dL 0.55-1.02 [facility] Ferritin [Mass/Vol] 211.0 ng/mL 8.0-252.0 [facility] GFR/1.73 sq M.predicted MDRD (S/P/Bld) [Vol rate/Area] mL/min/{1.73_m2} >=60 mL/min/1.73 m 2 [facility] Glucose [Mass/Vol] 83 mg/dL 74-106 [facility] Iron [Mass/Vol] 91.0 ug/dL 50.0-170.0 [facility] LDH [Catalytic activity/Vol] 142 U/L 81-234 [facility] Potassium [Moles/Vol] 4.3 mmol/L 3.5-5.1 [facility] Protein [Mass/Vol] 6.4 g/dL 6.4-8.2 [facility] Sodium [Moles/Vol] 144 mmol/L 136-145 [facility] Urea nitrogen [Mass/Vol] 14.0 mg/dL 7.0-18.0 [facility] Urea nitrogen/Creatinine [Mass ratio] 17.3 mg/mg [facility] Laboratory - Hematology and Cell countson 12-19-2023 Immature granulocytes/100 WBC (Bld) 0.0 % 0.0-0.5 [facility] Leukocytes [#/volume] correc nicola for nucleated erythrocytes in Blood by Automated counon 12-19-2023 WBC corrected for nucl RBC Auto (Bld) [#/Vol] 3.4 10 3/uL Low 4.0-11.0 [facility] WBC corrected for nucl RBC Auto (Bld) [#/Vol] Leukocytes [#/volume] corrected for nucleated erythrocytes in Blood by Automated coun Low 4.0-11.0 [facility] Lymphocytes Auto (Bld) [#/Vo l]on 12-19-2023 Lymphocytes (Bld) [#/Vol] 1.3 10 3/uL 1.2-3.8 [facility] Lymphocytes (Bld) [#/Vol] Lymphocytes [#/volume] in Blood by Automated count 1.2-3.8 [facility] Lymphocytes/100 WBC Auto (Bl d)on 12-19-2023 Lymphocytes/100 WBC (Bld) 38.7 % 20.5-60.0 [facility] Lymphocytes/100 WBC (Bld) Lymphocytes/100 leukocytes in Blood by Automated count 20.5-60.0 [facility] MCH Auto (RBC) [Entitic mass ]on 12-19-2023 MCH (RBC) [Entitic mass] 28.6 pg 26.7-34.0 [facility] MCH (RBC) [Entitic mass] MCH [Entitic ma ss] by Automated count 26.7-34.0 [facility] MCHC Auto (RBC) [Mass/Vol]on 12-19-2023 MCHC (RBC) [Mass/Vol] 30.6 g/dL 29.9-35.2 [facility] MCHC (RBC) [Mass/Vol] MCHC [Mass/volume] by Automated count 29.9-35.2 [facility] MCV Auto (RBC) [Entitic vol] on 12-19-2023 MCV (RBC) [Entitic vol] 93.5 fL 81.0-99.0 [facility] MCV (RBC) [Entitic vol] MCV [Entitic vol ume] by Automated count 81.0-99.0 [facility] Monocytes Auto (Bld) [#/Vol] on 12-19-2023 Monocytes (Bld) [#/Vol] 0.3 10 3/uL 0.3-0.8 [facility] Monocytes (Bld) [#/Vol] Automated blood monocyte count 0.3-0.8 [facility] Monocytes/100 WBC Auto (Bld) on 12-19-2023 Monocytes/100 WBC (Bld) 9.1 % 1.7-12.0 [facility] Monocytes/100 WBC (Bld) Automated monocyte % 1. 7-12.0 [facility] Neutrophils Auto (Bld) [#/Vo l]on 12-19-2023 Neutrophils (Bld) [#/Vol] 1.5 10 3/uL 1.4-6.5 [facility] Neutrophils (Bld) [#/Vol] Neutrophils [#/volume] in Blood by Automated count 1.4-6.5 [facility] Neutrophils/100 WBC Auto (Bl d)on 12-19-2023 Neutrophils/100 WBC (Bld) 43.4 % 43.0-75.0 [facility] Neutrophils/100 WBC (Bld) Automated neutrophil % 43.0-75.0 [facility] No Panel Informationon 12-18 Add Manual Differential See comment [facility] Comment on above: SEE SCANNED REPORT Eosinophils # (Auto) 0.3 10 3/uL 0.0-0.7 [facility] Immature Granulocyte # (Auto) 0.00 10 3/uL 0.00-0.03 [facility] Platelet mean volume Auto (B ld) [Entitic vol]on 12-19-2023 Platelet mean volume (Bld) [Entitic vol] 13.8 fL High 9.5-13.5 [facility] Platelet mean volume (Bld) [Entitic vol] Platelet mean volume [Entitic volume] in Blood by Automated count High 9.5-13.5 [facility] Platelets Auto (Bld) [#/Vol] on 12-19-2023 Platelets (Bld) [#/Vol] 117 10 3/uL Low 150-450 [facility] Platelets (Bld) [#/Vol] Platelets [#/vol ume] in Blood by Automated count Low 150-450 [facility] RBC Auto (Bld) [#/Vol]on RBC (Bld) [#/Vol] 3.84 10 6/uL Low 4.20-5.40 [facility] RBC (Bld) [#/Vol] Erythrocytes [#/volume] in Blood by Automated count Low 4.20-5.40 [facility] Reticulocytes/100 RBC Auto ( Bld)on 12-19-2023 Reticulocytes/100 RBC (Bld) 1.44 % 0.60-3.10 [facility] Reticulocytes/100 RBC (Bld) Reticulocyte % auto 0.60-3.10 [facility] Serum or plasma albumin/glob ulin mass ratioon 12-19-2023 Albumin/Globulin [Mass ratio] 1.1 {ratio} [facility] Albumin/Globulin [Mass ratio] Serum or plasma albumin/globulin mass ratio [facility] Serum or plasma anion gap de terminationon 12-19-2023 Anion gap [Moles/Vol] 13.6 mmol/L [facility] Anion gap [Moles/Vol] Serum or plasma an ion gap determination [facility] Serum or plasma erythropoiet in (EPO) measurement (units/volume)on 12-19-2023 Erythropoietin (EPO) Qn Serum or plasma erythropoietin (EPO) measurement (units/volume) 2.6-18.5 [facility] Comment on above: [employer] el DxI 800 Immunoassay SystemValues obtained with different assay methods or kits cannotbe used interchangeably. Results cannot be interpreted asabsolute evidence of the presence or absence of malignantdisease.Performed at: [facility] [id number] Director: Tony Reilly PhD, Phone: [phone] C REACTIVE PROTEINon 024 CRP [Mass/Vol] mg/L Normal 0.000-0.744 [facility] Comment on above: Performed By: #### 8 247-, 1987-06, 308-1, 57021-8, 56736-4, 56567-8 #### [facility] ([id number]) [address] [place] [address] ESR Photometric method (Bld) [Velocity]on 12-11-2023 ESR, ERYTHROCYTE SEDIMENTATION RATE 7 mm/h Normal 0-30 [facility] Comment on above: Performed By: #### 8 247-, 1987-06, 3083-1, 03813-4, 34119-4, 13659-3 #### [facility] ([id number]) [address] [place] [address] MR FOOT RT WO CONTon 024 MR [...] Matt MD on 12/11/2023 2:11 PM Normal [facility] Nuclear Ab IA Ql (S)on 12-10 NORM Screen w/reflex Negative Normal NEG [facility] Comment on above: Result Comment: Testing performed using multiplex flow immunoassay. Eleven different antigens associated with systemic autoimmune diseases (dsDNA,Sm,Sm/EDI CONSULTANT,EDI CONSULTANT,Chromatin, SSA,SSB,Cyndie-1,Scl70,Ribo P,Centromere B) are included in this screening test. Performed By: #### 8 2477-, 1987-06, 3083-, 49835-5, 33948-4, 87441-8 #### [facility] ([id number]) [address], [address] [place] [address] Rheumatoid factor Nephelomet ry Qn (S)on 12-11-2023 RHEUMATOID FACTOR <10 Normal <20 [facility] Comment on above: Performed By: #### 8 2476-02, 1987-06, 3083-02, 92686-5, 41030-9, 21541-7 #### [facility] ([id number]) [address] [place] [address] URIC ACIDon 12-11-2023 Urate [Mass/Vol] 4.7 mg/dL Normal 2.6-7.[address] [facility] Comment on above: Performed By: #### 8 2476-02, 1987-06, 3083-02, 94689-7, 15997-5, 94008-9 #### [facility] ([id number]) [address] [place] [address] XR FOOT RT MIN 3 VWSon 12-10 XR FOOT RT MIN 3 VWS XR FOOT RT MIN 3 VW S *ADDENDUM*Images are further reviewed. Further reviewed of the images demonstrates faint lucency on the distal aspect of the proximal phalanx of the right great toe. Appearance is suggestive of nondisplaced fracture. This nondisplaced fracture is visualized on MRI examination of the right foot of 12/11/2023. Finalized by Govind Peck MD on 12/11/2023 3:53 PM Normal [facility] CT guided bone marrow bx/asp iron 07-05-2023 CT guided bone marrow bx/aspir [facility] [place] [address] [place] [address] CT Scan Report Signed Patient: Taylor De Jesus MR#: [id number] : 1950 Acct:[id number] Age/Sex: 72 / F ADM Date: 07/05/23 Loc: CT Room: Type: [facility] Attending Dr: Nancy Jarrett MD Copies to: [...] local anesthesia. Utilizing CT guidance, an 11-gauge OnControl biopsy needle was advanced into the right [...] Ortiz Jr., D.O.07/05/2023 3:00 PM Dictation Location: [place] [address] Transcribed By: [facility] 07/05/23 1500 Dictated By: Nikolay Ortiz Jr, DO 07/05/23 1459 Signed By: 07/05/[address] [facility] Coagulation Profileon 2023 aPTT Coag (Bld) [Time] 37.8 s High 25.1-36.[address] [facility] Comment on above: Result Comment: A he matocrit value greater than 55% may lead to inaccurate results in coagulation testing. Patients having hematocrit values >55% require a special collection tube for coagulation studies. Please contact the laboratory at [phone] for redraw instructions. PERFORMED BY: [place] [address] PATHOLOGIST STORY EDITOR RONALD WAYNE M.D. Performed By: #### P P, CBC #### [address] INR Coag (PPP) [Relative time] 1.1 {INR} Normal [facility] Comment on above: Result [...] Performed By: #### P P, CBC #### [address] PT Coag (PPP) [Time] 12.8 s Normal 9.0-12.[address] [facility] Comment on above: Result Comment: A he matocrit value greater than 55% may lead to inaccurate results in coagulation testing. Patients having hematocrit values >55% require a special collection tube for coagulation studies. Please contact the laboratory at [phone] for redraw instructions. Performed By: #### P P, CBC #### [address] Complete Blood Count Auto Di ffon 07-05-2023 Basophils (Bld) [#/Vol] 0.1 10*3/uL Normal 0.0-0.[address] [facility] Comment on above: Result Comment: PERF ORMED BY: [place] [address] PATHOLOGIST STORY EDITOR RONALD WAYNE M.D. Performed By: #### P P, CBC #### [address] Basophils/100 WBC (Bld) 1.5 % Normal . T [facility] Comment on above: Performed By: #### P P, CBC #### [address] Eosinophils (Bld) [#/Vol] 0.3 10*3/uL Normal 0.0-0.[address] [facility] Comment on above: Performed By: #### P P, CBC #### [address] Eosinophils/100 WBC (Bld) 7.3 % Normal . [facility] Comment on above: Performed By: #### P P, CBC #### [address] Erythrocyte distribution width (RBC) [Ratio] 13.2 % Normal 11.9-15.[address] [facility] Comment on above: Performed By: #### P P, CBC #### [address] Hematocrit (Bld) [Volume fraction] 34.2 % Normal 34.0-46.[address] [facility] Comment on above: Performed By: #### P P, CBC #### [address] Hemoglobin (Bld) [Mass/Vol] 11.0 g/dL Low 11.8-15.[address] [facility] Comment on above: Performed By: #### P P, CBC #### [address] Lymphocytes (Bld) [#/Vol] 1.4 10*3/uL Normal 1.00-4.[address] [facility] Comment on above: Performed By: #### P P, CBC #### [address] Lymphocytes/100 WBC (Bld) 36.0 % Normal . [facility] Comment on above: Performed By: #### P P, CBC #### [address] MCH (RBC) [Entitic mass] 28.6 pg Normal 24.7-34.[address] [facility] Comment on above: Performed By: #### P P, CBC #### [address] MCV (RBC) [Entitic vol] 89.2 fL Normal 80-100 [facility] Comment on above: Performed By: #### P P, CBC #### [address] Mean Corpuscular HGB Conc 32.1 g/dL Normal 32.0-35.[address] [facility] Comment on above: Performed By: #### P P, CBC #### [address] Monocytes (Bld) [#/Vol] 0.4 10*3/uL Normal 0.0-0.[address] [facility] Comment on above: Performed By: #### P P, CBC #### [address] Monocytes/100 WBC (Bld) 10.2 % Normal . [facility] Comment on above: Performed By: #### P P, CBC #### [address] Neutrophils (Bld) [#/Vol] 1.7 10*3/uL Low 1.8-7.[address] [facility] Comment on above: Performed By: #### P P, CBC #### [address] Neutrophils/100 WBC (Bld) 45.0 % Normal . [facility] Comment on above: Performed By: #### P P, CBC #### [place] [address] [place] NRBC% 0.1 /100{WBC} Normal 0-0.[address] [facility] Comment on above: Performed By: #### P P, CBC #### [address] Platelet mean volume (Bld) [Entitic vol] 11.8 fL High 6.3-10.[address] [facility] Comment on above: Performed By: #### P P, CBC #### [address] Platelets (Bld) [#/Vol] 100 10*3/uL Low 150-[address] [facility] Comment on above: Performed By: #### P P, CBC #### [address] RBC (Bld) [#/Vol] 3.83 10*6/uL Normal 3.60-5.[address] [facility] Comment on above: Performed By: #### P P, CBC #### [address] WBC (Bld) [#/Vol] 3.8 10*3/uL Normal 3.8-11.[address] [facility] Comment on above: Performed By: #### P P, CBC #### [address] Jose Manuel 07-05-2023 L Specimen: [id number] Received: 07/05/23-1303 [facility]: [id number] Spec Type: Bone Marro Subm Dr: Nikolay Ortiz Jr, DO Tissues: A Bone Marrow Aspirate (Clot) (RT ILIAC CREST) B Bone Marrow Biopsy/Core (RT ILIAC CREST) Procedures: Peripheral Smr, Iron/7, HE/8, Gross/Micro L4/2, Bm Smear/2, AE1-AE3/3, CD138/3, CD20/3, CD3/3, CD34/3, Decalcification, Bone Marrow TP, GIEMSA STN/6, SMEARS/2 Age/ Patient Sex Location Account Attending Physician Tyalor De Jesus 72/F CT [id number] Nancy Jarrett MD SPEC NUM: [id number] RECD: 07/05/23 STATUS: OMAIRA JAMES NUM: [id number] CLAIRE: 07/05/23 [facility] DR: Nikolay Ortiz Jr, DO ENTERED: 07/05/[address]: SPEC TYPE: Bone Marro DEPT: BM [...] and follow-up are suggested. CBC And Differential ---- Specimen: [id number] Received: 07/05/23 Status: OMAIRA James Num: [id number] Spec Type: Bone Marro Kishore Dr: Nikolay Ortiz, , DO Tissues: A Bone Marrow Aspirate (Clot) (RT ILIAC CREST) B Bone Marrow Biopsy/Core (RT ILIAC CREST) Procedures: Peripheral Smr, Iron/7, HE/8, Gross/Micro L4/2, Bm Smear/2, AE1-AE3/3, CD138/3, CD20/3, CD3/3, CD34/3, Decalcification, Bone Marrow TP, GIEMSA STN/6, SMEARS/2 ---- Patient: Taylor De Jesus [id number] (Continued) ---- Specimen: [id number] Received: 07/05/23 (Continued) Pathological Diagnosis (Continued) Signed (signature on file) Taco Garza MD 07/12/23 1531 ---- Specimen: [id number] Received: 07/05/23 Status: OMAIRA James Num: [id number] Spec Type: Bone Cher Novak Dr: Nikolay Ortiz Jr, DO Tissues: A Bone Marrow Aspirate (Clot) (RT ILIAC CREST) B Bone Marrow Biopsy/Core (RT ILIAC CREST) Procedures: Peripheral Smr, Iron/7, HE/8, Gross/Micro L4/2, Bm Smear/2, AE1-AE3/3, CD138/3, CD20/3, CD3/3, CD34/3, Decalcification, Bone Marrow TP, GIEMSA STN/6, SMEARS/2 ---- Patient: Taylor De Jesus [id number] (Continued) ---- Specimen: [id number] Received: 07/05/23-1303 (Continued) Pathological Diagnosis (Continued) Erythrocytes: Mild normocytic [...] B1. (more content not included)... Normal [facility] Basophils Auto (Bld) [#/Vol] on 06-13-2023 Basophils (Bld) [#/Vol] 0.1 10 3/uL 0.0-0.1 [facility] Basophils/100 WBC Auto (Bld) on 06-13-2023 Basophils/100 WBC (Bld) 1.5 % 0.2-2.0 [facility] Eosinophils/100 WBC Auto (Bl d)on 06-13-2023 Eosinophils/100 WBC (Bld) 7.8 % 0.9-7.0 [facility] Erythrocyte distribution wid th Auto (RBC) [Ratio]on 06-13-2023 Erythrocyte distribution width (RBC) [Ratio] 12.9 % 11.0-15.0 [facility] Hematocrit Auto (Bld) [Volum e fraction]on 06-13-2023 Hematocrit (Bld) [Volume fraction] 35.5 % 36.0-48.0 [facility] Hemoglobin [Mass/volume] in Bloodon 06-13-2023 Hemoglobin (Bld) [Mass/Vol] 10.7 g/dL 12.0-16.0 [facility] Iron binding capacity [Mass/ volume] in Serum or Plasmaon 06-13-2023 Iron binding capacity [Mass/Vol] 261.0 ug/dL 250.0-450.0 [facility] Iron saturation [Mass Fracti on] in Serum or Plasmaon 06-13-2023 Iron saturation [Mass fraction] 30.7 % [facility] Jose Manuel 06-13-2023 L Specimen: [id number] Received: 06/13/23 Status: OMAIRA James Num: [id number] Spec Type: Impression Subm Dr: Nancy Jarrett MD Tissues: PATHPER Procedures: PATHREVIEW Age/ Patient Sex Location Account Attending Physician OrlandokalenTaylor 72/F [place] [id number] Nancy Jarrett MD SPEC NUM: [id number] RECD: 06/13/23 STATUS: OMAIRA ROSARIOMeghan NUM: [id number] CLAIRE: 06/13/[address]: Nancy Jarrett MD ENTERED: 06/13/23 [facility] DR: Shmuel Lorenzo SPEC TYPE: Impression DEPT: ANGEL Jacob ENTERED BY: [id number] RECV BY: [id number] ORDERED: PATHREVIEW ORDERED: PATHREVIEW Pathologist Review Bicytopenia is noted. Bone marrow pathology should be ruled out. [id number] ---- ---- Specimen: [id number] Received: 06/13/23 Status: OMAIRA Jacob Num: [id number] Spec Type: Impression Subm Dr: Nancy Jarrett MD Tissues: PATHPER Procedures: PATHREVIEW ---- Patient: Taylor De Jesus [id number] (Continued) ---- Signed (signature on file) Taco Garza MD 06/14/[address] [facility] Laboratory - Chemistry and C hemistry - challengeon 06-13-2023 Ferritin [Mass/Vol] 206.0 ng/mL 8.0-252.0 [facility] Iron [Mass/Vol] 80.0 ug/dL 50.0-170.0 [facility] Laboratory - Hematology and Cell countson 06-13-2023 Immature granulocytes/100 WBC (Bld) 0.3 % 0.0-0.5 [facility] Leukocytes [#/volume] correc nicola for nucleated erythrocytes in Blood by Automated counon 06-13-2023 WBC corrected for nucl RBC Auto (Bld) [#/Vol] 4.0 10 3/uL 4.0-11.0 [facility] Lymphocytes Auto (Bld) [#/Vo l]on 06-13-2023 Lymphocytes (Bld) [#/Vol] 1.4 10 3/uL 1.2-3.8 [facility] Lymphocytes/100 WBC Auto (Bl d)on 06-13-2023 Lymphocytes/100 WBC (Bld) 35.7 % 20.5-60.0 [facility] MCH Auto (RBC) [Entitic mass ]on 06-13-2023 MCH (RBC) [Entitic mass] 28.4 pg 26.7-34.0 [facility] MCHC Auto (RBC) [Mass/Vol]on 06-13-2023 MCHC (RBC) [Mass/Vol] 30.1 g/dL 29.9-35.2 [facility] MCV Auto (RBC) [Entitic vol] on 06-13-2023 MCV (RBC) [Entitic vol] 94.2 fL 81.0-99.0 [facility] Monocytes Auto (Bld) [#/Vol] on 06-13-2023 Monocytes (Bld) [#/Vol] 0.3 10 3/uL 0.3-0.8 [facility] Monocytes/100 WBC Auto (Bld) on 06-13-2023 Monocytes/100 WBC (Bld) 8.4 % 1.7-12.0 [facility] Neutrophils Auto (Bld) [#/Vo l]on 06-13-2023 Neutrophils (Bld) [#/Vol] 1.8 10 3/uL 1.4-6.5 [facility] Neutrophils/100 WBC Auto (Bl d)on 06-13-2023 Neutrophils/100 WBC (Bld) 46.3 % 43.0-75.0 [facility] No Panel Informationon 06-12 Eosinophils # (Auto) 0.3 10 3/uL 0.0-0.7 [facility] Immature Granulocyte # (Auto) 0.01 10 3/uL 0.00-0.03 [facility] Platelet mean volume Auto (B ld) [Entitic vol]on 06-13-2023 Platelet mean volume (Bld) [Entitic vol] 14.2 fL 9.5-13.5 [facility] Platelets Auto (Bld) [#/Vol] on 06-13-2023 Platelets (Bld) [#/Vol] 111 10 3/uL 150-450 [facility] RBC Auto (Bld) [#/Vol]on RBC (Bld) [#/Vol] 3.77 10 6/uL 4.20-5.40 [facility] Reticulocytes/100 RBC Auto ( Bld)on 06-13-2023 Reticulocytes/100 RBC (Bld) 1.26 % 0.60-3.10 [facility] Basophils Auto (Bld) [#/Vol] on 04-25-2023 Basophils (Bld) [#/Vol] 0.1 10 3/uL 0.0-0.1 [facility] Basophils/100 WBC Auto (Bld) on 04-25-2023 Basophils/100 WBC (Bld) 1.8 % 0.2-2.0 [facility] Eosinophils/100 WBC Auto (Bl d)on 04-25-2023 Eosinophils/100 WBC (Bld) 6.8 % 0.9-7.0 [facility] Erythrocyte distribution wid th Auto (RBC) [Ratio]on 04-25-2023 Erythrocyte distribution width (RBC) [Ratio] 13.3 % 11.0-15.0 [facility] Hematocrit Auto (Bld) [Volum e fraction]on 04-25-2023 Hematocrit (Bld) [Volume fraction] 36.3 % 36.0-48.0 [facility] Hemoglobin [Mass/volume] in Bloodon 04-25-2023 Hemoglobin (Bld) [Mass/Vol] 10.7 g/dL 12.0-16.0 [facility] Jose Manuel 04-25-2023 L Specimen: [id number] Received: 04/25/23 Status: OMAIRA James Num: [id number] Spec Type: Impression Subm Dr: Nancy Jarrett MD Tissues: PATHPER Procedures: PATHREVIEW Age/ Patient Sex Location Account Attending Physician Taylor De Jesus 72/F LABELL [id number] Nancy Jarrett MD SPEC NUM: [id number] RECD: 04/25/23 STATUS: OMAIRA JAMES NUM: [id number] CLAIRE: 04/25/[address]: Nancy Jarrett MD ENTERED: 04/25/[address] [facility] [address]: SPEC TYPE: Impression DEPT: ANGEL Jacob ENTERED BY: [id number] RECV BY: [id number] ORDERED: PATHREVIEW ORDERED: PATHREVIEW Pathologist Review Abnormal [...] correlations are are therefore also suggested CPT: 47435 CBC No results available. ---- ---- Specimen: [id number] Received: 04/25/23 Status: OMAIRA Rosariomeghan Num: [id number] Spec Type: Impression Subm Dr: Nancy Jarrett MD Tissues: PATHPER Procedures: PATHREVIEW ---- Patient: Taylor De Jesus [id number] (Continued) ---- Signed (signature on file) Esther June MD 04/27/232111 Normal [facility] Laboratory - Chemistry and C hemistry - challengeon 04-25-2023 Cobalamin (Vitamin B12) [Mass/Vol] 1143.0 pg/mL 193.0-986.0 [facility] Laboratory - Hematology and Cell countson 04-25-2023 Immature granulocytes/100 WBC (Bld) 0.0 % 0.0-0.5 [facility] Leukocytes [#/volume] correc nicola for nucleated erythrocytes in Blood by Automated counon 04-25-2023 WBC corrected for nucl RBC Auto (Bld) [#/Vol] 3.8 10 3/uL 4.0-11.0 [facility] Lymphocytes Auto (Bld) [#/Vo l]on 04-25-2023 Lymphocytes (Bld) [#/Vol] 1.5 10 3/uL 1.2-3.8 [facility] Lymphocytes/100 WBC Auto (Bl d)on 04-25-2023 Lymphocytes/100 WBC (Bld) 38.7 % 20.5-60.0 [facility] MCH Auto (RBC) [Entitic mass ]on 04-25-2023 MCH (RBC) [Entitic mass] 28.2 pg 26.7-34.0 [facility] MCHC Auto (RBC) [Mass/Vol]on 04-25-2023 MCHC (RBC) [Mass/Vol] 29.5 g/dL 29.9-35.2 [facility] MCV Auto (RBC) [Entitic vol] on 04-25-2023 MCV (RBC) [Entitic vol] 95.5 fL 81.0-99.0 [facility] Monocytes Auto (Bld) [#/Vol] on 04-25-2023 Monocytes (Bld) [#/Vol] 0.3 10 3/uL 0.3-0.8 [facility] Monocytes/100 WBC Auto (Bld) on 04-25-2023 Monocytes/100 WBC (Bld) 8.9 % 1.7-12.0 [facility] Neutrophils Auto (Bld) [#/Vo l]on 04-25-2023 Neutrophils (Bld) [#/Vol] 1.7 10 3/uL 1.4-6.5 [facility] Neutrophils/100 WBC Auto (Bl d)on 04-25-2023 Neutrophils/100 WBC (Bld) 43.8 % 43.0-75.0 [facility] No Panel Informationon 04-24 Add Manual Differential See comment [facility] Comment on above: SEE SCANNED REPORT Eosinophils # (Auto) 0.3 10 3/uL 0.0-0.7 [facility] Hepatitis C Interpretation Comment . [facility] Comment on above: Not infected with HC V unless early or acute infection issuspected (which may be delayed in an immunocompromisedindividual), or other evidence exists to indicate HCVinfection.Performed at: [place] [place] [id number] Director: Tony Reilly PhD, Phone: [phone] Immature Granulocyte # (Auto) 0.00 10 3/uL 0.00-0.03 [facility] Platelet mean volume Auto (B ld) [Entitic vol]on 04-25-2023 Platelet mean volume (Bld) [Entitic vol] 14.3 fL 9.5-13.5 [facility] Platelets Auto (Bld) [#/Vol] on 04-25-2023 Platelets (Bld) [#/Vol] 111 10 3/uL 150-450 [facility] RBC Auto (Bld) [#/Vol]on RBC (Bld) [#/Vol] 3.80 10 6/uL 4.20-5.40 [facility] Reticulocytes/100 RBC Auto ( Bld)on 04-25-2023 Reticulocytes/100 RBC (Bld) 1.37 % 0.60-3.10 [facility] Serum or plasma hepatitis C virus antibody signal/cutoff ratio by immunoassay (relation 04-25-2023 HCV Ab Signal/Cutoff IA [Rel units/Vol] Non-Reactive Non Reactive [facility] Jose Manuel 03-08-2023 L Specimen: [id number] Received: 03/09/23-1012 Status: OMAIRA James Num: [id number] Spec Type: Impression Subm Dr: Nancy Jarrett MD Tissues: PATHPER Procedures: PATHREVIEW Age/ Patient Sex Location Account Attending Physician Taylor De Jesus 72/F LABELL [id number] Nancy Jarrett MD SPEC NUM: [id number] RECD: 03/09/23 STATUS: SOUDelvis REQ NUM: [id number] CLAIRE: 03/08/[address]: Nancy Jarrett MD ENTERED: 03/09/[address] [facility] [address]: Shmuel Lorenzo SPEC TYPE: Impression DEPT: ANGEL Jacob ENTERED BY: [id number] RECV BY: [id number] ORDERED: PATHREVIEW ORDERED: PATHREVIEW Pathologist Review Abnormal [...] and laboratory follow-ups are also suggested CPT: 70587 ---- Specimen: [id number] Received: 03/09/23 Status: SOUDelvis Req Num: [id number] Spec Type: Impression Subm Dr: Nancy Jarrett MD Tissues: PATHPER Procedures: PATHREVIEW ---- Patient: Taylor De Jesus [id number] (Continued) ---- Specimen: [id number] Received: 03/09/23 (Continued) Signed (signature on file) Esther June MD 03/10/23 0827 ---- Specimen: [id number] Received: 03/09/23 Status: OMAIRA James Num: [id number] Spec Type: Impression Subm Dr: Nancy Jarrett MD Tissues: PATHPER Procedures: PATHREVIEW ---- Patient: Taylor De Jesus [id number] (Continued) ---- Specimen: [id number] Received: 03/09/23 (Continued) CBC No results available. ---- ---- Specimen: [id number]- Received: 03/09/23 Status: OMAIRA Rosariomeghan Num: [id number] Spec Type: Impression Subm Dr: Nancy Jarrett MD Tissues: PATHPER Procedures: PATHREVIEW ---- Patient: Taylor De Jesus [id number] (Continued) ---- Signed (signature on file) Chin-Ra June MD 03/10/[address] [facility] Covid-19 PCR (CVDTB)on SARS-CoV-2 (COVID-19) RNA JANKI+probe Ql (Unsp spec) Detected Critically abnormal NOT DETECTED [facility] Comment on above: Result Comment: This test is not yet approved or cleared by the [place] FDA. When there are no FDA-approved or cleared tests available, and other criteria are met, FDA can make tests available under an emergency access mechanism called an Emergency Use Authorization (EUA). The EUA for this test is supported by the [employer] Operator of Health and Human Service's (HHS's) declaration [...] be used). Performed By: #### C [facility] #### [facility] [address] [place] [address] Dr. Malu June Vital Signs Date Time Vital Sign Value Performing Clinician Facility 11-06-2024 09:27-0400 Body height 159.[address] [facility] [employer] Work Phone: [facility] 11-06-2024 09:27-0400 Body mass index (BMI) [Ratio] 21.25 kg/m2 [facility] [employer] Work Phone: [facility] 11-06-2024 09:27-0400 Body [facility] 53.98 kg [facility] 11-06-2024 09:27-0400 Heart rate 83 /min Sara Yinka DO Work Phone: [facility] 11-06-2024 09:27-0400 SaO2% (BldA) [Mass fraction] 99 % Sara Yinka DO Work Phone: [facility] 10-22-2024 13:29-0400 Body temperature 99.4 [degF] Temitope Gutierrez DO Work Phone: [facility] 10-22-2024 13:29-0400 Diastolic blood pressure 64 mm[Hg] Temitope Gutierrez DO Work Phone: [facility] 10-22-2024 13:29-0400 Heart rate 64 /min Temitope Gutierrez DO Work Phone: [facility] 10-22-2024 13:29-0400 SaO2% (BldA) [Mass fraction] 98 % Temitope Gutierrez DO Work Phone: [facility] 10-22-2024 13:29-0400 Systolic blood pressure 101 mm[Hg] Temitope Gutierrez DO Work Phone: [facility] 08-29-2024 08:58-0400 Body height 157.48 cm Temitope Gutierrez DO Work Phone: [facility] 08-29-2024 08:58-0400 Body mass index (BMI) [Ratio] 21 kg/m2 Temitope Gutierrez DO Work Phone: [facility] 08-29-2024 08:58-0400 Body temperature 99.1 [degF] Temitope Gutierrez DO Work Phone: [facility] 08-29-2024 08:58-0400 Body weight 52.16 kg Temitope Gutierrez DO Work Phone: [facility] 08-29-2024 08:58-0400 Diastolic blood pressure 62 mm[Hg] eTmitope Gutierrez DO Work Phone: [facility] 08-29-2024 08:58-0400 Heart rate 62 /min Temitope Gutierrez DO Work Phone: [facility] 08-29-2024 08:58-0400 SaO2% (BldA) [Mass fraction] 99 % Temitope Gutierrez DO Work Phone: [facility] 08-29-2024 08:58-0400 Systolic blood pressure 110 mm[Hg] Temitope Brenda DO Work Phone: [facility] 08-08-2024 09:03-0400 Body height 154.9 cm Mauro Juarez MD Work Phone: [facility] 08-08-2024 09:03-0400 Body mass index (BMI) [Ratio] 21.92 kg/m2 Mauro Juarez MD Work Phone: [facility] 08-08-2024 09:03-0400 Body weight 52.62 kg Mauro Juarez MD Work Phone: [facility] 08-08-2024 09:03-0400 Heart rate 72 /min Mauro Juarez MD Work Phone: [facility] 08-08-2024 09:03-0400 Respiratory rate 16 /min Mauro Juarez MD Work Phone: [facility] 08-08-2024 09:03-0400 SaO2% (BldA) [Mass fraction] 99 % Mauro Juarez MD Work Phone: [facility] 06-27-2024 16:09-0400 Body height 153.7 cm Annie Galindo DPM Work Phone: [facility] 06-27-2024 16:09-0400 Body mass index (BMI) [Ratio] 22.67 kg/m2 Annie Galindo DPM Work Phone: [facility] 06-27-2024 16:09-0400 Body weight 53.52 kg Annie Galindo DPM Work Phone: [facility] 02-29-2024 12:17-0500 Body height 157.48 cm Temitope Gutierrez DO Work Phone: [facility] 02-29-2024 12:17-0500 Body mass index (BMI) [Ratio] 21.5 kg/m2 Temitope Gutierrez DO Work Phone: [facility] 02-29-2024 12:17-0500 Body temperature 97.2 [degF] Temitope Gutierrez DO Work Phone: [facility] 02-29-2024 12:17-0500 Body weight 53.52 kg Temitope Gutierrez DO Work Phone: [facility] 02-29-2024 12:17-0500 Diastolic blood pressure 84 mm[Hg] Temitope Gutierrez DO Work Phone: [facility] 02-29-2024 12:17-0500 Heart rate 55 /min Temitope Gutierrez DO Work Phone: [facility] 02-29-2024 12:17-0500 SaO2% (BldA) [Mass fraction] 95 % Temitope Gutierrez DO Work Phone: [facility] 02-29-2024 12:17-0500 Systolic blood pressure 120 mm[Hg] Temitope Gutierrez DO Work Phone: [facility] 02-06-2024 13:01-0500 Body height 159.4 cm Annie Galindo DPM Work Phone: [facility] 02-06-2024 13:01-0500 Body mass index (BMI) [Ratio] 23.21 kg/m2 Annie Galindo DPM Work Phone: [facility] 02-06-2024 13:01-0500 Body weight 58.97 kg Annie Galindo DPM Work Phone: [facility] 01-16-2024 12:49-0500 Body height 159.4 cm Annie Galindo DPM Work Phone: [facility] 01-16-2024 12:49-0500 Body mass index (BMI) [Ratio] 23.21 kg/m2 Annie Galindo DPM Work Phone: [facility] 01-16-2024 12:49-0500 Body weight 58.97 kg Annie Galindo DPM Work Phone: [facility] 12-15-2023 09:14-0400 Body height 159.4 cm Annie Galindo DPM Work Phone: [facility] 12-15-2023 09:14-0400 Body mass index (BMI) [Ratio] 23.21 kg/m2 Annie De DPM Work Phone: [facility] 12-15-2023 09:14-0400 Body weight 58.97 kg Annie Galindo DPM Work Phone: [facility] 12-07-2023 09:39-0400 Body mass index (BMI) [Ratio] 23.9 kg/m2 [facility] 12-07-2023 09:39-0400 Body temperature 97.6 [degF] [facility] 12-07-2023 09:39-0400 Diastolic blood pressure 68 mm[Hg] [facility] 12-07-2023 09:39-0400 Heart rate 66 /min [facility] 12-07-2023 09:39-0400 SaO2% (BldA) [Mass fraction] 98 % [facility] 12-07-2023 09:39-0400 Systolic blood pressure 118 mm[Hg] [facility] 12-07-2023 08:49-0400 Body height 157.[address] [facility] 12-07-2023 08:49-0400 Body weight 59.[address] [facility] 11-28-2023 10:36-0400 Body height 157.[address] [facility] 11-28-2023 10:36-0400 Body mass index (BMI) [Ratio] 23.9 kg/m2 [facility] 11-28-2023 10:36-0400 Body temperature 97.9 [degF] [facility] 11-28-2023 10:36-0400 Body weight 59.[address] [facility] 11-28-2023 10:36-0400 Diastolic blood pressure 80 mm[Hg] [facility] 11-28-2023 10:36-0400 Heart rate 68 /min [facility] 11-28-2023 10:36-0400 SaO2% (BldA) [Mass fraction] 98 % [facility] 11-28-2023 10:36-0400 Systolic blood pressure 132 mm[Hg] [facility] 11-08-2023 10:42-0400 Body mass index (BMI) [Ratio] 23.21 kg/m2 Sara Yinka DO Work Phone: [facility] 11-08-2023 10:42-0400 Body weight 58.97 kg Sara Yinka DO Work Phone: [facility] 11-08-2023 10:42-0400 Diastolic blood pressure 72 mm[Hg] Sara Yinka DO Work Phone: [facility] 11-08-2023 10:42-0400 Heart rate 64 /min Sara Yinka DO Work Phone: [facility] 11-08-2023 10:42-0400 SaO2% (BldA) [Mass fraction] 98 % Sara Yinka DO Work Phone: [facility] 11-08-2023 10:42-0400 Systolic blood pressure 115 mm[Hg] Sara Yinka DO Work Phone: [facility] 01-31-2023 09:10-0500 Body height 157.48 cm Temitope Gutierrez Other [facility] Other 01-31-2023 09:10-0500 Body mass index (BMI) [Ratio] 25.69 kg/m2 Temitope Gutierrez Other [facility] Other 01-31-2023 09:10-0500 Body temperature 98.4 [degF] Temitope Gutierrez Other [facility] Other 01-31-2023 09:10-0500 Body weight 63.73 kg Temitope Gutierrez Other [facility] Other 01-31-2023 09:10-0500 Diastolic blood pressure 62 mm[Hg] Temitope Gutierrez Other [facility] Other 01-31-2023 09:10-0500 Respiratory rate 18 /min Temitope Gutierrez Other [facility] Other 01-31-2023 09:10-0500 SaO2% (BldA) [Mass fraction] 99 % Temitope Gutierrez Other [facility] Other 01-31-2023 09:10-0500 Systolic blood pressure 118 mm[Hg] Temitope Gutierrez Other [facility] Other 10-05-2022 11:15-0400 Body height 157.48 cm Desmondnicole Elooz Other [facility] Other 10-05-2022 11:15-0400 Body mass index (BMI) [Ratio] 26.52 kg/m2 Desmondnicole Wright Other [facility] Other 10-05-2022 11:15-0400 Body temperature 97 [degF] Bhavesh Wright Other [facility] Other 10-05-2022 11:15-0400 Body weight 65.77 kg Bhavesh Wright Other [facility] Other 10-05-2022 11:15-0400 Diastolic blood pressure 72 mm[Hg] Bhavesh Wright Other [facility] Other 10-05-2022 11:15-0400 Respiratory rate 20 /min Kamal Chaban Other [facility] Other 10-05-2022 11:15-0400 SaO2% (BldA) [Mass fraction] 100 % Bhavesh Chaban Other [facility] Other 10-05-2022 11:15-0400 Systolic blood pressure 134 mm[Hg] Desmondal Chaban Other [facility] Other 04-06-2022 12:15-0500 Body height 157.48 cm Bhavesh Gascaban Other [facility] Other 04-06-2022 12:15-0500 Body mass index (BMI) [Ratio] 2.74 kg/m2 Bhavesh Gascaban Other [facility] Other 04-06-2022 12:15-0500 Body temperature 97.1 [degF] Bhavesh Gascaban Other [facility] Other 04-06-2022 12:15-0500 Body weight 6.8 kg Bhavesh Gascaban Other [facility] Other 04-06-2022 12:15-0500 Diastolic blood pressure 70 mm[Hg] Bhavesh Chaban Other [facility] Other 04-06-2022 12:15-0500 Respiratory rate 20 /min Bhavesh Chaban Other [facility] Other 04-06-2022 12:15-0500 SaO2% (BldA) [Mass fraction] 99 % Bhavesh Gascaban Other [facility] Other 04-06-2022 12:15-0500 Systolic blood pressure 140 mm[Hg] Bhavesh Gascaban Other [facility] Other 09-21-2021 12:45-0400 Body height 157.48 cm Bhavesh Gascaban Other [facility] Other 09-21-2021 12:45-0400 Body mass index (BMI) [Ratio] 28.71 kg/m2 Bhavesh Gascaban Other [facility] Other 09-21-2021 12:45-0400 Body temperature 97.6 [degF] Bhavesh Gascaban Other [facility] Other 09-21-2021 12:45-0400 Body weight 71.22 kg Bhavesh Wright Other [facility] Other 09-21-2021 12:45-0400 Diastolic blood pressure 66 mm[Hg] Bhavesh Gascaban Other [facility] Other 09-21-2021 12:45-0400 Respiratory rate 20 /min Bhavesh Gascaban Other [facility] Other 09-21-2021 12:45-0400 SaO2% (BldA) [Mass fraction] 99 % Bhavesh Gascaban Other [facility] Other 09-21-2021 12:45-0400 Systolic blood pressure 120 mm[Hg] Bhavesh Chaban Other [facility] Other 03-23-2021 12:45-0500 Body height 157.48 cm Bhavesh Gascaban Other [facility] Other 03-23-2021 12:45-0500 Body mass index (BMI) [Ratio] 29.88 kg/m2 Bhavesh Wright Other [facility] Other 03-23-2021 12:45-0500 Body temperature 98 [degF] Bhavesh Wright Other [facility] Other 03-23-2021 12:45-0500 Body weight 74.12 kg Bhavesh Wright Other [facility] Other 03-23-2021 12:45-0500 Diastolic blood pressure 68 mm[Hg] Bhavesh Wright Other [facility] Other 03-23-2021 12:45-0500 Respiratory rate 20 /min Bhavesh Wright Other [facility] Other 03-23-2021 12:45-0500 SaO2% (BldA) [Mass fraction] 100 % Bhavesh Wright Other [facility] Other 03-23-2021 12:45-0500 Systolic blood pressure 140 mm[Hg] Bhavesh Wright Other [facility] Other 02-23-2021 11:10-0500 Body height 157.48 cm Temitope Gutierrez Other [facility] Other Encounters Encounter Date Encounter Type Care Provider Facility Start: 11-06-2024 End: 11-06-2024 [employer] felicita Honeycutt DO Work Phone: [facility] Start: 11-06-2024 End: 11-06-2024 Bamboo felicita Honeycutt DO Work Phone: [facility] Start: 11-06-2024 End: 11-06-2024 Office outpatient visit 15 minutes Sara Honeycutt DO Work Phone: [facility] Comment on above: Chronic obstructive pulmonary disease, unspecified COPD type (HCC) (Primary Dx) Start: 11-06-2024 End: 11-06-2024 ambulatory SARA Ashwin YINKA Not Available Start: 10-22-2024 End: 10-22-2024 ambulatory Temitope Gutierrez DO Work Phone: [facility] Work Phone: Start: 10-22-2024 End: 10-22-2024 Patient encounter procedure Temitope Gutierrez DO -[facility] Work Phone: Start: 09-02-2024 End: 09-03-2024 Refill Temitope Gutierrez MD Work Phone: [facility] Comment on above: Chronic obstructive pulmonary disease, unspecified COPD type (HCC) Start: 08-29-2024 End: 08-29-2024 ambulatory Temitope Gutierrez DO Work Phone: [facility] Work Phone: Start: 08-29-2024 End: 08-29-2024 [facility] encounter [facility] Start: 08-08-2024 End: 08-08-2024 Bamboo flowsheet Mauro Juarez MD Work Phone: [facility] Start: 08-08-2024 End: 08-08-2024 Bamboo flowsheet Mauro Juarez MD Work Phone: [facility] Start: 08-08-2024 End: 08-08-2024 Office outpatient visit 40 minutes Mauro Juarez MD Work Phone: [facility] Comment on above: Hypocalcemia (Primar y Dx); H/O gastric bypass; Vitamin D deficiency; Age-related osteoporosis without current pathological fracture ; Tertiary hyperparathyroidism (HCC) Start: 08-08-2024 End: 08-08-2024 ambulatory MAURO JUAREZ Not Available Start: 07-31-2024 ambulatory TEMITOPE Snow [facility] Start: 06-27-2024 End: 06-27-2024 Office outpatient visit 15 minutes Annie Galindo DPM Work Phone: [facility] Comment on above: Injury of right grea t toe, initial encounter (Primary Dx); Pain in right toe(s) Start: 06-27-2024 End: 06-27-2024 ambulatory ANNIE GALINDO Not Available Start: 06-27-2024 End: 06-27-2024 Bamboo flowsheet Annie Galindo DPM Work Phone: [facility] Start: 06-27-2024 End: 06-27-2024 Bamboo flowsheet Annie Galindo DPM Work Phone: [facility] Start: 06-26-2024 Non-patient / Non-visit Simin Arrington RMA -[facility] [place] Work Phone: Start: 06-25-2024 End: 06-25-2024 Emergency department patient visit TEMITOPE Snow [facility] Start: 06-25-2024 Non-patient / Non-visit Nancy richardson MD -[facility] Work Phone: Start: 05-13-2024 End: 05-13-2024 ambulatory [facility] Work Phone: Start: 05-13-2024 End: 05-13-2024 Patient encounter procedure [facility] [place] Work Phone: Start: 04-26-2024 End: 04-26-2024 ambulatory SARA HONEYCUTT Not Available Start: 04-12-2024 End: 04-12-2024 ambulatory TEMITOPE Snow [facility] Start: 03-14-2024 End: 03-14-2024 Refill Sara Honeycutt DO Work Phone: [facility] Comment on above: Chronic obstructive pulmonary disease, unspecified COPD type (CMS/HCC) Start: 03-11-2024 End: 03-14-2024 Reftree Honeycutt DO Work Phone: [facility] Comment on above: Chronic obstructive pulmonary disease, unspecified COPD type (CMS/HCC) Start: 02-29-2024 End: 02-29-2024 ambulatory Temitope Gutierrez DO Work Phone: [facility] Work Phone: Start: 02-29-2024 End: 02-29-2024 Patient encounter procedure Temitope Gutierrez DO [facility] Phone: [facility] [place] Work Phone: Start: 02-19-2024 End: 02-19-2024 ambulatory TEMITOPE Edy FOYJUANY [facility] Start: 02-06-2024 End: 02-06-2024 Bamboo flowsheet Annie Galindo DPM Work Phone: [facility] Start: 02-06-2024 End: 02-06-2024 Bamboo flowsheet Annie Galindo DPM Work Phone: [facility] Start: 02-06-2024 End: 02-06-2024 Postop follow up visit related to original px Annie Galindo DPM Work Phone: [facility] Comment on above: Closed non-physeal f racture of proximal phalanx of right great toe with routine healing, subsequent encounter (Primary Dx); Injury of right great toe, subsequent encounter; Pain of toe of right foot; Sesamoiditis of right foot Start: 02-06-2024 End: 02-06-2024 ambulatory ANNIE GALINDO Not Available Start: 01-16-2024 End: 01-16-2024 Office outpatient visit 15 minutes Annie Galindo DPM Work Phone: [facility] Comment on above: Closed non-physeal f racture of proximal phalanx of right great toe with routine healing, subsequent encounter (Primary Dx); Injury of right great toe, subsequent encounter; Pain of toe of right foot; Sesamoiditis of right foot Start: 01-16-2024 End: 01-16-2024 ambulatory ANNIE GALINDO Not Available Start: 12-19-2023 Non-patient / Non-visit DO Yohan Foyjuany Work Phone: [facility] Work Phone: Start: 12-19-2023 End: 12-19-2023 ambulatory DO Temitope Gutierrez Work Phone: [facility] Work Phone: Start: 12-19-2023 End: 12-19-2023 Departed Referred DO Temitope Gutierrez Work Phone: [facility] [place] [facility] Start: 12-15-2023 End: 12-15-2023 Bamboo flowsheet Annie Galindo DPM Work Phone: [facility] Start: 12-15-2023 End: 12-15-2023 Bamboo flowsheet Annie Galindo DPM Work Phone: [facility] Start: 12-15-2023 End: 12-15-2023 Office outpatient new 30 minutes Annie Galindo DPM Work Phone: [facility] Comment on above: Closed non-physeal f racture of proximal phalanx of right great toe, initial encounter (Primary Dx); Injury of right great toe, initial encounter; Pain of toe of right foot Start: 12-15-2023 End: 12-15-2023 ambulatory ANNIE GALINDO Not Available Start: 12-11-2023 End: 12-11-2023 ambulatory TEMITOPE GUTIERREZ [facility] Start: 12-07-2023 End: 12-07-2023 ambulatory [facility] Work Phone: Start: 12-07-2023 End: 12-07-2023 Patient encounter procedure [facility] Work Phone: Start: 12-02-2023 End: 12-02-2023 ambulatory TEMITOPE GUTIERREZ [facility] Start: 11-28-2023 End: 11-28-2023 ambulatory [facility] Work Phone: Start: 11-28-2023 End: 11-28-2023 Patient encounter procedure [facility] [place] Work Phone: Start: 11-08-2023 End: 11-08-2023 Bamboo flowsheet Sara K Yinka DO Work Phone: [facility] Start: 11-08-2023 End: 11-08-2023 Bamboo flowsheet Sara K Yinka DO Work Phone: [facility] Start: 11-08-2023 End: 11-08-2023 Refill Sara K Yinka DO Work Phone: [facility] Comment on above: Chronic obstructive pulmonary disease, unspecified COPD type (CMS/HCC) Start: 11-08-2023 End: 11-08-2023 Office outpatient visit 15 minutes Sara K Yinka DO Work Phone: [facility] Comment on above: Chronic obstructive pulmonary disease, unspecified COPD type (CMS/HCC) Start: 09-15-2023 Non-patient / Non-visit [facility] Family Medicine Bj Work Phone: Start: 07-05-2023 End: 07-05-2023 ambulatory Nancy Luiza Facility:[facility] Start: 06-13-2023 End: 06-13-2023 ambulatory DO Temitope Gutierrez Work Phone: [facility] Work Phone: Start: 06-13-2023 End: 06-13-2023 Departed Referred DO Temitope Gutierrez Work Phone: [facility] [place] [facility] Start: 06-13-2023 Non-patient / Non-visit DO Yohan id Girvin Work Phone: [facility] Work Phone: Start: 04-28-2023 Non-patient / Non-visit DO Yohan id Girvin Work Phone: [facility] Work Phone: Start: 04-25-2023 End: 04-25-2023 ambulatory Temitope Gutierrez Facility:[facility] Start: 04-25-2023 Non-patient / Non-visit DO Yohan id Girvin Work Phone: [facility] Work Phone: Start: 03-29-2023 End: 03-29-2023 ambulatory Temitope Gutierrez Other [employer] Other Start: 03-29-2023 Telephone encounter Temitope Gutierrez [facility] [place] Start: 03-08-2023 End: 03-08-2023 ambulatory DO Temitope Gutierrez Work Phone: [facility] Work Phone: Start: 03-08-2023 End: 03-08-2023 Departed Referred DO Temitope Gutierrez Work Phone: [facility] Start: 02-23-2023 End: 02-23-2023 ambulatory Temitope Gutierrez Other [employer] Other Start: 02-23-2023 Telephone encounter Temitope Gutierrez [facility] [place] Start: 02-01-2023 End: 02-01-2023 ambulatory Temitope Gutierrez Other [employer] Other Start: 02-01-2023 Telephone encounter Temitope Gutierrez [facility] Start: 01-31-2023 End: 01-31-2023 ambulatory Temitope Gutierrez Other [employer] Other Start: 01-31-2023 Office outpatient vi sit 25 minutes Temitope Gutierrez [facility] Start: 10-05-2022 End: 10-05-2022 ambulatory Kamal Chaban Other [employer] Other Start: 10-05-2022 Office outpatient vi sit 15 minutes Kamal Chaban [facility] Start: 08-08-2022 End: 08-08-2022 ambulatory Kamal Chaban Other [employer] Other Start: 08-08-2022 Telephone encounter Kamal Chaban [facility] Start: 06-20-2022 End: 06-20-2022 ambulatory Temitope Gutierrez Other [employer] Other Start: 06-20-2022 Telephone encounter Temitope Gutierrez [facility] [place] Start: 04-06-2022 End: 04-06-2022 ambulatory Kamal Chaban Other [employer] Other Start: 04-06-2022 Office outpatient vi sit 15 minutes Kamal Chaban [facility] Start: 03-10-2022 End: 03-10-2022 ambulatory Temitope Gutierrez Other [employer] Other Start: 03-10-2022 Telephone encounter Temitope Gutierrez [facility] Start: 01-12-2022 End: 01-12-2022 ambulatory Temitope Gutierrez Other [employer] Other Start: 01-12-2022 Telephone encounter Temitope Gutierrez [facility] Start: 12-02-2021 End: 12-02-2021 ambulatory Kamal Chaban Other [employer] Other Start: 12-02-2021 Telephone encounter Kamal Chaban [facility] Start: 09-21-2021 End: 09-21-2021 ambulatory Kamal Chaban Other [employer] Other Start: 09-21-2021 Office outpatient vi sit 15 minutes Kamal Chaban [facility] Start: 09-14-2021 End: 09-14-2021 ambulatory Temitope Gutierrez Other [employer] Other Start: 09-14-2021 Telephone encounter Temitope Gutierrez [facility] Start: 04-12-2021 End: 04-12-2021 ambulatory Temitope Gutierrez Other [employer] Other Start: 04-12-2021 Telephone encounter Temitope Gutierrez [facility] [place] Start: 03-23-2021 End: 03-23-2021 ambulatory Kamal Chaban Other [employer] Other Start: 03-23-2021 Office outpatient vi sit 15 minutes Kamal Chaban [facility] Start: 03-23-2021 Telephone encounter Kamal Chaban [facility] Start: 02-25-2021 End: 02-25-2021 ambulatory Temitope Gutierrez Other [employer] Other Start: 02-25-2021 Telephone encounter Temitope Gutierrez [facility] [place] Start: 02-24-2021 End: 02-24-[address] TEMITOPE GUTIERREZ Facility: Start: 02-23-2021 End: 02-23-2021 ambulatory Temitope Gutierrez Other [employer] Other Start: 02-23-2021 Telephone encounter Temitope Gutierrez [facility] [place] Procedures Date Procedure Procedure Detail Performing Clinician Start: 04-12-2024 Mammography Annie cisneros DPM Work Phone: Start: 01-16-2024 Radex foot complete minimum 3 views Annie Galindo DPM Work Phone: Start: 12-11-2023 Cyclic citrullinated peptide antibody TEMITOPE GUTIERREZ Comment on above: Result Comment: Interpretation-------- <3 Negative >=3 Positive Performed By: #### 8 2477-1, 1988-5, 3084-1, 85301-4, 18892-1, 39701-5 #### [facility] ([id number]) [address] [place] [address], [address] [place] [address] Start: 03-27-[address] Sara Str ack DO Work Phone: Start: 04-19-2021 Colonoscopy Sara Str ack DO Work Phone: Plan of Treatment Date Care Activity Detail Author Start: 04-19-2031 Screening for malign ant neoplasm of colon [facility] Start: 08-07-2025 End: 08-07-2025 Patient encounter procedure [facility] Start: 04-23-2025 End: 04-23-2025 Patient encounter procedure 04/23/2025 11:15 AM EST Office Visit [facility] [address] [place] [address] Sara Honeycutt, DO [address] [place], [place] [id number] [facility] Start: 04-12-2025 Screening for malign ant neoplasm of breast Mammogram [facility] Start: 11-06-2024 End: 11-06-2024 Patient encounter procedure [facility] Comment on above: Arrived Start: 10-21-2024 Influenza vaccination Influenza Vacc ine (#1) [facility] Start: 08-08-2024 End: 08-08-2025 25-hydroxyvitamin D3 [Mass/volume] in Serum or Plasma Vitamin D 25 hydroxy Total Lab Routine Hypocalcemia Vitamin D deficiency Expected: 08/08/2024 (Approximate), Expires: 08/08/2025 [facility] Work Phone: Comment on above: Expected: 08/08/2024 (Approximate), Expires: 08/08/2025 Start: 08-08-2024 End: 08-08-2025 DXA Skeletal system Views for bone density DEXA bone density Imaging Routine Age-related osteoporosis without current pathological fracture Expected: 08/08/2024, Expires: 08/08/2025 [facility] Comment on above: Expected: 08/08/2024 , Expires: 08/08/2025 Start: 08-08-2024 End: 08-08-2025 Magnesium [Mass/volume] in Serum or Plasma Magnesium Lab Routine Hypocalcemia Expected: 08/08/2024 (Approximate), Expires: 08/08/2025 [facility] Comment on above: Expected: 08/08/2024 (Approximate), Expires: 08/08/2025 Start: 08-08-2024 End: 08-08-2025 Parathyrin.intact [Mass/volume] in Serum or Plasma PTH, intact Lab Routine Hypocalcemia Expected: 08/08/2024 (Approximate), Expires: 08/08/2025 [facility] Comment on above: Expected: 08/08/2024 (Approximate), Expires: 08/08/2025 Start: 08-08-2024 End: 08-08-2025 Renal function panel Renal function panel Lab Routine Hypocalcemia Expected: 08/08/2024 (Approximate), Expires: 08/08/2025 [facility] Comment on above: Expected: 08/08/2024 (Approximate), Expires: 08/08/2025 Start: 08-08-2024 End: 08-08-2024 Patient encounter procedure [facility] Comment on above: Arrived Start: 06-27-2024 End: 06-27-2024 Patient encounter procedure 06/27/2024 4:15 PM EDT Office Visit [facility] [address] [place] [address] Annie Galindo, DPM [address] [place] [address] Arrived [facility] Comment on above: Arrived Start: 04-26-2024 End: 04-26-2024 Patient encounter procedure 04/26/2024 9:45 AM EST Office Visit [facility] [address] [place] [phone] Sara Honeycutt, DO [address] [place] [address] [facility] Start: 03-27-2024 Screening for malign ant neoplasm of breast Mammogram [facility] Start: 02-06-2024 End: 02-06-2024 Patient encounter procedure [facility] Comment on above: Arrived Start: 01-16-2024 End: 01-16-2024 Patient encounter procedure 01/16/2024 12:45 PM EST Office Visit [facility] [address] [place] [phone] Annie Galindo, DPM [address] [place] [address] [facility] Start: 12-15-2023 End: 12-15-2023 Patient encounter procedure 12/15/2023 9:30 AM EDT Office Visit [facility] [address] [place] [address] Annie Galindo, DPM [address] [place] [address] Arrived [facility] Comment on above: Arrived Start: 11-08-2023 End: 11-08-2023 Patient encounter procedure 11/08/2023 9:00 AM EDT Office Visit [facility] [address] [facility] [place] [phone] Sara Honeycutt, DO [address] [place] [address] Arrived [facility] Comment on above: Arrived Start: 1950 Screening for malign ant neoplasm of colon [facility] Adenosine monophosphate.cyclic [Moles/volume] in Serum or Plasma [facility] Calcium.ionized [Mass/volume] in Serum or Plasma by Ion-selective membrane electrode (ISE) [facility] Comprehensive metabo lic 1999 panel - Serum or Plasma [facility] Comprehensive metabo lic 1999 panel - Serum or Plasma [facility] MG Breast - bilatera l Screening [facility] Rheumatoid factor [Units/volume] in Serum or Plasma [facility] XR Foot - right GE 3 Views [facility] Immunizations Immunization Date Immunization Notes Care Provider Fa cility 11-07-2023 COVID-19 (MODERNA) 12Y and older [facility] 11-07-2023 influenza, high dose seasonal, preservative-free Sara Yinka DO Work Phone: [facility] 11-07-2023 influenza virus vacc ine, unspecified formulation Temitope Gutierrez MD Work Phone: [facility] 12-08-2022 Flu Shot - Documenta tion Purposes Only Temitope Gutierrez Other [facility] 12-08-2022 COVID-19 Moderna (SPIKEVAX) Temitope Gutierrez Other [facility] 12-08-2022 Influenza, High-dose Seasonal, Quadrivalent, Preservative Free Sara Yinka DO Work Phone: [facility] 10-08-2022 RSV, recombinant, protein subunit RSVpreF, adjuvant reconstitu, 120mcg/0.5mL, PF (Arexvy) Sara Yinka DO Work Phone: [facility] 10-06-2022 Prevnar 20 Temitope Gutierrez Other [facility] 11-25-2021 Influenza, High-dose Seasonal, Quadrivalent, Preservative Free Sara Yinka DO Work Phone: [facility] 11-25-2021 influenza, seasonal, injectable Kamal Chaban Other [facility] 11-17-2021 COVID-19 mRNA Bivale nt Booster (Moderna) Temitope Gutierrez DO Work Phone: [facility] 09-10-2021 tetanus toxoid, redu cleo diphtheria toxoid, and acellular pertussis vaccine, adsorbed Kamal Chaban Other [facility] 06-09-2021 COVID-19 Vaccine Mod nuria - Documentation Purposes Only Kamal Chaban Other [facility] 12-16-2020 COVID-19 Vaccine Mod nuria - Documentation Purposes Only Temitope Gutierrez Other [facility] 11-14-2020 Influenza, High-dose Seasonal, Quadrivalent, Preservative Free Sara Yinka DO Work Phone: [facility] 11-10-2020 influenza, seasonal, injectable Temitope Gutierrez Other [facility] 05-18-2020 COVID-19 Vaccine Mod nuria - Documentation Purposes Only Temitope Gutierrez Other [facility] 04-17-2020 COVID-19 Vaccine Mod nuria - Documentation Purposes Only Temitope Gutierrez Other [facility] 03-14-2020 zoster vaccine recombinant Temitope Gutierrez Other [facility] 01-14-2020 zoster vaccine recombinant Temitope Gutierrez Other [facility] 10-29-2019 Influenza, High-dose Seasonal, Quadrivalent, Preservative Free Sara Yinka DO Work Phone: [facility] 10-29-2019 influenza, seasonal, injectable Temitope Gutierrez Other [facility] 12-13-2018 influenza, high dose seasonal, preservative-free Sara Yinka DO Work Phone: [facility] 12-13-2018 influenza, seasonal, injectable Temitope Gutierrez Other [facility] 10-05-2017 influenza, high dose seasonal, preservative-free Sara Yinka DO Work Phone: [facility] 09-02-2017 pneumococcal polysaccharide vaccine, 23 valent Temitope Daniijuany Other [facility] 11-16-2016 influenza, seasonal, injectable Temitope Gutierrez Other [facility] 11-16-2016 influenza, high dose seasonal, preservative-free Sara Yinka DO Work Phone: [facility] 12-15-2015 influenza, injectabl e, madin heraclio canine kidney, preservative free Sara Yinka DO Work Phone: [facility] 12-06-2015 influenza, seasonal, injectable, preservative free Sara Yinka DO Work Phone: [facility] 11-24-2015 seasonal influenza, intradermal, preservative free Sara Yinka DO Work Phone: [facility] 12-06-2006 influenza virus vacc ine, whole virus Sara Yinka DO Work Phone: [facility] Payers Date Payer Category Payer Self-pay 2023 Unknown [employer] [id number] 2023-Present [address] [address] [place] [address] [id number] 2016 Private Health Insurance [id number] 2016 Unknown [id number] 2016 Medicare [id number] 1959 Medicare [id number] 1959 Unknown [id number] 1950 Unknown [id number] 2.16.840.1.821273.3.579.2.5 93 1950 Unknown [id number] 2.16.840.1.280654.3.579.2.1 286 1950 Unknown [id number] 2.16.840.1.042943.3.579.2.1 286 1951 Unknown [id number] 2.16.840.1.913798.3.579.2.1 286 1951 Unknown [id number] 2.16.840.1.052784.3.579.2.1 286 1951 Unknown [id number] 2.16.840.1.200461.3.579.2.1 286 1951 Unknown [id number] 2.16.840.1.506783.3.579.2.1 286 1951 Unknown [id number] 2.16.840.1.713651.3.579.2.1 286 1951 Unknown [id number] 2.16.840.1.896615.3.579.2.1 259 1951 Unknown [id number] 2.16.840.1.309316.3.579.2.1 259 1951 Unknown [id number] 2.16.840.1.478738.3.579.2.1 259 1951 Unknown [id number] 2.16.840.1.375519.3.579.2.1 259 1951 Unknown [id number] 2.16.840.1.445161.3.579.2.1 259 1951 Unknown [id number] 2.16.840.1.738643.3.579.2.1 259 1951 Unknown [id number] 2.16.840.1.623283.3.579.2.1 259 1951 Unknown [id number] 2.16.840.1.765375.3.579.2.1 259 1951 Unknown [id number] 2.16.840.1.325408.3.579.2.1 259 Unknown [facility] [id number] Unknown [id number] 2.16.840.1.113511.3.579.2.5 31 Unknown [id number] 2.16.840.1.752169.3.579.2.5 31 Unknown [id number] 2.16.840.1.518892.3.579.2.5 31 Unknown [id number] 2.16.840.1.920104.3.579.2.5 31 Unknown [id number] 2.16.840.1.161407.3.579.2.5 31 Unknown Regular Insurance [id number] Social History Date Type Detail Facility Start: 11-08-2023 End: 08-08-2024 Sex Assigned At [facility] [employer] Other Start: 1950 Sex Assigned At Female F [facility] Start: 01-30-2018 End: 04-25-2023 Tobacco smoking status NHIS Ex-smoker (finding) [facility] History of tobacco use Current smoker [facility] History of tobacco use Cigarette Smoker [facility] Start: 04-25-2023 Tobacco use and exposure Smokeless tobacco non-user [facility] Start: 11-08-2023 End: 11-06-2024 Alcoholic beverage intake Defer [facility] Start: 11-08-2023 End: 08-08-2024 History of Social function [facility] Start: 1950 Sex assigned at Not on file N [facility] Start: 02-29-2024 End: 05-13-2024 Sex Female (finding) [facility] Clinical Notes 02-23-2021 to 11-06-2024 Sara Honeycutt DO - 11/06/2024 9:45 AM Jus Juarez MD - 08/08/2024 9:00 AM CALVIN OwensM - 06/27/2024 4:15 PM EDTTelephone Encounter - Genie Casarez - 03/13/2024 1:01 PM EST Note Date & Type Note Facility 11-06-2024 History of Presen t illness Narrative Images from the original note were not included. Taylor De Jesus presents today for follow up on COPD. She was last seen 6 months ago. She states her breathing has been fairly stable. She did have 1 flare-up in the beginning of October. She did receive a course of antibiotics by her primary care provider. She did not require any steroids at that time. She does continue with Breo once daily and albuterol as needed. She states she does not use albuterol very much at all. She denies any current complaints of increasing shortness of breath at rest or with exertion. She denies any chest pain, palpitations, fevers, chills, sweats, or recent unintentional weight changes. She denies any other complaints at this time. Allergies: Allergies Allergen Reactions Penicillins Shortness of breath and Swelling As child, then as adult difficult to breath Zoledronic Acid Other Took calcium out of blood, needed hospitalized Other Reaction(s): hypocalcemia Mannitol Other Reaction(s): hypocalcemia Water, Sterile Other Reaction(s): hypocalcemia Horse Epithelium Allergy Skin Test Unknown Medications: Current Outpatient Medications: albuterol HFA 90 mcg/act inhaler, Inhale 2 puffs every 4 (four) hours if needed for wheezing or shortness of breath, Disp: 18 g, Rfl: 5 Breo Ellipta 100-25 MCG/ACT aerosol powder , Inhale 1 puff Daily, Disp: 60 each, Rfl: 5 cholecalciferol (Vitamin D-3) 1.25 MG (00350 UT) capsule, Take 50,000 Units by mouth 1 (one) time per week, Disp: , Rfl: cholecalciferol (Vitamin D-3) 250 MCG (46963 UT) tablet, Take 1 tablet by mouth in the morning., Disp: , Rfl: Cyanocobalamin (Vitamin B-12) 5000 MCG tablet dispersible, Take 1 tablet by mouth 1 (one) time each day (Patient taking differently: Take 1 tablet by mouth every 14 (fourteen) days), Disp: , Rfl: ferrous sulfate 325 (65 [...] , Rfl: Multiple Vitamins-Minerals (Centrum Adults) tablet, , Disp: , Rfl: potassium chloride ER (Micro-K) 10 MEQ ER capsule, Take 20 mEq by mouth in the morning and 20 mEq before bedtime., Disp: , Rfl: Past Medical History: Past Medical History: Diagnosis Date Asthma ([facility]) Atrophy of left hand muscles 04/27/2023 Bone spur Carpal tunnel syndrome of left wrist 04/27/2023 Chest discomfort 02/22/2022 COPD (chronic obstructive pulmonary disease) ([facility]) Glenohumeral arthritis, right 04/27/2023 History of hernia repair Hyperparathyroidism ([facility]) Hypocalcemia Kidney stones NSVT (nonsustained ventricular tachycardia) ([facility]) 02/22/2022 Osteoporosis Palpitations 02/22/2022 Vitamin D deficiency Social History: Social History Tobacco Use Smoking status: Former Types: Cigarettes Smokeless tobacco: Never Substance Use Topics Alcohol use: Defer Vitals: Pulse 83 Ht 5' 2.75 Wt 119 lb SpO2 99% BMI 21.25 kg/m Exam: Heart: regular rate Lungs: clear to auscultation bilaterally, no wheezes/rales/rhonchi, no resp distress Extremities: no edema noted, no visible rashes Neuro: alert, oriented x3 Imaging Reviewed: None Assessment/Plan: Diagnoses and all orders for this visit: Chronic obstructive pulmonary disease, unspecified COPD type (HCC) COPD -- at this time her breathing is well controlled with use of Breo once daily. She does continue with albuterol on an as needed basis as well. She will continue with her current regimen given that she does have good control her breathing. She will follow here in 6 months time unless needed before then. She denies any refills at this time. Follow up in about 6 months (around 05/06/2025) for COPD. Sara Honeycutt DO documented in this encounter [facility] 08-08-2024 History of Presen t illness Narrative Taylor De Jesus is a 74 y.o. female No ref. provider found presents with chief complaint of Thyroid Problem HPI: Interim history: 07/2024 Follow-up visit 08/08/2024 for lab. calcium 8.4(8.5-10.2), GFR >60. She is still on the same medication - vitamin D 50,000 three times a week, vitamin D 10,000 daily, calcium three tablets daily through multivitamin, total 766X3 mg daily. had low platelets and following oncologist. Interim history: 07/2023 Follow-up visit 08/10/2023 for lab. calcium 8.2(8.5-10.2), vitamin D 59, PTH 115 (12-88), GFR >60. She is still on the same medication - vitamin D 50,000 three times a week, vitamin D 10,000 daily, calcium three tablets daily through multivitamin, total 766X3 mg daily. had low platelets and following oncologist. Interim history: 07/2022 Follow-up visit 08/11/2022 for lab. calcium 8.2(8.5-10.2), vitamin D 44, PTH 183 (12-88), GFR >60. She is still on the same medication - vitamin D 50,000 three times a week, vitamin D 10,000 daily, calcium three tablets daily through multivitamin, total 766X3 mg daily. had bruise on her face due to fall with nose fracture. Interim history: 07/2021 Follow-up visit 08/03/2021 for lab. calcium 8.3(8.5-10.2), vitamin D She is still on the same medication - vitamin D 50,000 three times a week, vitamin D 10,000 daily, calcium three tablets daily through multivitamin, total 766X3 mg daily. Interim history: 07/2019 Follow-up visit 07/30/2019 for lab. PTH 167 (12-88), BUN 61, creatinine 0.8, calcium 8.2 (8.5-10.2), vitamin D 28. She is still on the same medication - vitamin D 50,000 three times a week, vitamin D 10,000 daily, calcium three tablets daily through multivitamin, total 900 mg daily. In 11/2017, she had kidney stone so she is on lemon juice per her urologist Interim history: 06/2018 Follow-up visit 06/20/18 for lab. PTH 175 (12-88), BUN 21, creatinine 0.7, calcium 8.2 (8.5-10.2), vitamin D 24. She is still on the same medication - vitamin D 50,000 three times a week, vitamin D 10,000 daily, calcium three tablets daily through multivitamin, total 900 mg daily. In 11/2017, she had kidney stone so I am not going to increase her dose more. HPI: 06/07 Follow up patient for hypocalcemia. She is on vitamin D 50,000 three times a week, plus 1,000 units daily. Calcium 625 three tablets daily. Multivitamin. Lab done in calcium 8.5, vitamin D 25, PTH 162 always high and back in 152. She has history of gastric bypass and she doing well about her medication been following care for almost five years. SUBJECTIVE: MEDICATIONS: Current Outpatient Medications Medication Instructions albuterol HFA 90 mcg/act inhaler 2 puffs, Inhalation, Every 4 hours PRN Breo Ellipta 100-25 MCG/ACT aerosol powder 1 puff, Inhalation, Daily cholecalciferol (Vitamin D-3) 250 MCG (84114 UT) tablet 1 tablet, Daily RT cholecalciferol (VITAMIN D-3) 50,000 Units, Weekly Cyanocobalamin (Vitamin B-12) 5000 MCG tablet dispersible 1 tablet, Daily ferrous sulfate 325 (65 Fe) MG tablet Every 24 hours ipratropium-albuterol (Duo-Neb) 0.5-2.5 mg/3 mL nebulizer solution loratadine (Claritin) 10 MG tablet Every 24 hours Multiple Vitamins-Minerals (Centrum Adults) tablet potassium chloride ER (Micro-K) 10 MEQ ER capsule 20 mEq, 2 times daily ALLERGIES: Allergies Allergen Reactions Penicillins Shortness of breath and Swelling As child, then as adult difficult to breath Zoledronic Acid Other Took calcium out of blood, needed hospitalized Other Reaction(s): hypocalcemia Mannitol Other Reaction(s): hypocalcemia Water, Sterile Other Reaction(s): hypocalcemia Horse Epithelium Allergy Skin Test Unknown Past Medical History: Diagnosis Date Asthma ([facility]) Atrophy of left hand muscles 04/27/2023 Bone spur Carpal tunnel syndrome of left wrist 04/27/2023 Chest discomfort 02/22/2022 COPD (chronic obstructive pulmonary disease) ([facility]) Glenohumeral arthritis, right 04/27/2023 History of hernia repair Hyperparathyroidism ([facility]) Hypocalcemia Kidney stones NSVT (nonsustained ventricular tachycardia) ([facility]) 02/22/2022 Osteoporosis Palpitations 02/22/2022 Vitamin D deficiency Past Surgical History: Procedure Laterality Date GASTRIC BYPASS 2003 HERNIA REPAIR 2004 INTRAOCULAR LENS INSERTION Bilateral IR NEPHROSTOMY PLACEMENT 12/14/2017 IR NEPHROSTOMY PLACEMENT 12/14/2017 OTHER SURGICAL HISTORY Left cyst excised LLE TUBAL LIGATION WRIST FRACTURE SURGERY 07/14/2020 W/ CR - DR BRADSHAW REVIEW OF SYMPTOMS: 14 POINT OF SYSTEM REVIEWED AND NEGATIVE OBJECTIVE: Visit Vitals Pulse 72 Resp 16 Ht 5' 1 Wt 116 lb SpO2 99% BMI 21.92 kg/m Smoking Status Former BSA 1.5 m Physical Exam Constitutional: Appearance: Normal appearance. She is normal weight. HENT: Head: Normocephalic and atraumatic. Right Ear: External ear normal. Nose: Nose normal. Mouth/Throat: Pharynx: Oropharynx is clear. Eyes: Extraocular Movements: Extraocular movements intact. Pupils: Pupils are equal, round, and reactive to light. Cardiovascular: Rate and Rhythm: Normal rate and regular rhythm. Pulmonary: Effort: Pulmonary effort is normal. Abdominal: General: Abdomen is flat. Palpations: Abdomen is soft. Musculoskeletal: General: Normal range of motion. Skin: General: Skin is warm. Neurological: General: No focal deficit present. Mental Status: She is alert. Psychiatric: Mood and Affect: Mood normal. Behavior: Behavior normal. ASSESSMENT AND PLAN: Assessment/Plan Diagnoses and all orders for this visit: Hypocalcemia - Vitamin D 25 hydroxy Total; Future - Renal function panel; Future - Magnesium; Future - PTH, intact; Future We will continue his calcium 3 tablets daily H/O gastric bypass Vitamin D deficiency - Vitamin D 25 hydroxy Total; Future Continue vitamin-D 25529 units 3 times a week +10 1000 units daily Age-related osteoporosis without current pathological fracture - DEXA bone density; Future We will check DEXA scan before next visit, she has side effects of Reclast to do hypercalcemia. Tertiary hyperparathyroidism (HCC) Follow up in about 1 year (around 08/08/2025). documented in this encounter [facility] 06-27-2024 History of Presen t illness Narrative [...] Rfl: 5 cholecalciferol (Vitamin D-3) 250 MCG (61189 UT) tablet, Take 1 tablet by mouth [...] time. Comments: Light touch sensation intact RADIOGRAPHS [facility] 06/25/24: diffuse osteopenia noted. No fractures noted, specifically to 1st and 2nd digits. Small accessory ossicle at cuboid groove. Mild degenerative changes at navicular cuneiform joint. Small calcaneal osteophyte plantarly. Assessment/Plan ICD-10-CM 1. Injury of right great toe, initial encounter S99.921A 2. Pain in right toe(s) M79.674 Patient examined and evaluated. I reviewed radiographs from [facility]. No fractures noted. Patient is doing fairly [...] Annie Galindo DPM documented in this encounter [facility] 03-13-2024 Telephone encount er Note Patient needs to have the name brand Breo Ellipta her insurance will not cover the generic. She has 5 days left and needs at least 2 refills, sent in to [facility] 03-13-2024 Miscellaneous Notes Formattin g of this note might be different from the original. Patient needs to have the name brand Breo Ellipta her insurance will not cover the generic. She has 5 days left and needs at least 2 refills, sent in to [facility] Erx sent Pt moved to [facility] in [place] needs new rx documented in this encounter [facility] 03-12-2024 Telephone encount er Note Erx sent [facility] 03-11-2024 Telephone encount er Note Pt moved to [facility] in [place] needs new rx [facility] 02-29-2024 Evaluation note Authored February 29, 2024 3: 06pm I performed the above HPI, R OS, and Examination. I formulated and dictated the treatment plan and was present for entire encounter. Temitope Gutierrez D.O. [facility] Work Phone: 1(322) 173-303012-17-2024 History of Present illness Narrative* Annie Galindo DPM - 02/06/2024 1:00 PM EST Subjective [...] , Rfl: cholecalciferol (Vitamin D-3) 250 MCG (30962 UT) tablet, Take 1 tablet by mouth [...] navicular cuneiform joint and talar neck. MRI [facility] 12/11/2023: Complete intra-articular fracture of the distal [...] understanding. Annie Galindo DPM documented in this encounterEl[facility] [id number] History of Present illness Narrative* Annie Galindo [...] , Rfl: cholecalciferol (Vitamin D-3) 250 MCG (72716 UT) tablet, Take 1 tablet by mouth [...] Laterality Date GASTRIC BYPASS 2003 HERNIA REPAIR 2003 INTRAOCULAR LENS INSERTION Bilateral IR NEPHROSTOMY PLACEMENT [...] understanding. Annie Galindo DPM documented in this encounterEl[facility] [id number] History of Present illness Narrative* Annie Galindo DPM - 12/15/2023 9:30 AM EDT Images [...] who ordered radiographs which were done per [facility] on 12/02/2023 the radiographs initially showed no [...] , Rfl: cholecalciferol (Vitamin D-3) 250 MCG (37021 UT) tablet, Take 1 tablet by mouth [...] navicular cuneiform joint and talar neck. MRI H 12/11/2023: Complete intra-articular fracture of the distal [...] understanding. Annie Galindo DPM documented in this encounterEllett [facility] [id number] Evaluation note* Author Temitope Gutierrez [facility] Authored December 07, 2023 1 0:29am The above note written by __ _Rosita Ross____ acting as human recorder, note dictated by Dr. Lopez .I performed the above HPI, ROS, and Examination. I formulated and dictated the treatment plan and was present for entire encounter. Temitope Gutierrez D.O. [facility] Work Phone: 1(490) 354-215610-17-2024 Evaluation note* Author Temitope Gutierrez [facility] Authored December 07, 2023 9 :29am The above note written by __ _Rosita Ross____ acting as human recorder, note dictated by Dr. Lopez .I performed the above HPI, ROS, and Examination. I formulated and dictated the treatment plan and was present for entire encounter. Temitope Gutierrez D.O. [facility] Work Phone: 1(498) 262-414609-18-2024 Telephone encounter Note* Telephone Encounter - Praneeth Lee - 11/08/2023 3:41 PM EDT Taylor called - Medication has to be name brand - Insurance will not cover generic . Mundo Cruz [facility] [id number] Miscellaneous Notes* Telephone Encounter - Praneeth Lee - 11/08/2023 3:41 PM EDT Taylor called - Medication has to be name brand - Insurance will not cover generic . Mundo Cruz documented in this encounterEllett Memorial [id number] History of Present illness Narrative* Sara Honeycutt, DO - 11/08/2023 9:00 AM EDT Images from [...] , Rfl: cholecalciferol (Vitamin D-3) 250 MCG (59445 UT) tablet, Take 1 tablet by mouth [...] discomfort 02/22/2022 COPD (chronic obstructive pulmonary disease) ([facility]) Glenohumeral arthritis, right 04/27/2023 Kidney stones NSVT (nonsustained ventricular tachycardia) ([facility]) 02/22/2022 Osteoporosis ([facility]) Palpitations 02/22/2022 Social History: Social History Tobacco [...] Chronic obstructive pulmonary disease, unspecified COPD type ([facility]) - Fluticasone Furoate-Vilanterol (Breo Ellipta) 100-25 MCG/ACT [...] COPD. Sara Honeycutt DO documented in this encounterEllett [facility] [id number] Evaluation note* Encounter Date Diagnosis Assessment Notes Treatment Notes Treatment Clinical Notes Mar, Fever (ICD-10 - R50.9) [facility] Other 01-04-2024 Evaluation note* Encounter Date Diagnosis Assessment Notes Treatment Notes Treatment Clinical Notes Feb, Breast cancer screening (ICD-10 - Z12.31) [facility] Other 12-12-2023 Evaluation note* Encounter Date Diagnosis [...] I would like her to have the electromechanical assembly technician evaluate her neck when seen. On exam [...] to switch to Dr. Honeycutt in the [place] office. A referral is provided. Jan, Vitamin D deficiency (ICD-10 - E55.9) Continue with above medications daily as directed. Jan, Hyperparathyroidism , secondary, non-renal (ICD-10 - E21.1) She saw Dr. Juarez in July (2022) and will continue to follow with him once a year. Jan, Weight loss (ICD-10 - R63.4) She has lost 4.5 pounds since last seen. Jan, [facility] use of jenaro g (ICD-10 - Z79.899) [...] order to be done in 1 year [facility] Other 08-16-2023 Evaluation note* Encounter Date Diagnosis [...] to chest, subsequent encounter (ICD-10 - S29.8XXD) [facility] Other 02-15-2023 Evaluation note* Encounter Date Diagnosis [...] me, otherwise we will continue to follow [facility] Other 01-19-2023 Evaluation note* Encounter Date Diagnosis Assessment Notes Treatment Notes Treatment Clinical Notes Feb, Fever (ICD-10 - R50.9) [facility] Other 10-13-2022 Evaluation note* Encounter Date Diagnosis Assessment Notes Treatment Notes Treatment Clinical Notes Nov, Chronic obstructive pulmonary disease (ICD-10 - J44.9) [facility] Other 08-02-2022 Evaluation note* Encounter Date Diagnosis Assessment Notes Treatment Notes Treatment Clinical Notes Sep, Chronic obstructive pulmonary disease (ICD-10 - J44.9) Patient remains adequately controlled with current treatment, states that she has 1 more refill left on her inhalers and will call when she needs more ordered. [facility] Other 02-21-2022 Evaluation note* Encounter Date Diagnosis Assessment Notes Treatment Notes Treatment Clinical Notes Mar, Hypokalemia (ICD-10 - E87.6) [facility] Other 02-01-2022 Evaluation note* Encounter Date Diagnosis Assessment Notes Treatment Notes Treatment Clinical Notes Mar, Chronic obstructive pulmonary disease (ICD-10 - J44.9) [facility] Other 01-04-2022 Evaluation note* Encounter Date Diagnosis [...] she be tested for COVID-19 at the [facility] on Mon02/24/21. She should have the results prior to the weekend. Feb, Rhinorrhea (ICD-10 - J34.89) Feb, Pharyngitis (ICD-10 - J02.9) Feb, Other 10:26 AM - 10:38 AM [facility] Other Evaluation noteNo InformationNort [employer] Other Evaluation noteNo assessment information available [facility] Work Phone: Evaluation note* Diagnosis Onset Date Resolution Status Toe pain, right acute Weight loss acute [facility] Work Phone: Evaluation note* Diagnosis Onset Date Resolution Status Toe pain, right acute Weight loss acute Osteoporosis acute Toe pain, right acute [facility] Work Phone: Evaluation note* Diagnosis Closed non-physeal [...] right toe(s) [facility] Diagnosis Hypocalcemia- Primary H/O gastric bypass Vitamin D deficiency Age-related osteoporosis without current pathological fracture Tertiary hyperparathyroidism (HCC) Other hyperparathyroidism [facility]* Diagnosis Onset Date Resolution Status Admit Date COPD (chronic obstructive pulmonary disease) acute August 29 8:55am Hyperparathyroidism, secondary acute August 29, 2024 8:55am Hypocalcemia acute August 29 8:55am Iron deficiency anemia acute 2024 8:55am Leukopenia acute August 29 8:55am Osteoporosis acute August 29 8:55am Thrombocytopenia acute August 8:55am Vitamin D deficiency acute August 29, 2024 8:55am Weight loss acute August 29 8:55am [facility] Work Phone: Evaluation note* Diagnosis Chronic obstructive pulmonary disease, unspecified COPD type (HCC) [facility]* Author Temitope Gutierrez [facility] Authored October 22, 2024 1:43pm The above note written by __ _Rosita Ross____ acting as human recorder, note dictated by Dr. Lopez .I performed the above HPI, ROS, and Examination. I formulated and dictated the treatment plan and was present for entire encounter. Temitope Gutierrez D.O. Author Temitope Gutierrez [facility] Authored August 29, 2024 10:0 1am The above note written by __ _Rosita Ross____ acting as human recorder, note dictated by Dr. Lopez .I performed the above HPI, ROS, and Examination. I formulated and dictated the treatment plan and was present for entire encounter. Temitope Gutierrez D.O. 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 Surgical History cortisone inj rt shoulder - [facility] 01/19/16 Surgical History left knee xr [facility] 01/17/17 Surgical History rt cheek ct [facility] 01/17/[address] kidney stones [address] Ham 8 Hospitalization History hyperkalemia 2009 Hospitalization History UC for URI 12/12/19 15 Hospitalization History [facility] - COPD - ED 04/29/15 [facility] Other History general Narrative - Reported* Type [...] 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 Surgical History cortisone inj rt shoulder - [facility] 01/19/16 Surgical History left knee xr [facility] 01/17/17 Surgical History rt cheek [facility] 01/17/[address] kidney stones [address] Ham Hospitalization History hyperkalemia 2009 Hospitalization History UC for URI 12/12/19 15 Hospitalization History [facility] - COPD - ED 04/29/15 [facility] Other Reason for referral (narrative)No reason for referral information availableThe [facility] Work Phone: Reason for visit Narrativeyearly visit/ review lab, discuss multiple issues, see treatment plan for further informationNoReading Hospital [employer] Other Summary Purpose Family History No Family [...] pulmonary disease (J44.9) Referral Organization [facility] Referring Provider First Name Temitope Referring Provider Last Name Brenda Referring Provider Specialty Family Prac bi Referred Organization [facility] Referred Provider Sara Honeycutt Referred Address ,[place], [place],[address] Referred Provider Specialty Pulmonary Di seases Referral [...] Diagnosis 1 Thrombocytopenia (D6 9.6) Referral Organization [facility] Referring Provider First Name Temitope Referring Provider Last Name Brenda Referring Provider Specialty [facility] Referred Organization [facility] Referred Provider NANCY JARRETT Referred Address [address], [place],[address] Referred Provider Specialty Hematology/O ncology Referral Priority Routine General Notes Lara Hampton 01/31/2023 10:25:37 AM > referral faxed to [phone] with visit note, lab results and insurance cards. pt understands she will be contacted to schedule this appt. Chief Complaint and Reason for Visit Chief Complaint Admit Date f/u labs August 29, 2024 8:55 am telephone/chest congestion October 1:37pm Reason for Visit Admit Date COPD (chronic obstructive pulmonary dise ase) August 29, 2024 8:55am Hyperparathyroidism, secondary August 8:55am Hypocalcemia August 29, 2024 8:55 am Iron deficiency anemia August 29, 2024 8 :55am Leukopenia August 29, 2024 8:55 am Osteoporosis August 29, 2024 8:55 am Thrombocytopenia August 29, 2024 8:55 am Vitamin D deficiency August 29, 2024 8:5 5am Weight loss August 29, 2024 8:55 am Acute cough October 22, 2024 1:37pm Fever October 22, 2024 1:37pm Chief Complaint Admit Date Amb Documentation June 26, 2024 2:07pm f/u labs August 29, 2024 8:55 am Reason for Visit Admit Date COPD (chronic obstructive pulmonary dise ase) August 29, 2024 8:55am Hyperparathyroidism, secondary August 8:55am Hypocalcemia August 29, 2024 8:55 am Iron deficiency anemia August 29, 2024 8 :55am Leukopenia August 29, 2024 8:55 am Osteoporosis August 29, 2024 8:55 am Thrombocytopenia August 29, 2024 8:55 am Vitamin D deficiency August 29, 2024 8:5 5am Weight loss August 29, 2024 8:55 am Chief Complaint Admit Date review labs February 29, 2024 12 :11pm telephone/productive cough May 13, 2 025 2:22pm Reason for Visit Admit Date Hypocalcemia February 29, 2024 12 :11pm Osteoporosis February 29, 2024 12 :11pm Thrombocytopenia February 29, 2024 12 :11pm Other senior care (current) drug therapy J anuary 2024 12:11pm [...] right December 07, 2023 9 :34am Other senior care (current) drug therapy J anuary 2024 12:11pm [...] and content) DATE CREATED AUTHOR 03/01/2021 [facility] DATE CREATED AUTHOR AUTHOR'S ORGANIZ ATION 02/03/2024 [facility] DATE CREATED AUTHOR AUTHOR'S ORGANIZ ATION 08/02/2024 [facility] DATE CREATED AUTHOR AUTHOR'S ORGANIZ ATION 11/07/2024 [facility] EPIC REASON FOR VISIT (unrecogniz [...] evening, the top part of the paper marekedder fell on top of the foot, bleeding and bruising. She went to the ER, xrays were done and did not show any fractures. Discomfort now. SS: 9W Reason Comments Thyroid Problem Reason Comments COPD 6 month follow up Care Teams (unrecognized sec tion and content) Team Status: Active Member Role Status Rosie Gutierrez DO Primary Care Provider Active Team Status: Inactive Member Role Status Rosie Gutierrez DO Primary Care Provider Active S tart: August 29, 2024 End: August 29, 2024 Temitope Gutierrez DO Attending Provider Active Star t: August 29, 2024 End: August 29, 2024 Team Status: Inactive Member Role Status Rosie Gutierrez DO Primary Care Provider Active S tart: October 22, 2024 End: October 22, 2024 Temitope Gutierrez DO Attending Provider Active Star t: October 22, 2024 End: October 22, 2024 Team Status: Active Member Role Status Rosie Gutierrez DO Primary Care Provider Active S tart: June 25, 2024 Nancy Jarrett MD Attending Provider Active St art: June 25, 2024 Team Status: Active Member Role Status Rosie Gutierrez DO Primary Care Provider Active S tart: June 26, 2024 PEDRO Mcintyre Attending Provider Active S tart: June 26, 2024 Team Status: Inactive Member Role Status Rosie Gutierrez DO Primary Care Provide r, Attending Provider Active Start: November 28, 2023 End: November 28, 2023 Team Status: Inactive Member Role Status Rosie Gutierrez DO Primary Care Provide r, Attending Provider Active Start: December 07, 2023 End: December 07, 2023 Team Status: Inactive Member Role Status Dates Temitope Gutierrez , DO Primary Care Provider Active S tart: December 19, 2023 End: December 19, 2023 Nancy Jarrett MD Attending Provider Active St art: December 19, 2023 End: December 19, 2023 Team Status: Active Member Role Status Dates Temitope Gutierrez , DO Primary Care Provider Active S tart: [...] Status: Inactive Member Role Status Rosie Gutierrez , DO Primary Care Provider Active S tart: June 13, 2023 End: June 13, 2023 Nancy Jarrett MD Attending Provider Active St art: June 13, 2023 End: June 13, 2023 Team Status: Inactive Member Role Status Rosie Gutierrez DO Primary Care Provider Active S tart: March 08, 2023 End: March 08, 2023 Nancy Jarrett MD Attending Provider Active St art: March 08, 2023 End: March 08, 2023 Team Status: Active Member Role Status Rosie Gutierrez DO Primary Care Provider Active S tart: September 15, 2023 PEDRO Mcintyre Attending Provider Active S tart: September 15, 2023 [employer] Relationship Specialty Start Date End Date Temitope Gutierrez MD [address] [place] [address] PCP - General Family Medicine 04/28/23 [employer]ice Relationship Specialty Start Date End Date Temitope Gutierrez MD [address] [place] [address] PCP - General Family Medicine 04/28/23 Station [employer]ice Relationship Specialty Start Date End Date Temitope Gutierrez MD [address] [place] [address] PCP - General Family Medicine 04/28/23 Station Mechanic App[employer]ice Relationship Specialty Start Date End Date Temitope Gutierrez MD [address] [place] [address] PCP - General Family Medicine 04/28/23 Station [employer]ic App[employer]ice Relationship Specialty Start Date End Date Temitope Gutierrez MD [address] [place] [address] PCP - General Family Medicine 04/28/23 Station [employer]ice Relationship Specialty Start Date End Date Temitope Gutierrez MD [address] [place] [address] PCP - General Family Medicine 04/28/23 Team Status: Inactive Member Role Status Dates Temitope Gutierrez DO Primary Care Provide r, Attending Provider Active Start: February 29, 2024 End: February 29, 2024 Station [employer]ice Relationship Specialty Start Date End Date Temitope Gutierrez MD [address] [place] [address] PCP - General Family Medicine 04/28/23 Station [employer]ice Relationship Specialty Start Date End Date Temitope Gutierrez MD [address] [place] [address] PCP - General Family Medicine 04/28/23 Team Status: Inactive Member Role Status Dates Temitope Gutierrez DO Primary Care Provide r, Attending Provider Active Start: May 13, 2024 End: May 13, 2024 Station [employer]ice Relationship Specialty Start Date End Date Temitope Gutierrez MD [address] [place] [address] PCP - General Family Medicine 04/28/23 Station Mechanic App[employer]ice Relationship Specialty Start Date End Date Temitope Gutierrez MD [address] [place] [address] PCP - General Family Medicine 04/28/23 Station Mechanic App[employer]ice Relationship Specialty Start Date End Date Temitope Gutierrez MD [address] [place] [address] PCP - General [facility] Medicine 04/28/23 Station Mechanic App[employer]ice Relationship Specialty Start Date End Date Temitope Gutierrez MD [address] [place] [address] PCP - [facility] 04/28/23 Station [employer]ic App[employer]ice Relationship Specialty Start Date End Date Temitope Gutierrez MD [address] [place] [address] PCP - General [facility] Medicine 04/28/23 Station Mechanic App[employer]ice Relationship Specialty Start Date End Date Temitope Gutierrez MD [address] [place] [address] PCP - General Family Medicine 04/28/23 Goals [...] BE BASED ON THE PRIMARY CLINICAL RECORDS. [email or web address] provides no warranty or guarantee of the accuracy or completeness of information in this document.
[2024-11-28 09:53] LABS: Alanine Aminotransferase 29 U/L (14-59); Albumin Globulin Ratio 1.1; Albumin Level 3.6 g/dL (3.4-5.0); Alkaline Phosphatase 112 U/L (46-116); Anion Gap 12.6; Aspartate Amino Transferase 23 U/L (15-37); Blood Urea Nitrogen 18.0 mg/dL (7.0-18.0); Calcium 8.4 mg/dL (8.5-10.1); Carbon Dioxide 25.5 mmol/L (21.0-32.0); Chloride 110 mmol/L (98-107); Estimated GFR (African America >60 (>=60 mL/min/1.73m^2); Estimated GFR (Non-African Ame >60 (>=60 mL/min/1.73m^2); Globulin 3.3 g/dL; Glucose 82 mg/dL (74-106); Potassium 4.1 mmol/L (3.5-5.1); Sodium 144 mmol/L (136-145); Total Protein 6.9 g/dL (6.4-8.2)
[2024-11-28 10:18] LABS: Hematocrit 36.2 % (36.0-48.0); Hemoglobin 11.5 g/dL (12.0-16.0); Immature Granulocytes Abs Auto 0.00 10^3/uL (0.00-0.03); Immature Granulocytes Pct Auto 0.0 % (0.0-0.5); Lymphocytes Absolute Auto 1.3 10^3/uL (1.2-3.8); Mean Corpuscular HGB Conc 31.8 g/dL (29.9-35.2); Mean Corpuscular Hemoglobin 29.5 pg (26.7-34.0); Mean Corpuscular Volume 92.8 fL (81.0-99.0); Platelet Count 114 10^3/uL (150-450); Red Blood Count 3.90 10^6/uL (4.20-5.40); White Blood Count 3.4 10^3/uL (4.0-11.0)
[2024-11-28 10:20] LABS: Reticulocyte Pct Auto 1.31 % (0.60-3.10)
[2024-11-28 10:21] LABS: Iron 91.0 ug/dL (50.0-170.0); Percent Iron Saturation 32.0 %; Total Iron Binding Capacity 284.0 ug/dL (250.0-450.0)
[2024-11-28 11:14] LABS: Ferritin 246.0 ng/mL (8.0-252.0)
[2024-11-29 04:07] LABS: Vitamin B12 1063 pg/mL (232-1245)
== END 2024-11-28 08:48 | disposition home or self-care (01) ==
PROVIDERS: PCP Family Medicine; Visit Provider Internal Medicine Hematology & Oncology
DX: D72.819 Decreased white blood cell count, unspecified (principal); D51.9 Vitamin B12 deficiency anemia, unspecified; D50.9 Iron deficiency anemia, unspecified; D69.6 Thrombocytopenia, unspecified; K90.9 Intestinal malabsorption, unspecified; D64.9 Anemia, unspecified
CPT/HCPCS: 36415; 80053; 82306; 82607; 82728; 83540; 83550; 83615; 85025; 85045

== ENCOUNTER 2024-12-10 10:25 | Outpatient (RCR) | payer MEDICARE, OTHER, SELFPAY | END 2024-12-20 23:59 | disposition home or self-care (01) | LOC: HEMC 10:25 | PROVIDERS: PCP Family Medicine; Visit Provider Internal Medicine Hematology & Oncology | DX: D69.6 Thrombocytopenia, unspecified (principal); E53.8 Deficiency of other specified B group vitamins; Z87.891 Personal history of nicotine dependence; Z98.84 Bariatric surgery status; J44.9 Chronic obstructive pulmonary disease, unspecified; M81.0 Age-related osteoporosis without current pathological fracture; D64.9 Anemia, unspecified; N28.9 Disorder of kidney and ureter, unspecified | CPT/HCPCS: G0463 ==